=== PATIENT | female | born 1960 | race American Indian/Alaskan Native ===

== ENCOUNTER 2017-04-15 07:26 | Emergency (ER) | payer MEDICARE ==
[2017-04-15 07:34] VITALS: BP 106/56
[2017-04-15 08:15] LABS: Anion Gap 17 mmol/L; BUN/Creatinine Ratio 13.33; Blood Urea Nitrogen 8 mg/dL (7-17); Carbon Dioxide 23 mmol/L (22-30); Chloride 102.5 mmol/L (98-107); Glucose 122 mg/dL (65-100); Potassium 3.8 mmol/L (3.6-5.0); Sodium 139 mmol/L (137-145)
[2017-04-15 08:20] LABS: Mean Corpuscular HGB Conc 28 % (30-34); Platelet Count 682 K/mm3 (140-440); Red Blood Count 3.29 M/mm3 (3.65-5.03); White Blood Count 8.6 K/mm3 (4.5-11.0)
[2017-04-15 08:25] LABS: Hematocrit 22.2 % (30.3-42.9); Hemoglobin 6.1 gm/dl (10.1-14.3)
[2017-04-15 08:26] LABS: Mean Corpuscular Hemoglobin 19 pg (28-32); Mean Corpuscular Volume 67 fl (79-97); Red Cell Distribution Width 30.1 % (13.2-15.2)
[2017-04-15 08:51] LABS: Bacteria,Urine 1+ /HPF (Negative); Bilirubin,Urine NEG (Negative); Blood,Urine LG (Negative); Ketones,Urine NEG (Negative); Leukocyte Esterase,Urine TR (Negative); Mucus,Urine FEW /HPF; Nitrite,Urine NEG (Negative); RBC,Urine > 182.0 /HPF (0.0-6.0); Urobilinogen,Urine < 2.0 mg/dL (<2.0)
[2017-04-15 09:22] LABS: Anisocytosis 3+; Blastocytes % (Manual) 0 %; Hypochromasia 2+; Microcytosis 1+; Polychromasia Few
[2017-04-15 09:23] LABS: Diff Status Complete; Platelet Estimate Appears Increased
== END 2017-04-15 09:25 | disposition left against medical advice (07) ==
LOC: ED 07:26
DX: R11.0 Nausea (principal); R19.7 Diarrhea, unspecified; Z88.6 Allergy status to analgesic agent; Z88.5 Allergy status to narcotic agent; Z53.21 Procedure and treatment not carried out due to patient leaving prior to being seen by health care provider
CPT/HCPCS: 36415; 80048; 81001; 84703; 85007; 85025

== ENCOUNTER 2017-05-13 17:03 | Emergency (ER) | payer MEDICARE ==
[2017-05-13 17:28] VITALS: BP 106/84
--- NOTE | 2017-05-13 18:54 | Emergency Department Report ---
Chief Complaint: Fall Stated Complaint: BACK PAIN /FELL DOWN STAIRS Time Seen by Provider: 05/13/17 18:42 - HPI History of Present Illness: PT states she was walking down her stairs and she missed the last three steps. PT reports neck, back and R arm pain PT states she has a question about her Iron pills and pulls out a bottle of Colace. PT aware that Colace is not an Iron supplement but usually taken to offset the constipation side effect of Iron. - ROS Review of Systems: + neck pain + back pain + arm pain - loc + dizziness x 5 minutes after fall + vaginal bleed, pt reports heavy cycle - Exam Vital Signs: Vital Signs 05/13/17 17:23 Temperature 98 F Pulse Rate 80 Respiratory 18 Rate Blood Pressure 106/84 O2 Sat by Pulse 100 Oximetry Physical Exam: PT with post midline C-spine tenderness pt reports vertebral tenderness along her entire spine R lateral elbow ttp MSE screening note: Focused history and physical exam performed. Due to findings the following was ordered: cy, xr, labs ED Disposition for MSE Condition: Stable Referrals: PETERSON KONG MD [Primary Care Provider] - 3-5 Days
--- NOTE | 2017-05-13 19:49 | Cat Scan Report ---
FINAL REPORT EXAM: CT CERVICAL SPINE WO CON HISTORY: neck pain sp fall TECHNIQUE: Standard CT cervical spine obtained at 1.25 millimeter axial increments. Coronal and sagittal reconstruction was also performed. PRIORS: None. FINDINGS: The vertebral bodies are intact. There is no evidence for acute fracture. There is no evidence for paravertebral soft tissue swelling. Alignment is maintained. Incidental note is made of an 8 mm rounded hypodense focus in the left lobe of the thyroid which can be further evaluated with ultrasound. IMPRESSION: Negative CT of the cervical spine. Small rounded focus in the left thyroid lobe which should be further evaluated with ultrasound.
[2017-05-13 19:53] LABS: Anion Gap 17 mmol/L; BUN/Creatinine Ratio 17.14; Blood Urea Nitrogen 12 mg/dL (7-17); Calcium 9.4 mg/dL (8.4-10.2); Carbon Dioxide 24 mmol/L (22-30); Chloride 100.6 mmol/L (98-107); Glucose 95 mg/dL (65-100); Potassium 4.5 mmol/L (3.6-5.0); Sodium 137 mmol/L (137-145)
--- NOTE | 2017-05-13 20:01 | Cat Scan Report ---
FINAL REPORT EXAM: CT HEAD/BRAIN WO CON HISTORY: dizziness sp fall TECHNIQUE: Standard unenhanced CT of the head at 5.0 millimeter axial increments. PRIORS: None. FINDINGS: The ventricular system is normal in size and configuration. There is no evidence for parenchymal volume loss. There is no evidence for mass lesion, mass effect, midline shift, acute intracranial hemorrhage, or acute ischemia/ infarction. No evidence for acute skull fracture is seen. No abnormality in the overlying scalp soft tissues is seen. Visualized paranasal sinuses are clear. IMPRESSION: Negative CT of the head. No acute intracranial process noted.
[2017-05-13 20:02] LABS: Hematocrit 31.7 % (30.3-42.9); Hemoglobin 9.7 gm/dl (10.1-14.3); Mean Corpuscular HGB Conc 31 % (30-34); Mean Corpuscular Volume 75 fl (79-97); Platelet Count 253 K/mm3 (140-440); Red Blood Count 4.25 M/mm3 (3.65-5.03); White Blood Count 9.7 K/mm3 (4.5-11.0)
[2017-05-13 20:07] LABS: Mean Corpuscular Hemoglobin 23 pg (28-32); Red Cell Distribution Width 29.1 % (13.2-15.2)
--- NOTE | 2017-05-13 20:07 | Emergency Department Report ---
ED Fall HPI - General Chief Complaint: Fall Stated Complaint: BACK PAIN /FELL DOWN STAIRS Time Seen by Provider: 05/13/17 18:42 Source: patient, family Mode of arrival: Ambulatory - History of Present Illness Initial Comments: PT states she was walking down her stairs and she missed the last three steps. PT reports neck, back and R arm pain . She is hurting in the lower back with tingling to her legs. She said she had headache but she took Tylenol and it went away. She denies the seizure had lost consciousness. Reports that she is having pain in the back of her neck comes and goes. It overlies into the right upper extremity back and neck 9 and 10 and aching. She reports swelling to her right arm and elbow. MD Complaint: fall Onset/Timin -: days(s) Fall From: standing, down stairs (#) (3 steps) When Fall Occurred: # days PASSENGER SCREENER (1) Fall Witnessed: yes, by family Place Fall Occurred: home Loss of Consciousness: none Prolonged Down Time?: no Symptoms Prior to Fall: none Location: neck, back Location - Extremities: Right: Arm (pain and swelling), Elbow (Pain and swelling ) Severity: severe Severity scale (0 -10): 9 Quality: aching Context: tripped/slipped Associated Symptoms: neck pain, other (tingling to her legs). denies: headache , numbness, weakness, chest paint, shortness of breath, abdominal pain, hematuria, unable to walk, lightheaded, vertigo, confusion - Related Data Previous Rx's Medication Instructions Recorded Last Taken Type Docusate Sodium [Colace CAP] 100 mg PO BID #60 capsule 05/13/17 Unknown Rx Ferrous Sulfate [Feosol 325 MG tab] 325 mg PO BID #60 tablet 05/13/17 Unknown Rx Ibuprofen [Motrin] 600 mg PO Q8H PRN #15 tablet 05/13/17 Unknown Rx traMADol [Ultram 50 MG tab] 50 mg PO Q6HR PRN #20 tablet 05/13/17 Unknown Rx Allergies Allergy/AdvReac Type Severity Reaction Status Date / Time aspirin Allergy Vomiting Verified 05/13/17 17:22 codeine Allergy Vomiting Verified 05/13/17 17:22 ED Review of Systems ROS: Stated complaint: BACK PAIN /FELL DOWN STAIRS Other details as noted in HPI Comment: All other systems reviewed and negative Constitutional: denies: chills, fever Eyes: denies: vision change ENT: denies: epistaxis Respiratory: no symptoms reported Cardiovascular: denies: chest pain, palpitations, edema, syncope Gastrointestinal: denies: abdominal pain, nausea, vomiting Musculoskeletal: back pain, joint swelling, arthralgia, myalgia Skin: denies: rash Neurological: paresthesias. denies: headache, weakness, numbness, confusion, abnormal gait, vertigo ED Past Medical Hx - Past Medical History Previous Medical History?: Yes Hx Psychiatric Treatment: No Additional medical history: G6PD deficiency, chronic anemia secondary to fibroids, BLOOD TRANSFUSION JUNE 2015 - Surgical History Past Surgical History?: Yes Additional Surgical History: tubal ligation - Family History Family history: hypertension - Social History Smoking Status: Never Smoker Substance Use Type: None - Medications Home Medications: Home Medications Medication Instructions Recorded Confirmed Last Taken Type Docusate Sodium [Colace CAP] 100 mg PO BID #60 capsule 05/13/17 Unknown Rx Ferrous Sulfate [Feosol 325 MG tab] 325 mg PO BID #60 tablet 05/13/17 Unknown Rx Ibuprofen [Motrin] 600 mg PO Q8H PRN #15 tablet 05/13/17 Unknown Rx traMADol [Ultram 50 MG tab] 50 mg PO Q6HR PRN #20 tablet 05/13/17 Unknown Rx ED Physical Exam - General Limitations: No Limitations General appearance: alert, in no apparent distress - Head Head exam: Present: atraumatic, normocephalic, normal inspection - Expanded Head Exam Expanded Head exam: Absent: laceration, abrasion, contusion, hematoma, racoon eyes, estrella's sign, general tenderness, tenderness of temporal artery, CSF rhinorrhea , CSF otorrhea - Eye Eye exam: Present: normal appearance, PERRL, EOMI. Absent: scleral icterus, conjunctival injection, nystagmus, periorbital swelling, periorbital tenderness Pupils: Present: normal accommodation - ENT ENT exam: Present: normal exam, normal orophraynx, mucous membranes moist, TM's normal bilaterally, normal external ear exam - Neck Neck exam: Present: normal inspection. Absent: tenderness, meningismus, full ROM, lymphadenopathy - Expanded Neck Exam Expanded Neck exam: Absent: tenderness, midline deformity, anterior neck swelling, thyroid mass, tracheal deviation - Respiratory Respiratory exam: Present: normal lung sounds bilaterally. Absent: respiratory distress, wheezes, rales, rhonchi, stridor, chest wall tenderness, accessory muscle use, decreased breath sounds, prolonged expiratory - Cardiovascular Cardiovascular Exam: Present: regular rate, normal rhythm, normal heart sounds - GI/Abdominal GI/Abdominal exam: Present: soft, normal bowel sounds. Absent: distended, tenderness, guarding, rebound, rigid - Extremities Exam Extremities exam: Present: normal inspection - Expanded Upper Extremity Exam Right General: Absent: laceration, abrasion Shoulder Exam: Present: normal inspection, full ROM. Absent: tenderness, swelling, abrasion, laceration, ecchymosis, deformity, crepidus, dislocation, erythema, tenderness over AC joint Upper Arm exam: Present: full ROM, tenderness (tenderness to palpate distal arm) , swelling (mild swelling to the forearm). Absent: abrasion, laceration, ecchymosis, deformity, crepidus, dislocation, erythema Elbow exam: Present: normal inspection, full ROM, tenderness. Absent: swelling , abrasion, laceration, ecchymosis, deformity, crepidus, dislocation, erythema, effusion, pain w/ pronation/supination, tenderness over radial head Forearm Wrist exam: Present: normal inspection, full ROM. Absent: tenderness, swelling, abrasion, laceration, ecchymosis, deformity, crepidus, dislocation, erythema, tenderness over anatomical snuff box, pain with axial thumb loading Hand Wrist exam: Present: normal inspection, full ROM. Absent: tenderness, swelling, abrasion, laceration, ecchymosis, deformity, crepidus, dislocation, erythema, amputation, nail avulsion, subungual hematoma Neuro motor exam: Present: wrist extension intact, thumb opposition intact, thumb IP flexion intact, thumb adduction intact, fingers 2-5 abduction intact Neurosensory exam: Present: 2-point discrimination, radial nerve intact, ulnar nerve intact, median nerve intact Vascular: Present: vascular compromise, radial pulse, brachial pulse, ulnar pulse. Absent: Pallo, normal capillary refill, pulse deficit radial art, pulse deficit ulnar art, pulse deficit brachial art - Back Exam Back exam: Present: normal inspection, full ROM. Absent: tenderness, CVA tenderness (R), CVA tenderness (L), muscle spasm, paraspinal tenderness, vertebral tenderness, rash noted - Expanded Back Exam Expanded Back exam: Absent: saddle anesthesia Back exam: Negative Straight Leg Raising: Left, Right - Neurological Exam Neurological exam: Present: alert, oriented X3, normal gait, reflexes normal. Absent: motor sensory deficit - Expanded Neurological Exam Expanded Neurological exam: Absent: innattentive, memory loss-remote event, memory loss- recent event, ataxia, receptive aphasia, expressive aphasia, total aphasia, tremor, protecting the airway Patient oriented to: Present: person, place, time Speech: Present: fluid speech Cranial nerves: Gag Reflex: Normal, Tongue Deviation: Normal, Nystagmus: Normal , Facial Sensation: Normal Cerebellar function: Romberg: Normal Upper motor neuron: Pronator Drift: Normal, Sensory Extinction: Normal Sensory exam: Upper Extremity Light Touch: Normal, Upper Extremity Pin Prick: Normal, Upper Extremity Temperature: Normal, UE 2 Point Discrimination: Normal, Lower Extremity Light Touch: Normal, Lower Extremity Pin Prick: Normal, Lower Extremity Temperature: Normal, LE 2 Point Discrimination: Normal Motor strength exam: RUE: 5, LUE: 5, RLE: 5, LLE: 5 DTR: bicep (R): 2+, bicep (L): 2+, tricep (R): 2+, tricep (L): 2+, knee (R): 2+ , knee (L): 2+, ankle (R): 2+, ankle (L): 2+ Best Eye Response ([place]): (4) open spontaneously Best Motor Response ([place]): (6) obeys commands Best Verbal Response (Mary): (5) oriented [place] Total: 15 - Psychiatric Psychiatric exam: Present: normal affect, normal mood - Skin Skin exam: Present: warm, dry, intact, normal color. Absent: rash ED Course Vital Signs 05/13/17 17:23 Temperature 98 F Pulse Rate 80 Respiratory 18 Rate Blood Pressure 106/84 O2 Sat by Pulse 100 Oximetry - Reevaluation(s) Reevaluation #1: 05/13/17 21:29 Patient stabe through course. She wanted medication to go home and not to take at Hospital ED Medical Decision Making - Lab Data Result diagrams: 05/13/17 19:23 05/13/17 19:23 Lab Results 05/13/17 05/13/17 Range/Units 19:23 19:23 WBC 9.7 (4.5-11.0) K/mm3 RBC 4.25 (3.65-5.03) M/mm3 Hgb 9.7 L (10.1-14.3) gm/dl Hct 31.7 (30.3-42.9) % MCV 75 L (79-97) fl MCH 23 L (28-32) pg MCHC 31 (30-34) % RDW 29.1 H (13.2-15.2) % Plt Count 253 (140-440) K/mm3 Add Manual Diff Complete Total Counted 100 Seg Neuts % (Manual) 79.0 H (40.0-70.0) % Band Neutrophils % 1.0 % Lymphocytes % (Manual) 12.0 L (13.4-35.0) % Reactive Lymphs % (Man) 0 % Monocytes % (Manual) 5.0 (0.0-7.3) % Eosinophils % (Manual) 3.0 (0.0-4.3) % Basophils % (Manual) 0 (0.0-1.8) % Metamyelocytes % 0 % Myelocytes % 0 % Promyelocytes % 0 % Blast Cells % 0 % Nucleated RBC % Not Reportable Seg Neutrophils # Man 7.7 (1.8-7.7) K/mm3 Band Neutrophils # 0.1 K/mm3 Lymphocytes # (Manual) 1.2 (1.2-5.4) K/mm3 Abs React Lymphs (Man) 0.0 K/mm3 Monocytes # (Manual) 0.5 (0.0-0.8) K/mm3 Eosinophils # (Manual) 0.3 (0.0-0.4) K/mm3 Basophils # (Manual) 0.0 (0.0-0.1) K/mm3 Metamyelocytes # 0.0 K/mm3 Myelocytes # 0.0 K/mm3 Promyelocytes # 0.0 K/mm3 Blast Cells # 0.0 K/mm3 WBC Morphology Not Reportable Hypersegmented Neuts Not Reportable Hyposegmented Neuts Not Reportable Hypogranular Neuts Not Reportable Smudge Cells Not Reportable Toxic Granulation Not Reportable Toxic Vacuolation Not Reportable Dohle Bodies Not Reportable Pelger-Huet Anomaly Not Reportable [place] Rods Not Reportable Platelet Estimate Consistent w auto Clumped Platelets Not Reportable Plt Clumps, EDTA Not Reportable Large Platelets Not Reportable Giant Platelets Not Reportable Platelet Satelliting Not Reportable Plt Morphology Comment Not Reportable RBC Morphology Not Reportable Dimorphic RBCs Not Reportable Polychromasia Not Reportable Hypochromasia Not Reportable Poikilocytosis Not Reportable Anisocytosis 2+ Microcytosis Not Reportable Macrocytosis Not Reportable Spherocytes Not Reportable Pappenheimer Bodies Not Reportable Sickle Cells Not Reportable Target Cells Not Reportable Tear Drop Cells Few Ovalocytes Not Reportable Helmet Cells Not Reportable [place] Bodies Not Reportable [place] Rings Not Reportable Samantha Cells Not Reportable Bite Cells Not Reportable Crenated Cell Not Reportable Elliptocytes 1+ Acanthocytes (Spur) Not Reportable Rouleaux Not Reportable Hemoglobin C Crystals Not Reportable Schistocytes Not Reportable Malaria parasites Not Reportable Levi Bodies Not Reportable Hem Pathologist Commnt No Sodium 137 (137-145) mmol/L Potassium 4.5 (3.6-5.0) mmol/L Chloride 100.6 (98-107) mmol/L Carbon Dioxide 24 (22-30) mmol/L Anion Gap 17 mmol/L BUN 12 (7-17) mg/dL Creatinine 0.7 (0.7-1.2) mg/dL Estimated GFR > 60 ml/min BUN/Creatinine Ratio 17.14 % Glucose 95 (65-100) mg/dL Calcium 9.4 (8.4-10.2) mg/dL - Radiology Data Radiology results: report reviewed CT scan of the C-spine reveal negative CT scan of the cervical spine. Small rounded focus in the left thyroid lobe. Be further evaluated with ultrasound. CT scan brain revealed no acute findings. xray of lumbar spine reveal normal examination. X-ray of thoracic spine reveal no acute bony abnormality. 8 cm density in the posterior lung is noted this may represent an area of consolidation versus mass lesion. XR of the right forearm revealed normal exam. XR of rt elbow reveal normal exam - Medical Decision Making ED course: Intravenous pain medication in emergency room I gave her all the results for x-ray or CT scan and a CT scan of the cervical spine shows that she has some thyroid abnormality on CT scan to have to have outpatient follow-up. I also told her that CT scan of her thoracic spine revealed that she has 6 cm density in the posterior lungs which may represent an area of consolidation versus mass lesion. Patient does not have any shortness of breath or respiratory difficulty and on physical findings I did not found any thyroid mass." Radiology recommendation of follow-up radiograph to include x-rays of the chest and ultrasound for her neck and she said this to get that done at her primary care physician's office. He did not want to stay she wants to go home. She discharged home with prescription for Ultram and to follow up with orthopedic and primary care physician in 2 days. Critical care attestation.: If time is entered above; I have spent that time in minutes in the direct care of this critically ill patient, excluding procedure time. ED Disposition Clinical Impression: Arthralgia of multiple sites, Musculoskeletal pain, Lumbar radiculopathy, acute Contusion of right arm Qualifiers: Encounter type: initial encounter Qualified Code(s): S40.021A - Contusion of right upper arm, initial encounter Accidental fall on or from stairs or steps Qualifiers: Encounter type: initial encounter Qualified Code(s): W10.8XXA - Fall (on) (from ) other stairs and steps, initial encounter Anemia Qualifiers: Anemia type: unspecified type Qualified Code(s): D64.9 - Anemia, unspecified Disposition: DC-01 TO HOME OR SELFCARE Is pt being admited?: No Does the pt Need Aspirin: No Condition: Stable Instructions: Musculoskeletal Pain (ED), Contusion in Adults (ED), Fall Prevention (ED), Lumbar Radiculopathy (ED), Anemia (ED) Additional Instructions: Follow-up with orthopedic and primary care physician in 2 days regarding abnormal findings for thyroid lobe and tests. Need outpatient ultrasound and chest x-ray. 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
--- NOTE | 2017-05-13 20:23 | XRay Report ---
FINAL REPORT PROCEDURE: XR SPINE LUMBOSACRAL 2-3V TECHNIQUE: Lumbar spine radiographs, frontal and lateral views. CPT 36486 HISTORY: low back pain sp fall COMPARISON: No prior studies are available for comparison. FINDINGS: Alignment: Normal . Vertebral body heights/Disk spaces: Normal . Fracture(s): None . Facets: Normal . Bone mineralization: Normal . IMPRESSION: Normal Examination
--- NOTE | 2017-05-13 20:29 | XRay Report ---
FINAL REPORT PROCEDURE: XR SPINE THORACIC 2V TECHNIQUE: Thoracic spine radiographs, including AP and lateral projections. CPT 19274 HISTORY: mid back pain sp fall COMPARISON: No prior studies are available for comparison. FINDINGS: Alignment: Normal . Vertebral body height: Normal . Disk spaces: Normal . Fracture(s): None . Bone mineralization: Normal . An irregularly round density with ill-defined margins is identified in the posterior lung as visualized on lateral views only IMPRESSION: No acute bony abnormality. 6 centimeter density in the posterior lung is noted which may represent an area of consolidation versus mass lesion.. Radiographs of the chest are recommended for further evaluation.
--- NOTE | 2017-05-13 20:30 | XRay Report ---
FINAL REPORT PROCEDURE: XR ELBOW 2V RT TECHNIQUE: RIGHT elbow radiographs, including AP and lateral views. HISTORY: elbow pain sp fall COMPARISON: No prior studies are available for comparison. FINDINGS: Fracture (s) and/or Dislocation(s): None . Alignment: Normal . Joint space(s): Normal . Soft tissues: Normal . Bone mineralization: Normal . Foreign bodies: None . IMPRESSION: Normal Examination
--- NOTE | 2017-05-13 20:31 | XRay Report ---
FINAL REPORT PROCEDURE: XR FOREARM RT TECHNIQUE: RIGHT forearm radiographs, AP and lateral views. CPT 28618 HISTORY: arm pain sp fall COMPARISON: No prior studies are available for comparison. FINDINGS: Fracture (s) and/or Dislocation(s): None . Joint space(s): Normal . Soft tissues: Normal . Bone mineralization: Normal . Foreign bodies: None . IMPRESSION: Normal Examination
[2017-05-13 20:57] LABS: Blastocytes % (Manual) 0 %
[2017-05-13 20:58] LABS: Basophils % (Manual) 0 % (0.0-1.8)
[2017-05-13 20:59] LABS: Anisocytosis 2+; Elliptocytes 1+
[2017-05-13 21:00] LABS: Diff Status Complete; Platelet Estimate Consistent w Auto; Tear Drop Cells Few
== END 2017-05-13 21:52 | disposition home or self-care (01) ==
LOC: ED 17:03
DX: S40.021A Contusion of right upper arm, initial encounter (principal); D64.9 Anemia, unspecified; M79.1 Myalgia; M54.16 Radiculopathy, lumbar region; W10.8XXA Fall (on) (from) other stairs and steps, initial encounter; Y93.9 Activity, unspecified; Y92.9 Unspecified place or not applicable; Y99.9 Unspecified external cause status
CPT/HCPCS: 36415; 70450; 72070; 72100; 72125; 80048; 85007; 85025; 99284

== ENCOUNTER 2017-05-29 16:47 | Emergency (ER) | payer MEDICARE | END 2017-05-29 17:30 | disposition left against medical advice (07) | LOC: ED 16:47 | DX: M25.571 Pain in right ankle and joints of right foot (principal); Z53.21 Procedure and treatment not carried out due to patient leaving prior to being seen by health care provider ==

== ENCOUNTER 2017-06-24 20:13 | Emergency (ER) | payer MEDICARE ==
--- NOTE | 2017-06-24 22:35 | XRay Report ---
FINAL REPORT PROCEDURE: XR SHOULDER 2+V RT TECHNIQUE: Right shoulder radiographs including AP views in internal and external rotation and abduction. CPT 27221 HISTORY: Rt shoulder pain COMPARISON: No prior studies are available for comparison. FINDINGS: Fracture (s) and/or Dislocation(s): None . Joint space(s): Normal . Soft tissues: Normal . Bone mineralization: Normal . Foreign bodies: None . IMPRESSION: Normal Examination
--- NOTE | 2017-06-25 02:18 | Emergency Department Report ---
HPI - General Chief Complaint: Extremity Injury, Upper Time Seen by Provider: 06/25/17 00:34 - HPI HPI: She is a 56-year-old female presents to ED complaining of right-sided shoulder pain that study yesterday. Patient states she had been lifting some heavy boxes yesterday and today she started experiencing some shoulder pain. She describes it as throbbing, nonradiating, localized to the shoulder region. She denies any injury, fever, chills, nausea, vomiting, abdominal pain, chest pain ED Past Medical Hx - Past Medical History Previous Medical History?: Yes Hx Psychiatric Treatment: No Additional medical history: G6PD deficiency, chronic anemia secondary to fibroids, BLOOD TRANSFUSION JUNE 2015 - Surgical History Past Surgical History?: Yes Additional Surgical History: tubal ligation - Social History Smoking Status: Never Smoker Substance Use Type: None - Medications Home Medications: Home Medications Medication Instructions Recorded Confirmed Last Taken Type Docusate Sodium [Colace CAP] 100 mg PO BID #60 capsule 05/13/17 Unknown Rx Ferrous Sulfate [Feosol 325 MG tab] 325 mg PO BID #60 tablet 05/13/17 Unknown Rx Ibuprofen [Motrin] 600 mg PO Q8H PRN #15 tablet 05/13/17 Unknown Rx traMADol [Ultram 50 MG tab] 50 mg PO Q6HR PRN #20 tablet 05/13/17 Unknown Rx Cyclobenzaprine [Flexeril] 10 mg PO QHS PRN #20 tablet 06/25/17 Unknown Rx Ibuprofen [Motrin] 800 mg PO Q8HR PRN #30 tablet 06/25/17 Unknown Rx ED Review of Systems ROS: Stated complaint: SHOULDER PAIN Other details as noted in HPI Constitutional: denies: chills, fever Eyes: denies: eye pain, eye discharge, vision change ENT: denies: ear pain, throat pain Respiratory: denies: cough, shortness of breath, wheezing Cardiovascular: denies: chest pain, palpitations Endocrine: no symptoms reported Gastrointestinal: denies: abdominal pain, nausea, diarrhea Genitourinary: denies: urgency, dysuria, discharge Musculoskeletal: denies: back pain, joint swelling, arthralgia Skin: denies: rash, lesions Neurological: denies: headache, weakness, numbness, paresthesias, confusion Psychiatric: denies: anxiety, depression Hematological/Lymphatic: denies: easy bleeding, easy bruising Physical Exam - Physical Exam Vital Signs: Vital Signs 06/24/17 06/24/17 21:02 21:48 Temperature 98.3 F 98.3 F Pulse Rate 81 81 Respiratory 20 20 Rate Blood Pressure 107/65 Blood Pressure 107/65 [Right] O2 Sat by Pulse 100 100 Oximetry Physical Exam: GENERAL: Alert and oriented x3, no apparent distress, Normal Gait, atraumatic. HEAD: Head is normocephalic and a-traumatic. EYES: Extra ocular muscles are intact. Pupils are equal, round, and reactive to light and accommodation. NECK: Supple. Non edematous, No lymphadenopathy or thyromegaly. No C-spine tenderness LUNGS: Symetrical with respiration, No wheezing, no rales or crackles, CTAB. HEART: S1, S2 present, regular rate and rhythm without murmur, no rubs, no gallops. Non tender to palpation EXTREMITIES/MUSCULOSKELETAL: No cyanosis, clubbing, rash, lesions or edema. Full ROM bilaterally. UE/LE Pulses 2+ bilaterally. UE 5+ strength bilaterally , tenderness to palpation of the anterior shoulder region in the scapular region , no ecchymosis, no swelling. NEUROLOGIC: The patient is cooperative with no focal neurologic deficits. Cranial nerves II through XII are grossly intact. Normal speech. PSYCHIATRIC: Mood is congruent with affect, denies suicidal or homicidal ideations. SKIN: Warm and dry, No lesions, No ulceration or induration present. ED Course Vital Signs 06/24/17 06/24/17 21:02 21:48 Temperature 98.3 F 98.3 F Pulse Rate 81 81 Respiratory 20 20 Rate Blood Pressure 107/65 Blood Pressure 107/65 [Right] O2 Sat by Pulse 100 100 Oximetry ED Medical Decision Making - Medical Decision Making 56-year-old female presents with shoulder muscle strain ED course: Discussed with patient to rest arm for the next couple of days. Discussed to take Motrin as needed for pain Discussed drugs effects of Flexeril and not to take and drive, X-ray of the shoulder shows no fracture no dislocation or any other acute findings Vital signs in normal position and is in no acute distress. She she is alert and oriented 3 shortness of instructions given discussed the patient will follow up with primary care physician. Critical care attestation.: If time is entered above; I have spent that time in minutes in the direct care of this critically ill patient, excluding procedure time. ED Disposition Clinical Impression: Muscle strain of right shoulder Qualifiers: Encounter type: initial encounter Qualified Code(s): S46.911A - Strain of unspecified muscle, fascia and tendon at shoulder and upper arm level, right arm , initial encounter Disposition: TO HOME OR SELFCARE Is pt being admited?: No Does the pt Need Aspirin: No Condition: Stable Instructions: Muscle Strain (ED), Heat Pack Application (ED) Prescriptions: Cyclobenzaprine [Flexeril] 10 mg PO QHS PRN #20 tablet PRN Reason: Muscle Spasm Ibuprofen [Motrin] 800 mg PO Q8HR PRN #30 tablet PRN Reason: Pain Referrals: PETERSON KONG MD [Primary Care Provider] - 3-5 Days Forms: Work/School Release Form(ED) Time of Disposition: 02:18
[2017-06-25 03:27] VITALS: BP 110/53
== END 2017-06-25 03:29 | disposition home or self-care (01) ==
LOC: ED 20:13
DX: S46.911A Strain of unspecified muscle, fascia and tendon at shoulder and upper arm level, right arm, initial encounter (principal); Z98.51 Tubal ligation status; X50.0XXA Overexertion from strenuous movement or load, initial encounter; Y93.89 Activity, other specified; Y92.89 Other specified places as the place of occurrence of the external cause; Y99.8 Other external cause status

== ENCOUNTER 2017-07-05 08:29 | Emergency (ER) | payer MEDICARE ==
[2017-07-05 08:45] VITALS: BP 96/58
[2017-07-05] MEDS ORDERED: MOTRIN PO ONE (09:35)
--- NOTE | 2017-07-05 10:54 | XRay Report ---
Right ankle 3 views: History: Fall. Findings: No articular abnormality. No fracture or dislocation. Small spur posterior superior calcaneal Impression: No evidence of acute fracture.
--- NOTE | 2017-07-05 10:54 | XRay Report ---
Left elbow 3 views: History: Fall. Findings: No fracture dislocation or joint effusion. No soft tissue calcification. Impression: No evidence of acute fracture.
--- NOTE | 2017-07-05 10:55 | XRay Report ---
Left humerus 2 views: History: Fall. Findings: No fracture, periosteal reaction or lytic lesion. Impression: No evidence of acute fracture.
--- NOTE | 2017-07-05 10:56 | XRay Report ---
Lumbar spine 3 views: History: Fall. Findings: Mild scoliosis of lumbar spine with convexity to left. No fracture or dislocation. Normal height of vertebral bodies and intervertebral disc. Impression: No evidence of acute fracture. Incidentally noted marked narrowing of T11-T12 interspace.
--- NOTE | 2017-07-05 18:37 | Emergency Department Report ---
Entered by SATNAM RAMOS, acting as scribe for CHUN WARE NP. ED Back Pain/Injury HPI - General Chief Complaint: Back Pain/Injury Stated Complaint: FELL/BACK/RIGHT ANKLE PAIN Time Seen by Provider: 07/05/17 09:25 Source: patient Limitations: No Limitations - History of Present Illness Initial Comments: This is a 56-year-old female nontoxic, well nourished in appearance, no acute signs of distress presents with back pain/injury from 2 days ago. Patient reports she went roller skating with her friends, and fell on her left side causing left arm pain and right ankle pain. Patient stated she twisted her ankle while roller skating but denies any trauma of direct blow. Patient states she used Ibuprofen OTC with minimal relief. Patient denies trauma, ecchymosis, numbness, fever, chills, head trauma, headache, shortness of breathe , stiff neck, LOC, blurry vision, and chest pain. No PMHx. MD Complaint: back pain, fall -: days(s) (2) Similar Symptoms Previously: No Place: other (skating rink) Radiation: none Severity scale (0 -10): 4 Quality: aching Consistency: constant Improves With: none Worsens With: movement Context: fall Associated Symptoms: denies other symptoms. denies: confusion, weakness, chest pain, numbness, difficulty walking, cough, incontinence, fever/chills, constipation, headaches, abdominal pain, malaise, nausea/vomiting, rash, seizure , shortness of breath, syncope - Related Data Previous Rx's Medication Instructions Recorded Last Taken Type Docusate Sodium [Colace CAP] 100 mg PO BID #60 capsule 05/13/17 Unknown Rx Ferrous Sulfate [Feosol 325 MG tab] 325 mg PO BID #60 tablet 05/13/17 Unknown Rx Ibuprofen [Motrin] 600 mg PO Q8H PRN #15 tablet 05/13/17 Unknown Rx traMADol [Ultram 50 MG tab] 50 mg PO Q6HR PRN #20 tablet 05/13/17 Unknown Rx Cyclobenzaprine [Flexeril] 10 mg PO QHS PRN #20 tablet 06/25/17 Unknown Rx Ibuprofen [Motrin] 800 mg PO Q8HR PRN #30 tablet 06/25/17 Unknown Rx Ibuprofen [Motrin 600 MG tab] 600 mg PO Q8H PRN #20 tablet 07/05/17 Unknown Rx Allergies Allergy/AdvReac Type Severity Reaction Status Date / Time aspirin Allergy Vomiting Verified 05/13/17 17:22 codeine Allergy Vomiting Verified 05/13/17 17:22 ED Review of Systems Comment: All other systems reviewed and negative Constitutional: denies: chills, fever Eyes: denies: eye pain, eye discharge, vision change ENT: denies: ear pain, throat pain Respiratory: denies: cough, shortness of breath, wheezing Cardiovascular: denies: chest pain, palpitations Endocrine: no symptoms reported Gastrointestinal: denies: abdominal pain, nausea, vomiting, diarrhea Genitourinary: denies: urgency, dysuria, discharge Musculoskeletal: back pain. denies: joint swelling, arthralgia Skin: denies: rash, lesions Neurological: denies: headache, weakness, paresthesias Psychiatric: denies: anxiety, depression Hematological/Lymphatic: denies: easy bleeding, easy bruising ED Past Medical Hx - Past Medical History Hx Psychiatric Treatment: No Additional medical history: G6PD deficiency, chronic anemia secondary to fibroids, BLOOD TRANSFUSION JUNE 2015 - Surgical History Additional Surgical History: tubal ligation - Social History Smoking Status: Never Smoker Substance Use Type: None - Medications Home Medications: Home Medications Medication Instructions Recorded Confirmed Last Taken Type Docusate Sodium [Colace CAP] 100 mg PO BID #60 capsule 05/13/17 Unknown Rx Ferrous Sulfate [Feosol 325 MG tab] 325 mg PO BID #60 tablet 05/13/17 Unknown Rx Ibuprofen [Motrin] 600 mg PO Q8H PRN #15 tablet 05/13/17 Unknown Rx traMADol [Ultram 50 MG tab] 50 mg PO Q6HR PRN #20 tablet 05/13/17 Unknown Rx Cyclobenzaprine [Flexeril] 10 mg PO QHS PRN #20 tablet 06/25/17 Unknown Rx Ibuprofen [Motrin] 800 mg PO Q8HR PRN #30 tablet 06/25/17 Unknown Rx Ibuprofen [Motrin 600 MG tab] 600 mg PO Q8H PRN #20 tablet 07/05/17 Unknown Rx ED Physical Exam - General Limitations: No Limitations General appearance: alert, in no apparent distress - Head Head exam: Present: atraumatic, normocephalic, normal inspection - Eye Eye exam: Present: normal appearance, PERRL, EOMI. Absent: scleral icterus, conjunctival injection, nystagmus, periorbital swelling, periorbital tenderness - ENT ENT exam: Present: normal exam, normal orophraynx, mucous membranes moist, TM's normal bilaterally, normal external ear exam - Neck Neck exam: Present: normal inspection, full ROM. Absent: tenderness, meningismus, lymphadenopathy - Respiratory Respiratory exam: Present: normal lung sounds bilaterally. Absent: respiratory distress, wheezes, rales, rhonchi, stridor - Cardiovascular Cardiovascular Exam: Present: regular rate, normal rhythm, normal heart sounds. Absent: bradycardia, tachycardia, irregular rhythm, systolic murmur, diastolic murmur, rubs, gallop - GI/Abdominal GI/Abdominal exam: Present: soft, normal bowel sounds. Absent: distended, tenderness, guarding, rebound, rigid, diminished bowel sounds - Extremities Exam Extremities exam: Present: normal inspection, full ROM, normal capillary refill. Absent: tenderness, pedal edema, joint swelling - Expanded Upper Extremity Exam Left General: Present: normal inspection. Absent: laceration Shoulder Exam: Present: normal inspection, full ROM. Absent: tenderness, swelling, abrasion, laceration, ecchymosis, deformity, crepidus, erythema, tenderness over AC joint Upper Arm exam: Present: normal inspection, full ROM. Absent: tenderness, swelling, abrasion, laceration, ecchymosis, deformity, crepidus, dislocation, erythema Elbow exam: Present: normal inspection, full ROM. Absent: tenderness, swelling , abrasion, laceration, ecchymosis, deformity, crepidus, dislocation, erythema, effusion, pain w/ pronation/supination, tenderness over radial head Forearm Wrist exam: Present: normal inspection, full ROM. Absent: tenderness, swelling, abrasion, laceration, ecchymosis, deformity, crepidus, dislocation, erythema, tenderness over anatomical snuff box, pain with axial thumb loading Hand Wrist exam: Present: normal inspection, full ROM. Absent: tenderness, swelling, abrasion, laceration, ecchymosis, deformity, crepidus, dislocation, erythema, amputation, nail avulsion, subungual hematoma Neuro motor exam: Present: wrist extension intact, thumb opposition intact, thumb IP flexion intact, thumb adduction intact, fingers 2-5 abduction intact Neurosensory exam: Present: 2-point discrimination, radial nerve intact, ulnar nerve intact, median nerve intact Vascular: Present: vascular compromise, normal capillary refill, radial pulse, brachial pulse, ulnar pulse - Expanded Lower Extremity Exam Left Hip exam: Present: normal inspection (right side exam), full ROM, external rotation, internal rotation, pelvic stability. Absent: tenderness, swelling, abrasion, laceration, ecchymosis, deformity, crepidus, dislocation, erythema, shortening Upper Leg exam: Present: normal inspection (right side exam), full ROM. Absent : tenderness, swelling, abrasion, laceration, ecchymosis, deformity, crepidus, dislocation, erythema Knee exam: Present: normal inspection (right side exam), full ROM, full knee extension. Absent: tenderness, swelling, abrasion, laceration, ecchymosis, deformity, crepidus, dislocation, erythema, effusion, pain w/ pronation/ supination, posterior draw sign, pain/laxity with valgus, pain/laxity with varus Lower Leg exam: Present: normal inspection (right side exam), full ROM. Absent : tenderness, swelling, abrasion, laceration, ecchymosis, deformity, crepidus, dislocation, erythema, palpable cord, Harish's sign Ankle exam: Present: normal inspection (right side exam), full ROM. Absent: tenderness, swelling, abrasion, laceration, ecchymosis, deformity, crepidus, dislocation, erythema, anterior draw sign Foot/Toe exam: Present: normal inspection (right side exam), full ROM. Absent: tenderness, swelling, abrasion, laceration, ecchymosis, deformity, crepidus, dislocation, erythema, amputation, puncture wound, foreign body, calcaneal tenderness, tenderness at base of 5th metatarsal, nail avulsion, subungual hematoma Neuro vascular tendon exam: Present: no vascular compromise (right side exam). Absent: pulse deficit, abnormal cap refill, motor deficit, sensory deficit, tendon deficit, extremity cold to touch, pallor, abnormal 2-point discrimination , decreased fine/light touch, foot drop, peroneal nerve deficit, significant pain with passive ROM of distal joint Gait: Positive: observed and normal - Back Exam Back exam: Present: normal inspection, full ROM, paraspinal tenderness (lumbar spinal region), vertebral tenderness (lumbar spinal tendnerss), other (No ecchymosis, swelling, laceration, abrasion, or deformity noted.). Absent: tenderness, CVA tenderness (R), CVA tenderness (L), muscle spasm, rash noted - Neurological Exam Neurological exam: Present: alert, oriented X3, CN II-XII intact, normal gait, reflexes normal - Expanded Neurological Exam Expanded Patient oriented to: Present: person, place, time Speech: Present: fluid speech Cranial nerves: EOM's Intact: Normal, Gag Reflex: Normal, Tongue Deviation: Normal, Nystagmus: Normal, Facial Sensation: Normal, Facial Palsy with Forehead Movement: Normal, Facial Palsy without Forehead Movement: Normal Cerebellar function: Finger to Nose: Normal, Heel to [place]: Normal, Romberg: Normal Upper motor neuron: Damon Neglect: Normal, Pronator Drift: Normal, Babinski Sign : Normal, Sensory Extinction: Normal Sensory exam: Upper Extremity Light Touch: Normal, Upper Extremity Pin Prick: Normal, Upper Extremity Temperature: Normal, UE 2 Point Discrimination: Normal, Lower Extremity Light Touch: Normal, Lower Extremity Pin Prick: Normal, Lower Extremity Temperature: Normal, LE 2 Point Discrimination: Normal Motor strength exam: RUE: 5, LUE: 5, RLE: 5, LLE: 5 DTR: bicep (R): 2+, bicep (L): 2+, tricep (R): 2+, tricep (L): 2+, knee (R): 2+ , knee (L): 2+, ankle (R): 2+, ankle (L): 2+ Best Eye Response ([place]): (4) open spontaneously Best Motor Response ([place]): (6) obeys commands Best Verbal Response ([place]): (5) oriented Mary Total: 15 - Psychiatric Psychiatric exam: Present: normal affect, normal mood - Skin Skin exam: Present: warm, dry, intact, normal color. Absent: rash ED Course Vital Signs 07/05/17 08:41 Temperature 98.6 F Pulse Rate 74 Respiratory 20 Rate Blood Pressure 96/58 O2 Sat by Pulse 100 Oximetry - Reevaluation(s) Reevaluation #1: 07/05/17 09:50 Patient is speaking in full sentences with no signs of distress noted. ED Medical Decision Making - Medical Decision Making Ed course: This is a 56-year-old female that presents with contusion of left upper extermity, low back strain, and ankle sprain 1- patient was examined by myself. Patient received an x-ray to the left elbow , left humerus, lumbar spine, and right ankle with negative findings of any abnormalities or fractures. Dictated by radiologist. Patient notified of x- ray findings with no further questions noted by the patient. 2- patient was instructed to follow-up with a primary care doctor/orthopedic doctor in 3-5 days or if symptoms such as numbness, tingling, fever, chills, headache, chest pain or shortness of breath or symptoms or worsening return to emergency room as soon as possible 3- patient received ibuprofen in the ED as well as this chart. Patient stated she takes ibuprofen at home with no allergic reactions. 4- At time time of discharge, the patient does not seem toxic or ill in appearance. No acute signs of distress noted. Patient agrees to discharge treatment plan of care. No further questions noted by the patient. 5- patient was also instructed to rest, elevate, and ice extremity. ED Disposition Clinical Impression: Contusion Qualifiers: Encounter type: initial encounter Contusion area: lower leg Laterality: left Qualified Code(s): S80.12XA - Contusion of left lower leg, initial encounter Ankle sprain Qualifiers: Encounter type: initial encounter Involved ligament of ankle: unspecified ligament Laterality: right Qualified Code(s): S93.401A - Sprain of unspecified ligament of right ankle, initial encounter Low back strain Qualifiers: Encounter type: initial encounter Qualified Code(s): S39.012A - Strain of muscle, fascia and tendon of lower back, initial encounter Disposition: DC-01 TO HOME OR SELFCARE Is pt being admited?: No Does the pt Need Aspirin: No Condition: Stable Instructions: Ibuprofen (By mouth), Ankle Sprain (ED), Low Back Strain (ED), Contusion in Adults (ED), RICE Therapy (ED), Fall Prevention (ED) Additional Instructions: follow-up with a primary care doctor/orthopedic doctor in 3-5 days or if symptoms such as numbness, tingling, fever, chills, headache, chest pain or shortness of breath or symptoms or worsening return to emergency room as soon as possible Take ibuprofen as prescribed as needed for pain. Rest, elevate, ice extremities Prescriptions: Ibuprofen [Motrin 600 MG tab] 600 mg PO Q8H PRN #20 tablet PRN Reason: Pain Referrals: HARLEY MORTON MD [Staff Physician] - 3-5 Days PRIMARY CARE, [Primary Care Provider] - 3-5 Days DIOR ROSENBERG MD [Staff Physician] - 3-5 Days [facility] [Outside] - 3-5 Days [facility] [Outside] - 3-5 Days This documentation as recorded by the RICHARD heaton PEARL,accurately reflects the service I personally performed and the decisions made by ,CHUN WARE, TRAIN CALLER.
== END 2017-07-05 11:10 | disposition home or self-care (01) ==
LOC: ED 08:29
DX: S39.012A Strain of muscle, fascia and tendon of lower back, initial encounter (principal); S93.401A Sprain of unspecified ligament of right ankle, initial encounter; S80.12XA Contusion of left lower leg, initial encounter; D64.9 Anemia, unspecified; Z88.6 Allergy status to analgesic agent; Z88.5 Allergy status to narcotic agent; W19.XXXA Unspecified fall, initial encounter; Y93.89 Activity, other specified; Y99.8 Other external cause status; Y92.331 Roller skating rink as the place of occurrence of the external cause
CPT/HCPCS: 72100

== ENCOUNTER 2017-07-16 09:28 | Emergency (ER) | payer OTHER, MEDICARE ==
[2017-07-16 09:42] VITALS: BP 100/46
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
== END 2017-07-16 11:57 | disposition home or self-care (01) ==
LOC: ED 09:28
DX: S39.012A Strain of muscle, fascia and tendon of lower back, initial encounter (principal); Z88.6 Allergy status to analgesic agent; V89.2XXA Person injured in unspecified motor-vehicle accident, traffic, initial encounter; Y93.89 Activity, other specified; Y92.89 Other specified places as the place of occurrence of the external cause; Y99.8 Other external cause status
CPT/HCPCS: 99282

== ENCOUNTER 2017-11-03 03:02 | Emergency (ER) | payer MEDICARE ==
[2017-11-03 03:15] VITALS: BP 107/38
== END 2017-11-03 05:00 | disposition left against medical advice (07) ==
LOC: ED 03:02
DX: M79.605 Pain in left leg (principal); Z53.21 Procedure and treatment not carried out due to patient leaving prior to being seen by health care provider

== ENCOUNTER 2017-11-03 15:08 | Emergency (ER) | payer MEDICARE ==
--- NOTE | 2017-11-03 16:41 | Emergency Department Report ---
ED General Adult HPI - General Chief complaint: Extremity Problem,Nontraumatic Stated complaint: LEFT LEG PAIN Time Seen by Provider: 11/03/17 16:06 Source: patient Mode of arrival: Ambulatory Limitations: No Limitations - History of Present Illness Initial comments: 56-year-old female presents to the ED complaining about left-sided groin pain and low back pain. 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 States that it is also painful to walk on. He said it is an aching to the left inner thigh without radiation. Denies taking medication for pain. -: Gradual, days(s) (2) - Related Data Previous Rx's Medication Instructions Recorded Last Taken Type Docusate Sodium [Colace CAP] 100 mg PO BID #60 capsule 05/13/17 Unknown Rx Cyclobenzaprine [Flexeril] 10 mg PO QHS PRN #24 tablet 07/16/17 Unknown Rx Ibuprofen [Motrin 800 MG tab] 800 mg PO Q8HR PRN #30 tablet 07/16/17 Unknown Rx methOCARBAMOL [Robaxin TAB] 500 mg PO Q6H PRN #14 tablet 11/03/17 Unknown Rx traMADol [Ultram 50 MG tab] 50 mg PO Q6HR PRN #14 tablet 11/03/17 Unknown Rx Allergies Allergy/AdvReac Type Severity Reaction Status Date / Time aspirin Allergy Vomiting Verified 11/03/17 15:25 codeine Allergy Vomiting Verified 11/03/17 15:25 ED Review of Systems ROS: Stated complaint: LEFT LEG PAIN Other details as noted in HPI Constitutional: denies: chills, fever Eyes: denies: eye pain, eye discharge, vision change ENT: denies: ear pain, throat pain Respiratory: denies: cough, shortness of breath, wheezing Cardiovascular: denies: chest pain, palpitations Endocrine: no symptoms reported Gastrointestinal: denies: abdominal pain, nausea, diarrhea Genitourinary: denies: urgency, dysuria, discharge Musculoskeletal: myalgia. denies: back pain, joint swelling, arthralgia Skin: denies: rash, lesions Neurological: denies: headache, weakness, paresthesias Psychiatric: denies: anxiety, depression Hematological/Lymphatic: denies: easy bleeding, easy bruising ED Past Medical Hx - Past Medical History Previous Medical History?: Yes Hx Psychiatric Treatment: No Additional medical history: G6PD deficiency, chronic anemia secondary to fibroids, BLOOD TRANSFUSION JUNE 2015 - Surgical History Past Surgical History?: Yes Additional Surgical History: tubal ligation - Social History Smoking Status: Never Smoker Substance Use Type: None - Medications Home Medications: Home Medications Medication Instructions Recorded Confirmed Last Taken Type Docusate Sodium [Colace CAP] 100 mg PO BID #60 capsule 05/13/17 07/16/17 Unknown Rx Cyclobenzaprine [Flexeril] 10 mg PO QHS PRN #24 tablet 07/16/17 Unknown Rx Ibuprofen [Motrin 800 MG tab] 800 mg PO Q8HR PRN #30 tablet 07/16/17 Unknown Rx methOCARBAMOL [Robaxin TAB] 500 mg PO Q6H PRN #14 tablet 11/03/17 Unknown Rx traMADol [Ultram 50 MG tab] 50 mg PO Q6HR PRN #14 tablet 11/03/17 Unknown Rx ED Physical Exam - General Limitations: No Limitations General appearance: alert, in no apparent distress - Head Head exam: Present: atraumatic, normocephalic - Eye Eye exam: Present: normal appearance - ENT ENT exam: Present: mucous membranes moist - Neck Neck exam: Present: normal inspection - Respiratory Respiratory exam: Present: normal lung sounds bilaterally. Absent: respiratory distress - Cardiovascular Cardiovascular Exam: Present: regular rate, normal rhythm. Absent: systolic murmur, diastolic murmur, rubs, gallop - GI/Abdominal GI/Abdominal exam: Present: soft, normal bowel sounds - Extremities Exam Extremities exam: Present: normal inspection, other (tenderness to palpation of the left medial thigh. Full range of motion of the left hip. No sign of swelling. ) - Back Exam Back exam: Present: normal inspection - Neurological Exam Neurological exam: Present: alert, oriented X3 - Psychiatric Psychiatric exam: Present: normal affect, normal mood - Skin Skin exam: Present: warm, dry, intact, normal color. Absent: rash ED Course Vital Signs 11/03/17 15:25 Temperature 98.7 F Pulse Rate 77 Respiratory 18 Rate Blood Pressure 110/56 O2 Sat by Pulse 100 Oximetry ED Medical Decision Making - Medical Decision Making patient is resting comfortably at this time. her VSS and NAD at this time. Stable for DC. Critical care attestation.: If time is entered above; I have spent that time in minutes in the direct care of this critically ill patient, excluding procedure time. ED Disposition Clinical Impression: Strain of left inguinal muscle Disposition: DC-01 TO HOME OR SELFCARE Is pt being admited?: No Does the pt Need Aspirin: No Condition: Good Instructions: Muscle Strain (ED) Prescriptions: methOCARBAMOL [Robaxin TAB] 500 mg PO Q6H PRN #14 tablet PRN Reason: Pain traMADol [Ultram 50 MG tab] 50 mg PO Q6HR PRN #14 tablet PRN Reason: Pain Referrals: PRASANTH COSTA MD [Primary Care Provider] - 3-5 Days Forms: Work/School Release Form(ED) Time of Disposition: 16:42
[2017-11-03] MEDS ORDERED: MOTRIN PO ONE (16:45)
[2017-11-03 16:56] VITALS: BP 109/52
== END 2017-11-03 16:54 | disposition home or self-care (01) ==
LOC: ED 15:08
DX: S39.011A Strain of muscle, fascia and tendon of abdomen, initial encounter (principal); Z98.51 Tubal ligation status; Z88.5 Allergy status to narcotic agent; X58.XXXA Exposure to other specified factors, initial encounter; Y93.89 Activity, other specified; Y92.89 Other specified places as the place of occurrence of the external cause; Y99.8 Other external cause status
CPT/HCPCS: 99282

== ENCOUNTER 2018-01-17 20:57 | Emergency (ER) | payer MEDICARE ==
[2018-01-17 22:02] VITALS: BP 102/52
== END 2018-01-17 22:55 | disposition left against medical advice (07) ==
LOC: ED 20:57
DX: R42 Dizziness and giddiness (principal); Z53.21 Procedure and treatment not carried out due to patient leaving prior to being seen by health care provider

== ENCOUNTER 2018-02-19 23:30 | Emergency (ER) | payer MEDICAID ==
[2018-02-20 00:46] VITALS: BP 107/52
== END 2018-02-20 00:55 | disposition left against medical advice (07) ==
LOC: ED 23:30
DX: R10.9 Unspecified abdominal pain (principal); Z53.21 Procedure and treatment not carried out due to patient leaving prior to being seen by health care provider

== ENCOUNTER 2018-05-24 18:15 | Emergency (ER) | payer MEDICARE ==
[2018-05-24 18:42] VITALS: BP 103/68
--- NOTE | 2018-05-24 20:55 | Emergency Department Report ---
- General Chief complaint: Skin/Abscess/Foreign Body Stated complaint: BIG BUMP ON LEFT SIDE OF MY BACK Time Seen by Provider: 05/24/18 20:10 Source: patient Mode of arrival: Ambulatory Limitations: No Limitations - History of Present Illness Initial comments: 57-year-old -[place] female comes in for large abscess in the left upper back. Patient denies any fever chills and nausea no vomiting. She does suffer from this for about 5 days. She reports that the pain is a 10 out of 10 and is constant. She reports that is sharp and burning at times. She reports that it feels like the fluid inside. Patient reports no past medical history currently takes no medications on a daily basis and has no known drug allergies. MD complaint: abscess/boil -: days(s) (5) Tetanus Up to Date: no Severity scale (0 -10): 10 Quality: constant Improves with: none Worsens with: palpation Associated symptoms: denies other symptoms Treatments Prior to Arrival: none - Related Data Previous Rx's Medication Instructions Recorded Last Taken Type Docusate Sodium [Colace CAP] 100 mg PO BID #60 capsule 05/13/17 Unknown Rx Cyclobenzaprine [Flexeril] 10 mg PO QHS PRN #24 tablet 07/16/17 Unknown Rx Ibuprofen [Motrin 800 MG tab] 800 mg PO Q8HR PRN #30 tablet 07/16/17 Unknown Rx methOCARBAMOL [Robaxin TAB] 500 mg PO Q6H PRN #14 tablet 11/03/17 Unknown Rx traMADol [Ultram 50 MG tab] 50 mg PO Q6HR PRN #14 tablet 11/03/17 Unknown Rx Sulfamethoxazole/Trimethoprim 1 each PO BID #20 tablet 05/24/18 Unknown Rx [Bactrim Ds Tablet] Allergies Allergy/AdvReac Type Severity Reaction Status Date / Time aspirin Allergy Vomiting Verified 11/03/17 15:25 codeine Allergy Vomiting Verified 11/03/17 15:25 Abscess Boil HPI - HPI Chief Complaint: Skin/Abscess/Foreign Body Stated Complaint: BIG BUMP ON LEFT SIDE OF MY BACK Time Seen by Provider: 05/24/18 20:10 Home Medications: Previous Rx's Medication Instructions Recorded Last Taken Type Docusate Sodium [Colace CAP] 100 mg PO BID #60 capsule 05/13/17 Unknown Rx Cyclobenzaprine [Flexeril] 10 mg PO QHS PRN #24 tablet 07/16/17 Unknown Rx Ibuprofen [Motrin 800 MG tab] 800 mg PO Q8HR PRN #30 tablet 07/16/17 Unknown Rx methOCARBAMOL [Robaxin TAB] 500 mg PO Q6H PRN #14 tablet 11/03/17 Unknown Rx traMADol [Ultram 50 MG tab] 50 mg PO Q6HR PRN #14 tablet 11/03/17 Unknown Rx Sulfamethoxazole/Trimethoprim 1 each PO BID #20 tablet 05/24/18 Unknown Rx [Bactrim Ds Tablet] Allergies/Adverse Reactions: Allergies Allergy/AdvReac Type Severity Reaction Status Date / Time aspirin Allergy Vomiting Verified 11/03/17 15:25 codeine Allergy Vomiting Verified 11/03/17 15:25 ED Review of Systems ROS: Stated complaint: BIG BUMP ON LEFT SIDE OF MY BACK Other details as noted in HPI Constitutional: denies: chills, fever Endocrine: denies: excessive sweating Gastrointestinal: denies: abdominal pain, nausea, diarrhea Skin: lesions (large lesion on left back) ED Past Medical Hx - Past Medical History Hx Sickle Cell Disease: No Hx Psychiatric Treatment: No Additional medical history: G6PD deficiency, chronic anemia secondary to fibroids, BLOOD TRANSFUSION JUNE 2015 - Surgical History Additional Surgical History: tubal ligation - Social History Smoking Status: Current Every Day Smoker Substance Use Type: None - Medications Home Medications: Home Medications Medication Instructions Recorded Confirmed Last Taken Type Docusate Sodium [Colace CAP] 100 mg PO BID #60 capsule 05/13/17 01/31/18 Unknown Rx Cyclobenzaprine [Flexeril] 10 mg PO QHS PRN #24 tablet 07/16/17 01/31/18 Unknown Rx Ibuprofen [Motrin 800 MG tab] 800 mg PO Q8HR PRN #30 tablet 07/16/17 01/31/18 Unknown Rx methOCARBAMOL [Robaxin TAB] 500 mg PO Q6H PRN #14 tablet 11/03/17 01/31/18 Unknown Rx traMADol [Ultram 50 MG tab] 50 mg PO Q6HR PRN #14 tablet 11/03/17 01/31/18 Unknown Rx Sulfamethoxazole/Trimethoprim 1 each PO BID #20 tablet 05/24/18 Unknown Rx [Bactrim Ds Tablet] ED Physical Exam - General Limitations: No Limitations General appearance: alert, in no apparent distress - Head Head exam: Present: atraumatic, normocephalic - Eye Eye exam: Present: normal appearance ED Course Vital Signs 05/24/18 18:40 Temperature 98.3 F Pulse Rate 85 Respiratory 18 Rate Blood Pressure 103/68 O2 Sat by Pulse 100 Oximetry Critical care attestation.: If time is entered above; I have spent that time in minutes in the direct care of this critically ill patient, excluding procedure time. ED Disposition Clinical Impression: Abscess of skin and subcutaneous tissue Qualifiers: Site of cutaneous abscess: trunk Site of cutaneous abscess of trunk: back Qualified Code(s): L02.212 - Cutaneous abscess of back [any part, except buttock ] Disposition: TO HOME OR SELFCARE Is pt being admited?: No Does the pt Need Aspirin: No Condition: Stable Instructions: Abscess (ED) Additional Instructions: Complete antibiotics as prescribed. You can take Tylenol for pain management. You can return to the emergency room in 3 days to be reevaluated for your abscess for possible drainage. Continue with warm compresses to the abscess area. Prescriptions: Sulfamethoxazole/Trimethoprim [Bactrim Ds Tablet] 1 each PO BID #20 tablet Referrals: PRIMARY CARE [Primary Care Provider] - 3-5 Days Forms: Work/School Release Form(ED)
[2018-05-24] MEDS ORDERED: TYLENOL PO ONE (21:19)
== END 2018-05-24 21:35 | disposition home or self-care (01) ==
LOC: ED 18:15
DX: L02.212 Cutaneous abscess of back [any part, except buttock and flank] (principal); F17.200 Nicotine dependence, unspecified, uncomplicated; Z88.6 Allergy status to analgesic agent
CPT/HCPCS: 99282

== ENCOUNTER 2018-07-23 22:27 | Emergency (ER) | payer MEDICARE ==
[2018-07-23 23:38] VITALS: BP 106/62
[2018-07-24 00:20] LABS: Basophils # (Auto) 0.1 K/mm3 (0.0-0.1); Basophils % (Auto) 1.5 % (0.0-1.8); Eosinophils # (Auto) 0.2 K/mm3 (0.0-0.4); Eosinophils % (Auto) 2.6 % (0.0-4.3); Lymphocytes # (Auto) 2.5 K/mm3 (1.2-5.4); Lymphocytes % (Auto) 28.3 % (13.4-35.0); Mean Corpuscular HGB Conc 29 % (30-34); Monocytes # (Auto) 0.8 K/mm3 (0.0-0.8); Platelet Count 217 K/mm3 (140-440); Red Blood Count 4.02 M/mm3 (3.65-5.03)
[2018-07-24 00:21] LABS: Hematocrit 26.8 % (30.3-42.9); Hemoglobin 7.6 gm/dl (10.1-14.3); Mean Corpuscular Hemoglobin 19 pg (28-32); Mean Corpuscular Volume 67 fl (79-97); Red Cell Distribution Width 21.9 % (13.2-15.2)
[2018-07-24 00:23] LABS: INR 1.01 (0.87-1.13)
[2018-07-24 00:24] LABS: Partial Thromboplastin Time 29.2 Sec. (24.2-36.6)
[2018-07-24 00:30] LABS: Alanine Aminotransferase 8 units/L (7-56); Albumin 4.2 g/dL (3.9-5); BUN/Creatinine Ratio 13; Blood Urea Nitrogen 9 mg/dL (7-17); Calcium 9.6 mg/dL (8.4-10.2); Hemolysis Index 0; Lipase 26 units/L (13-60)
[2018-07-24 02:34] LABS: HCG Qualitative,Urine Negative (Negative)
[2018-07-24 02:38] LABS: Bilirubin,Urine NEG (Negative); Blood,Urine NEG (Negative); Color,Urine Yellow (Yellow); Mucus,Urine 3+ /HPF; Protein,Urine <15 mg/dL mg/dL (Negative)
== END 2018-07-24 06:00 | disposition left against medical advice (07) ==
LOC: ED 22:27
DX: R03.1 Nonspecific low blood-pressure reading (principal); Z53.21 Procedure and treatment not carried out due to patient leaving prior to being seen by health care provider
CPT/HCPCS: 36415; 80053; 81001; 81025; 83690; 85025; 85610; 85730; 86850; 86900; 86901

== ENCOUNTER 2018-08-16 01:40 | Emergency (ER) | payer MEDICARE ==
[2018-08-16 03:38] LABS: Basophils # (Auto) 0.1 K/mm3 (0.0-0.1); Basophils % (Auto) 1.1 % (0.0-1.8); Eosinophils # (Auto) 0.2 K/mm3 (0.0-0.4); Eosinophils % (Auto) 3.2 % (0.0-4.3); Lymphocytes # (Auto) 1.8 K/mm3 (1.2-5.4); Lymphocytes % (Auto) 23.9 % (13.4-35.0); Mean Corpuscular HGB Conc 28 % (30-34); Mean Corpuscular Volume 70 fl (79-97); Monocytes # (Auto) 0.7 K/mm3 (0.0-0.8); Monocytes % (Auto) 9.1 % (0.0-7.3); Platelet Count 279 K/mm3 (140-440); Red Blood Count 4.66 M/mm3 (3.65-5.03)
[2018-08-16 03:44] LABS: Hematocrit 32.8 % (30.3-42.9); Hemoglobin 9.3 gm/dl (10.1-14.3); Mean Corpuscular Hemoglobin 20 pg (28-32)
[2018-08-16 03:57] LABS: Alanine Aminotransferase 9 units/L (7-56); Albumin 3.9 g/dL (3.9-5); BUN/Creatinine Ratio 7; Blood Urea Nitrogen 5 mg/dL (7-17); Calcium 9.5 mg/dL (8.4-10.2); Hemolysis Index 35
[2018-08-16] MEDS ORDERED: ZOFRAN IV ONE (09:42)
[2018-08-16] MEDS ORDERED: NACL 0.9% 1000 ML 1,000 ML IV ONE (09:42)
[2018-08-16] MEDS ORDERED: REGLAN IV ONE (09:43)
--- NOTE | 2018-08-16 09:45 | Emergency Department Report ---
ED General Adult HPI - General Chief complaint: Dizziness Stated complaint: NAUSEOUS, DIZZY, WEAK Time Seen by Provider: 08/16/18 09:19 Source: patient Mode of arrival: Ambulatory Limitations: No Limitations - History of Present Illness Initial comments: Patient presents to the emergency department with a chief complaint of nausea that started yesterday. Patient denies any sick contacts or anything making her better or worse. Patient states her nausea is causing her to be dizzy. Patient denies chest pain, shortness breath, abdominal pain. -: Sudden Radiation: non-radiation Severity scale (0 -10): 0 Consistency: constant Improves with: none Worsens with: none Associated Symptoms: denies other symptoms Treatments Prior to Arrival: none - Related Data Previous Rx's Medication Instructions Recorded Last Taken Type Docusate Sodium [Colace CAP] 100 mg PO BID #60 capsule 05/13/17 Unknown Rx Cyclobenzaprine [Flexeril 10 MG 10 mg PO QHS PRN #24 tablet 07/16/17 Unknown Rx TAB] methOCARBAMOL [Robaxin TAB] 500 mg PO Q6H PRN #14 tablet 11/03/17 Unknown Rx traMADol [Ultram 50 MG tab] 50 mg PO Q6HR PRN #14 tablet 11/03/17 Unknown Rx Sulfamethoxazole/Trimethoprim 1 each PO BID #20 tablet 05/24/18 Unknown Rx [Bactrim Ds Tablet] Ondansetron [Zofran Odt] 4 mg PO Q6HR PRN #12 tab.rapdis 08/16/18 Unknown Rx Promethazine [Phenergan TAB] 25 mg PO Q8HR PRN #20 tab 08/16/18 Unknown Rx Allergies Allergy/AdvReac Type Severity Reaction Status Date / Time aspirin Allergy Vomiting Verified 11/03/17 15:25 codeine Allergy Vomiting Verified 11/03/17 15:25 ED Review of Systems ROS: Stated complaint: NAUSEOUS, DIZZY, WEAK Other details as noted in HPI Comment: All other systems reviewed and negative Constitutional: denies: chills, fever Eyes: denies: eye pain, eye discharge, vision change ENT: denies: ear pain, throat pain Respiratory: denies: cough, shortness of breath, wheezing Cardiovascular: denies: chest pain, palpitations Endocrine: no symptoms reported Gastrointestinal: nausea, vomiting. denies: abdominal pain, diarrhea Genitourinary: denies: urgency, dysuria, discharge Musculoskeletal: denies: back pain, joint swelling, arthralgia Skin: denies: rash, lesions Neurological: denies: headache, weakness, paresthesias Psychiatric: denies: anxiety, depression Hematological/Lymphatic: denies: easy bleeding, easy bruising ED Past Medical Hx - Past Medical History Hx Hypertension: No Hx Heart Attack/AMI: No Hx Congestive Heart Failure: No Hx Diabetes: No Hx Deep Vein Thrombosis: No Hx Sickle Cell Disease: No Hx Psychiatric Treatment: No Hx Asthma: No Hx COPD: No Additional medical history: G6PD deficiency, chronic anemia secondary to fibroids, BLOOD TRANSFUSION JUNE 2015 - Surgical History Hx Coronary Stent: No Hx Pacemaker: No Hx Internal Defibrillator: No Additional Surgical History: tubal ligation - Social History Smoking Status: Never Smoker Substance Use Type: None - Medications Home Medications: Home Medications Medication Instructions Recorded Confirmed Last Taken Type Docusate Sodium [Colace CAP] 100 mg PO BID #60 capsule 05/13/17 01/31/18 Unknown Rx Cyclobenzaprine [Flexeril 10 MG 10 mg PO QHS PRN #24 tablet 07/16/17 01/31/18 Unknown Rx TAB] methOCARBAMOL [Robaxin TAB] 500 mg PO Q6H PRN #14 tablet 11/03/17 01/31/18 Unknown Rx traMADol [Ultram 50 MG tab] 50 mg PO Q6HR PRN #14 tablet 11/03/17 01/31/18 Unknown Rx Sulfamethoxazole/Trimethoprim 1 each PO BID #20 tablet 05/24/18 Unknown Rx [Bactrim Ds Tablet] Ondansetron [Zofran Odt] 4 mg PO Q6HR PRN #12 tab.rapdis 08/16/18 Unknown Rx Promethazine [Phenergan TAB] 25 mg PO Q8HR PRN #20 tab 08/16/18 Unknown Rx ED Physical Exam - General Limitations: No Limitations General appearance: alert, in no apparent distress - Head Head exam: Present: atraumatic, normocephalic - Eye Eye exam: Present: normal appearance - ENT ENT exam: Present: mucous membranes moist - Neck Neck exam: Present: normal inspection - Respiratory Respiratory exam: Present: normal lung sounds bilaterally. Absent: respiratory distress, wheezes, rales, rhonchi - Cardiovascular Cardiovascular Exam: Present: regular rate, normal rhythm. Absent: systolic murmur, diastolic murmur, rubs, gallop - GI/Abdominal GI/Abdominal exam: Present: soft, normal bowel sounds. Absent: distended, tenderness - Extremities Exam Extremities exam: Present: normal inspection - Back Exam Back exam: Present: normal inspection - Neurological Exam Neurological exam: Present: alert, oriented X3, CN II-XII intact, normal gait, reflexes normal, other (finger-nose, [id number], rapid hand movement all intact). Absent: motor sensory deficit - Psychiatric Psychiatric exam: Present: normal affect, normal mood - Skin Skin exam: Present: warm, dry, intact, normal color. Absent: rash ED Course Vital Signs 08/16/18 08/16/18 08/16/18 02:31 03:01 09:28 Temperature 98.2 F 98.2 F Pulse Rate 64 68 Respiratory 18 18 16 Rate Blood Pressure 122/39 124/58 Blood Pressure [Left] O2 Sat by Pulse 100 100 Oximetry 08/16/18 09:36 Temperature 98.0 F Pulse Rate 49 L Respiratory 20 Rate Blood Pressure Blood Pressure 110/35 [Left] O2 Sat by Pulse 99 Oximetry ED Medical Decision Making - Lab Data Result diagrams: 08/16/18 03:18 08/16/18 03:18 - Medical Decision Making Patient states her symptoms have completely resolved with medications Critical care attestation.: If time is entered above; I have spent that time in minutes in the direct care of this critically ill patient, excluding procedure time. ED Disposition Clinical Impression: Nausea Disposition: DC-01 TO HOME OR SELFCARE Is pt being admited?: No Does the pt Need Aspirin: No Condition: Stable Instructions: Acute Nausea and Vomiting (ED) Additional Instructions: return if worse Prescriptions: Ondansetron [Zofran Odt] 4 mg PO Q6HR PRN #12 tab.rapdis PRN Reason: Nausea Promethazine [Phenergan TAB] 25 mg PO Q8HR PRN #20 tab PRN Reason: Nausea Referrals: [facility] [Provider Group] - 3-5 Days [facility] [Outside] - 3-5 Days CARLITO GRIFFITH MD [Staff Physician] - 3-5 Days Time of Disposition: 11:55
[2018-08-16 12:15] VITALS: BP 98/51
== END 2018-08-16 12:16 | disposition home or self-care (01) ==
LOC: ED 01:40
DX: R11.2 Nausea with vomiting, unspecified (principal); Z88.5 Allergy status to narcotic agent; Z88.6 Allergy status to analgesic agent; Z98.51 Tubal ligation status
CPT/HCPCS: 36415; 80053; 83690; 84703; 85025; 93005; 93010; 96361; 96374; 96375; 99283; J2405; J2765; J7030

== ENCOUNTER 2018-12-14 13:17 | Emergency (ER) | payer MEDICARE ==
[2018-12-14 13:27] VITALS: BP 107/38
--- NOTE | 2018-12-14 14:02 | Emergency Department Report ---
ED Female HPI - General Chief complaint: Vaginal Bleeding Stated complaint: HEAVY BLEEDING/WEAKNESS/LOW BLOOD Time Seen by Provider: 12/14/18 13:32 Source: patient Mode of arrival: Ambulatory Limitations: No Limitations - History of Present Illness Initial comments: Patient is a 58-year-old female who presents to ED complaining of vaginal bleeding for the past 8 days. Patient states her last menstrual period was last month and was normal. Patient states that her cycles are usually 8 days long. Patient states that she feels she is losing blood as she has been feeling fatigued and slightly dizzy. 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 She denies any injuries trauma. Patient states she has been on the Mirena IUD for the past several months which has not helped with her menstrual cycle. Complaint: vaginal bleeding -: days(s) (8) Severity: moderate Are you Now?: No Associated Symptoms: denies: vaginal discharge, abdominal pain, nausea/vomiting, headaches, loss of appetite - Related Data Previous Rx's Medication Instructions Recorded Last Taken Type Docusate Sodium [Colace CAP] 100 mg PO BID #60 capsule 05/13/17 Unknown Rx Cyclobenzaprine [Flexeril 10 MG 10 mg PO QHS PRN #24 tablet 07/16/17 Unknown Rx TAB] methOCARBAMOL [Robaxin TAB] 500 mg PO Q6H PRN #14 tablet 11/03/17 Unknown Rx Sulfamethoxazole/Trimethoprim 1 each PO BID #20 tablet 05/24/18 Unknown Rx [Bactrim Ds Tablet] Ondansetron [Zofran Odt] 4 mg PO Q6HR PRN #12 tab.rapdis 08/16/18 Unknown Rx Promethazine [Phenergan TAB] 25 mg PO Q8HR PRN #20 tab 08/16/18 Unknown Rx Ferrous Sulfate [Feosol 325 MG tab] 325 mg PO BID #40 tablet 12/14/18 Unknown Rx traMADol [Ultram 50 MG tab] 50 mg PO Q6HR PRN #14 tablet 12/14/18 Unknown Rx Allergies Allergy/AdvReac Type Severity Reaction Status Date / Time aspirin Allergy Vomiting Verified 12/14/18 13:24 codeine Allergy Vomiting Verified 12/14/18 13:24 ED Review of Systems ROS: Stated complaint: HEAVY BLEEDING/WEAKNESS/LOW BLOOD Other details as noted in HPI Comment: All other systems reviewed and negative ED Past Medical Hx - Past Medical History Hx Hypertension: No Hx Heart Attack/AMI: No Hx Congestive Heart Failure: No Hx Diabetes: No Hx Deep Vein Thrombosis: No Hx Sickle Cell Disease: No Hx Psychiatric Treatment: No Hx Asthma: No Hx COPD: No Additional medical history: G6PD deficiency, chronic anemia secondary to fibroids, BLOOD TRANSFUSION JUNE 2015 - Surgical History Hx Coronary Stent: No Hx Pacemaker: No Hx Internal Defibrillator: No Additional Surgical History: tubal ligation - Social History Smoking Status: Never Smoker Substance Use Type: None - Medications Home Medications: Home Medications Medication Instructions Recorded Confirmed Last Taken Type Docusate Sodium [Colace CAP] 100 mg PO BID #60 capsule 05/13/17 01/31/18 Unknown Rx Cyclobenzaprine [Flexeril 10 MG 10 mg PO QHS PRN #24 tablet 07/16/17 01/31/18 Unknown Rx TAB] methOCARBAMOL [Robaxin TAB] 500 mg PO Q6H PRN #14 tablet 11/03/17 01/31/18 Unknown Rx Sulfamethoxazole/Trimethoprim 1 each PO BID #20 tablet 05/24/18 Unknown Rx [Bactrim Ds Tablet] Ondansetron [Zofran Odt] 4 mg PO Q6HR PRN #12 tab.rapdis 08/16/18 Unknown Rx Promethazine [Phenergan TAB] 25 mg PO Q8HR PRN #20 tab 08/16/18 Unknown Rx Ferrous Sulfate [Feosol 325 MG tab] 325 mg PO BID #40 tablet 12/14/18 Unknown Rx traMADol [Ultram 50 MG tab] 50 mg PO Q6HR PRN #14 tablet 12/14/18 Unknown Rx ED Physical Exam - General Limitations: No Limitations General appearance: alert, in no apparent distress - Head Head exam: Present: atraumatic, normocephalic - Eye Eye exam: Present: normal appearance - ENT ENT exam: Present: mucous membranes moist - Neck Neck exam: Present: normal inspection - Respiratory Respiratory exam: Present: normal lung sounds bilaterally. Absent: respiratory distress - Cardiovascular Cardiovascular Exam: Present: regular rate, normal rhythm. Absent: systolic murmur, diastolic murmur, rubs, gallop - GI/Abdominal GI/Abdominal exam: Present: soft, normal bowel sounds - Extremities Exam Extremities exam: Present: normal inspection - Back Exam Back exam: Present: normal inspection - Neurological Exam Neurological exam: Present: alert, oriented X3 - Psychiatric Psychiatric exam: Present: normal affect, normal mood - Skin Skin exam: Present: warm, dry, intact, normal color. Absent: rash ED Course Vital Signs 12/14/18 13:24 Temperature 97.8 F Pulse Rate 68 Respiratory 18 Rate Blood Pressure 107/38 O2 Sat by Pulse 100 Oximetry ED Medical Decision Making - Lab Data Result diagrams: 12/14/18 13:56 12/14/18 13:56 - Medical Decision Making This is a 58-year-old female who presents with menorrhagia CBC, BMP, urinalysis, test obtained. CBC within normal limits, H&H is within normal limits Discussed lab findings with the patient. Discussed the patient iron supplements 2 times a day discussed follow-up with DX BOARD OPERATOR. 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 Vital signs are normal patient is in acute distress. She has no neuro deficits, she is able to speak in clear sentences Critical care attestation.: If time is entered above; I have spent that time in minutes in the direct care of this critically ill patient, excluding procedure time. ED Disposition Clinical Impression: Menorrhagia Disposition: DC-01 TO HOME OR SELFCARE Is pt being admited?: No Does the pt Need Aspirin: No Condition: Stable Instructions: Menorrhagia (ED) Additional Instructions: Make sure to follow up with the LICENSED SALES PRODUCER as discussed. Take all your medications as you've been prescribed. If you have any worsening symptoms or develop new symptoms please return to ED immediately. Prescriptions: Ferrous Sulfate [Feosol 325 MG tab] 325 mg PO BID #40 tablet traMADol [Ultram 50 MG tab] 50 mg PO Q6HR PRN #14 tablet PRN Reason: Pain Referrals: [facility] [Provider Group] - 3-5 Days [facility] [Provider Group] - 3-5 Days [facility]MD [Primary Care Provider] - 3-5 Days Forms: Accompanied Note, Work/School Release Form(ED)
[2018-12-14 14:16] LABS: Bilirubin,Urine NEG (Negative); Blood,Urine LG (Negative); Color,Urine Yellow (Yellow); Mucus,Urine 1+ /HPF; Protein,Urine <15 mg/dL mg/dL (Negative); Urobilinogen,Urine < 2.0 mg/dL (<2.0); WBC,Urine < 1.0 /HPF (0.0-6.0)
[2018-12-14 14:24] LABS: Mean Corpuscular HGB Conc 30 % (30-34); Mean Corpuscular Volume 74 fl (79-97); Platelet Count 211 K/mm3 (140-440); Red Blood Count 4.37 M/mm3 (3.65-5.03); Red Cell Distribution Width 19.3 % (13.2-15.2)
[2018-12-14 14:26] LABS: Hematocrit 32.1 % (30.3-42.9); Hemoglobin 9.5 gm/dl (10.1-14.3)
[2018-12-14 14:41] LABS: BUN/Creatinine Ratio 12; Blood Urea Nitrogen 7 mg/dL (7-17); Calcium 9.2 mg/dL (8.4-10.2); Hemolysis Index 22
== END 2018-12-14 15:25 | disposition home or self-care (01) ==
LOC: ED 13:17
DX: N92.0 Excessive and frequent menstruation with regular cycle (principal); Z88.6 Allergy status to analgesic agent; Z88.8 Allergy status to other drugs, medicaments and biological substances
CPT/HCPCS: 36415; 80048; 81001; 84703; 85027

== ENCOUNTER 2018-12-23 23:58 | Emergency (ER) | payer MEDICARE ==
[2018-12-24 00:19] VITALS: BP 99/52
[2018-12-24] MEDS ORDERED: ULTRAM PO ONE (01:26)
--- NOTE | 2018-12-24 01:34 | Emergency Department Report ---
ED General Adult HPI - General Chief complaint: Headache Stated complaint: BACK PAIN Time Seen by Provider: 12/24/18 01:24 Source: patient Mode of arrival: Ambulatory Limitations: No Limitations - History of Present Illness Initial comments: 58-year-old -Domin[place] female presents to the emergency room for headache is located in the frontal between the eyes. And lower back pain for the past 3 days. Patient denies any recent trauma but does state she had a fall 3 weeks ago while lifting a table. Patient states Tylenol is not helping. She denies any nausea no vomiting. Patient reports she last took Tylenol about 7 PM on which is 500 mg at that time. Patient reports she had a tubal ligation. She not any nasal congestion or runny nose admit to blurred vision. Patient was just seen here on 12/14/2018 and was given tramadol 14 pills. Patient reports she does not have a primary care provider. -: days(s) (3) Location: head, back Quality: aching Consistency: constant Improves with: none Worsens with: none Associated Symptoms: headaches Treatments Prior to Arrival: other (Tylenol) - Related Data Previous Rx's Medication Instructions Recorded Last Taken Type Docusate Sodium [Colace CAP] 100 mg PO BID #60 capsule 05/13/17 Unknown Rx Cyclobenzaprine [Flexeril 10 MG 10 mg PO QHS PRN #24 tablet 07/16/17 Unknown Rx TAB] methOCARBAMOL [Robaxin TAB] 500 mg PO Q6H PRN #14 tablet 11/03/17 Unknown Rx Sulfamethoxazole/Trimethoprim 1 each PO BID #20 tablet 05/24/18 Unknown Rx [Bactrim Ds Tablet] Ondansetron [Zofran Odt] 4 mg PO Q6HR PRN #12 tab.rapdis 08/16/18 Unknown Rx Promethazine [Phenergan TAB] 25 mg PO Q8HR PRN #20 tab 08/16/18 Unknown Rx Ferrous Sulfate [Feosol 325 MG tab] 325 mg PO BID #40 tablet 12/14/18 Unknown Rx traMADol [Ultram 50 MG tab] 50 mg PO Q6HR PRN #12 tablet 12/24/18 Unknown Rx Allergies Allergy/AdvReac Type Severity Reaction Status Date / Time aspirin Allergy Vomiting Verified 12/25/18 17:50 codeine Allergy Vomiting Verified 12/25/18 17:50 ED Review of Systems ROS: Stated complaint: BACK PAIN Other details as noted in HPI ED Past Medical Hx - Past Medical History Previous Medical History?: Yes Hx Hypertension: No Hx Heart Attack/AMI: No Hx Congestive Heart Failure: No Hx Diabetes: No Hx Deep Vein Thrombosis: No Hx Sickle Cell Disease: No Hx Psychiatric Treatment: No Hx Asthma: No Hx COPD: No Additional medical history: G6PD deficiency, chronic anemia secondary to fibroids, BLOOD TRANSFUSION JUNE 2015 - Surgical History Past Surgical History?: Yes Hx Coronary Stent: No Hx Pacemaker: No Hx Internal Defibrillator: No Additional Surgical History: tubal ligation - Social History Smoking Status: Never Smoker Substance Use Type: None - Medications Home Medications: Home Medications Medication Instructions Recorded Confirmed Last Taken Type Docusate Sodium [Colace CAP] 100 mg PO BID #60 capsule 05/13/17 01/31/18 Unknown Rx Cyclobenzaprine [Flexeril 10 MG 10 mg PO QHS PRN #24 tablet 07/16/17 01/31/18 Unknown Rx TAB] methOCARBAMOL [Robaxin TAB] 500 mg PO Q6H PRN #14 tablet 11/03/17 01/31/18 Unknown Rx Sulfamethoxazole/Trimethoprim 1 each PO BID #20 tablet 05/24/18 Unknown Rx [Bactrim Ds Tablet] Ondansetron [Zofran Odt] 4 mg PO Q6HR PRN #12 tab.rapdis 08/16/18 Unknown Rx Promethazine [Phenergan TAB] 25 mg PO Q8HR PRN #20 tab 08/16/18 Unknown Rx Ferrous Sulfate [Feosol 325 MG tab] 325 mg PO BID #40 tablet 12/14/18 Unknown Rx traMADol [Ultram 50 MG tab] 50 mg PO Q6HR PRN #12 tablet 12/24/18 Unknown Rx ED Physical Exam - General Limitations: No Limitations General appearance: alert, in no apparent distress - Head Head exam: Present: atraumatic, normocephalic - Eye Eye exam: Present: normal appearance - ENT ENT exam: Present: mucous membranes moist - Neck Neck exam: Present: normal inspection - Respiratory Respiratory exam: Present: normal lung sounds bilaterally. Absent: respiratory distress - Cardiovascular Cardiovascular Exam: Present: regular rate, normal rhythm. Absent: systolic murmur, diastolic murmur, rubs, gallop - GI/Abdominal GI/Abdominal exam: Present: soft, normal bowel sounds - Extremities Exam Extremities exam: Present: normal inspection - Back Exam Back exam: Present: normal inspection - Neurological Exam Neurological exam: Present: alert, oriented X3 - Expanded Neurological Exam Expanded Patient oriented to: Present: person, place, time Cranial nerves: EOM's Intact: Normal, Gag Reflex: Normal, Tongue Deviation: Normal, Nystagmus: Normal, Facial Sensation: Normal, Facial Palsy with Forehead Movement: Normal, Facial Palsy without Forehead Movement: Normal Cerebellar function: Finger to Nose: Normal, Heel to [place]: Normal, Romberg: Normal Upper motor neuron: Damon Neglect: Normal, Pronator Drift: Normal, Sensory Extinction: Normal Sensory exam: Upper Extremity Light Touch: Normal, Upper Extremity Pin Prick: Normal, Upper Extremity Temperature: Normal, UE 2 Point Discrimination: Normal, Lower Extremity Light Touch: Normal, Lower Extremity Pin Prick: Normal, Lower Extremity Temperature: Normal, LE 2 Point Discrimination: Normal Motor strength exam: RUE: 4, LUE: 4, RLE: 4, LLE: 4 Best Eye Response (Mary): (4) open spontaneously Best Motor Response (Mary): (6) obeys commands Best Verbal Response (Mary): (5) oriented [place] Total: 15 - Psychiatric Psychiatric exam: Present: normal affect, normal mood - Skin Skin exam: Present: warm, dry, intact, normal color. Absent: rash ED Course Vital Signs 12/24/18 12/24/18 00:14 04:20 Temperature 98.3 F Pulse Rate 68 80 Respiratory 16 15 Rate Blood Pressure 99/52 O2 Sat by Pulse 100 99 Oximetry ED Medical Decision Making - Radiology Data Radiology results: report reviewed FINAL REPORT PROCEDURE: XR SPINE LUMBOSACRAL 2-3V TECHNIQUE: Lumbar spine radiographs, including AP, lateral, and lumbosacral spot views. CPT 06808 HISTORY: back pain COMPARISON: No prior studies are available for comparison. FINDINGS: Alignment: Normal. Vertebral body heights/Disk spaces: Normal. Fracture(s): None. Facets: Normal. Bone mineralization: Normal. IMPRESSION: Normal Examination. Transcribed By: [facility] Dictated By: JEM HOLBROOK MD Electronically Authenticated By: JEM HOLBROOK MD Signed Date/Time: 12/24/18157 DD/ 6 TD/TT: 12/24/18156 - Medical Decision Making Patient has been evaluated but this provider in fast track. Patient is given tramadol 50 mg for pain management. X-ray of the lumbar sacral shows normal examination. Patient be discharged home on tramadol and a referral to follow up with a primary care provider. Critical care attestation.: If time is entered above; I have spent that time in minutes in the direct care of this critically ill patient, excluding procedure time. ED Disposition Clinical Impression: Back pain Disposition: DC- TO HOME OR SELFCARE Is pt being admited?: No Does the pt Need Aspirin: No Condition: Stable Instructions: Low Back Strain (ED) Additional Instructions: Please take pain medication as needed. Follow-up with the primary care provider I have listed one below for your convenience. Prescriptions: traMADol [Ultram 50 MG tab] 50 mg PO Q6HR PRN #12 tablet PRN Reason: Pain Referrals: ARABELLA NYE DO [Primary Care Provider] - 3-5 Days Forms: Work/School Release Form(ED)
--- NOTE | 2018-12-24 01:58 | XRay Report ---
FINAL REPORT PROCEDURE: XR SPINE LUMBOSACRAL 2-3V TECHNIQUE: Lumbar spine radiographs, including AP, lateral, and lumbosacral spot views. CPT 50938 HISTORY: back pain COMPARISON: No prior studies are available for comparison. FINDINGS: Alignment: Normal. Vertebral body heights/Disk spaces: Normal. Fracture(s): None. Facets: Normal. Bone mineralization: Normal. IMPRESSION: Normal Examination.
[2018-12-24 03:06] LABS: Bilirubin,Urine NEG (Negative); Blood,Urine NEG (Negative); Color,Urine Yellow (Yellow); Mucus,Urine 2+ /HPF; Protein,Urine <15 mg/dL mg/dL (Negative)
== END 2018-12-24 04:20 | disposition home or self-care (01) ==
LOC: ED 23:58
DX: R51 Headache (principal); M54.5 Low back pain; Z98.51 Tubal ligation status
CPT/HCPCS: 72100; 81001

== ENCOUNTER 2018-12-25 17:44 | Emergency (ER) | payer MEDICARE ==
--- NOTE | 2018-12-25 18:25 | Emergency Department Report ---
ED Psych HPI - General Chief Complaint: Psych Stated Complaint: DEPRESS,BODY ACHE/SLEEPLESS Time Seen by Provider: 12/25/18 18:21 Source: patient Mode of arrival: Ambulatory Limitations: No Limitations - History of Present Illness Initial Comments: Patient is a 58-year-old female that presents emergency room the present emergency room with complaints of depression 4 months. Patient states she's been depressed for 4 months since her sisters . Patient states that the depression has been worsening with the cold weather. Patient's states that she has not seen anybody for this. Patient states she has not seen her primary care as well. Patient denies suicidal homicidal ideation. Patient denies audiovisual hallucinations. Patient denies anxiety. Patient states she's just been down and would like to talk to somebody about it. Patient states she came in because she just felt lonely MD Complaint: feels depressed -: Gradual Associated Psychiatric Symptoms: depression History of same: Yes Quality: constant Improves With: none Worsens With: none Context: not taking psychiatric Associated Symptoms: denies: confusion, headache, shortness of breath, nausea, vomiting, syncope, insomnia Treatments Prior to Arrival: none - Related Data Previous Rx's Medication Instructions Recorded Last Taken Type Docusate Sodium [Colace CAP] 100 mg PO BID #60 capsule 05/13/17 Unknown Rx Cyclobenzaprine [Flexeril 10 MG 10 mg PO QHS PRN #24 tablet 07/16/17 Unknown Rx TAB] methOCARBAMOL [Robaxin TAB] 500 mg PO Q6H PRN #14 tablet 11/03/17 Unknown Rx Sulfamethoxazole/Trimethoprim 1 each PO BID #20 tablet 05/24/18 Unknown Rx [Bactrim Ds Tablet] Ondansetron [Zofran Odt] 4 mg PO Q6HR PRN #12 tab.rapdis 08/16/18 Unknown Rx Promethazine [Phenergan TAB] 25 mg PO Q8HR PRN #20 tab 08/16/18 Unknown Rx Ferrous Sulfate [Feosol 325 MG tab] 325 mg PO BID #40 tablet 12/14/18 Unknown Rx traMADol [Ultram 50 MG tab] 50 mg PO Q6HR PRN #12 tablet 12/24/18 Unknown Rx Allergies Allergy/AdvReac Type Severity Reaction Status Date / Time aspirin Allergy Vomiting Verified 12/25/18 17:50 codeine Allergy Vomiting Verified 12/25/18 17:50 ED Review of Systems ROS: Stated complaint: DEPRESS,BODY ACHE/SLEEPLESS Other details as noted in HPI Constitutional: denies: chills, fever Eyes: denies: eye pain, eye discharge, vision change ENT: denies: ear pain, throat pain Respiratory: denies: cough, shortness of breath, wheezing Cardiovascular: denies: chest pain, palpitations Endocrine: no symptoms reported Gastrointestinal: denies: abdominal pain, nausea, diarrhea Genitourinary: denies: urgency, dysuria, discharge Musculoskeletal: denies: back pain, joint swelling, arthralgia Skin: denies: rash, lesions Neurological: denies: headache, weakness, paresthesias Psychiatric: depression. denies: anxiety, auditory hallucinations, visual hallucinations, homicidal thoughts, suicidal thoughts Hematological/Lymphatic: denies: easy bleeding, easy bruising ED Past Medical Hx - Past Medical History Previous Medical History?: Yes Hx Hypertension: No Hx Heart Attack/AMI: No Hx Congestive Heart Failure: No Hx Diabetes: No Hx Deep Vein Thrombosis: No Hx Sickle Cell Disease: No Hx Psychiatric Treatment: No Hx Asthma: No Hx COPD: No Additional medical history: G6PD deficiency, chronic anemia secondary to fibroids, BLOOD TRANSFUSION JUNE 2015 - Surgical History Past Surgical History?: Yes Hx Coronary Stent: No Hx Pacemaker: No Hx Internal Defibrillator: No Additional Surgical History: tubal ligation - Family History Family history: no significant - Social History Smoking Status: Never Smoker Substance Use Type: None - Medications Home Medications: Home Medications Medication Instructions Recorded Confirmed Last Taken Type Docusate Sodium [Colace CAP] 100 mg PO BID #60 capsule 05/13/17 01/31/18 Unknown Rx Cyclobenzaprine [Flexeril 10 MG 10 mg PO QHS PRN #24 tablet 07/16/17 01/31/18 Unknown Rx TAB] methOCARBAMOL [Robaxin TAB] 500 mg PO Q6H PRN #14 tablet 11/03/17 01/31/18 Unknown Rx Sulfamethoxazole/Trimethoprim 1 each PO BID #20 tablet 05/24/18 Unknown Rx [Bactrim Ds Tablet] Ondansetron [Zofran Odt] 4 mg PO Q6HR PRN #12 tab.rapdis 08/16/18 Unknown Rx Promethazine [Phenergan TAB] 25 mg PO Q8HR PRN #20 tab 08/16/18 Unknown Rx Ferrous Sulfate [Feosol 325 MG tab] 325 mg PO BID #40 tablet 12/14/18 Unknown Rx traMADol [Ultram 50 MG tab] 50 mg PO Q6HR PRN #12 tablet 12/24/18 Unknown Rx ED Physical Exam - General Limitations: No Limitations General appearance: alert, in no apparent distress - Head Head exam: Present: atraumatic, normocephalic - Eye Eye exam: Present: normal appearance, PERRL. Absent: scleral icterus, conjunctival injection, nystagmus, periorbital swelling, periorbital tenderness Pupils: Present: normal accommodation - ENT ENT exam: Present: mucous membranes moist - Neck Neck exam: Present: normal inspection - Respiratory Respiratory exam: Present: normal lung sounds bilaterally. Absent: respiratory distress - Cardiovascular Cardiovascular Exam: Present: regular rate, normal rhythm. Absent: systolic murmur, diastolic murmur, rubs, gallop - GI/Abdominal GI/Abdominal exam: Present: soft, normal bowel sounds. Absent: distended, tenderness, guarding, rebound - Extremities Exam Extremities exam: Present: normal inspection, full ROM - Back Exam Back exam: Present: normal inspection, full ROM - Neurological Exam Neurological exam: Present: alert, oriented X3 - Psychiatric Psychiatric exam: Present: depressed, flat affect. Absent: agitated, anxious, manic, homicidal ideation, suicidal ideation - Skin Skin exam: Present: warm, dry, intact, normal color. Absent: rash ED Course Vital Signs 12/25/18 17:50 Temperature 98.2 F Pulse Rate 69 Respiratory 18 Rate Blood Pressure 109/35 O2 Sat by Pulse 100 Oximetry - Reevaluation(s) Reevaluation #1: Initial Evaluation done. Patient does not meet emergency medical criteria. Patient has had a long history of depression and will be discharged home. We'll consult mental health to give patient resources. Patient's blood has been canceled due to not medically necessary. 12/25/18 18:39 Discussed discharged the patient. Patient is stable for discharge. Discussed urine results. Patient denies urinary symptoms. So patient has a asymptomatic pyuria. Patient given discharge instructions. Patient given discharge instructions. Patient voiced understanding of discharge instructions. 12/25/18 19:07 ED Medical Decision Making - Medical Decision Making Patient is a 58-year-old emergency room with complaints of depression 4 months. Patient given discharge instructions and follow-up instructions with [facility] and primary care. Patient is stable at this time. Patient depression does not warrant an emergency medical workup. Patient does not have suicidal homicidal ideations. Patient does not meet inpatient psychiatric criteria. Patient does not warrant a 1013. Patient is discharged home. Critical care attestation.: If time is entered above; I have spent that time in minutes in the direct care of this critically ill patient, excluding procedure time. ED Disposition Clinical Impression: Depression Qualifiers: Depression Type: unspecified Qualified Code(s): F32.9 - Major depressive disorder, single episode, unspecified Disposition: DC- TO HOME OR SELFCARE Is pt being admited?: No Does the pt Need Aspirin: No Condition: Stable Instructions: Depression (ED) Additional Instructions: Patient to follow-up with primary care in 2-3 days. Patient to follow up with psychiatrist in 2-3 days. Patient given outpatient resources. Patient to return to ER if condition worsens. Referrals: SHARON STANFORD MD [Staff Physician] - 2-3 Days [facility] [Outside] - 2-3 Days Time of Disposition: 18:48
[2018-12-25 18:43] LABS: Bilirubin,Urine NEG (Negative); Blood,Urine NEG (Negative); Color,Urine Yellow (Yellow); Mucus,Urine FEW /HPF; Protein,Urine <15 mg/dL mg/dL (Negative)
[2018-12-25 18:49] LABS: Amphetamine Screen,Urine PRESUMPTIVE NEGATIVE; Benzodiazepines Screen,Urine PRESUMPTIVE NEGATIVE; Cannabinoid Screen,Urine PRESUMPTIVE NEGATIVE; Cocaine Screen,Urine PRESUMPTIVE NEGATIVE; Methadone Screen,Urine PRESUMPTIVE NEGATIVE; Opiate Screen,Urine PRESUMPTIVE NEGATIVE
[2018-12-26 14:29] VITALS: BP 146/76
== END 2018-12-25 19:14 | disposition home or self-care (01) ==
LOC: ED 17:44
DX: F32.9 Major depressive disorder, single episode, unspecified (principal); D64.9 Anemia, unspecified; Z98.51 Tubal ligation status; Z88.6 Allergy status to analgesic agent; Z88.5 Allergy status to narcotic agent; Z79.899 Other long term (current) drug therapy
CPT/HCPCS: 80307; 81001

== ENCOUNTER 2018-12-28 18:36 | Emergency (ER) | payer MEDICARE ==
--- NOTE | 2018-12-28 19:53 | Emergency Department Report ---
Blank Doc - Documentation Documentation: 58 y.o. female presents to ED with depression and SI. CC of headache Hx depression and anemia Positive SI/HI. Plan to take pills to end life. PlaN: Labs Main side for eval
[2018-12-28 20:27] LABS: Basophils # (Auto) 0.2 K/mm3 (0.0-0.1); Basophils % (Auto) 1.5 % (0.0-1.8); Eosinophils # (Auto) 0.2 K/mm3 (0.0-0.4); Lymphocytes # (Auto) 2.3 K/mm3 (1.2-5.4); Lymphocytes % (Auto) 22.1 % (13.4-35.0); Mean Corpuscular HGB Conc 30 % (30-34); Mean Corpuscular Volume 72 fl (79-97); Monocytes # (Auto) 1.2 K/mm3 (0.0-0.8); Monocytes % (Auto) 11.2 % (0.0-7.3); Red Blood Count 4.14 M/mm3 (3.65-5.03); Red Cell Distribution Width 19.3 % (13.2-15.2)
[2018-12-28 20:32] LABS: Hematocrit 29.9 % (30.3-42.9); Hemoglobin 8.9 gm/dl (10.1-14.3); Platelet Count 234 K/mm3 (140-440)
[2018-12-28 20:45] LABS: Alanine Aminotransferase 7 units/L (7-56); Albumin 3.9 g/dL (3.9-5); BUN/Creatinine Ratio 15; Blood Urea Nitrogen 9 mg/dL (7-17); Calcium 9.1 mg/dL (8.4-10.2); Hemolysis Index 35
--- NOTE | 2018-12-28 23:06 | Emergency Department Report ---
ED Psych HPI - General Chief Complaint: Psych Stated Complaint: DEPRESSION Time Seen by Provider: 12/28/18 19:47 Source: patient Mode of arrival: Ambulatory - History of Present Illness Initial Comments: Patient is 58-year-old female with history of depression. Patient presented to the ER stating that she is been very depressed for the last month since the of her brother 1 month ago. Patient stated that she is homeless. She stated that she lost her apartment because she lost her job too. Patient stated that she had thoughts of hurting herself by overdosing on medication. Patient denied any homicidal ideation. She also denied any auditory or visual hallucination. MD Complaint: suicidal ideation, feels depressed - Related Data Previous Rx's Medication Instructions Recorded Last Taken Type Docusate Sodium [Colace CAP] 100 mg PO BID #60 capsule 05/13/17 Unknown Rx Cyclobenzaprine [Flexeril 10 MG 10 mg PO QHS PRN #24 tablet 07/16/17 Unknown Rx TAB] methOCARBAMOL [Robaxin TAB] 500 mg PO Q6H PRN #14 tablet 11/03/17 Unknown Rx Sulfamethoxazole/Trimethoprim 1 each PO BID #20 tablet 05/24/18 Unknown Rx [Bactrim Ds Tablet] Ondansetron [Zofran Odt] 4 mg PO Q6HR PRN #12 tab.rapdis 08/16/18 Unknown Rx Promethazine [Phenergan TAB] 25 mg PO Q8HR PRN #20 tab 08/16/18 Unknown Rx Ferrous Sulfate [Feosol 325 MG tab] 325 mg PO BID #40 tablet 12/14/18 Unknown Rx traMADol [Ultram 50 MG tab] 50 mg PO Q6HR PRN #12 tablet 12/24/18 Unknown Rx Allergies Allergy/AdvReac Type Severity Reaction Status Date / Time aspirin Allergy Vomiting Verified 12/25/18 17:50 codeine Allergy Vomiting Verified 12/25/18 17:50 ED Review of Systems ROS: Stated complaint: DEPRESSION Other details as noted in HPI Comment: All other systems reviewed and negative Constitutional: denies: chills, fever Respiratory: denies: cough, orthopnea, shortness of breath, SOB with exertion, SOB at rest, wheezing Cardiovascular: denies: chest pain, palpitations Gastrointestinal: denies: abdominal pain, nausea, vomiting, diarrhea, constipation, hematemesis, melena, hematochezia Musculoskeletal: denies: back pain Psychiatric: depression, suicidal thoughts. denies: auditory hallucinations, visual hallucinations, homicidal thoughts ED Past Medical Hx - Past Medical History Previous Medical History?: Yes Hx Hypertension: No Hx Heart Attack/AMI: No Hx Congestive Heart Failure: No Hx Diabetes: No Hx Deep Vein Thrombosis: No Hx Sickle Cell Disease: No Hx Psychiatric Treatment: Yes (depression) Hx Asthma: No Hx COPD: No Additional medical history: G6PD deficiency, chronic anemia secondary to fibroids - Surgical History Past Surgical History?: Yes Hx Coronary Stent: No Hx Pacemaker: No Hx Internal Defibrillator: No Additional Surgical History: tubal ligation - Social History Smoking Status: Never Smoker Substance Use Type: None - Medications Home Medications: Home Medications Medication Instructions Recorded Confirmed Last Taken Type Docusate Sodium [Colace CAP] 100 mg PO BID #60 capsule 05/13/17 01/31/18 Unknown Rx Cyclobenzaprine [Flexeril 10 MG 10 mg PO QHS PRN #24 tablet 07/16/17 01/31/18 Unknown Rx TAB] methOCARBAMOL [Robaxin TAB] 500 mg PO Q6H PRN #14 tablet 11/03/17 01/31/18 Unknown Rx Sulfamethoxazole/Trimethoprim 1 each PO BID #20 tablet 05/24/18 Unknown Rx [Bactrim Ds Tablet] Ondansetron [Zofran Odt] 4 mg PO Q6HR PRN #12 tab.rapdis 08/16/18 Unknown Rx Promethazine [Phenergan TAB] 25 mg PO Q8HR PRN #20 tab 08/16/18 Unknown Rx Ferrous Sulfate [Feosol 325 MG tab] 325 mg PO BID #40 tablet 12/14/18 Unknown Rx traMADol [Ultram 50 MG tab] 50 mg PO Q6HR PRN #12 tablet 12/24/18 Unknown Rx ED Physical Exam - General Limitations: No Limitations General appearance: alert, in no apparent distress - Head Head exam: Present: atraumatic, normocephalic, normal inspection - Eye Eye exam: Present: normal appearance - ENT ENT exam: Present: normal exam, normal orophraynx, mucous membranes moist - Neck Neck exam: Present: normal inspection, full ROM. Absent: tenderness, men ingismus, lymphadenopathy, thyromegaly - Respiratory Respiratory exam: Present: normal lung sounds bilaterally. Absent: respiratory distress, wheezes, rales, rhonchi, stridor, chest wall tenderness, accessory muscle use, decreased breath sounds, prolonged expiratory - Cardiovascular Cardiovascular Exam: Present: regular rate, normal rhythm, normal heart sounds - GI/Abdominal GI/Abdominal exam: Present: soft, normal bowel sounds. Absent: distended, tenderness, guarding, rebound, rigid, organomegaly, mass, bruit, pulsatile mass, hernia - Extremities Exam Extremities exam: Present: normal inspection, full ROM, normal capillary refill. Absent: tenderness, pedal edema, calf tenderness - Back Exam Back exam: Present: normal inspection, full ROM. Absent: tenderness, CVA tenderness (R), CVA tenderness (L), muscle spasm, paraspinal tenderness, vertebral tenderness, rash noted - Neurological Exam Neurological exam: Present: alert, oriented X3, CN II-XII intact, normal gait, reflexes normal - Psychiatric Psychiatric exam: Present: depressed, suicidal ideation. Absent: agitated, anxious, flat affect, manic, homicidal ideation - Skin Skin exam: Present: warm, intact, normal color ED Course Vital Signs 12/28/18 19:33 Temperature 98.2 F Pulse Rate 70 Respiratory 16 Rate Blood Pressure 114/53 O2 Sat by Pulse 100 Oximetry ED Medical Decision Making - Lab Data Result diagrams: 12/28/18 19:58 12/28/18 19:58 Critical care attestation.: If time is entered above; I have spent that time in minutes in the direct care of this critically ill patient, excluding procedure time. ED Disposition Clinical Impression: Depression, Suicidal ideation Disposition: DC/TX-65 PSY HOSP/PSY UNIT Is pt being admited?: No Condition: Stable Referrals: TORI MAXWELL MD [Primary Care Provider] - 3-5 Days
[2018-12-28 23:34] LABS: Amphetamine Screen,Urine PRESUMPTIVE NEGATIVE; Benzodiazepines Screen,Urine PRESUMPTIVE NEGATIVE; Cannabinoid Screen,Urine PRESUMPTIVE NEGATIVE; Cocaine Screen,Urine PRESUMPTIVE NEGATIVE; Methadone Screen,Urine PRESUMPTIVE NEGATIVE; Opiate Screen,Urine PRESUMPTIVE NEGATIVE
[2018-12-29 05:35] LABS: Bilirubin,Urine Negative (Negative); Blood,Urine Negative (Negative); Color,Urine Yellow (Yellow); Protein,Urine <15 mg/dL mg/dL (Negative); Urobilinogen,Urine < 2.0 mg/dL (<2.0)
[2018-12-29 05:36] LABS: Calcium Oxalate Crystals,Urine 3+
[2018-12-29 10:42] VITALS: BP 106/32
== END 2018-12-29 12:30 ==
LOC: ED 18:36
DX: F32.9 Major depressive disorder, single episode, unspecified (principal); R45.851 Suicidal ideations; Z98.51 Tubal ligation status; Z88.5 Allergy status to narcotic agent; Z88.8 Allergy status to other drugs, medicaments and biological substances
CPT/HCPCS: 36415; 80053; 80307; 81001; 85025; 99285; G0480; 80320

== ENCOUNTER 2019-01-06 19:12 | Emergency (ER) | payer MEDICARE ==
--- NOTE | 2019-01-06 21:22 | Emergency Department Report ---
Blank Doc - Documentation Documentation: 58 y o female presents to ED cc of headache 7/10 intensity pt states she was d/c from this hospital 3 day sago for loc and has no relief since d/c states dizziness, n/v labs reevaluate
[2019-01-06] MEDS ORDERED: TYLENOL ONE (21:27)
[2019-01-06] MEDS ORDERED: TYLENOL PO ONE (21:27)
[2019-01-06 21:57] LABS: Basophils # (Auto) 0.1 K/mm3 (0.0-0.1); Basophils % (Auto) 1.1 % (0.0-1.8); Eosinophils # (Auto) 0.4 K/mm3 (0.0-0.4); Eosinophils % (Auto) 3.3 % (0.0-4.3); Hematocrit 33.1 % (30.3-42.9); Hemoglobin 10.2 gm/dl (10.1-14.3); Lymphocytes # (Auto) 2.2 K/mm3 (1.2-5.4); Mean Corpuscular HGB Conc 31 % (30-34); Mean Corpuscular Volume 73 fl (79-97); Platelet Count 268 K/mm3 (140-440); Red Blood Count 4.56 M/mm3 (3.65-5.03); Red Cell Distribution Width 19.9 % (13.2-15.2)
[2019-01-06 22:04] LABS: BUN/Creatinine Ratio 20; Blood Urea Nitrogen 10 mg/dL (7-17); Calcium 9.6 mg/dL (8.4-10.2); Hemolysis Index 24
[2019-01-07] MEDS ORDERED: NACL 0.9% 1000 ML 1,000 ML IV ONE (00:51)
[2019-01-07] MEDS ORDERED: REGLAN IV ONE (00:52)
--- NOTE | 2019-01-07 00:53 | Emergency Department Report ---
ED General Adult HPI - General Chief complaint: Dizziness Stated complaint: DIZZINESS Time Seen by Provider: 01/06/19 21:18 Source: patient, RN notes reviewed, old records reviewed Mode of arrival: Ambulatory Limitations: No Limitations - History of Present Illness Initial comments: This is a 58-year-old female. The patient is not known to this provider previously. Patient has a history of presumed orthostasis, iron deficiency anemia. Also has a history of G6PD, chronic hypotension, and heavy menstruation. Patient recently admitted to this hospital for dizziness, lightheadedness and near syncope. Had unremarkable carotid duplex, normal echocardiogram, with ejection fraction of 50-55%. While in the hospital, had no episodes of syncope, and no episodes of arrhythmias. Seen in conjunction with cardiology, who felt that patient's most likely diagnosis was orthostasis. The patient was started on midodrine. The patient reports not taking me to try and as of yet. She presents to the emergency room today with a complaint of lightheadedness. This is accompanied by a very mild headache. The headache is not sudden or thunderclap in nature and not the most intense headache of her life. The headache did not reach maximal intensity within an hour. She's been having intermittent lightheadedness. She reports that as of yet, she is not increased her salt intake, and she is not increase her water intake. She denies other complaints. The lightheadedness is painless, does not radiate anywhere, worsens when sitting up, and decreases with rest. No fevers, chills, no cough, no urinary symptoms, no hematemesis, no bright red blood per rectum, no leg pain, no leg swelling. -: Gradual, days(s) Severity scale (0 -10): 7 Consistency: intermittent Improves with: other Worsens with: other Associated Symptoms: headaches, loss of appetite, malaise, weakness. denies: confusion, chest pain, cough, diaphoresis, fever/chills, nausea/vomiting, rash, seizure, shortness of breath - Related Data Home Medications Medication Instructions Recorded Confirmed Last Taken Docusate Sodium [Colace CAP] 100 mg PO DAILY 01/03/19 01/03/19 Unknown Ferrous Sulfate [Feosol 325 MG tab] 325 mg PO QDAY 01/03/19 01/03/19 Unknown Previous Rx's Medication Instructions Recorded Last Taken Type Meclizine [Antivert] 25 mg PO TID PRN #30 tablet 01/05/19 Unknown Rx Midodrine [Proamatine] 2.5 mg PO TID@0800,1200,1600 #14 01/05/19 Unknown Rx tablet Allergies Allergy/AdvReac Type Severity Reaction Status Date / Time aspirin Allergy Vomiting Verified 12/25/18 17:50 codeine Allergy Vomiting Verified 12/25/18 17:50 ED Review of Systems ROS: Stated complaint: DIZZINESS Other details as noted in HPI Constitutional: fever Eyes: denies: eye discharge, vision change ENT: denies: epistaxis Respiratory: denies: cough Cardiovascular: other (lightheadedness, near syncope). denies: chest pain, palpitations, dyspnea on exertion, orthopnea Gastrointestinal: denies: abdominal pain, vomiting Genitourinary: denies: dysuria Musculoskeletal: denies: back pain, arthralgia Skin: denies: lesions Neurological: headache, weakness. denies: numbness, paresthesias, confusion Psychiatric: anxiety ED Past Medical Hx - Past Medical History Previous Medical History?: Yes Hx Hypertension: No Hx CVA: No Hx Heart Attack/AMI: No Hx Congestive Heart Failure: No Hx Diabetes: No Hx Deep Vein Thrombosis: No Hx Pulmonary Embolism: No Hx GERD: No Hx Liver Disease: No Hx Renal Disease: No Hx of Cancer: No Hx Sickle Cell Disease: No Hx Arthritis: No Hx Headaches / Migraines: No Hx Seizures: No Hx Kidney Stones: No Hx Psychiatric Treatment: Yes (depression) Hx Asthma: No Hx COPD: No Hx Tuberculosis: No Hx Dementia: No Additional medical history: G6PD deficiency, chronic anemia secondary to fibroids - Surgical History Past Surgical History?: No Hx Coronary Stent: No Hx Open Heart Surgery: No Hx Pacemaker: No Hx Internal Defibrillator: No Hx Cholecystectomy: No Hx Appendectomy: No Hx Breast Surgery: No Additional Surgical History: tubal ligation - Social History Smoking Status: Never Smoker Substance Use Type: None - Medications Home Medications: Home Medications Medication Instructions Recorded Confirmed Last Taken Type Docusate Sodium [Colace CAP] 100 mg PO DAILY 01/03/19 01/03/19 Unknown History Ferrous Sulfate [Feosol 325 MG tab] 325 mg PO QDAY 01/03/19 01/03/19 Unknown History Meclizine [Antivert] 25 mg PO TID PRN #30 tablet 01/05/19 Unknown Rx Midodrine [Proamatine] 2.5 mg PO TID@0800,1200,1600 #14 01/05/19 Unknown Rx tablet ED Physical Exam - General Limitations: No Limitations General appearance: alert, in no apparent distress - Head Head exam: Present: atraumatic, normocephalic - Eye Eye exam: Present: normal appearance, PERRL, EOMI, other (visual acuity intact to finger counting, color perception, reading at a close distance). Absent: nystagmus - ENT ENT exam: Present: normal exam, normal orophraynx, mucous membranes moist, TM's normal bilaterally, normal external ear exam, other (there is no mastoid tenderness. No vesicles noted.) - Neck Neck exam: Present: normal inspection, full ROM. Absent: tenderness, meningis mus - Respiratory Respiratory exam: Present: normal lung sounds bilaterally. Absent: respiratory distress, wheezes, rales, rhonchi, stridor, chest wall tenderness - Cardiovascular Cardiovascular Exam: Present: regular rate, normal rhythm, normal heart sounds. Absent: bradycardia, tachycardia, irregular rhythm, systolic murmur, diastolic murmur, rubs, gallop - GI/Abdominal GI/Abdominal exam: Present: soft. Absent: distended, tenderness, guarding, rebound, rigid, pulsatile mass - Extremities Exam Extremities exam: Present: normal inspection, full ROM, other (2+ pulses noted in the bilateral upper, lower extremities. Compartments soft. No long bony tenderness. The pelvis is stable.). Absent: tenderness, pedal edema, joint swelling, calf tenderness - Back Exam Back exam: Present: normal inspection, full ROM. Absent: tenderness, CVA tenderness (R), paraspinal tenderness, vertebral tenderness - Neurological Exam Neurological exam: Present: alert, oriented X3, CN II-XII intact, normal gait (there is no pass pointing. There is normal [id number]. There is normal gait. There is negative pronator drift.), other (Extraocular movements intact. Tongue midline. No facial droop. Facial sensation intact to light touch in the V1, V2, V3 distribution bilaterally. 5 and 5 strength in 4 extremities.. Sensation is intact to light touch in 4 extremities.). Absent: motor sensory deficit - Psychiatric Psychiatric exam: Present: anxious - Skin Skin exam: Present: warm, dry, intact, normal color. Absent: rash ED Course Vital Signs 01/06/19 01/06/19 01/06/19 21:18 21:27 22:49 Temperature 98.4 F Pulse Rate 65 Respiratory 14 18 Rate Blood Pressure 117/42 116/46 Blood Pressure [Left] O2 Sat by Pulse 98 Oximetry 01/06/19 01/06/19 01/06/19 23:00 23:18 23:30 Temperature Pulse Rate Respiratory Rate Blood Pressure 118/70 124/63 Blood Pressure [Left] O2 Sat by Pulse 100 99 Oximetry 01/06/19 01/07/19 01/07/19 23:45 00:00 00:47 Temperature 97.7 F Pulse Rate 61 Respiratory 15 Rate Blood Pressure 124/75 129/53 Blood Pressure 103/31 [Left] O2 Sat by Pulse 100 99 98 Oximetry 01/07/19 01:00 Temperature Pulse Rate Respiratory Rate Blood Pressure 97/51 Blood Pressure [Left] O2 Sat by Pulse Oximetry ED Medical Decision Making - Lab Data Result diagrams: 01/06/19 21:40 01/06/19 21:40 Vital Signs 01/06/19 01/06/19 01/06/19 21:18 21:27 22:49 Temperature 98.4 F Pulse Rate 65 Respiratory 14 18 Rate Blood Pressure 117/42 116/46 Blood Pressure [Left] O2 Sat by Pulse 98 Oximetry 01/06/19 01/06/19 01/06/19 23:00 23:18 23:30 Temperature Pulse Rate Respiratory Rate Blood Pressure 118/70 124/63 Blood Pressure [Left] O2 Sat by Pulse 100 99 Oximetry 01/06/19 01/07/19 01/07/19 23:45 00:00 00:47 Temperature 97.7 F Pulse Rate 61 Respiratory 15 Rate Blood Pressure 124/75 129/53 Blood Pressure 103/31 [Left] O2 Sat by Pulse 100 99 98 Oximetry 01/07/19 01:00 Temperature Pulse Rate Respiratory Rate Blood Pressure 97/51 Blood Pressure [Left] O2 Sat by Pulse Oximetry Lab Results 01/06/19 01/06/19 01/06/19 Range/Units 21:40 21:40 21:40 WBC 12.2 H (4.5-11.0) K/mm3 RBC 4.56 (3.65-5.03) M/mm3 Hgb 10.2 (10.1-14.3) gm/dl Hct 33.1 (30.3-42.9) % MCV 73 L (79-97) fl MCH 22 L (28-32) pg MCHC 31 (30-34) % RDW 19.9 H (13.2-15.2) % Plt Count 268 (140-440) K/mm3 Lymph % (Auto) 18.0 (13.4-35.0) % [place] % (Auto) 8.0 H (0.0-7.3) % Eos % (Auto) 3.3 (0.0-4.3) % Baso % (Auto) 1.1 (0.0-1.8) % Lymph # 2.2 (1.2-5.4) K/mm3 [place] # 1.0 H (0.0-0.8) K/mm3 Eos # 0.4 (0.0-0.4) K/mm3 Baso # 0.1 (0.0-0.1) K/mm3 Seg Neutrophils % 69.6 (40.0-70.0) % Seg Neutrophils # 8.5 H (1.8-7.7) K/mm3 Sodium 137 (137-145) mmol/L Potassium 4.2 (3.6-5.0) mmol/L Chloride 102.2 (98-107) mmol/L Carbon Dioxide 23 (22-30) mmol/L Anion Gap 16 mmol/L BUN 10 (7-17) mg/dL Creatinine 0.5 L (0.7-1.2) mg/dL Estimated GFR > 60 ml/min BUN/Creatinine Ratio 20 % Glucose 101 H (65-100) mg/dL Lactic Acid 0.80 (0.7-2.0) mmol/L Calcium 9.6 (8.4-10.2) mg/dL - EKG Data -: EKG Interpreted by Nm EKG shows normal: sinus rhythm Rate: normal - EKG Data 01/07/19 03:03 Sinus, bradycardia, 56 bpm, low voltage, normal axis, QTC within normal limits, atrial premature complex, appears grossly unchanged when compared to prior EKG. Not consistent with ST elevation myocardial infarction. - Radiology Data Radiology results: report reviewed, image reviewed Noncontrast CT scan of the brain is negative for acute disease - Medical Decision Making Differential diagnosis, including but not limited to: Orthostasis, vagal event, dehydration, migraine headache, tension headache, cluster headache Assessment and plan: 58-year-old female with persistent orthostasis. The patient is afebrile, with reassuring vital signs, walks with a steady gait, with a [place] Coma Scale of 15. The patient has an NIH score of 0. She is not tachycardic or hypoxic, there is no lower extremity swelling or asymmetry. Doubt DVT or thromboembolic disease. Objective laboratory studies, EKG unchanged and unremarkable, noncontrast CT scan of the brain is negative for acute disease. Patient is counseled to continue the medicines that were recently prescribed for her, she is encouraged to increase water intake and salt intake, and she is encouraged to follow-up with her outpatient primary care doctor or wood getter. The patient does not appear to have an objective emergent medical condition at this point in time, and she is medically suitable to follow-up with her outpatient primary care doctor or wood getter. Critical care attestation.: If time is entered above; I have spent that time in minutes in the direct care of this critically ill patient, excluding procedure time. ED Disposition Clinical Impression: Orthostasis Disposition: DC-01 TO HOME OR SELFCARE Is pt being admited?: No Does the pt Need Aspirin: No Condition: Good Instructions: Syncope (ED) Additional Instructions: As we discussed, laboratory studies were unremarkable, EKG was unchanged from prior, and physical exam was unremarkable. Symptoms likely coming from orthostasis, which is typically low blood pressure, and or dehydration. Please make certain to take the medications that were recently prescribed to by her wood getter, make certain to drink 4-6 cups of water per day, and make certain to increase her salt intake as recommended. Symptoms may take a few weeks to a few months to resolve. Continue your current outpatient medications otherwise, and follow-up with her outpatient primary care doctor or wood getter within the next 10-14 days. Return to the emergency room right away with new, worsening or different symptoms. Referrals: TIA GOMEZ MD [Staff Physician] - 7-10 days [facility] [Provider Group] - 7-10 days
--- NOTE | 2019-01-07 02:43 | Cat Scan Report ---
FINAL REPORT PROCEDURE: CT HEAD/BRAIN WO CON TECHNIQUE: Computerized tomography of the head was performed without contrast material. HISTORY: headache dizzy COMPARISON: 01/02/2019 FINDINGS: Skull and scalp: Normal. Paranasal sinuses: Normal. Ventricles and subarachnoid spaces: Normal. Cerebrum: No evidence of hemorrhage, acute infarction or mass . Cerebellum and brainstem: No evidence of hemorrhage, acute infarction or mass. Vasculature: Normal. Comments: None. IMPRESSION: There is no evidence of an acute intracranial process
[2019-01-07 03:14] VITALS: BP 103/47
== END 2019-01-07 03:35 | disposition home or self-care (01) ==
LOC: ED 19:12
DX: I95.1 Orthostatic hypotension (principal); F32.9 Major depressive disorder, single episode, unspecified; Z98.51 Tubal ligation status; Z86.2 Personal history of diseases of the blood and blood-forming organs and certain disorders involving the immune mechanism; Z88.6 Allergy status to analgesic agent; Z88.5 Allergy status to narcotic agent
CPT/HCPCS: 36415; 70450; 80048; 82140; 85025; 93005; 93010; 96360; 99284; J2765; J7030

== ENCOUNTER 2019-01-15 03:06 | Emergency (ER) | payer MEDICARE ==
[2019-01-15 03:53] LABS: Basophils # (Auto) 0.1 K/mm3 (0.0-0.1); Basophils % (Auto) 1.1 % (0.0-1.8); Eosinophils # (Auto) 0.2 K/mm3 (0.0-0.4); Eosinophils % (Auto) 2.7 % (0.0-4.3); Lymphocytes # (Auto) 1.8 K/mm3 (1.2-5.4); Lymphocytes % (Auto) 26.4 % (13.4-35.0); Mean Corpuscular HGB Conc 30 % (30-34); Mean Corpuscular Volume 74 fl (79-97); Monocytes # (Auto) 0.6 K/mm3 (0.0-0.8); Monocytes % (Auto) 8.6 % (0.0-7.3); Platelet Count 208 K/mm3 (140-440); Red Blood Count 4.45 M/mm3 (3.65-5.03)
--- NOTE | 2019-01-15 03:54 | Emergency Department Report ---
HPI - General Chief Complaint: Vaginal Bleeding Time Seen by Provider: 01/15/19 03:43 - HPI HPI: Room 9 The patient is a 58-year-old female presented with a chief complaint of vaginal bleeding. Patient has a history of fibroids and states her last menstrual period occurred in October 2018. The patient states she began having vaginal bleeding 5 days ago and has been going through approximately has per day. Patient complains of lower abdominal cramping and feeling as though she is going to pass out. The patient says her cycles have become irregular since the fall. 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 yet Location: Genitourinary system Duration: 5 Days Quality: Cramping Severity: Moderate Modifying factors: [see above] Context: [see above] Mode of transportation: [not driving] ED Past Medical Hx - Past Medical History Previous Medical History?: Yes Hx Psychiatric Treatment: Yes (depression) Additional medical history: G6PD deficiency, chronic anemia secondary to fibro ids - Surgical History Additional Surgical History: tubal ligation - Family History Family history: no significant - Social History Smoking Status: Never Smoker Substance Use Type: None - Medications Home Medications: Home Medications Medication Instructions Recorded Confirmed Last Taken Type Docusate Sodium [Colace CAP] 100 mg PO DAILY 01/03/19 01/03/19 Unknown History Ferrous Sulfate [Feosol 325 MG tab] 325 mg PO QDAY 01/03/19 01/03/19 Unknown History Meclizine [Antivert] 25 mg PO TID PRN #30 tablet 01/05/19 Unknown Rx Midodrine [Proamatine] 2.5 mg PO TID@0800,1200,1600 #14 01/05/19 Unknown Rx tablet Cyclobenzaprine [Flexeril] 10 mg PO TID PRN #10 tablet 01/15/19 Unknown Rx HYDROcodone/APAP 5-325 [[place] 1 - 2 each PO Q6HR PRN #10 tablet 01/15/19 Unknown Rx 5/325] medroxyPROGESTERone ACETATE 10 mg PO QDAY #10 tablet 01/15/19 Unknown Rx [Provera] ED Review of Systems ROS: Stated complaint: VAGINAL BLEEDING Other details as noted in HPI Constitutional: no symptoms reported Eyes: denies: eye pain ENT: denies: throat pain Respiratory: no symptoms reported Cardiovascular: denies: chest pain Endocrine: no symptoms reported Gastrointestinal: abdominal pain Genitourinary: abnormal menses Musculoskeletal: denies: back pain Neurological: denies: headache Physical Exam - Physical Exam Vital Signs: Vital Signs 01/15/19 03:17 Temperature 98.2 F Pulse Rate 67 Respiratory 20 Rate Blood Pressure 111/58 O2 Sat by Pulse 100 Oximetry Vital Signs 01/15/19 03:17 Temperature 98.2 F Pulse Rate 67 Respiratory 20 Rate Blood Pressure 111/58 O2 Sat by Pulse 100 Oximetry Physical Exam: GENERAL: The patient is well-developed well-nourished female lying on stretcher not appearing to be in acute distress. [] HEENT: Normocephalic. Atraumatic. Extraocular motions are intact. Patient has moist mucous membranes. NECK: Supple. Trachea midline CHEST/LUNGS: Clear to auscultation. There is no respiratory distress noted. HEART/CARDIOVASCULAR: Regular. There is no tachycardia. There is no gallop rub or murmur. ABDOMEN: Abdomen is soft, with lower abdominal discomfort to palpation. No rebound or guarding. Patient has normal bowel sounds. There is no abdominal distention. SKIN: There is no rash. There is no edema. There is no diaphoresis. NEURO: The patient is awake, alert, and oriented. The patient is cooperative. The patient has normal speech MUSCULOSKELETAL: There is no evidence of acute injury. PELVIC: Moderate amount of dark red blood in the vaginal vault. ED Course Vital Signs 01/15/19 03:17 Temperature 98.2 F Pulse Rate 67 Respiratory 20 Rate Blood Pressure 111/58 O2 Sat by Pulse 100 Oximetry ED Medical Decision Making - Lab Data Result diagrams: 01/15/19 03:37 01/15/19 03:37 - Radiology Data Radiology results: report reviewed (pelvic ultrasound), image reviewed (pelvic ultrasound) [facility] [address] [place] [address] Ultrasound Report Signed Patient: JULIANE JAVED MR#: [id number] : 1960 Acct:[id number] Age/Sex: 58 / F ADM Date: 01/15/19 Loc: ED Attending Dr: Ordering Physician: DENNIS ACOSTA MD Date of Service: 01/15/19 Procedure(s): US transvaginal Accession Number(s): [id number] cc: DENNIS ACOSTA MD FINAL REPORT PROCEDURE: US TRANSVAGINAL TECHNIQUE: Real-time transvaginal sonography in multiple planes of the pelvis was performed with image documentation. This examination was performed without Doppler. Vascular abnormalities, including ovarian torsion, will not be detectable without Doppler evaluation. CPT 50160 HISTORY: menorrhagia COMPARISON: No prior studies are available for comparison. FINDINGS: UTERUS Size: 9.8 x 5.5 x 7.4 cm. Endometrial thickness: 11.3 mm. There is an IUD in the lower uterine segment. Orientation: anteverted. Cervix: Normal. Fibroids/masses: None. RIGHT Ovary: 2 x 1.2 x 1.3 cm. Appearance: Normal. LEFT Ovary: Not identified. Pelvic fluid: None. Other: None. IMPRESSION: There is an IUD in the lower uterine segment. The right ovary is unremarkable. The left ovary is not seen. There is no free fluid.. Transcribed By: CO Dictated By: JOSE WU MD Electronically Authenticated By: JOSE WU MD Signed Date/Time: 01/15/19525 DD/ 4 TD/TT: 01/15/19524 - Differential Diagnosis menorrhagia, uterine fibroids, metromenorrhagia Critical care attestation.: If time is entered above; I have spent that time in minutes in the direct care of this critically ill patient, excluding procedure time. ED Disposition Clinical Impression: Menorrhagia Disposition: - TO HOME OR SELFCARE Is pt being admited?: No Does the pt Need Aspirin: No Condition: Stable Instructions: Menorrhagia (ED) Additional Instructions: Return to the emergency department immediately should you develop worsening symptoms, fever, inability to tolerate food or liquid or any other concerns. Prescriptions: Cyclobenzaprine [Flexeril] 10 mg PO TID PRN #10 tablet PRN Reason: Muscle Spasm HYDROcodone/APAP 5-325 [[place] 5/325] 1 - 2 each PO Q6HR PRN #10 tablet PRN Reason: Pain medroxyPROGESTERone ACETATE [Provera] 10 mg PO QDAY #10 tablet Referrals: AYANA GRIMM MD [Primary Care Provider] - 3-5 Days [facility] [Provider Group] - [facility] Time of Disposition: 05:43
[2019-01-15 04:10] LABS: BUN/Creatinine Ratio 14; Blood Urea Nitrogen 7 mg/dL (7-17); Calcium 9.2 mg/dL (8.4-10.2); Hemolysis Index 8
[2019-01-15 04:22] LABS: Hematocrit 32.8 % (30.3-42.9); Hemoglobin 9.8 gm/dl (10.1-14.3); Red Cell Distribution Width 20.9 % (13.2-15.2)
--- NOTE | 2019-01-15 05:26 | Ultrasound Report ---
FINAL REPORT PROCEDURE: US TRANSVAGINAL TECHNIQUE: Real-time transvaginal sonography in multiple planes of the pelvis was performed with conrad ge documentation. This examination was performed without Doppler. Vascular abnormalities, including o varian torsion, will not be detectable without Doppler evaluation. CPT 48536 HISTORY: menorrhagia COMPARISON: No prior studies are available for comparison. FINDINGS: UTERUS Size: 9.8 x 5.5 x 7.4 cm. Endometrial thickness: 11.3 mm. There is an IUD in the lower uterine segment. Orientation: anteverted. Cervix: Normal. Fibroids/masses: None. RIGHT Ovary: 2 x 1.2 x 1.3 cm. Appearance: Normal. LEFT Ovary: Not identified. Pelvic fluid: None. Other: None. IMPRESSION: There is an IUD in the lower uterine segment. The right ovary is unremarkable. The left ovary is not seen. There is no free fluid..
--- NOTE | 2019-01-15 05:27 | Ultrasound Report ---
FINAL REPORT PROCEDURE: US transabdominal TECHNIQUE: Real-time transabdominal sonography in multiple planes of the pelvis was performed with i mage documentation. This examination was performed without Doppler. Vascular abnormalities, including ovarian torsion, will not be detectable without Doppler evaluation. CPT 79117 HISTORY: menorrhagia COMPARISON: No prior studies are available for comparison. FINDINGS: UTERUS Size: 9.8 x 5.5 x 7.4 cm. Endometrial thickness: 11.3 mm. There is an IUD in the lower uterine segment. Orientation: anteverted. Cervix: Normal. Fibroids/masses: None. RIGHT Ovary: 2 x 1.2 x 1.3 cm. Appearance: Normal. LEFT Ovary: Not identified. Pelvic fluid: None. Other: None. IMPRESSION: There is an IUD in the lower uterine segment. The right ovary is unremarkable. The left ovary is not seen. There is no free fluid..
[2019-01-15 05:50] LABS: Bacteria,Urine 4+ /HPF (Negative); Bilirubin,Urine NEG (Negative); Blood,Urine LG (Negative); Color,Urine Yellow (Yellow); Mucus,Urine FEW /HPF; Protein,Urine <15 mg/dL mg/dL (Negative)
[2019-01-15 05:53] VITALS: BP 109/50
[2019-01-15 06:00] LABS: RBC,Urine > 182.0 /HPF (0.0-6.0)
== END 2019-01-15 05:51 | disposition home or self-care (01) ==
LOC: ED 03:06
DX: N94.6 Dysmenorrhea, unspecified (principal); Z98.51 Tubal ligation status; Z88.6 Allergy status to analgesic agent; Z88.4 Allergy status to anesthetic agent
CPT/HCPCS: 36415; 76830; 76856; 80048; 81001; 84703; 85025; 86850; 86900; 86901

== ENCOUNTER 2019-02-08 13:36 | Emergency (ER) | payer MEDICARE ==
--- NOTE | 2019-02-08 14:02 | Emergency Department Report ---
Chief Complaint: Abdominal Pain Stated Complaint: LOWER BACK PAIN/PELVIC PAIN Time Seen by Provider: 02/08/19 14:00 - HPI History of Present Illness: This is a 58 y.o. female that presents with pelvic and low back pain x 4 days. - ROS Review of Systems: pelvic and low back pain - Exam Vital Signs: Vital Signs 02/08/19 14:00 Temperature 97.5 F L Pulse Rate 70 Respiratory 18 Rate Blood Pressure 112/56 O2 Sat by Pulse 100 Oximetry MSE screening note: Focused history and physical exam performed. Due to findings the following was ordered: labs Fast track for further evaluation. ED Disposition for MSE Condition: Stable Instructions: Abdominal Pain (ED)
[2019-02-08 14:39] LABS: Bacteria,Urine 3+ /HPF (Negative); Bilirubin,Urine NEG (Negative); Blood,Urine NEG (Negative); Color,Urine Yellow (Yellow); Mucus,Urine 1+ /HPF; Protein,Urine <15 mg/dL mg/dL (Negative)
[2019-02-08 14:55] LABS: Basophils # (Auto) 0.1 K/mm3 (0.0-0.1); Basophils % (Auto) 1.2 % (0.0-1.8); Eosinophils # (Auto) 0.3 K/mm3 (0.0-0.4); Eosinophils % (Auto) 3.6 % (0.0-4.3); Hematocrit 30.5 % (30.3-42.9); Hemoglobin 9.4 gm/dl (10.1-14.3); Lymphocytes # (Auto) 1.5 K/mm3 (1.2-5.4); Lymphocytes % (Auto) 21.1 % (13.4-35.0); Mean Corpuscular HGB Conc 31 % (30-34); Mean Corpuscular Volume 73 fl (79-97); Monocytes # (Auto) 0.6 K/mm3 (0.0-0.8); Monocytes % (Auto) 8.3 % (0.0-7.3); Platelet Count 259 K/mm3 (140-440); Red Blood Count 4.19 M/mm3 (3.65-5.03)
[2019-02-08 15:10] LABS: Alanine Aminotransferase 8 units/L (7-56); BUN/Creatinine Ratio 11; Blood Urea Nitrogen 8 mg/dL (7-17); Calcium 9.6 mg/dL (8.4-10.2); Hemolysis Index 3
[2019-02-08] MEDS ORDERED: BACTRIM DS PO ONE (15:21)
--- NOTE | 2019-02-08 15:25 | Emergency Department Report ---
ED Dysuria HPI - HPI Chief Complaint: Abdominal Pain Stated Complaint: LOWER BACK PAIN/PELVIC PAIN Time Seen by Provider: 02/08/19 14:00 Duration: 2 Days Location of Discomfort: Suprapubic Severity: Mild Symptoms: Dysuria: Yes, Frequency: No, Suprapubic Pain: No, Flank Pain: No, Fever: No, Hematuria: No, Abdominal Pain: No, Previous UTI's: No Other History: 58 yo with dysuria. no concern for sti. post menopausal. afebrile. ambulatory in nad. ED Review of Systems ROS: Stated complaint: LOWER BACK PAIN/PELVIC PAIN Other details as noted in HPI Comment: All other systems reviewed and negative Constitutional: denies: chills Eyes: denies: eye pain ENT: denies: ear pain Cardiovascular: denies: palpitations Endocrine: denies: flushing Gastrointestinal: denies: nausea Genitourinary: as per HPI, urgency, dysuria, frequency. denies: hematuria, discharge, abnormal menses, dyspareunia Musculoskeletal: denies: back pain Skin: denies: rash Neurological: denies: headache Psychiatric: denies: anxiety Hematological/Lymphatic: denies: easy bleeding ED Past Medical Hx - Past Medical History Previous Medical History?: Yes Hx Psychiatric Treatment: Yes (depression) Additional medical history: G6PD deficiency, chronic anemia secondary to fibroids - Surgical History Past Surgical History?: Yes Additional Surgical History: tubal ligation - Family History Family history: no significant - Social History Smoking Status: Never Smoker Substance Use Type: None - Medications Home Medications: Home Medications Medication Instructions Recorded Confirmed Last Taken Type Sulfamethoxazole/Trimethoprim 1 each PO BID 6 Days tablet 02/08/19 Unknown Rx [Bactrim DS TAB] Dysuria Exam - Exam General: Vital signs noted. No distress. Alert and acting appropriately. Exam: Yes Moist Mucous Membranes, No CVA Tenderness, No Abdominal Tenderness, No Rigidity or Guarding Labs: Lab Results 02/08/19 02/08/19 02/08/19 Range/Units 14:08 14:29 14:29 WBC 7.2 (4.5-11.0) K/mm3 RBC 4.19 (3.65-5.03) M/mm3 Hgb 9.4 L (10.1-14.3) gm/dl Hct 30.5 (30.3-42.9) % MCV 73 L (79-97) fl MCH 23 L (28-32) pg MCHC 31 (30-34) % RDW 21.0 H (13.2-15.2) % Plt Count 259 (140-440) K/mm3 Lymph % (Auto) 21.1 (13.4-35.0) % [place] % (Auto) 8.3 H (0.0-7.3) % Eos % (Auto) 3.6 (0.0-4.3) % Baso % (Auto) 1.2 (0.0-1.8) % Lymph # 1.5 (1.2-5.4) K/mm3 [place] # 0.6 (0.0-0.8) K/mm3 Eos # 0.3 (0.0-0.4) K/mm3 Baso # 0.1 (0.0-0.1) K/mm3 Seg Neutrophils % 65.8 (40.0-70.0) % Seg Neutrophils # 4.8 (1.8-7.7) K/mm3 Sodium 140 (137-145) mmol/L Potassium 4.1 (3.6-5.0) mmol/L Chloride 108.1 H (98-107) mmol/L Carbon Dioxide 23 (22-30) mmol/L Anion Gap 13 mmol/L BUN 8 (7-17) mg/dL Creatinine 0.7 (0.7-1.2) mg/dL Estimated GFR > 60 ml/min BUN/Creatinine Ratio 11 % Glucose 100 (65-100) mg/dL Calcium 9.6 (8.4-10.2) mg/dL Total Bilirubin 0.30 (0.1-1.2) mg/dL AST 14 (5-40) units/L ALT 8 (7-56) units/L Alkaline Phosphatase 81 (35-129) units/L Total Protein 7.5 (6.3-8.2) g/dL Albumin 4.0 (3.9-5) g/dL Albumin/Globulin Ratio 1.1 % Urine Color Yellow (Yellow) Urine Turbidity Clear (Clear) Urine pH 6.0 (5.0-7.0) Ur Specific [place] 1.027 (1.003-1.030) Urine Protein <15 mg/dl (Negative) mg/dL Urine Glucose (UA) Neg (Negative) mg/dL Urine Ketones Neg (Negative) mg/dL Urine Blood Neg (Negative) Urine Nitrite Pos (Negative) Urine Bilirubin Neg (Negative) Urine Urobilinogen 2.0 (<2.0) mg/dL Ur Leukocyte Esterase Tr (Negative) Urine WBC (Auto) 8.0 H (0.0-6.0) /HPF Urine RBC (Auto) 2.0 (0.0-6.0) /HPF U Epithel Cells (Auto) 4.0 (0-13.0) /HPF Urine Bacteria (Auto) 3+ (Negative) /HPF Urine Mucus 1+ /HPF ED Course Vital Signs 02/08/19 14:00 Temperature 97.5 F L Pulse Rate 70 Respiratory 18 Rate Blood Pressure 112/56 O2 Sat by Pulse 100 Oximetry ED Medical Decision Making - Lab Data Result diagrams: 02/08/19 14:29 02/08/19 14:29 - Medical Decision Making Lab Results 02/08/19 02/08/19 02/08/19 Range/Units 14:08 14:29 14:29 WBC 7.2 (4.5-11.0) K/mm3 RBC 4.19 (3.65-5.03) M/mm3 Hgb 9.4 L (10.1-14.3) gm/dl Hct 30.5 (30.3-42.9) % MCV 73 L (79-97) fl MCH 23 L (28-32) pg MCHC 31 (30-34) % RDW 21.0 H (13.2-15.2) % Plt Count 259 (140-440) K/mm3 Lymph % (Auto) 21.1 (13.4-35.0) % [place] % (Auto) 8.3 H (0.0-7.3) % Eos % (Auto) 3.6 (0.0-4.3) % Baso % (Auto) 1.2 (0.0-1.8) % Lymph # 1.5 (1.2-5.4) K/mm3 [place] # 0.6 (0.0-0.8) K/mm3 Eos # 0.3 (0.0-0.4) K/mm3 Baso # 0.1 (0.0-0.1) K/mm3 Seg Neutrophils % 65.8 (40.0-70.0) % Seg Neutrophils # 4.8 (1.8-7.7) K/mm3 Sodium 140 (137-145) mmol/L Potassium 4.1 (3.6-5.0) mmol/L Chloride 108.1 H (98-107) mmol/L Carbon Dioxide 23 (22-30) mmol/L Anion Gap 13 mmol/L BUN 8 (7-17) mg/dL Creatinine 0.7 (0.7-1.2) mg/dL Estimated GFR > 60 ml/min BUN/Creatinine Ratio 11 % Glucose 100 (65-100) mg/dL Calcium 9.6 (8.4-10.2) mg/dL Total Bilirubin 0.30 (0.1-1.2) mg/dL AST 14 (5-40) units/L ALT 8 (7-56) units/L Alkaline Phosphatase 81 (35-129) units/L Total Protein 7.5 (6.3-8.2) g/dL Albumin 4.0 (3.9-5) g/dL Albumin/Globulin Ratio 1.1 % Urine Color Yellow (Yellow) Urine Turbidity Clear (Clear) Urine pH 6.0 (5.0-7.0) Ur Specific [place] 1.027 (1.003-1.030) Urine Protein <15 mg/dl (Negative) mg/dL Urine Glucose (UA) Neg (Negative) mg/dL Urine Ketones Neg (Negative) mg/dL Urine Blood Neg (Negative) Urine Nitrite Pos (Negative) Urine Bilirubin Neg (Negative) Urine Urobilinogen 2.0 (<2.0) mg/dL Ur Leukocyte Esterase Tr (Negative) Urine WBC (Auto) 8.0 H (0.0-6.0) /HPF Urine RBC (Auto) 2.0 (0.0-6.0) /HPF U Epithel Cells (Auto) 4.0 (0-13.0) /HPF Urine Bacteria (Auto) 3+ (Negative) /HPF Urine Mucus 1+ /HPF Vital Signs 02/08/19 14:00 Temperature 97.5 F L Pulse Rate 70 Respiratory 18 Rate Blood Pressure 112/56 O2 Sat by Pulse 100 Oximetry dc home with dc poc no fever no cva tenderness Critical care attestation.: If time is entered above; I have spent that time in minutes in the direct care of this critically ill patient, excluding procedure time. ED Disposition Clinical Impression: UTI (urinary tract infection) Disposition: DC-01 TO HOME OR SELFCARE Is pt being admited?: No Does the pt Need Aspirin: No Condition: Stable Instructions: Urinary Tract Infection in Women (ED) Additional Instructions: MED ORDERED UNTIL GONE HYDRATE WELL WITH WATER MOTRIN OR TYLENOL FOR PAIN OR FEVER DIET TOLERATED ACTIVITY TOLERATED FOLLOW UP PCP THIS WEEK TO BE SURE IMPROVING referral below Referrals: [facility] [Outside] - 3-5 Days Time of Disposition: 15:23
[2019-02-08 15:56] VITALS: BP 115/78
== END 2019-02-08 15:54 | disposition home or self-care (01) ==
LOC: ED 13:36
DX: N39.0 Urinary tract infection, site not specified (principal); F32.9 Major depressive disorder, single episode, unspecified; Z98.51 Tubal ligation status
CPT/HCPCS: 36415; 80053; 81001; 85025

== ENCOUNTER 2019-02-21 18:21 | Emergency (ER) | payer MEDICARE ==
--- NOTE | 2019-02-21 18:53 | Emergency Department Report ---
Blank Doc - Documentation Documentation: This is a 58-year-old female that presents with syncopal episode today. Has d izziness and weakness now. Deneis any other complaints or symptoms. This initial assessment/diagnostic orders/clinical plan/treatment(s) is/are subject to change based on patient's health status, clinical progression and re- assessment by fellow clinical providers in the ED. Further treatment and workup at subsequent clinical providers discretion. Patient/guardians urged not to elope from the ED as their condition may be serious if not clinically assessed and managed. Initial orders include: 1- Patient sent to [facility] for further evaluation and treatment 2- EKG 3- Labs 4- UA
[2019-02-21 18:55] VITALS: BP 117/70
[2019-02-21 21:01] LABS: Basophils # (Auto) 0.1 K/mm3 (0.0-0.1); Basophils % (Auto) 0.9 % (0.0-1.8); Eosinophils # (Auto) 0.2 K/mm3 (0.0-0.4); Eosinophils % (Auto) 2.6 % (0.0-4.3); Hematocrit 32.7 % (30.3-42.9); Hemoglobin 9.9 gm/dl (10.1-14.3); Lymphocytes % (Auto) 21.8 % (13.4-35.0); Mean Corpuscular HGB Conc 30 % (30-34); Mean Corpuscular Volume 73 fl (79-97); Monocytes # (Auto) 0.8 K/mm3 (0.0-0.8); Monocytes % (Auto) 8.4 % (0.0-7.3); Platelet Count 289 K/mm3 (140-440); Red Blood Count 4.49 M/mm3 (3.65-5.03)
[2019-02-21 21:17] LABS: Red Cell Distribution Width 20.8 % (13.2-15.2)
[2019-02-21 21:22] LABS: INR 1.03 (0.87-1.13); Partial Thromboplastin Time 25.7 Sec. (24.2-36.6)
--- NOTE | 2019-02-21 21:22 | Cat Scan Report ---
PROCEDURE: CT head without contrast. TECHNIQUE: Computerized tomography of the head was performed without contrast material. CT DOSE LENGTH PRODUCT: 920.5 mGycm HISTORY: Syncope. COMPARISONS: None. FINDINGS: The ventricles are normal in size. The herr matter and white matter appear normal. There are no mass lesions. There is no intracranial hemorrhage. The calvarium appears intact. The mastoid air cells and paranasal sinuses are clear as far as visualized. IMPRESSION: Normal study. This document is electronically signed by Haresh Suarez MD., February 21 2019 09:20:24 PM ET
[2019-02-21 21:44] LABS: Alanine Aminotransferase 10 units/L (7-56); BUN/Creatinine Ratio 14; Blood Urea Nitrogen 10 mg/dL (7-17); Calcium 9.8 mg/dL (8.4-10.2); Hemolysis Index 12
[2019-02-21] MEDS ORDERED: NACL 0.9% 1000 ML 1,000 ML IV ONE (22:37)
--- NOTE | 2019-02-21 23:43 | Emergency Department Report ---
ED Dizziness HPI - General Chief Complaint: Syncope Stated Complaint: BLOOD LOW/PASSED [id number] AGO Time Seen by Provider: 02/21/19 18:52 Source: patient Mode of arrival: Ambulatory Limitations: No Limitations - History of Present Illness Initial Comments: This is a 58-year-old female that presents with syncopal episode today. Has dizziness and weakness now. Deneis any other complaints or symptoms. MD Complaint: dizziness, near syncope Onset/Timin -: days(s) Timing: gradual onset Description: sense of movement, near-syncope History of Same: Yes History of Trauma: No Severity: moderate Improves With: rest Worsens With: movement, exertion Associated Symptoms: other (dizziness hx of anemia chronic disease ) - Related Data Previous Rx's Medication Instructions Recorded Last Taken Type Sulfamethoxazole/Trimethoprim 1 each PO BID 6 Days tablet 02/08/19 Unknown Rx [Bactrim DS TAB] Nitrofurantoin Monohyd/M-Cryst 100 mg PO BID 7 Days #14 capsule 02/22/19 Unknown Rx [Macrobid 100 mg Capsule] Allergies Allergy/AdvReac Type Severity Reaction Status Date / Time aspirin Allergy Vomiting Verified 12/25/18 17:50 codeine Allergy Vomiting Verified 12/25/18 17:50 ED Review of Systems ROS: Stated complaint: BLOOD LOW/PASSED [id number] AGO Other details as noted in HPI Constitutional: denies: chills, fever Eyes: as per HPI ENT: denies: ear pain, throat pain Respiratory: denies: cough, shortness of breath, wheezing Cardiovascular: syncope. denies: chest pain, palpitations Endocrine: no symptoms reported Gastrointestinal: denies: abdominal pain, nausea, diarrhea Genitourinary: denies: urgency, dysuria, discharge Musculoskeletal: denies: back pain, joint swelling, arthralgia Skin: denies: rash, lesions Neurological: denies: headache, weakness, paresthesias Psychiatric: denies: anxiety, depression Hematological/Lymphatic: denies: easy bleeding, easy bruising ED Past Medical Hx - Past Medical History Hx Psychiatric Treatment: Yes (depression) Additional medical history: G6PD deficiency, chronic anemia secondary to fibroids - Surgical History Additional Surgical History: tubal ligation - Social History Smoking Status: Never Smoker Substance Use Type: None - Medications Home Medications: Home Medications Medication Instructions Recorded Confirmed Last Taken Type Sulfamethoxazole/Trimethoprim 1 each PO BID 6 Days tablet 02/08/19 Unknown Rx [Bactrim DS TAB] Nitrofurantoin Monohyd/M-Cryst 100 mg PO BID 7 Days #14 capsule 02/22/19 Unkn own Rx [Macrobid 100 mg Capsule] ED Physical Exam - General Limitations: No Limitations General appearance: alert, in no apparent distress - Head Head exam: Present: atraumatic, normocephalic, normal inspection - Eye Eye exam: Present: normal appearance, PERRL, EOMI Pupils: Present: normal accommodation - ENT ENT exam: Present: normal orophraynx, mucous membranes moist, TM's normal bilaterally, normal external ear exam - Neck Neck exam: Present: normal inspection, full ROM. Absent: tenderness, meningismus, lymphadenopathy, thyromegaly - Expanded Neck Exam Expanded Neck exam: Absent: tenderness, midline deformity, anterior neck swelling, thyroid mass, carotid bruit, tracheal deviation - Respiratory Respiratory exam: Present: normal lung sounds bilaterally. Absent: respiratory distress, wheezes, stridor, chest wall tenderness - Cardiovascular Cardiovascular Exam: Present: regular rate, normal rhythm, normal heart sounds. Absent: systolic murmur, diastolic murmur, rubs, gallop - GI/Abdominal GI/Abdominal exam: Present: soft, normal bowel sounds. Absent: distended, tenderness, rebound, bruit, hernia - Rectal Rectal exam: Present: deferred - Extremities Exam Extremities exam: Present: normal inspection, full ROM, normal capillary refill. Absent: tenderness, pedal edema, joint swelling, calf tenderness - Back Exam Back exam: Present: normal inspection, full ROM. Absent: tenderness, CVA tenderness (R), CVA tenderness (L), muscle spasm, paraspinal tenderness, vertebral tenderness, rash noted - Neurological Exam Neurological exam: Present: alert, oriented X3, CN II-XII intact, normal gait, reflexes normal. Absent: motor sensory deficit - Expanded Neurological Exam Expanded Patient oriented to: Present: person, place, time Speech: Present: fluid speech Cranial nerves: EOM's Intact: Normal, Gag Reflex: Normal, Tongue Deviation: Normal, Nystagmus: Normal, Facial Sensation: Normal, Facial Palsy with Forehead Movement: Normal, Facial Palsy without Forehead Movement: Normal Cerebellar function: Finger to Nose: Normal, Heel to [place]: Normal, Romberg: Normal Upper motor neuron: Damon Neglect: Normal, Pronator Drift: Normal, Babinski Sign: Normal, Sensory Extinction: Normal Sensory exam: Upper Extremity Light Touch: Normal, Upper Extremity Pin Prick: Normal, Upper Extremity Temperature: Normal, UE 2 Point Discrimination: Normal, Lower Extremity Light Touch: Normal, Lower Extremity Pin Prick: Normal, Lower Extremity Temperature: Normal, LE 2 Point Discrimination: Normal Motor strength exam: RUE: 5, LUE: 5, RLE: 5, LLE: 5 DTR: bicep (R): 2+, bicep (L): 2+, ankle (R): 2+, ankle (L): 2+ Best Eye Response (Pierce): (4) open spontaneously Best Motor Response (Pierce): (6) obeys commands Best Verbal Response (Pierce): (5) oriented Mary Total: 15 - Psychiatric Psychiatric exam: Present: normal affect, normal mood - Skin Skin exam: Present: warm, dry, intact, normal color. Absent: rash ED Course Vital Signs 02/21/19 18:52 Temperature 98 F Pulse Rate 100 H Respiratory 18 Rate Blood Pressure 117/70 O2 Sat by Pulse 100 Oximetry ED Medical Decision Making - Lab Data Result diagrams: 02/21/19 20:26 02/21/19 20:26 Labs 02/21/19 02/21/19 02/21/19 20:26 20:26 20:26 WBC 9.1 RBC 4.49 Hgb 9.9 L Hct 32.7 MCV 73 L MCH 22 L MCHC 30 RDW 20.8 H Plt Count 289 Lymph % (Auto) 21.8 Greene % (Auto) 8.4 H Eos % (Auto) 2.6 Baso % (Auto) 0.9 Lymph # 2.0 Greene # 0.8 Eos # 0.2 Baso # 0.1 Seg Neutrophils % 66.3 Seg Neutrophils # 6.0 PT 14.1 INR 1.03 APTT 25.7 Sodium 141 Potassium 4.4 Chloride 107.7 H Carbon Dioxide 22 Anion Gap 16 BUN 10 Creatinine 0.7 Estimated GFR > 60 BUN/Creatinine Ratio 14 Glucose 119 H Calcium 9.8 Total Bilirubin 0.20 AST 17 ALT 10 Alkaline Phosphatase 91 Troponin T < 0.010 Total Protein 7.1 Albumin 4.0 Albumin/Globulin Ratio 1.3 Urine Color Urine Turbidity Urine pH Ur Specific [place] Urine Protein Urine Glucose (UA) Urine Ketones Urine Blood Urine Nitrite Urine Bilirubin Urine Urobilinogen Ur Leukocyte Esterase Urine WBC (Auto) Urine RBC (Auto) U Epithel Cells (Auto) Urine Bacteria (Auto) Calcium Oxalate Crystal Urine Mucus 02/21/19 02/22/19 23:47 00:25 WBC RBC Hgb Hct MCV MCH MCHC RDW Plt Count Lymph % (Auto) Greene % (Auto) Eos % (Auto) Baso % (Auto) Lymph # Greene # Eos # Baso # Seg Neutrophils % Seg Neutrophils # PT INR APTT Sodium Potassium Chloride Carbon Dioxide Anion Gap BUN Creatinine Estimated GFR BUN/Creatinine Ratio Glucose Calcium Total Bilirubin AST ALT Alkaline Phosphatase Troponin T < 0.010 Total Protein Albumin Albumin/Globulin Ratio Urine Color Yellow Urine Turbidity Clear Urine pH 5.0 Ur Specific [place] 1.031 H Urine Protein <15 mg/dl Urine Glucose (UA) Neg Urine Ketones Neg Urine Blood Neg Urine Nitrite Neg Urine Bilirubin Neg Urine Urobilinogen 4.0 Ur Leukocyte Esterase Tr Urine WBC (Auto) 8.0 H Urine RBC (Auto) 4.0 U Epithel Cells (Auto) 1.0 Urine Bacteria (Auto) 4+ Calcium Oxalate Crystal 3+ Urine Mucus 1+ - EKG Data EKG shows normal: sinus rhythm, axis, intervals, QRS complexes, ST-T waves Rate: normal - EKG Data When compared to previous EKG there are: no significant change Interpretation: no acute changes, unchanged when compared t (01/03/2019), other (ekg interp by ed attending NSR, PAC, no st elevation ) - Radiology Data Radiology results: report reviewed, image reviewed Ordering Physician: RACHELLE CABRAL NP Date of Service: 02/21/19 Procedure(s): XR chest routine 2V Accession Number(s): [id number] cc: RACHELLE CABRAL NP Fluoro Time In Minutes: PROCEDURE: XR CHEST ROUTINE 2V TECHNIQUE: PA and lateral chest radiographs were obtained. HISTORY: syncope COMPARISONS: None. FINDINGS: Heart: Normal. Mediastinum/Vessels: Normal. Lungs/Pleural space: Normal. Bony thorax: No acute osseous abnormality. IMPRESSION: Normal examination. This document is electronically signed by Roger Wu MD., February 22 2019 12:55:37 AM ET Transcribed By: CO Dictated By: ROGER WU MD Electronically Authenticated By: ROGER WU MD Signed Date/Time: 02/22/19 0057 DD/ 21 TD/TT: 02/22/192121 PROCEDURE: CT head without contrast. TECHNIQUE: Computerized tomography of the head was performed without contrast material. CT DOSE LENGTH PRODUCT: 920.5 mGycm HISTORY: Syncope. COMPARISONS: None. FINDINGS: The ventricles are normal in size. The herr matter and white matter appear normal. There are no mass lesions. There is no intracranial hemorrhage. The calvarium appears intact. The mastoid air cells and paranasal sinuses are clear as far as visualized. IMPRESSION: Normal study. This document is electronically signed by Haresh Her MD., February 21 2019 09:20:24 PM ET Transcribed By: MRM Dictated By: HARESH HER MD Electronically Authenticated By: HARESH HER MD Signed Date/Time: 02/21/192121 DD/ 07 TD/TT: 02/21/192007 - Medical Decision Making CT scan head no bleed no masses a normal CT scan cxr normal no infiltrate or opacities . Sinus rhythm no change from previous EKG shows a result perforation is positive for leukocytes and white blood cells and bacteria is currently alert and oriented 3 and was without symptoms of dizziness for UTI patient will have her continue to hydrate H&H is 9.7 and 32.3 patient will follow her PCP in 2-3 days return immediately should symptoms worsen otherwise tpt for dc to home in stable condtion at this time. Critical care attestation.: If time is entered above; I have spent that time in minutes in the direct care of this critically ill patient, excluding procedure time. ED Disposition Clinical Impression: Near syncope UTI (urinary tract infection) Qualifiers: Urinary tract infection type: acute cystitis Hematuria presence: without maryana turia Qualified Code(s): N30.00 - Acute cystitis without hematuria Disposition: DC-01 TO HOME OR SELFCARE Is pt being admited?: No Does the pt Need Aspirin: No Condition: Stable Instructions: Near Syncope (ED), Urinary Tract Infection in Men (ED), Urinary Tract Infection in Women (ED) Prescriptions: Nitrofurantoin Monohyd/M-Cryst [Macrobid 100 mg Capsule] 100 mg PO BID 7 Days #14 capsule Referrals: SHARON STANFORD MD [Staff Physician] - 3-5 Days Forms: Work/School Release Form(ED)
--- NOTE | 2019-02-22 00:57 | XRay Report ---
PROCEDURE: XR CHEST ROUTINE 2V TECHNIQUE: PA and lateral chest radiographs were obtained. HISTORY: syncope COMPARISONS: None. FINDINGS: Heart: Normal. Mediastinum/Vessels: Normal. Lungs/Pleural space: Normal. Bony thorax: No acute osseous abnormality. IMPRESSION: Normal examination. This document is electronically signed by Roger Nye MD., February 22 2019 12:55:37 AM ET
[2019-02-22 01:54] LABS: Bacteria,Urine 4+ /HPF (Negative); Bilirubin,Urine NEG (Negative); Blood,Urine NEG (Negative); Calcium Oxalate Crystals,Urine 3+; Color,Urine Yellow (Yellow); Mucus,Urine 1+ /HPF; Protein,Urine <15 mg/dL mg/dL (Negative)
== END 2019-02-22 02:25 | disposition home or self-care (01) ==
LOC: ED 18:21
DX: R55 Syncope and collapse (principal); N39.0 Urinary tract infection, site not specified; Z88.5 Allergy status to narcotic agent; Z88.6 Allergy status to analgesic agent; Z98.51 Tubal ligation status; Z86.2 Personal history of diseases of the blood and blood-forming organs and certain disorders involving the immune mechanism
CPT/HCPCS: 36415; 70450; 71046; 80053; 81001; 84484; 85025; 85610; 85730; 93005; 93010; 96360; 96361; 99285; J7030

== ENCOUNTER 2019-02-23 20:51 | Emergency (ER) | payer MEDICARE ==
--- NOTE | 2019-02-23 21:20 | Emergency Department Report ---
Chief Complaint: Abdominal Pain Stated Complaint: ABD PAIN LOWER BACK PAIN Time Seen by Provider: 02/23/19 21:17 - HPI History of Present Illness: pt presents with suprapubic abd pain and lower back pain she was diagnosed with a UTI two days ago, and started on macrobid states she has been taking the abx has not seen her PCP has not taken any tylenol/ibuprofen MSE screening note: Focused history and physical exam performed. ED Disposition for MSE Condition: Stable Instructions: Abdominal Pain (ED)
[2019-02-24] MEDS ORDERED: TORADOL IM ONE (00:19)
[2019-02-24] MEDS ORDERED: ZOFRAN ODT PO ONE (00:20)
--- NOTE | 2019-02-24 01:44 | Cat Scan Report ---
PROCEDURE: CT ABDOMEN PELVIS WO CON TECHNIQUE: Computerized axial tomography of the abdomen and pelvis was performed without intravenous contrast. This study is performed without intravascular contrast material and its sensitivity for ab dominal and pelvic pathology, including neoplasms, inflammation, abscess, free fluid, thrombosis, art erial dissection and infarction, is reduced compared with a contrast enhanced study. CT DOSE LENGTH PRODUCT: mGycm HISTORY: abd pain COMPARISONS: None . FINDINGS: Visualized lower thorax: No significant abnormality. Liver: Normal size and attenuation. Spleen: Normal size and attenuation. Gallbladder and biliary system: Normal. Pancreas: Normal. Adrenals: Normal. Kidneys: There are is no rotation of the right kidney. There is a 1 mm stone in the upper pole the ri ght kidney. There are tiny stones in the left kidney. There are no ureteral stones bilaterally. There is no hydronephrosis bilaterally.. GI tract: There is no bowel obstruction, colitis or enteritis. The appendix is normal. . Lymph nodes and mesentery: Normal. Vasculature: Normal.. Bladder: Normal. Reproductive organs: Uterus and ovaries are unremarkable.. Peritoneum: There is no ascites or free air, abscess or adenopathy.. Musculoskeletal structures: No significant abnormality. IMPRESSION: There are is no rotation of the right kidney. There is a 1 mm stone in the upper pole the right kidne y. There are tiny stones in the left kidney. There are no ureteral stones bilaterally. There is no hy dronephrosis bilaterally.. There is no bowel obstruction, colitis or enteritis. The appendix is normal. . Uterus and ovaries are unremarkable.. There is no ascites or free air, abscess or adenopathy.. . This document is electronically signed by Roger Nye MD., February 24 2019 01:42:30 AM ET
--- NOTE | 2019-02-24 02:16 | Emergency Department Report ---
ED Abdominal Pain HPI - General Chief Complaint: Abdominal Pain Stated Complaint: ABD PAIN LOWER BACK PAIN Time Seen by Provider: 02/23/19 21:17 Source: patient Mode of arrival: Ambulatory Limitations: No Limitations - History of Present Illness Initial Comments: Patient's anesthesia U female presents with abdominal pain right lower quadrant with some right flank was seen 3 days ago diagnosed with UTI patient did not start medications as prescribed presents tonight from 04/01 abdominal pain does endorse urinary frequency there is no hematuria no fever no nausea vomiting does have hx of renal stones previously given referral to urology MD Complaint: abdominal pain, flank pain Onset/Timin -: week(s) Location: RLQ Radiation: none Migration to: suprapubic Severity: moderate Severity scale (0 -10): 9 Quality: aching Consistency: intermittent Improves With: nothing Worsens With: nothing Associated Symptoms: dysuria - Related Data Previous Rx's Medication Instructions Recorded Last Taken Type Sulfamethoxazole/Trimethoprim 1 each PO BID 6 Days tablet 02/08/19 Unknown Rx [Bactrim DS TAB] Nitrofurantoin Monohyd/M-Cryst 100 mg PO BID 7 Days #14 capsule 02/22/19 Unknown Rx [Macrobid 100 mg Capsule] Ciprofloxacin HCl [Cipro] 500 mg PO BID 10 Days #20 tablet 02/24/19 Unknown Rx Tamsulosin HCl [Flomax] 0.4 mg PO QHS #30 capsule 02/24/19 Unknown Rx traMADol [Ultram] 50 mg PO Q6HR PRN #12 tablet 02/24/19 Unknown Rx Allergies Allergy/AdvReac Type Severity Reaction Status Date / Time aspirin Allergy Vomiting Verified 12/25/18 17:50 codeine Allergy Vomiting Verified 12/25/18 17:50 ED Review of Systems ROS: Stated complaint: ABD PAIN LOWER BACK PAIN Other details as noted in HPI Constitutional: denies: chills, fever Eyes: denies: eye pain, eye discharge, vision change ENT: denies: ear pain, throat pain Respiratory: denies: cough, shortness of breath, wheezing Cardiovascular: denies: chest pain, palpitations Endocrine: no symptoms reported Gastrointestinal: abdominal pain. denies: nausea, vomiting, diarrhea, constipation Genitourinary: urgency, dysuria, frequency. denies: hematuria, discharge, dyspareunia Musculoskeletal: denies: back pain, joint swelling, arthralgia Skin: denies: rash, lesions Neurological: denies: headache, weakness, paresthesias Psychiatric: denies: anxiety, depression Hematological/Lymphatic: denies: easy bleeding, easy bruising ED Past Medical Hx - Past Medical History Previous Medical History?: Yes Hx Psychiatric Treatment: Yes (depression) Additional medical history: GPD deficiency, chronic anemia secondary to fibroids - Surgical History Past Surgical History?: Yes Additional Surgical History: tubal ligation - Social History Smoking Status: Never Smoker Substance Use Type: None - Medications Home Medications: Home Medications Medication Instructions Recorded Confirmed Last Taken Type Sulfamethoxazole/Trimethoprim 1 each PO BID 6 Days tablet 02/08/19 Unknown Rx [Bactrim DS TAB] Nitrofurantoin Monohyd/M-Cryst 100 mg PO BID 7 Days #14 capsule 02/22/19 Unknown Rx [Macrobid 100 mg Capsule] Ciprofloxacin HCl [Cipro] 500 mg PO BID 10 Days #20 tablet 02/24/19 Unknown Rx Tamsulosin HCl [Flomax] 0.4 mg PO QHS #30 capsule 02/24/19 Unknown Rx traMADol [Ultram] 50 mg PO Q6HR PRN #12 tablet 02/24/19 Unknown Rx ED Physical Exam - General Limitations: No Limitations General appearance: alert, in no apparent distress - Head Head exam: Present: atraumatic, normocephalic - Eye Eye exam: Present: normal appearance - ENT ENT exam: Present: mucous membranes moist - Neck Neck exam: Present: normal inspection - Respiratory Respiratory exam: Present: normal lung sounds bilaterally. Absent: respiratory distress, wheezes, stridor, chest wall tenderness - Cardiovascular Cardiovascular Exam: Present: regular rate, normal rhythm. Absent: systolic murmur, diastolic murmur, rubs, gallop - GI/Abdominal GI/Abdominal exam: Present: soft, normal bowel sounds. Absent: distended, tenderness, guarding, rebound, rigid, bruit, hernia - Rectal Rectal exam: Present: deferred - Extremities Exam Extremities exam: Present: normal inspection, full ROM, normal capillary refill. Absent: tenderness - Back Exam Back exam: Present: full ROM. Absent: tenderness, CVA tenderness (R), CVA tenderness (L), muscle spasm, paraspinal tenderness, rash noted - Neurological Exam Neurological exam: Present: alert, oriented X3, CN II-XII intact, normal gait, reflexes normal. Absent: motor sensory deficit - Psychiatric Psychiatric exam: Present: normal affect, normal mood - Skin Skin exam: Present: warm, dry, intact, normal color. Absent: rash ED Course Vital Signs 02/23/19 21:19 Temperature 98.9 F Pulse Rate 76 Respiratory 18 Rate Blood Pressure 102/63 O2 Sat by Pulse 100 Oximetry ED Medical Decision Making - Radiology Data Radiology results: report reviewed, image reviewed cc: RACHELLE CABRAL NP PROCEDURE: CT ABDOMEN PELVIS WO CON TECHNIQUE: Computerized axial tomography of the abdomen and pelvis was performed without intravenous contrast. This study is performed without intravascular contrast material and its sensitivity for abdominal and pelvic pathology, including neoplasms, inflammation, abscess, free fluid, thrombosis, arterial dissection and infarction, is reduced compared with a contrast enhanced study. CT DOSE LENGTH PRODUCT: mGycm HISTORY: abd pain COMPARISONS: None . FINDINGS: Visualized lower thorax: No significant abnormality. Liver: Normal size and attenuation. Spleen: Normal size and attenuation. Gallbladder and biliary system: Normal. Pancreas: Normal. Adrenals: Normal. Kidneys: There are is no rotation of the right kidney. There is a 1 mm stone in the upper pole the right kidney. There are tiny stones in the left kidney. There are no ureteral stones bilaterally. There is no hydronephrosis bilaterally.. GI tract: There is no bowel obstruction, colitis or enteritis. The appendix is normal. . Lymph nodes and mesentery: Normal. Vasculature: Normal.. Bladder: Normal. Reproductive organs: Uterus and ovaries are unremarkable.. Peritoneum: There is no ascites or free air, abscess or adenopathy.. Musculoskeletal structures: No significant abnormality. IMPRESSION: There are is no rotation of the right kidney. There is a 1 mm stone in the upper pole the right kidney. There are tiny stones in the left kidney. There are no ureteral stones bilaterally. There is no hydronephrosis bilaterally.. There is no bowel obstruction, colitis or enteritis. The appendix is normal. . Uterus and ovaries are unremarkable.. There is no ascites or free air, abscess or adenopathy.. . This document is electronically signed by Roger Wu MD., February 24 2019 01:42:30 AM ET Transcribed By: CO Dictated By: ROGER WU MD Electronically Authenticated By: ROGER WU MD Signed Date/Time: 02/24/19 0144 DD/ 0019 TD/TT: 02/24/19 0107 - Medical Decision Making ct abd and pelvis small 1mm renal stone right smaller stones left kidney no hydronephrosis, plan flomax, ultram,cipro, follow up with urology in 2-3 days return to ed if symptoms worsen pt verbalized agreement and understanding with discharge plan. Critical care attestation.: If time is entered above; I have spent that time in minutes in the direct care of this critically ill patient, excluding procedure time. ED Disposition Clinical Impression: Kidney stones Disposition: - TO HOME OR SELFCARE Is pt being admited?: No Does the pt Need Aspirin: No Condition: Stable Instructions: Kidney Stones (ED) Prescriptions: Tamsulosin HCl [Flomax] 0.4 mg PO QHS #30 capsule Ciprofloxacin HCl [Cipro] 500 mg PO BID 10 Days #20 tablet traMADol [Ultram] 50 mg PO Q6HR PRN #12 tablet PRN Reason: Pain Referrals: AYANA GRIMM MD [Primary Care Provider] - 3-5 Days WILBER PEREZ MD [Staff Physician] - 3-5 Days Forms: Work/School Release Form(ED)
[2019-02-24 02:44] VITALS: BP 104/49
== END 2019-02-24 02:44 | disposition home or self-care (01) ==
LOC: ED 20:51
DX: N20.0 Calculus of kidney (principal); F32.9 Major depressive disorder, single episode, unspecified; Z98.51 Tubal ligation status; Z88.8 Allergy status to other drugs, medicaments and biological substances; Z88.5 Allergy status to narcotic agent
CPT/HCPCS: 74176; 96372; 99283; J1885; Q0162

== ENCOUNTER 2019-03-01 22:29 | Emergency (ER) | payer MEDICARE ==
--- NOTE | 2019-03-02 05:48 | Emergency Department Report ---
ED Abdominal Pain HPI - General Chief Complaint: Abdominal Pain Stated Complaint: LOWER ABD PAIN LOWER BACK PAIN Time Seen by Provider: 03/02/19 05:30 Source: patient Mode of arrival: Ambulatory Limitations: No Limitations - History of Present Illness Initial Comments: Patient 58-year-old -[place] female who hx of renal stones and fibroids, presents Right flank pain dx with renal stones on , on ultram flomax, cripro, given referral to urology same, but has not seen urologist to this point , pt presents for right flank pain , states out of pain medication, pt advised that she must see urology as directed, pt had CT abd pelvis, ua; last done on 2018. pt denies n/v no fever or chills, tolerating po intake without symptoms MD Complaint: abdominal pain Onset/Timin -: days(s) Location: suprapubic, R flank Severity: moderate Severity scale (0 -10): 4 Quality: other (itcing ) Consistency: intermittent Improves With: nothing Worsens With: nothing Associated Symptoms: hematemesis - Related Data Previous Rx's Medication Instructions Recorded Last Taken Type Sulfamethoxazole/Trimethoprim 1 each PO BID 6 Days tablet 02/08/19 Unknown Rx [Bactrim DS TAB] Nitrofurantoin Monohyd/M-Cryst 100 mg PO BID 7 Days #14 capsule 02/22/19 Unknown Rx [Macrobid 100 mg Capsule] Ciprofloxacin HCl [Cipro] 500 mg PO BID 10 Days #20 tablet 02/24/19 Unknown Rx Tamsulosin HCl [Flomax] 0.4 mg PO QHS #30 capsule 02/24/19 Unknown Rx traMADol [Ultram] 50 mg PO Q6HR PRN #12 tablet 02/24/19 Unknown Rx Tramadol HCl [Ultram] 50 mg PO Q6H PRN #12 tablet 03/02/19 Unknown Rx Allergies Allergy/AdvReac Type Severity Reaction Status Date / Time aspirin Allergy Vomiting Verified 12/25/18 17:50 codeine Allergy Vomiting Verified 12/25/18 17:50 ED Review of Systems ROS: Stated complaint: LOWER ABD PAIN LOWER BACK PAIN Other details as noted in HPI Constitutional: denies: chills, fever Eyes: denies: eye pain, eye discharge, vision change ENT: denies: ear pain, throat pain Respiratory: denies: cough, shortness of breath, wheezing Cardiovascular: denies: chest pain, palpitations Endocrine: no symptoms reported Gastrointestinal: as per HPI Genitourinary: frequency. denies: urgency, dysuria, hematuria, discharge Musculoskeletal: denies: back pain, joint swelling, arthralgia Skin: denies: rash Neurological: denies: headache, weakness, paresthesias Psychiatric: denies: anxiety, depression Hematological/Lymphatic: denies: easy bleeding, easy bruising ED Past Medical Hx - Past Medical History Hx Psychiatric Treatment: Yes (depression) Additional medical history: GPD deficiency, chronic anemia secondary to fibroids - Surgical History Additional Surgical History: tubal ligation - Social History Smoking Status: Never Smoker Substance Use Type: None - Medications Home Medications: Home Medications Medication Instructions Recorded Confirmed Last Taken Type Sulfamethoxazole/Trimethoprim 1 each PO BID 6 Days tablet 02/08/19 Unknown Rx [Bactrim DS TAB] Nitrofurantoin Monohyd/M-Cryst 100 mg PO BID 7 Days #14 capsule 02/22/19 Unknown Rx [Macrobid 100 mg Capsule] Ciprofloxacin HCl [Cipro] 500 mg PO BID 10 Days #20 tablet 02/24/19 Unknown Rx Tamsulosin HCl [Flomax] 0.4 mg PO QHS #30 capsule 02/24/19 Unknown Rx traMADol [Ultram] 50 mg PO Q6HR PRN #12 tablet 02/24/19 Unknown Rx Tramadol HCl [Ultram] 50 mg PO Q6H PRN #12 tablet 03/02/19 Unknown Rx ED Physical Exam - General Limitations: No Limitations General appearance: alert, in no apparent distress - Head Head exam: Present: atraumatic, normocephalic - Eye Eye exam: Present: normal appearance, PERRL, EOMI - ENT ENT exam: Present: mucous membranes moist - Neck Neck exam: Present: normal inspection, full ROM. Absent: tenderness, lymphadenopathy, thyromegaly - Respiratory Respiratory exam: Present: normal lung sounds bilaterally. Absent: respiratory distress, wheezes, stridor, chest wall tenderness - Cardiovascular Cardiovascular Exam: Present: regular rate, normal rhythm. Absent: systolic murmur, diastolic murmur, rubs, gallop - GI/Abdominal GI/Abdominal exam: Present: soft, normal bowel sounds - Rectal Rectal exam: Present: deferred - Extremities Exam Extremities exam: Present: normal inspection, full ROM, normal capillary refill - Back Exam Back exam: Present: normal inspection, full ROM. Absent: tenderness, CVA tenderness (R), CVA tenderness (L), rash noted - Neurological Exam Neurological exam: Present: alert, oriented X3, CN II-XII intact, normal gait, motor sensory deficit, reflexes normal - Psychiatric Psychiatric exam: Present: normal affect, normal mood - Skin Skin exam: Present: warm, dry, intact, normal color, rash, urticaria ED Medical Decision Making - Medical Decision Making pt has hx of renal stones denies hematuria or flow problem, rx, cipro and flomax no states out of ultram, pending follow up appointment with Dr Lanza URology. plan, ultram for 3 days , follow up urology tomorrow as directed, will continue cipro and flomax as direct , there is no cva tenderness no abd pain no n/v on exam. Fibroid complaint pt has seen [employer] advised she needed to have fibroids removed no on depo for symptoms management, Critical care attestation.: If time is entered above; I have spent that time in minutes in the direct care of this critically ill patient, excluding procedure time. ED Disposition Clinical Impression: Fibroid, History of renal calculi Abdominal pain Qualifiers: Abdominal location: unspecified location Qualified Code(s): R10.9 - Unspecified abdominal pain Disposition: TO HOME OR SELFCARE Is pt being admited?: No Does the pt Need Aspirin: No Condition: Stable Instructions: Abdominal Pain (ED) Prescriptions: Tramadol HCl [Ultram] 50 mg PO Q6H PRN #12 tablet PRN Reason: Pain , Severe (7-10) Referrals: AYANA GRIMM MD [Primary Care Provider] - 3-5 Days Forms: Work/School Release Form(ED) Time of Disposition: 07:32
[2019-03-02] MEDS ORDERED: ZOFRAN ODT PO ONE (07:20)
[2019-03-02] MEDS ORDERED: ULTRAM PO ONE (07:27)
[2019-03-02 07:51] VITALS: BP 137/86
== END 2019-03-02 07:42 | disposition home or self-care (01) ==
LOC: ED 22:29
DX: D25.9 Leiomyoma of uterus, unspecified (principal); F32.9 Major depressive disorder, single episode, unspecified; Z88.6 Allergy status to analgesic agent
CPT/HCPCS: 99282

== ENCOUNTER 2019-03-04 23:01 | Emergency (ER) | payer MEDICARE ==
[2019-03-05] MEDS ORDERED: NACL 0.9% 1000 ML 1,000 ML IV ONE (00:14)
--- NOTE | 2019-03-05 00:26 | Emergency Department Report ---
ED ENT HPI - General Chief complaint: Sore Throat Stated complaint: FEEL BAD ALL OVER/LOWER BACK PAIN/LEG PAIN Time Seen by Provider: 03/05/19 00:14 Source: patient Mode of arrival: Ambulatory Limitations: No Limitations - History of Present Illness Initial comments: Pt is a 58 yo female who presents to the ED with c/o sore throat that began a few hours ago. She has associated rhinorrhea, congestion, generalized body aches, and dry cough. The patient denies any fever or emesis. Pt has seasonal allergies and has not been taking anything. - Related Data Previous Rx's Medication Instructions Recorded Last Taken Type Cetirizine HCl [ZyrTEC] 10 mg PO DAILY #30 tab.rapdis 03/05/19 Unknown Rx Fluticasone [Flonase] 1 spray NS QDAY #1 bottle 03/05/19 Unknown Rx guaiFENesin/DEXTROMETHORPHAN 10 ml PO Q6HR #1 bottle 03/05/19 Unknown Rx [Robitussin Cough-Chest Dm Liq] Allergies Allergy/AdvReac Type Severity Reaction Status Date / Time aspirin Allergy Vomiting Verified 12/25/18 17:50 codeine Allergy Vomiting Verified 12/25/18 17:50 ED Dental HPI - General Chief complaint: Sore Throat Stated complaint: FEEL BAD ALL OVER/LOWER BACK PAIN/LEG PAIN Time Seen by Provider: 03/05/19 00:14 Source: patient Mode of arrival: Ambulatory Limitations: No Limitations - Related Data Previous Rx's Medication Instructions Recorded Last Taken Type Cetirizine HCl [ZyrTEC] 10 mg PO DAILY #30 tab.rapdis 03/05/19 Unknown Rx Fluticasone [Flonase] 1 spray NS QDAY #1 bottle 03/05/19 Unknown Rx guaiFENesin/DEXTROMETHORPHAN 10 ml PO Q6HR #1 bottle 03/05/19 Unknown Rx [Robitussin Cough-Chest Dm Liq] Allergies Allergy/AdvReac Type Severity Reaction Status Date / Time aspirin Allergy Vomiting Verified 12/25/18 17:50 codeine Allergy Vomiting Verified 12/25/18 17:50 ED Review of Systems ROS: Stated complaint: FEEL BAD ALL OVER/LOWER BACK PAIN/LEG PAIN Other details as noted in HPI Comment: All other systems reviewed and negative ED Past Medical Hx - Past Medical History Previous Medical History?: Yes Hx Psychiatric Treatment: Yes (depression) Additional medical history: GPD deficiency, chronic anemia secondary to fibroids - Surgical History Past Surgical History?: Yes Additional Surgical History: tubal ligation - Social History Smoking Status: Never Smoker Substance Use Type: None - Medications Home Medications: Home Medications Medication Instructions Recorded Confirmed Last Taken Type Cetirizine HCl [ZyrTEC] 10 mg PO DAILY #30 tab.rapdis 03/05/19 Unknown Rx Fluticasone [Flonase] 1 spray NS QDAY #1 bottle 03/05/19 Unknown Rx guaiFENesin/DEXTROMETHORPHAN 10 ml PO Q6HR #1 bottle 03/05/19 Unknown Rx [Robitussin Cough-Chest Dm Liq] ED Physical Exam - General Limitations: No Limitations General appearance: alert, in no apparent distress - Head Head exam: Present: atraumatic, normocephalic - Eye Eye exam: Present: normal appearance, PERRL, EOMI - ENT ENT exam: Present: normal orophraynx, mucous membranes moist, other (pale boggy turbinates bilaterally ) - Respiratory Respiratory exam: Present: normal lung sounds bilaterally. Absent: respiratory distress, wheezes, rales, rhonchi, stridor, chest wall tenderness, accessory muscle use, decreased breath sounds, prolonged expiratory - Cardiovascular Cardiovascular Exam: Present: regular rate, normal rhythm, normal heart sounds. Absent: systolic murmur, diastolic murmur, rubs, gallop - GI/Abdominal GI/Abdominal exam: Present: soft, normal bowel sounds. Absent: distended, tenderness, guarding, rebound, rigid - Neurological Exam Neurological exam: Present: alert, oriented X3 - Psychiatric Psychiatric exam: Present: normal affect, normal mood - Skin Skin exam: Present: warm, dry, intact ED Course Vital Signs 03/04/19 03/05/19 23:11 02:43 Temperature 99.3 F Pulse Rate 74 70 Respiratory 14 16 Rate Blood Pressure 115/63 Blood Pressure 122/62 [Left] O2 Sat by Pulse 99 Oximetry ED Medical Decision Making - Lab Data Result diagrams: 03/05/19 00:28 03/05/19 00:28 Lab Results 03/05/19 03/05/19 03/05/19 Range/Units 00:17 00:22 00:28 WBC 9.0 (4.5-11.0) K/mm3 RBC 4.12 (3.65-5.03) M/mm3 Hgb 9.4 L (10.1-14.3) gm/dl Hct 30.8 (30.3-42.9) % MCV 75 L (79-97) fl MCH 23 L (28-32) pg MCHC 31 (30-34) % RDW 20.6 H (13.2-15.2) % Plt Count 235 (140-440) K/mm3 Lymph % (Auto) 22.4 (13.4-35.0) % [place] % (Auto) 8.5 H (0.0-7.3) % Eos % (Auto) 3.5 (0.0-4.3) % Baso % (Auto) 1.0 (0.0-1.8) % Lymph # 2.0 (1.2-5.4) K/mm3 [place] # 0.8 (0.0-0.8) K/mm3 Eos # 0.3 (0.0-0.4) K/mm3 Baso # 0.1 (0.0-0.1) K/mm3 Seg Neutrophils % 64.6 (40.0-70.0) % Seg Neutrophils # 5.8 (1.8-7.7) K/mm3 Sodium (137-145) mmol/L Potassium (3.6-5.0) mmol/L Chloride (98-107) mmol/L Carbon Dioxide (22-30) mmol/L Anion Gap mmol/L BUN (7-17) mg/dL Creatinine (0.7-1.2) mg/dL Estimated GFR ml/min BUN/Creatinine Ratio % Glucose (65-100) mg/dL Calcium (8.4-10.2) mg/dL Urine Color Yellow (Yellow) Urine Turbidity Clear (Clear) Urine pH 6.0 (5.0-7.0) Ur Specific Lavinia 1.015 (1.003-1.030) Urine Protein <15 mg/dl (Negative) mg/dL Urine Glucose (UA) Neg (Negative) mg/dL Urine Ketones Neg (Negative) mg/dL Urine Blood Neg (Negative) Urine Nitrite Neg (Negative) Urine Bilirubin Neg (Negative) Urine Urobilinogen < 2.0 (<2.0) mg/dL Ur Leukocyte Esterase Tr (Negative) Urine WBC (Auto) 3.0 (0.0-6.0) /HPF Urine RBC (Auto) 1.0 (0.0-6.0) /HPF U Epithel Cells (Auto) 4.0 (0-13.0) /HPF Urine Mucus Few /HPF Influenza A (Rapid) Negative (Negative) Influenza B (Rapid) Negative (Negative) Group A Strep Rapid Negative (Negative) 03/05/19 Range/Units 00:28 WBC (4.5-11.0) K/mm3 RBC (3.65-5.03) M/mm3 Hgb (10.1-14.3) gm/dl Hct (30.3-42.9) % MCV (79-97) fl MCH (28-32) pg MCHC (30-34) % RDW (13.2-15.2) % Plt Count (140-440) K/mm3 Lymph % (Auto) (13.4-35.0) % [place] % (Auto) (0.0-7.3) % Eos % (Auto) (0.0-4.3) % Baso % (Auto) (0.0-1.8) % Lymph # (1.2-5.4) K/mm3 [place] # (0.0-0.8) K/mm3 Eos # (0.0-0.4) K/mm3 Baso # (0.0-0.1) K/mm3 Seg Neutrophils % (40.0-70.0) % Seg Neutrophils # (1.8-7.7) K/mm3 Sodium 138 (137-145) mmol/L Potassium 3.8 (3.6-5.0) mmol/L Chloride 105.1 (98-107) mmol/L Carbon Dioxide 21 L (22-30) mmol/L Anion Gap 16 mmol/L BUN 9 (7-17) mg/dL Creatinine 0.7 (0.7-1.2) mg/dL Estimated GFR > 60 ml/min BUN/Creatinine Ratio 13 % Glucose 106 H (65-100) mg/dL Calcium 9.4 (8.4-10.2) mg/dL Urine Color (Yellow) Urine Turbidity (Clear) Urine pH (5.0-7.0) Ur Specific Lavinia (1.003-1.030) Urine Protein (Negative) mg/dL Urine Glucose (UA) (Negative) mg/dL Urine Ketones (Negative) mg/dL Urine Blood (Negative) Urine Nitrite (Negative) Urine Bilirubin (Negative) Urine Urobilinogen (<2.0) mg/dL Ur Leukocyte Esterase (Negative) Urine WBC (Auto) (0.0-6.0) /HPF Urine RBC (Auto) (0.0-6.0) /HPF U Epithel Cells (Auto) (0-13.0) /HPF Urine Mucus /HPF Influenza A (Rapid) (Negative) Influenza B (Rapid) (Negative) Group A Strep Rapid (Negative) Vital Signs 03/04/19 03/05/19 23:11 02:43 Temperature 99.3 F Pulse Rate 74 70 Respiratory 14 16 Rate Blood Pressure 115/63 Blood Pressure 122/62 [Left] O2 Sat by Pulse 99 Oximetry - Medical Decision Making Pt is a 58 yo female who presents to the ED with c/o sore throat that began a few hours ago. She has associated rhinorrhea, congestion, generalized body aches, and dry cough. The patient denies any fever or emesis. Pt has seasonal allergies and has not been taking anything. Rapid strep and flu are negative. UA is normal. Labs WNL. Will give pt treatment for seasonal allergies and URI. Advised pt to take medication as prescribed. Discussed to follow up with PCP in the next 2-3 days. Return to the emergency room for any new or worsening symptoms. - Differential Diagnosis seasonal allergies, flu, strep, viral syndrome, URI Critical care attestation.: If time is entered above; I have spent that time in minutes in the direct care of this critically ill patient, excluding procedure time. ED Disposition Clinical Impression: Viral syndrome, Seasonal allergies Disposition: DC-01 TO HOME OR SELFCARE Is pt being admited?: No Does the pt Need Aspirin: No Condition: Stable Instructions: Allergies (ED), Viral Syndrome (ED) Additional Instructions: please follow up with a primary care doctor in the next 2-3 days. Take all medication as prescribed. Drink plenty of water. Return to the emergency room for any new or worsening symptoms. Prescriptions: Fluticasone [Flonase] 1 spray NS QDAY #1 bottle guaiFENesin/DEXTROMETHORPHAN [Robitussin Cough-Chest Dm Liq] 10 ml PO Q6HR #1 bottle Cetirizine HCl [ZyrTEC] 10 mg PO DAILY #30 tab.rapdis Referrals: AYANA GRIMM MD [Primary Care Provider] - 2-3 Days Time of Disposition: 01:39 Print Language: CZECH
[2019-03-05 00:41] LABS: Bilirubin,Urine NEG (Negative); Blood,Urine NEG (Negative); Color,Urine Yellow (Yellow); Mucus,Urine FEW /HPF; Protein,Urine <15 mg/dL mg/dL (Negative); Urobilinogen,Urine < 2.0 mg/dL (<2.0)
[2019-03-05 01:06] LABS: Basophils # (Auto) 0.1 K/mm3 (0.0-0.1); Eosinophils # (Auto) 0.3 K/mm3 (0.0-0.4); Eosinophils % (Auto) 3.5 % (0.0-4.3); Hematocrit 30.8 % (30.3-42.9); Hemoglobin 9.4 gm/dl (10.1-14.3); Lymphocytes % (Auto) 22.4 % (13.4-35.0); Mean Corpuscular HGB Conc 31 % (30-34); Mean Corpuscular Volume 75 fl (79-97); Monocytes # (Auto) 0.8 K/mm3 (0.0-0.8); Monocytes % (Auto) 8.5 % (0.0-7.3); Platelet Count 235 K/mm3 (140-440); Red Blood Count 4.12 M/mm3 (3.65-5.03)
[2019-03-05 01:17] LABS: BUN/Creatinine Ratio 13; Blood Urea Nitrogen 9 mg/dL (7-17); Calcium 9.4 mg/dL (8.4-10.2); Hemolysis Index 3
[2019-03-05 01:18] LABS: Red Cell Distribution Width 20.6 % (13.2-15.2)
[2019-03-05 02:43] VITALS: BP 122/62
== END 2019-03-05 02:44 | disposition home or self-care (01) ==
LOC: ED 23:01
DX: B34.9 Viral infection, unspecified (principal); J30.2 Other seasonal allergic rhinitis; F32.9 Major depressive disorder, single episode, unspecified; D64.9 Anemia, unspecified; Z98.51 Tubal ligation status; Z88.6 Allergy status to analgesic agent; Z88.5 Allergy status to narcotic agent
CPT/HCPCS: 36415; 80048; 81001; 85025; 87400; 87430; 96360; 96361; 99283; J7030

== ENCOUNTER 2019-04-02 23:03 | Emergency (ER) | payer MEDICARE ==
[2019-04-02 23:14] VITALS: BP 112/61
--- NOTE | 2019-04-02 23:50 | XRay Report ---
PROCEDURE: XR HIP 1V LT TECHNIQUE: Left hip radiograph, one view. HISTORY: Left hip pain fall trauma COMPARISONS: None . FINDINGS: Fracture (s) and/or Dislocation(s): None . Joint space(s): Normal . Soft tissues: Normal . Bone mineralization: Normal . Foreign bodies: None . IMPRESSION: Normal Examination . This document is electronically signed by Treva Rosa DO., Apr 02 2019 11:48:50 PM ET
[2019-04-03] MEDS ORDERED: NORCO 5/325 PO ONE (05:13)
[2019-04-03] MEDS ORDERED: ZOFRAN ODT PO ONE (05:14)
--- NOTE | 2019-04-03 05:26 | Emergency Department Report ---
ED Fall HPI - General Chief Complaint: Extremity Injury, Lower Stated Complaint: FALL/LEFT SIDE BODY PAIN Time Seen by Provider: 04/03/19 05:00 Source: patient Mode of arrival: Ambulatory Limitations: No Limitations - History of Present Illness Initial Comments: Patient is a 58-year-old -[place] male female with no past medical history presents to the ED with complaint of acute onset persistent severe left hip pain after she slipped and fell down in the mind over 12 hours ago. Patient states that she landed on her left side. Patient states that the pain is worse with any active range of motion or ambulation. Patient denies dizziness, syncope, seizure, numbness and tingling of the left leg, nausea, vomiting, back pain, chest pain, shortness of breath or neck pain as well as head injury. MD Complaint: fall, other (left hip pain) -: Sudden, hour(s) (13) Fall From: standing, other (slipped and fell down in the mad and landed on left hip) When Fall Occurred: other (> 12 hours ago) [address] Fall Occurred: home Loss of Consciousness: none Prolonged Down Time?: no Symptoms Prior to Fall: none Location: other (left hip) Location - Extremities: Left: Thigh (left hip and thigh) Severity: severe Severity scale (0 -10): 7 Quality: sharp, aching Context: tripped/slipped Associated Symptoms: denies: headache, neck pain, numbness, chest paint, shortness of breath, abdominal pain, lightheaded, vertigo, confusion - Related Data Previous Rx's Medication Instructions Recorded Last Taken Type Cetirizine HCl [ZyrTEC] 10 mg PO DAILY #30 tab.rapdis 03/05/19 Unknown Rx Fluticasone [Flonase] 1 spray NS QDAY #1 bottle 03/05/19 Unknown Rx guaiFENesin/DEXTROMETHORPHAN 10 ml PO Q6HR #1 bottle 03/05/19 Unknown Rx [Robitussin Cough-Chest Dm Liq] Meclizine [Antivert] 25 mg PO TID PRN #20 tablet 03/31/19 Unknown Rx Ondansetron [Zofran Odt] 4 mg PO Q8HR PRN #14 tab.rapdis 03/31/19 Unknown Rx tiZANidine [Zanaflex] 4 mg PO Q8H PRN #15 tablet 04/03/19 Unknown Rx traMADol [Ultram] 50 mg PO Q6HR PRN #15 tablet 04/03/19 Unknown Rx Allergies Allergy/AdvReac Type Severity Reaction Status Date / Time aspirin Allergy Vomiting Verified 03/30/19 16:06 codeine Allergy Vomiting Verified 03/30/19 16:06 ED Review of Systems ROS: Stated complaint: FALL/LEFT SIDE BODY PAIN Other details as noted in HPI Comment: All other systems reviewed and negative Constitutional: no symptoms reported, see HPI Eyes: as per HPI, eye discharge ENT: as per HPI. denies: ear pain, throat pain, dental pain, hearing loss Respiratory: no symptoms reported, see HPI. denies: cough, shortness of breath, SOB with exertion, SOB at rest Cardiovascular: as per HPI, edema. denies: chest pain, palpitations, dyspnea on exertion, syncope Endocrine: no symptoms reported, see HPI. denies: flushing, intolerance to cold, increased hunger, unexplained weight gain, unexplained weight loss Gastrointestinal: as per HPI. denies: abdominal pain, nausea, vomiting, diarrhea, constipation, hematemesis Genitourinary: as per HPI. denies: urgency, dysuria, hematuria, discharge Musculoskeletal: as per HPI, arthralgia (left hip), other (left hip ). denies: back pain Skin: as per HPI. denies: lesions, change in color, change in hair/nails, pruritus Neurological: as per HPI. denies: numbness Psychiatric: as per HPI. denies: anxiety, auditory hallucinations, visual hallucinations Hematological/Lymphatic: as per HPI. denies: easy bruising ED Past Medical Hx - Past Medical History Previous Medical History?: Yes Hx Psychiatric Treatment: Yes (depression) Additional medical history: GPD deficiency, chronic anemia secondary to fibroids - Surgical History Past Surgical History?: Yes Additional Surgical History: tubal ligation - Social History Smoking Status: Never Smoker Substance Use Type: None - Medications Home Medications: Home Medications Medication Instructions Recorded Confirmed Last Taken Type Cetirizine HCl [ZyrTEC] 10 mg PO DAILY #30 tab.rapdis 03/05/19 Unknown Rx Fluticasone [Flonase] 1 spray NS QDAY #1 bottle 03/05/19 Unknown Rx guaiFENesin/DEXTROMETHORPHAN 10 ml PO Q6HR #1 bottle 03/05/19 Unknown Rx [Robitussin Cough-Chest Dm Liq] Meclizine [Antivert] 25 mg PO TID PRN #20 tablet 03/31/19 Unknown Rx Ondansetron [Zofran Odt] 4 mg PO Q8HR PRN #14 tab.rapdis 03/31/19 Unknown Rx tiZANidine [Zanaflex] 4 mg PO Q8H PRN #15 tablet 04/03/19 Unknown Rx traMADol [Ultram] 50 mg PO Q6HR PRN #15 tablet 04/03/19 Unknown Rx ED Physical Exam - General Limitations: No Limitations General appearance: in no apparent distress - Head Head exam: Present: atraumatic, normocephalic, normal inspection - Eye Eye exam: Present: normal appearance, PERRL, EOMI - ENT ENT exam: Present: normal exam, normal orophraynx, mucous membranes moist, TM's normal bilaterally, normal external ear exam - Neck Neck exam: Present: normal inspection, full ROM. Absent: tenderness, meningismus, lymphadenopathy, thyromegaly - Respiratory Respiratory exam: Present: normal lung sounds bilaterally. Absent: respiratory distress, wheezes, chest wall tenderness, accessory muscle use, decreased breath sounds, prolonged expiratory - Cardiovascular Cardiovascular Exam: Present: regular rate, normal rhythm, normal heart sounds - GI/Abdominal GI/Abdominal exam: Present: soft, normal bowel sounds. Absent: tenderness, guarding, hyperactive bowel sounds, hypoactive bowel sounds - Rectal Rectal exam: Present: deferred - Extremities Exam Extremities exam: Present: normal inspection, tenderness (left hip tenderness with limited ROM due to pain), normal capillary refill. Absent: full ROM (due to pain), pedal edema, joint swelling, calf tenderness - Back Exam Back exam: Present: normal inspection, full ROM. Absent: tenderness, CVA tenderness (R), CVA tenderness (L), muscle spasm, paraspinal tenderness, vertebral tenderness - Neurological Exam Neurological exam: Present: alert, oriented X3, CN II-XII intact, normal gait, reflexes normal - Psychiatric Psychiatric exam: Present: normal affect - Skin Skin exam: Present: warm, dry, intact, normal color ED Course Vital Signs 04/02/19 04/02/19 23:10 23:14 Temperature 98.3 F 98.3 F Pulse Rate 66 66 Respiratory 18 18 Rate Blood Pressure 112/61 112/61 O2 Sat by Pulse 100 100 Oximetry - Reevaluation(s) Reevaluation #1: 04/03/19 05:27 Patient is alert and oriented x 3, and is in no acute distress with normal vital signs. Patient was treated for pain in the ED and left hip x-ray shows no acute fractures. On reevaluation, the patient's pain is well controlled and patient will be sent home on pain medications and muscle relaxants, and patient advised to follow-up with her primary care physician in 5-7 days for reevaluation. Patient is advised to return to the ED immediately if symptoms get worse. 04/03/19 05:29 ED Medical Decision Making - Radiology Data Radiology results: report reviewed, image reviewed Left hip x-ray shows no acute fractures or subluxations. - Medical Decision Making Patient is alert and oriented x 3, and is in no acute distress with normal vital signs. Patient was treated for pain in the ED and left hip x-ray shows no acute fractures. Patient's symptoms are likely from soft tissue injury to the patient's family ambulatory in the ED with no difficulty. The vital signs are stable. On reevaluation, the patient's pain is well controlled and patient will be sent home on pain medications and muscle relaxants, and patient advised to follow-up with her primary care physician in 5-7 days for reevaluation. Patient is advised to return to the ED immediately if symptoms get worse. - Differential Diagnosis left hip fracture, left hip contusion, muscle strain of left hip Critical care attestation.: If time is entered above; I have spent that time in minutes in the direct care of this critically ill patient, excluding procedure time. ED Disposition Clinical Impression: Contusion of left hip and thigh Qualifiers: Encounter type: initial encounter Qualified Code(s): S70.02XA - Contusion of left hip, initial encounter; S70.12XA - Contusion of left thigh, initial encounter Muscle strain of left lower extremity Qualifiers: Encounter type: initial encounter Qualified Code(s): S86.912A - Strain of unspecified muscle(s) and tendon(s) at lower leg level, left leg, initial encounter Disposition: TO HOME OR SELFCARE Is pt being admited?: No Does the pt Need Aspirin: No Condition: Stable Instructions: Muscle Strain (ED), Contusion in Adults (ED), Hip Sprain (ED) Additional Instructions: Take medications metformin, drink plenty of fluids and follow up with primary care physician in 2-3 days for reevaluation. Return to the ED immediately if symptoms get worse. Prescriptions: traMADol [Ultram] 50 mg PO Q6HR PRN #15 tablet PRN Reason: Pain tiZANidine [Zanaflex] 4 mg PO Q8H PRN #15 tablet PRN Reason: Spasms Referrals: AYANA GRIMM MD [Primary Care Provider] - 3-5 Days Time of Disposition: 05:35 Print Language: MALAWIAN
== END 2019-04-03 05:42 | disposition home or self-care (01) ==
LOC: ED 23:03
DX: S86.912A Strain of unspecified muscle(s) and tendon(s) at lower leg level, left leg, initial encounter (principal); S70.02XA Contusion of left hip, initial encounter; W01.0XXA Fall on same level from slipping, tripping and stumbling without subsequent striking against object, initial encounter; Y93.89 Activity, other specified; Y92.89 Other specified places as the place of occurrence of the external cause; Y99.8 Other external cause status
CPT/HCPCS: Q0162

== ENCOUNTER 2019-04-05 22:32 | Emergency (ER) | payer MEDICARE ==
--- NOTE | 2019-04-06 02:28 | XRay Report ---
PROCEDURE: XR CHEST ROUTINE 2V TECHNIQUE: PA and lateral chest radiographs were obtained. HISTORY: Shortness of breath. COMPARISONS: Several priors, most recent chest radiographs March 2019. FINDINGS: Heart: Normal. Mediastinum/Vessels: Normal. Lungs/Pleural space: Normal. Bony thorax: No acute osseous abnormality. IMPRESSION: No acute cardiopulmonary disease or significant interval change from the March 30, 2019 radi ographs. This document is electronically signed by Jose Valdes DO., Apr 06 2019 02:26:13 AM ET
[2019-04-06] MEDS ORDERED: NORCO 5/325 PO ONE (02:38)
[2019-04-06 02:49] LABS: Basophils # (Auto) 0.1 K/mm3 (0.0-0.1); Basophils % (Auto) 0.8 % (0.0-1.8); Eosinophils # (Auto) 0.3 K/mm3 (0.0-0.4); Eosinophils % (Auto) 3.2 % (0.0-4.3); Hematocrit 30.2 % (30.3-42.9); Hemoglobin 9.3 gm/dl (10.1-14.3); Lymphocytes % (Auto) 21.6 % (13.4-35.0); Mean Corpuscular HGB Conc 31 % (30-34); Mean Corpuscular Volume 72 fl (79-97); Monocytes # (Auto) 0.7 K/mm3 (0.0-0.8); Monocytes % (Auto) 7.6 % (0.0-7.3); Platelet Count 218 K/mm3 (140-440); Red Blood Count 4.17 M/mm3 (3.65-5.03)
[2019-04-06 03:27] LABS: Alanine Aminotransferase 10 units/L (7-56); Albumin 3.6 g/dL (3.9-5); BUN/Creatinine Ratio 10; Blood Urea Nitrogen 7 mg/dL (7-17); Calcium 9.7 mg/dL (8.4-10.2); Hemolysis Index 5
--- NOTE | 2019-04-06 05:23 | Cat Scan Report ---
PROCEDURE: CT ANGIO CHEST TECHNIQUE: Computerized tomographic angiography of the chest was performed after the IV injection of iodinated nonionic contrast including image processing. The image data was postprocessed using 2-di mensional multiplanar reformatted (MPR) and 3-dimensional (MIP and/or volume rendered) techniques. Au tomated exposure control, adjustment of mA and/or kV according to patient size, or iterative reconstr uction dose optimization techniques were utilized. CT DOSE LENGTH PRODUCT: mGycm HISTORY: cp, sob COMPARISONS: Chest x-ray 04/06/2019 . FINDINGS: Heart and pericardium: Normal. Thoracic aorta: Normal. Pulmonary vasculature: No evidence of congestion or PE.. Lymph nodes: No enlarged thoracic lymph nodes. Lungs: There are no infiltrates or nodules. There is minimal dependent atelectasis in the lung bases .. Pleural space: No effusion, thickening, or pneumothorax. Musculoskeletal structures: There is multilevel disc degeneration in the thoracic spine.. Upper abdominal structures: There is a small hiatal hernia.. IMPRESSION: No evidence of pulmonary embolus, aortic dissection, or vascular congestion. No acute process in the chest. Small hiatal hernia.. This document is electronically signed by Nils Garcia MD., Apr 06 2019 05:21:45 AM ET
--- NOTE | 2019-04-06 05:40 | Emergency Department Report ---
ED Extremity Problem HPI - General Chief complaint: Extremity Problem,Nontraumatic Stated complaint: BOTH LEGS SWOLLEN/LOWER BACK PAIN/KIDNEY PAIN Time Seen by Provider: 04/06/19 02:27 Source: patient, family Mode of arrival: Ambulatory Limitations: No Limitations - History of Present Illness Initial comments: 58-year-old female with a past medical history depression, G6PD deficiency, and chronic anemia presents to the hospital with complaints of bilateral leg swelling and pain for 3 days. Patient denies pain as a pins and needle sensation radiating upward. Denies a previous history of neuropathy, DVT, or leg edema pain Patient also complains of anterior intermittent mid chest pain that started prior to arrival. Positive dyspnea and exertion reported. Patient states she is using more pillows to sleep comfortably. No complaints of cough or fever. Patient has recent frequent ER visits to the hospital for a variety of complaints. She does have a primary care doctor Severity scale (0 -10): 4 - Related Data Previous Rx's Medication Instructions Recorded Last Taken Type Cetirizine HCl [ZyrTEC] 10 mg PO DAILY #30 tab.rapdis 03/05/19 Unknown Rx Fluticasone [Flonase] 1 spray NS QDAY #1 bottle 03/05/19 Unknown Rx guaiFENesin/DEXTROMETHORPHAN 10 ml PO Q6HR #1 bottle 03/05/19 Unknown Rx [Robitussin Cough-Chest Dm Liq] Meclizine [Antivert] 25 mg PO TID PRN #20 tablet 03/31/19 Unknown Rx Ondansetron [Zofran Odt] 4 mg PO Q8HR PRN #14 tab.rapdis 03/31/19 Unknown Rx tiZANidine [Zanaflex] 4 mg PO Q8H PRN #15 tablet 04/03/19 Unknown Rx Gabapentin [Neurontin] 300 mg PO Q8HR #90 capsule 04/06/19 Unknown Rx traMADol [Ultram 50 MG tab] 50 mg PO Q6HR PRN #10 tablet 04/06/19 Unknown Rx Allergies Allergy/AdvReac Type Severity Reaction Status Date / Time aspirin Allergy Vomiting Verified 03/30/19 16:06 codeine Allergy Vomiting Verified 03/30/19 16:06 ED Review of Systems ROS: Stated complaint: BOTH LEGS SWOLLEN/LOWER BACK PAIN/KIDNEY PAIN Other details as noted in HPI Comment: All other systems reviewed and negative ED Past Medical Hx - Past Medical History Hx Psychiatric Treatment: Yes (depression) Additional medical history: GPD deficiency, chronic anemia secondary to fibroids - Surgical History Additional Surgical History: tubal ligation - Social History Smoking Status: Unknown if ever smoked Substance Use Type: None - Medications Home Medications: Home Medications Medication Instructions Recorded Confirmed Last Taken Type Cetirizine HCl [ZyrTEC] 10 mg PO DAILY #30 tab.rapdis 03/05/19 Unknown Rx Fluticasone [Flonase] 1 spray NS QDAY #1 bottle 03/05/19 Unknown Rx guaiFENesin/DEXTROMETHORPHAN 10 ml PO Q6HR #1 bottle 03/05/19 Unknown Rx [Robitussin Cough-Chest Dm Liq] Meclizine [Antivert] 25 mg PO TID PRN #20 tablet 03/31/19 Unknown Rx Ondansetron [Zofran Odt] 4 mg PO Q8HR PRN #14 tab.rapdis 03/31/19 Unknown Rx tiZANidine [Zanaflex] 4 mg PO Q8H PRN #15 tablet 04/03/19 Unknown Rx Gabapentin [Neurontin] 300 mg PO Q8HR #90 capsule 04/06/19 Unknown Rx traMADol [Ultram 50 MG tab] 50 mg PO Q6HR PRN #10 tablet 04/06/19 Unknown Rx ED Physical Exam - General Limitations: No Limitations - Other Other exam information: General: No limitations, patient is alert in no acute distress Head exam: Atraumatic, normocephalic Eyes exam: Normal appearance, pupils equal reactive to light, extraocular movements intact ENT: Moist mucous membrane, normal oropharynx Neck exam: Normal inspection, full range of motion, no meningismus nontender Respiratory exam: Clear to auscultation bilateral, no wheezes, rales, crackles Cardiovascular: Normal rate and rhythm, normal heart sounds. External chest wall tenderness to palpation. Abdomen: Soft, nondistended, and nontender, with normal bowel sounds, no rebound, or guarding Extremity: Full range of motion, other ankle and foot edema. 2+ deep pupils equal bilaterally. Tenderness to palpation of bilateral legs anteriorly and posteriorly. No leg asymmetry, once, or erythema. Back: Normal Inspection, full range of motion, no tenderness Neurologic: Alert, oriented x3, cranial nerves intact, no motor or sensory deficit Psychiatric: normal affect, normal mood Skin: Warm, dry, intact ED Course Vital Signs 04/06/19 04/06/19 04/06/19 00:31 00:42 01:45 Temperature 98.2 F Pulse Rate 89 98 H 106 H Respiratory 16 18 20 Rate Blood Pressure 121/60 121/60 Blood Pressure 133/75 [Left] O2 Sat by Pulse 99 99 98 Oximetry 04/06/19 04/06/19 04/06/19 02:00 02:17 02:31 Temperature Pulse Rate 59 L 65 Respiratory 13 15 Rate Blood Pressure 107/56 107/56 107/56 Blood Pressure [Left] O2 Sat by Pulse 99 100 99 Oximetry 04/06/19 04/06/19 04/06/19 02:45 03:01 04:00 Temperature Pulse Rate 70 62 59 L Respiratory 19 14 12 Rate Blood Pressure 107/56 107/56 109/54 Blood Pressure [Left] O2 Sat by Pulse 100 99 98 Oximetry 04/06/19 04:31 Temperature Pulse Rate 66 Respiratory 14 Rate Blood Pressure 109/54 Blood Pressure [Left] O2 Sat by Pulse 98 Oximetry ED Medical Decision Making - Lab Data Result diagrams: 04/06/19 02:19 04/06/19 02:19 Lab Results 04/06/19 04/06/19 04/06/19 Range/Units 02:19 02:19 02:19 WBC 9.1 (4.5-11.0) K/mm3 RBC 4.17 (3.65-5.03) M/mm3 Hgb 9.3 L (10.1-14.3) gm/dl Hct 30.2 L (30.3-42.9) % MCV 72 L (79-97) fl MCH 22 L (28-32) pg MCHC 31 (30-34) % RDW 20.0 H (13.2-15.2) % Plt Count 218 (140-440) K/mm3 Lymph % (Auto) 21.6 (13.4-35.0) % [place] % (Auto) 7.6 H (0.0-7.3) % Eos % (Auto) 3.2 (0.0-4.3) % Baso % (Auto) 0.8 (0.0-1.8) % Lymph # 2.0 (1.2-5.4) K/mm3 [place] # 0.7 (0.0-0.8) K/mm3 Eos # 0.3 (0.0-0.4) K/mm3 Baso # 0.1 (0.0-0.1) K/mm3 Seg Neutrophils % 66.8 (40.0-70.0) % Seg Neutrophils # 6.1 (1.8-7.7) K/mm3 PT 13.8 (12.2-14.9) Sec. INR 1.00 (0.87-1.13) D-Dimer 274.07 H (0-234) ng/mlDDU Heparin Anti-Xa Level 0.10 L (0.3-0.7) U.I./ml Sodium 140 (137-145) mmol/L Potassium 3.7 (3.6-5.0) mmol/L Chloride 106.5 (98-107) mmol/L Carbon Dioxide 22 (22-30) mmol/L Anion Gap 15 mmol/L BUN 7 (7-17) mg/dL Creatinine 0.7 (0.7-1.2) mg/dL Estimated GFR > 60 ml/min BUN/Creatinine Ratio 10 % Glucose 114 H (65-100) mg/dL Calcium 9.7 (8.4-10.2) mg/dL Magnesium 2.00 (1.7-2.3) mg/dL Total Bilirubin 0.20 (0.1-1.2) mg/dL AST 13 (5-40) units/L ALT 10 (7-56) units/L Alkaline Phosphatase 78 (35-129) units/L Troponin T < 0.010 (0.00-0.029) ng/mL NT-Pro-B Natriuret Pep 185.6 (0-900) pg/mL Total Protein 6.9 (6.3-8.2) g/dL Albumin 3.6 L (3.9-5) g/dL Albumin/Globulin Ratio 1.1 % - EKG Data -: EKG Interpreted by Me EKG shows normal: sinus rhythm, axis (qrs 63), QRS complexes (qrsd 63), ST-T waves (no stemi/t inv) Rate: normal (70) - EKG Data When compared to previous EKG there are: no significant change - Radiology Data Radiology results: report reviewed PROCEDURE: XR CHEST ROUTINE 2V TECHNIQUE: PA and lateral chest radiographs were obtained. HISTORY: Shortness of breath. COMPARISONS: Several priors, most recent chest radiographs March 2019. FINDINGS: Heart: Normal. Mediastinum/Vessels: Normal. Lungs/Pleural space: Normal. Bony thorax: No acute osseous abnormality. IMPRESSION: No acute cardiopulmonary disease or significant interval change PROCEDURE: CT ANGIO CHEST TECHNIQUE: Computerized tomographic angiography of the chest was performed after the IV injection of iodinated nonionic contrast including image processing. The image data was postprocessed using 2-dimensional multiplanar reformatted (MPR) and 3-dimensional (MIP and/or volume rendered) techniques. Automated exposure control, adjustment of mA and/or kV according to patient size, or iterative reconstruction dose optimization techniques were utilized. CT DOSE LENGTH PRODUCT: mGycm HISTORY: cp, sob COMPARISONS: Chest x- ray 04/06/2019 . FINDINGS: Heart and pericardium: Normal. Thoracic aorta: Normal. Pulmonary vasculature: No evidence of congestion or PE.. Lymph nodes: No enlarged thoracic lymph nodes. Lungs: There are no infiltrates or nodules. There is minimal dependent atelectasis in the lung bases.. Pleural space: No effusion, thickening, or pneumothorax. Musculoskeletal structures: There is multilevel disc degeneration in the thoracic spine.. Upper abdominal structures: There is a small hiatal hernia.. IMPRESSION: No evidence of pulmonary embolus, aortic dissection, or vascular congestion. No acute process in the chest. Small hiatal hernia.. - Medical Decision Making Patient complains of a burning pain to lay suggestive of neuropathy. No weakness or urinary incontinence. Chest pain is reproducible on palpation was unremarkable EKG and CT angiogram chest. Treated with medications in the ED. She will be discharged on Neurotin and Tramadol - Differential Diagnosis neuropathy, PE, electrolyte abnormality, asthma, costochondriti Critical Care Time: No Critical care attestation.: If time is entered above; I have spent that time in minutes in the direct care of this critically ill patient, excluding procedure time. ED Disposition Clinical Impression: Costochondritis, acute, Neuropathic pain of both legs Disposition: - TO HOME OR SELFCARE Is pt being admited?: No Does the pt Need Aspirin: No Condition: Stable Instructions: Costochondritis (ED), Paresthesia (ED) Additional Instructions: Take the medication as prescribed. Follow up with your doctor or the clinic/doctor provided. Return if symptoms worsen as indicated by your discharge instructions Prescriptions: Gabapentin [Neurontin] 300 mg PO Q8HR #90 capsule traMADol [Ultram 50 MG tab] 50 mg PO Q6HR PRN #10 tablet PRN Reason: Pain Referrals: NANCI BELL MD [Primary Care Provider] - 3-5 Days Time of Disposition: 06:02
[2019-04-06 06:17] VITALS: BP 112/71
== END 2019-04-06 06:25 | disposition home or self-care (01) ==
LOC: ED 22:32
DX: M94.0 Chondrocostal junction syndrome [Tietze] (principal); G62.9 Polyneuropathy, unspecified; Z98.51 Tubal ligation status; Z88.6 Allergy status to analgesic agent
CPT/HCPCS: 36415; 71046; 71275; 80053; 83735; 83880; 84484; 85025; 85379; 85520; 85610; 93005; 93010; 99284; Q9967

== ENCOUNTER 2019-04-06 08:09 | Outpatient (CLI) | payer MEDICARE ==
[2019-04-06 09:17] LABS: Hematocrit 33.1 % (30.3-42.9); Hemoglobin 10.3 gm/dl (10.1-14.3); Mean Corpuscular HGB Conc 31 % (30-34); Mean Corpuscular Volume 73 fl (79-97); Platelet Count 233 K/mm3 (140-440); Red Blood Count 4.56 M/mm3 (3.65-5.03)
[2019-04-06 09:20] LABS: Red Cell Distribution Width 20.2 % (13.2-15.2)
[2019-04-06 09:42] LABS: C-Reactive Protein 0.2 mg/dL (0.00-1.30); Chol/HDL Ratio 3.65 %
[2019-04-06 09:45] LABS: Erythrocyte Sedimentation Rate 41 mm/Hr (0-20)
[2019-04-09 19:38] LABS: Vitamin D, 25-OH, D2 <4 ng/mL
== END 2019-04-06 08:10 | disposition home or self-care (01) ==
LOC: LAB 08:09
PROVIDERS: ATTEND Internal Medicine
DX: Z13.220 Encounter for screening for lipoid disorders (principal); Z13.1 Encounter for screening for diabetes mellitus; D55.0 Anemia due to glucose-6-phosphate dehydrogenase [G6PD] deficiency; R79.89 Other specified abnormal findings of blood chemistry; Z79.899 Other long term (current) drug therapy
CPT/HCPCS: 36415; 80061; 82306; 82607; 83036; 84443; 85027; 85652; 86140

== ENCOUNTER 2019-06-14 08:27 | Emergency (ER) | payer MEDICARE ==
[2019-06-14 08:32] VITALS: BP 110/54
--- NOTE | 2019-06-14 09:37 | Emergency Department Report ---
ED Back Pain/Injury HPI - General Chief Complaint: Back Pain/Injury Stated Complaint: BI LEG PAIN/BACK PAIN Time Seen by Provider: 06/14/19 09:07 Source: patient Limitations: No Limitations - History of Present Illness Initial Comments: This is a 58-year-old female who presents to the ED complaining of lower back pain that radiates to her bilateral thighs 2 weeks. Patient states the symptoms started 2 weeks ago. Patient describes pain as a constant, throbbing type pain that starts in the lower back and radiates to her inner thighs. She denies any injuries trauma or falls. Patient also denies fevers/chills with nausea or vomiting. MD Complaint: back pain - Related Data Previous Rx's Medication Instructions Recorded Last Taken Type Cetirizine HCl [ZyrTEC] 10 mg PO DAILY #30 tab.rapdis 03/05/19 Unknown Rx Fluticasone [Flonase] 1 spray NS QDAY #1 bottle 03/05/19 Unknown Rx guaiFENesin/DEXTROMETHORPHAN 10 ml PO Q6HR #1 bottle 03/05/19 Unknown Rx [Robitussin Cough-Chest Dm Liq] Meclizine [Antivert] 25 mg PO TID PRN #20 tablet 03/31/19 Unknown Rx Ondansetron [Zofran Odt] 4 mg PO Q8HR PRN #14 tab.rapdis 03/31/19 Unknown Rx tiZANidine [Zanaflex] 4 mg PO Q8H PRN #15 tablet 04/03/19 Unknown Rx traMADol [Ultram 50 MG tab] 50 mg PO Q6HR PRN #10 tablet 04/06/[address] [Voltaren Dr] 75 mg PO BID #20 tablet 06/14/19 Unknown Rx Gabapentin [Neurontin] 300 mg PO Q8HR #30 capsule 06/14/19 Unknown Rx Allergies Allergy/AdvReac Type Severity Reaction Status Date / Time aspirin Allergy Vomiting Verified 03/30/19 16:06 codeine Allergy Vomiting Verified 03/30/19 16:06 ED Review of Systems ROS: Stated complaint: BI LEG PAIN/BACK PAIN Other details as noted in HPI Comment: All other systems reviewed and negative ED Past Medical Hx - Past Medical History GPD deficiency, chronic anemia secondary to fibroids Family history: no significant family history ED Back Pain Physical Exam - Exam General: Vital signs noted. No distress. Alert and acting appropriately. Back/Abdomen: Yes Straight Leg Raise Pain (right, nontender calves bilaterally, Homans sign negative), No Abdominal Tenderness, No Perithoracic Tenderness, No Perilumbar Tenderness, No Sacroiliac Tenderness, No Flank Tenderness Neuro: Yes Normal DTR's, No Motor Weakness ED Course Vital Signs 06/14/19 08:29 Temperature 97.9 F Pulse Rate 72 Respiratory 18 Rate Blood Pressure 110/54 O2 Sat by Pulse 99 Oximetry Ed Back Pain Tests - Tests Tests: Abnormal UA (1+ bateria, trace Leuk) ED Medical Decision Making - Medical Decision Making 58-year-old female presents with lower back pain with sciatica to the right s marisela. Urinalysis obtained. Normal limits. Discussed findings with patient. Discussed the patient symptoms of sciatica. Discussed follow-up with primary care physician. Vital signs are normal patient is in no acute distress. Discussed the patient that if she was to start experiencing any worsening symptoms and return to the ED. Critical care attestation.: If time is entered above; I have spent that time in minutes in the direct care of this critically ill patient, excluding procedure time. ED Disposition Clinical Impression: Low back pain radiating down leg, Back pain with sciatica Disposition: ELOPED Is pt being admited?: No Does the pt Need Aspirin: No Condition: Stable Instructions: Sciatica (ED), Low Back Strain (ED), Lumbar Radiculopathy (ED) Additional Instructions: Make sure to follow up with the primary care physician as discussed. Take all your medications as you've been prescribed. If you have any worsening symptoms or develop new symptoms please return to ED immediately. Prescriptions: Gabapentin [Neurontin] 300 mg PO Q8HR #30 capsule Diclofenac [Voltaren ] 75 mg PO BID #20 tablet Referrals: NANCI BELL MD [Primary Care Provider] - 3-5 Days Forms: Work/School Release Form(ED) Time of Disposition: 10:46
[2019-06-14 10:17] LABS: Color,Urine Yellow (Yellow)
[2019-06-14 10:18] LABS: Bacteria,Urine 1+ /HPF (Negative); Bilirubin,Urine NEG (Negative); Blood,Urine NEG (Negative); Mucus,Urine FEW /HPF; Protein,Urine <15 mg/dL mg/dL (Negative); Urobilinogen,Urine < 2.0 mg/dL (<2.0)
== END 2019-06-14 11:42 | disposition left against medical advice (07) ==
LOC: ED 08:27
DX: M54.40 Lumbago with sciatica, unspecified side (principal); Z88.6 Allergy status to analgesic agent; Z88.5 Allergy status to narcotic agent; Z79.899 Other long term (current) drug therapy
CPT/HCPCS: 81001; 99282

== ENCOUNTER 2019-06-18 17:29 | Emergency (ER) | payer MEDICARE ==
[2019-06-18 17:48] VITALS: BP 107/50
[2019-06-18] MEDS ORDERED: DELTASONE PO ONE (17:53)
[2019-06-18] MEDS ORDERED: BENADRYL PO ONE ×2 (17:53→18:09)
--- NOTE | 2019-06-18 17:57 | Emergency Department Report ---
ED Rash HPI - HPI Chief Complaint: Skin Rash Stated Complaint: LFT/RT ARM BREAK OUT/PAIN ED Review of Systems ROS: Stated complaint: LFT/RT ARM BREAK OUT/PAIN Other details as noted in HPI ED Past Medical Hx - Past Medical History Hx Psychiatric Treatment: Yes (depression) Additional medical history: GPD deficiency, chronic anemia secondary to fibroids - Surgical History Additional Surgical History: tubal ligation - Social History Smoking Status: Never Smoker Substance Use Type: Alcohol - Medications Home Medications: Home Medications Medication Instructions Recorded Confirmed Last Taken Type Cetirizine HCl [ZyrTEC] 10 mg PO DAILY #30 tab.rapdis 03/05/19 Unknown Rx Fluticasone [Flonase] 1 spray NS QDAY #1 bottle 03/05/19 Unknown Rx guaiFENesin/DEXTROMETHORPHAN 10 ml PO Q6HR #1 bottle 03/05/19 Unknown Rx [Robitussin Cough-Chest Dm Liq] Meclizine [Antivert] 25 mg PO TID PRN #20 tablet 03/31/19 Unknown Rx Ondansetron [Zofran Odt] 4 mg PO Q8HR PRN #14 tab.rapdis 03/31/19 Unknown Rx tiZANidine [Zanaflex] 4 mg PO Q8H PRN #15 tablet 04/03/19 Unknown Rx traMADol [Ultram 50 MG tab] 50 mg PO Q6HR PRN #10 tablet 04/06/[address] [Voltaren Dr] 75 mg PO BID #20 tablet 06/14/19 Unknown Rx Gabapentin [Neurontin] 300 mg PO Q8HR #30 capsule 06/14/19 Unknown Rx Prednisone [predniSONE 5 mg (6-Day 5 mg PO .TAPER #1 tab.ds.pk 06/18/19 Unknown Rx Pack, 21 Tabs)] diphenhydrAMINE [Benadryl CAP] 25 mg PO Q8HR #30 capsule 06/18/19 Unknown Rx Rash Exam - Exam General: Vital signs noted. No distress. Alert and acting appropriately. ED Course Vital Signs 06/18/19 17:47 Temperature 98.9 F Pulse Rate 73 Respiratory 18 Rate Blood Pressure 107/50 O2 Sat by Pulse 98 Oximetry Critical care attestation.: If time is entered above; I have spent that time in minutes in the direct care of this critically ill patient, excluding procedure time. ED Disposition Clinical Impression: Allergic reaction Disposition: DC-01 TO HOME OR SELFCARE Is pt being admited?: No Does the pt Need Aspirin: No Condition: Stable Prescriptions: diphenhydrAMINE [Benadryl CAP] 25 mg PO Q8HR #30 capsule
== END 2019-06-18 18:02 | disposition home or self-care (01) ==
LOC: ED 17:29
DX: T78.40XA Allergy, unspecified, initial encounter (principal); F32.9 Major depressive disorder, single episode, unspecified; Z86.2 Personal history of diseases of the blood and blood-forming organs and certain disorders involving the immune mechanism; Z98.51 Tubal ligation status; Z79.899 Other long term (current) drug therapy; Z88.6 Allergy status to analgesic agent; Y92.89 Other specified places as the place of occurrence of the external cause
CPT/HCPCS: 99282

== ENCOUNTER 2019-07-12 02:28 | Emergency (ER) | payer MEDICARE ==
[2019-07-12 03:00] VITALS: BP 117/62
[2019-07-12] MEDS ORDERED: TORADOL IM ONE (06:50)
[2019-07-12 07:06] LABS: Bacteria,Urine 1+ /HPF (Negative); Bilirubin,Urine NEG (Negative); Blood,Urine NEG (Negative); Color,Urine Yellow (Yellow); Mucus,Urine 3+ /HPF; Protein,Urine <15 mg/dL mg/dL (Negative); Urobilinogen,Urine < 2.0 mg/dL (<2.0)
== END 2019-07-12 07:00 | disposition left against medical advice (07) ==
LOC: ED 02:28
DX: M54.5 Low back pain (principal); R51 Headache; Z53.21 Procedure and treatment not carried out due to patient leaving prior to being seen by health care provider
CPT/HCPCS: 81001

== ENCOUNTER 2019-08-25 08:21 | Outpatient (CLI) | payer MEDICARE ==
[2019-08-25 10:38] LABS: Basophils % (Auto) 0.7 % (0.0-1.8); Eosinophils # (Auto) 0.2 K/mm3 (0.0-0.4); Eosinophils % (Auto) 3.1 % (0.0-4.3); Hematocrit 36.4 % (30.3-42.9); Hemoglobin 11.6 gm/dl (10.1-14.3); Lymphocytes # (Auto) 1.7 K/mm3 (1.2-5.4); Mean Corpuscular HGB Conc 32 % (30-34); Mean Corpuscular Volume 76 fl (79-97); Monocytes # (Auto) 0.4 K/mm3 (0.0-0.8); Monocytes % (Auto) 6.7 % (0.0-7.3); Platelet Count 182 K/mm3 (140-440); Red Blood Count 4.78 M/mm3 (3.65-5.03); Red Cell Distribution Width 19.4 % (13.2-15.2)
[2019-08-25 11:19] LABS: Iron 37 ug/dL (37-170)
[2019-08-25 11:20] LABS: Total Iron Binding Capacity 368 mcg/dL (250-450)
[2019-08-29 13:55] LABS: Vitamin D, 25-OH, D2 <4 ng/mL
== END 2019-08-25 08:22 | disposition home or self-care (01) ==
LOC: LAB 08:21
PROVIDERS: ATTEND Internal Medicine
DX: D55.0 Anemia due to glucose-6-phosphate dehydrogenase [G6PD] deficiency (principal); R73.03 Prediabetes; E56.9 Vitamin deficiency, unspecified; I48.91 Unspecified atrial fibrillation
CPT/HCPCS: 36415; 82306; 82728; 83036; 83550; 84466; 85025

== ENCOUNTER 2019-09-06 20:29 | Emergency (ER) | payer MEDICARE ==
[2019-09-06 21:16] VITALS: BP 118/80
--- NOTE | 2019-09-06 21:23 | Emergency Department Report ---
Chief Complaint: Extremity Injury, Lower Stated Complaint: BILATERAL LEG PAIN - HPI History of Present Illness: 58yo BF states that she has back pain that radiates to her inner thighs o both sides. She states that she took Aleve pain medication with no relief. - Exam Vital Signs: Vital Signs 09/06/19 21:14 Temperature 98 F Pulse Rate 84 Respiratory 18 Rate Blood Pressure 118/80 O2 Sat by Pulse 97 Oximetry MSE screening note: Focused history and physical exam performed. Due to findings the following was ordered: ED Disposition for MSE Condition: Stable
[2019-09-07 00:32] LABS: Bacteria,Urine 2+ /HPF (Negative); Bilirubin,Urine NEG (Negative); Blood,Urine NEG (Negative); Color,Urine Yellow (Yellow); Mucus,Urine FEW /HPF; Protein,Urine <15 mg/dL mg/dL (Negative); Urobilinogen,Urine < 2.0 mg/dL (<2.0)
--- NOTE | 2019-09-07 00:50 | Emergency Department Report ---
ED Back Pain/Injury HPI - General Chief Complaint: Extremity Injury, Lower Stated Complaint: BILATERAL LEG PAIN Time Seen by Provider: 09/06/19 23:15 Source: patient Limitations: No Limitations - History of Present Illness Initial Comments: 58-year-old female presents to ED with lower back pain radiating into bilateral legs. Patient denies fever, nausea vomiting. Patient denies any leg weakness or numbness. She denies incontinence or urinary retention. Patient does report urinary frequency. Patient also reports history of low back pain in the past. States it feels similar to previous occurrence. MD Complaint: back pain -: days(s) (3) Similar Symptoms Previously: Yes Radiation: left leg, right leg Severity: moderate Quality: sharp, aching Consistency: intermittent Improves With: immobilization Worsens With: sitting upright, walking Context: unknown Associated Symptoms: denies: difficulty walking, difficulty urinating, incontinence, fever/chills, abdominal pain, nausea/vomiting - Related Data Previous Rx's Medication Instructions Recorded Last Taken Type Cetirizine HCl [ZyrTEC] 10 mg PO DAILY #30 tab.rapdis 03/05/19 Unknown Rx Fluticasone [Flonase] 1 spray NS QDAY #1 bottle 03/05/19 Unknown Rx guaiFENesin/DEXTROMETHORPHAN 10 ml PO Q6HR #1 bottle 03/05/19 Unknown Rx [Robitussin Cough-Chest Dm Liq] Meclizine [Antivert] 25 mg PO TID PRN #20 tablet 03/31/19 Unknown Rx Ondansetron [Zofran Odt] 4 mg PO Q8HR PRN #14 tab.rapdis 03/31/19 Unknown Rx tiZANidine [Zanaflex] 4 mg PO Q8H PRN #15 tablet 04/03/19 Unknown Rx traMADol [Ultram 50 MG tab] 50 mg PO Q6HR PRN #10 tablet 04/06/[address] [Voltaren Dr] 75 mg PO BID #20 tablet 06/14/19 Unknown Rx Gabapentin [Neurontin] 300 mg PO Q8HR #30 capsule 06/14/19 Unknown Rx Prednisone [predniSONE 5 mg (6-Day 5 mg PO .TAPER #1 tab.ds.pk 06/18/19 Unknown Rx Pack, 21 Tabs)] diphenhydrAMINE [Benadryl CAP] 25 mg PO Q8HR #30 capsule 06/18/19 Unknown Rx Ciprofloxacin HCl [Ciprofloxacin 500 mg PO Q12HR 3 Days #6 tab 09/07/19 Unknown Rx TAB] methOCARBAMOL [Robaxin TAB] 500 mg PO Q8HR PRN #20 tablet 09/07/19 Unknown Rx traMADol [Ultram] 50 mg PO Q6HR PRN #7 tablet 09/07/19 Unknown Rx Allergies Allergy/AdvReac Type Severity Reaction Status Date / Time aspirin Allergy Vomiting Verified 03/30/19 16:06 codeine Allergy Vomiting Verified 03/30/19 16:06 ED Review of Systems ROS: Stated complaint: BILATERAL LEG PAIN Other details as noted in HPI Comment: All other systems reviewed and negative Constitutional: denies: chills, fever Gastrointestinal: denies: abdominal pain, nausea, vomiting Genitourinary: frequency, other (denies incontinence) Musculoskeletal: back pain Neurological: denies: numbness, paresthesias ED Past Medical Hx - Past Medical History Previous Medical History?: Yes Hx Psychiatric Treatment: Yes (depression) Additional medical history: GPD deficiency, chronic anemia secondary to fibroids - Surgical History Past Surgical History?: Yes Additional Surgical History: tubal ligation - Social History Smoking Status: Never Smoker Substance Use Type: None - Medications Home Medications: Home Medications Medication Instructions Recorded Confirmed Last Taken Type Cetirizine HCl [ZyrTEC] 10 mg PO DAILY #30 tab.rapdis 03/05/19 Unknown Rx Fluticasone [Flonase] 1 spray NS QDAY #1 bottle 03/05/19 Unknown Rx guaiFENesin/DEXTROMETHORPHAN 10 ml PO Q6HR #1 bottle 03/05/19 Unknown Rx [Robitussin Cough-Chest Dm Liq] Meclizine [Antivert] 25 mg PO TID PRN #20 tablet 03/31/19 Unknown Rx Ondansetron [Zofran Odt] 4 mg PO Q8HR PRN #14 tab.rapdis 03/31/19 Unknown Rx tiZANidine [Zanaflex] 4 mg PO Q8H PRN #15 tablet 04/03/19 Unknown Rx traMADol [Ultram 50 MG tab] 50 mg PO Q6HR PRN #10 tablet 04/06/[address] [Voltaren Dr] 75 mg PO BID #20 tablet 06/14/19 Unknown Rx Gabapentin [Neurontin] 300 mg PO Q8HR #30 capsule 06/14/19 Unknown Rx Prednisone [predniSONE 5 mg (6-Day 5 mg PO .TAPER #1 tab.ds.pk 06/18/19 Unknown Rx Pack, 21 Tabs)] diphenhydrAMINE [Benadryl CAP] 25 mg PO Q8HR #30 capsule 06/18/19 Unknown Rx Ciprofloxacin HCl [Ciprofloxacin 500 mg PO Q12HR 3 Days #6 tab 09/07/19 Unknown Rx TAB] methOCARBAMOL [Robaxin TAB] 500 mg PO Q8HR PRN #20 tablet 09/07/19 Unknown Rx traMADol [Ultram] 50 mg PO Q6HR PRN #7 tablet 09/07/19 Unknown Rx ED Physical Exam - General Limitations: No Limitations General appearance: alert, in no apparent distress - Head Head exam: Present: atraumatic, normocephalic - Eye Eye exam: Present: normal appearance, EOMI - ENT ENT exam: Present: mucous membranes moist - Neck Neck exam: Present: normal inspection - Respiratory Respiratory exam: Present: normal lung sounds bilaterally. Absent: respiratory distress - Cardiovascular Cardiovascular Exam: Present: regular rate, normal rhythm - GI/Abdominal GI/Abdominal exam: Present: soft. Absent: distended, tenderness - Extremities Exam Extremities exam: Present: normal inspection - Back Exam Back exam: Present: paraspinal tenderness (lower lumbar). Absent: CVA tenderness (R), CVA tenderness (L) - Neurological Exam Neurological exam: Present: alert, oriented X3, CN II-XII intact, normal gait. Absent: motor sensory deficit - Psychiatric Psychiatric exam: Present: normal affect, normal mood - Skin Skin exam: Present: warm, dry, intact, normal color ED Course Vital Signs 09/06/19 09/07/19 21:14 01:10 Temperature 98 F Pulse Rate 84 78 Respiratory 18 16 Rate Blood Pressure 118/80 O2 Sat by Pulse 97 100 Oximetry ED Medical Decision Making - Medical Decision Making Patient was lower back pain radiating into bilateral legs. Vitals are normal. Patient afebrile. UA shows evidence of UTI, with positive nitrites and 2+ bacteria. This is possibly the etiology of her back pain. Prescription given for antibiotics and pain medication. Outpatient follow-up advised. Return precautions given. - Differential Diagnosis herniated disc, sciatica, UTI Critical care attestation.: If time is entered above; I have spent that time in minutes in the direct care of this critically ill patient, excluding procedure time. ED Disposition Clinical Impression: UTI (urinary tract infection), Acute low back pain Disposition: TO HOME OR SELFCARE Is pt being admited?: No Condition: Stable Instructions: Urinary Tract Infection in Women (ED), Acute Low Back Pain (ED) Prescriptions: Ciprofloxacin HCl [Ciprofloxacin TAB] 500 mg PO Q12HR 3 Days #6 tab methOCARBAMOL [Robaxin TAB] 500 mg PO Q8HR PRN #20 tablet PRN Reason: Muscle Spasm traMADol [Ultram] 50 mg PO Q6HR PRN #7 tablet PRN Reason: Pain Referrals: PRIMARY CARE, [Primary Care Provider] - 3-5 Days [facility] [Provider Group] - 3-5 Days Time of Disposition: 00:51
== END 2019-09-07 01:10 | disposition home or self-care (01) ==
LOC: ED 20:29
DX: N39.0 Urinary tract infection, site not specified (principal); M54.5 Low back pain; Z88.6 Allergy status to analgesic agent; Z88.5 Allergy status to narcotic agent; Z79.899 Other long term (current) drug therapy; Z98.51 Tubal ligation status
CPT/HCPCS: 81001; 99283

== ENCOUNTER 2019-09-07 03:15 | Emergency (ER) | payer MEDICARE ==
--- NOTE | 2019-09-07 03:48 | XRay Report ---
CHEST 1 VIEW INDICATION / CLINICAL INFORMATION: Chest Pain. COMPARISON: 04/09/2019 FINDINGS: SUPPORT DEVICES: None. HEART / MEDIASTINUM: No significant abnormality. LUNGS / PLEURA: No significant pulmonary or pleural abnormality. No pneumothorax. ADDITIONAL FINDINGS: No significant additional findings. IMPRESSION: 1. No acute findings. Signer Name: Frantz Landry MD Signed: 09/07/2019 3:44 AM Workstation Name: [id number]
[2019-09-07 04:40] LABS: Basophils # (Auto) 0.1 K/mm3 (0.0-0.1); Eosinophils # (Auto) 0.2 K/mm3 (0.0-0.4); Eosinophils % (Auto) 2.4 % (0.0-4.3); Hemoglobin 11.7 gm/dl (10.1-14.3); Monocytes # (Auto) 0.9 K/mm3 (0.0-0.8)
[2019-09-07 04:51] LABS: Basophils % (Auto) 0.6 % (0.0-1.8); Hematocrit 37.1 % (30.3-42.9); Lymphocytes # (Auto) 1.9 K/mm3 (1.2-5.4); Lymphocytes % (Auto) 20.8 % (13.4-35.0); Mean Corpuscular HGB Conc 32 % (30-34); Mean Corpuscular Volume 77 fl (79-97); Platelet Count 182 K/mm3 (140-440); Red Blood Count 4.82 M/mm3 (3.65-5.03)
[2019-09-07 05:00] LABS: BUN/Creatinine Ratio 20; Blood Urea Nitrogen 14 mg/dL (7-17)
[2019-09-07 05:01] LABS: Calcium 10.1 mg/dL (8.4-10.2); Hemolysis Index 23
[2019-09-07 07:27] VITALS: BP 119/69
--- NOTE | 2019-09-07 07:58 | Emergency Department Report ---
ED Chest Pain HPI - General Chief Complaint: Chest Pain Stated Complaint: CHEST PAIN Time Seen by Provider: 09/07/19 07:45 Source: patient Mode of arrival: Ambulatory Limitations: No Limitations - History of Present Illness Initial Comments: Patient is 58-year-old female with history of chronic back pain and sciatica. Patient presented to the ER complaining of sternal chest pain, sharp with no radiation. Upon my exam patient stated that her pain is completely resolved. Patient was seen here earlier for bilateral leg pain and back pain and diagnosed with UTI given a prescription for ciprofloxacin seen and Ultram but patient stayed in the [facility] area and then she decided to recheck in. Patient denied any weakness, numbness or tingling sensation. No bowel or bladder incontinence. Patient was sleeping and easily arousable and in no acute distress. MD Complaint: chest pain Onset: during rest Pain Location: substernal Severity scale (0 -10): 9 Quality: sharp Consistency: now resolved - Related Data Previous Rx's Medication Instructions Recorded Last Taken Type Cetirizine HCl [ZyrTEC] 10 mg PO DAILY #30 tab.rapdis 03/05/19 Unknown Rx Fluticasone [Flonase] 1 spray NS QDAY #1 bottle 03/05/19 Unknown Rx guaiFENesin/DEXTROMETHORPHAN 10 ml PO Q6HR #1 bottle 03/05/19 Unknown Rx [Robitussin Cough-Chest Dm Liq] Meclizine [Antivert] 25 mg PO TID PRN #20 tablet 03/31/19 Unknown Rx Ondansetron [Zofran Odt] 4 mg PO Q8HR PRN #14 tab.rapdis 03/31/19 Unknown Rx tiZANidine [Zanaflex] 4 mg PO Q8H PRN #15 tablet 04/03/19 Unknown Rx traMADol [Ultram 50 MG tab] 50 mg PO Q6HR PRN #10 tablet 04/06/[address] [Voltaren Dr] 75 mg PO BID #20 tablet 06/14/19 Unknown Rx Gabapentin [Neurontin] 300 mg PO Q8HR #30 capsule 06/14/19 Unknown Rx Prednisone [predniSONE 5 mg (6-Day 5 mg PO .TAPER #1 tab.ds.pk 06/18/19 Unknown Rx Pack, 21 Tabs)] diphenhydrAMINE [Benadryl CAP] 25 mg PO Q8HR #30 capsule 06/18/19 Unknown Rx Ciprofloxacin HCl [Ciprofloxacin 500 mg PO Q12HR 3 Days #6 tab 09/07/19 Unknown Rx TAB] methOCARBAMOL [Robaxin TAB] 500 mg PO Q8HR PRN #20 tablet 09/07/19 Unknown Rx traMADol [Ultram] 50 mg PO Q6HR PRN #7 tablet 09/07/19 Unknown Rx Allergies Allergy/AdvReac Type Severity Reaction Status Date / Time aspirin Allergy Vomiting Verified 03/30/19 16:06 codeine Allergy Vomiting Verified 03/30/19 16:06 Heart Score - HEART Score History: Slightly suspicious EKG: Normal Age: 45-65 Risk factors: 1-2 risk factors Troponin: < normal limit HEART Score: 2 ED Review of Systems ROS: Stated complaint: CHEST PAIN Other details as noted in HPI ED Past Medical Hx - Past Medical History Previous Medical History?: Yes Hx Psychiatric Treatment: Yes (depression) Additional medical history: GPD deficiency, chronic anemia secondary to fibroids - Surgical History Past Surgical History?: Yes Additional Surgical History: tubal ligation - Social History Smoking Status: Never Smoker - Medications Home Medications: Home Medications Medication Instructions Recorded Confirmed Last Taken Type Cetirizine HCl [ZyrTEC] 10 mg PO DAILY #30 tab.rapdis 03/05/19 Unknown Rx Fluticasone [Flonase] 1 spray NS QDAY #1 bottle 03/05/19 Unknown Rx guaiFENesin/DEXTROMETHORPHAN 10 ml PO Q6HR #1 bottle 03/05/19 Unknown Rx [Robitussin Cough-Chest Dm Liq] Meclizine [Antivert] 25 mg PO TID PRN #20 tablet 03/31/19 Unknown Rx Ondansetron [Zofran Odt] 4 mg PO Q8HR PRN #14 tab.rapdis 03/31/19 Unknown Rx tiZANidine [Zanaflex] 4 mg PO Q8H PRN #15 tablet 04/03/19 Unknown Rx traMADol [Ultram 50 MG tab] 50 mg PO Q6HR PRN #10 tablet 04/06/[address] [Voltaren Dr] 75 mg PO BID #20 tablet 06/14/19 Unknown Rx Gabapentin [Neurontin] 300 mg PO Q8HR #30 capsule 06/14/19 Unknown Rx Prednisone [predniSONE 5 mg (6-Day 5 mg PO .TAPER #1 tab.ds.pk 06/18/19 Unknown Rx Pack, 21 Tabs)] diphenhydrAMINE [Benadryl CAP] 25 mg PO Q8HR #30 capsule 06/18/19 Unknown Rx Ciprofloxacin HCl [Ciprofloxacin 500 mg PO Q12HR 3 Days #6 tab 09/07/19 Unknown Rx TAB] methOCARBAMOL [Robaxin TAB] 500 mg PO Q8HR PRN #20 tablet 09/07/19 Unknown Rx traMADol [Ultram] 50 mg PO Q6HR PRN #7 tablet 09/07/19 Unknown Rx ED Physical Exam - General Limitations: No Limitations ED Course Vital Signs 09/07/19 09/07/19 09/07/19 03:17 06:00 07:27 Temperature 97.9 F Pulse Rate 70 61 74 Respiratory 18 16 14 Rate Blood Pressure 120/52 Blood Pressure 107/59 119/69 [Left] O2 Sat by Pulse 99 100 100 Oximetry SHERIDAN score - Sheridan Score Age > 65: (0) No Aspirin use within the Past 7 Days: (0) No 3 or more CAD Risk Factors: (0) No 2 or more Angina events in past 24 hrs: (1) Yes Known CAD with more than 50% Stenosis: (0) No Elevated Cardiac Markers: (0) No ST Deviation Greater than 0.5mm: (0) No SHERIDAN Score: 1 ED Medical Decision Making - Lab Data Result diagrams: 09/07/19 04:15 09/07/19 04:15 - EKG Data -: EKG Interpreted by Ia EKG shows normal: sinus rhythm Rate: normal - EKG Data Interpretation: no acute changes - Radiology Data Radiology results: report reviewed - Medical Decision Making Patient is 58-year-old female with history of chronic back pain and sciatica. Patient presented to the ER complaining of sternal chest pain, sharp with no radiation. Upon my exam patient stated that her pain is completely resolved. Patient was seen here earlier for bilateral leg pain and back pain and diagnosed with UTI given a prescription for ciprofloxacin seen and Ultram but [facility] and then she decided to recheck in. Patient denied any weakness, numbness or tingling sensation. No bowel or bladder incontinence. Patient was sleeping and easily arousable and in no acute distress. Patient EKG is unremarkable. Chest x-ray is negative for acute finding. 2 sets of troponin is negative. Patient stated that her chest pain is completely resolved but complaining of lower back pain that radiated down to her legs which is consistent with her sciatica according to the patient reported also. Patient already given a prescription for Ultram and I will add prednisone to her prescription and I strongly advised her to follow-up with her primary care physician in the next 2-3 days and to return to the ER if symptoms are not improved. Critical care attestation.: If time is entered above; I have spent that time in minutes in the direct care of this critically ill patient, excluding procedure time. ED Disposition Clinical Impression: Chest pain, Back pain Disposition: - TO HOME OR SELFCARE Is pt being admited?: No Condition: Stable Instructions: Chest Pain (ED) Referrals: PRIMARY CARE, [Primary Care Provider] - 3-5 Days
== END 2019-09-07 08:16 | disposition home or self-care (01) ==
LOC: ED 03:15
DX: R07.2 Precordial pain (principal); M54.5 Low back pain; F32.9 Major depressive disorder, single episode, unspecified; Z98.51 Tubal ligation status; Z79.899 Other long term (current) drug therapy; Z88.6 Allergy status to analgesic agent; Z88.5 Allergy status to narcotic agent
CPT/HCPCS: 36415; 71045; 80048; 84484; 85025; 93005; 93010

== ENCOUNTER 2019-09-19 22:10 | Emergency (ER) | payer MEDICARE ==
[2019-09-19 23:18] VITALS: BP 115/70
[2019-09-20] MEDS ORDERED: diphenhydrAMINE 25 MG CAP PO ONE (00:06)
[2019-09-20] MEDS ORDERED: ACETAMINOPHEN 500 MG TAB PO ONE (00:06)
--- NOTE | 2019-09-20 00:23 | Emergency Department Report ---
ED General Adult HPI - General Chief complaint: Upper Respiratory Infection Stated complaint: BYRD/BODY ACHE Time Seen by Provider: 09/20/19 00:01 Source: patient Mode of arrival: Ambulatory Limitations: No Limitations - History of Present Illness Initial comments: Mr. Thayer is a 58-year-old [place] female well-known to me. Patient is seen in ED often for multiple different complaints including URI, bodyache, and headaches. Patient states URI symptoms to include head congestion sinus pressure cough 3/10 frontal headache intermittent for the past 3 days. Patient states his headache is identical to headaches for past when she gets colds or head coalds. Patient denies fevers or chills, no nausea vomiting, no dizziness ,no lightheadedness, no shortness of breath or wheezing. Patient has not attempted [id number] cold medications. Onset/Timin -: days(s) Location: head, upper extremity, lower extremity Radiation: non-radiation Severity scale (0 -10): 3 Quality: aching Consistency: constant Improves with: rest Worsens with: movement Associated Symptoms: headaches. denies: chest pain, diaphoresis, fever/chills, loss of appetite, malaise, nausea/vomiting, rash, shortness of breath, syncope, weakness Treatments Prior to Arrival: none - Related Data Previous Rx's Medication Instructions Recorded Last Taken Type Cetirizine HCl [ZyrTEC] 10 mg PO DAILY #30 tab.rapdis 03/05/19 Unknown Rx Fluticasone [Flonase] 1 spray NS QDAY #1 bottle 03/05/19 Unknown Rx guaiFENesin/DEXTROMETHORPHAN 10 ml PO Q6HR #1 bottle 03/05/19 Unknown Rx [Robitussin Cough-Chest Dm Liq] Meclizine [Antivert] 25 mg PO TID PRN #20 tablet 03/31/19 Unknown Rx Ondansetron [Zofran Odt] 4 mg PO Q8HR PRN #14 tab.rapdis 03/31/19 Unknown Rx tiZANidine [Zanaflex] 4 mg PO Q8H PRN #15 tablet 04/03/19 Unknown Rx traMADol [Ultram 50 MG tab] 50 mg PO Q6HR PRN #10 tablet 04/06/[address] [Voltaren Dr] 75 mg PO BID #20 tablet 06/14/19 Unknown Rx Gabapentin 300 mg PO Q8HR #30 capsule 06/14/19 Unknown Rx Prednisone [predniSONE 5 mg (6-Day 5 mg PO .TAPER #1 tab.ds.pk 06/18/19 Unknown Rx Pack, 21 Tabs)] diphenhydrAMINE [Benadryl CAP] 25 mg PO Q8HR #30 capsule 06/18/19 Unknown Rx Ciprofloxacin HCl [Ciprofloxacin 500 mg PO Q12HR 3 Days #6 tab 09/07/19 Unknown Rx TAB] Prednisone [predniSONE 10 mg 10 mg PO .TAPER #1 tab.ds.pk 09/07/19 Unknown Rx (6-Day Pack, 21 Tabs)] methOCARBAMOL [Robaxin TAB] 500 mg PO Q8HR PRN #20 tablet 09/07/19 Unknown Rx traMADol [Ultram] 50 mg PO Q6HR PRN #7 tablet 09/07/19 Unknown Rx Acetaminophen [Acetaminophen TAB] 1,000 mg PO Q6HR PRN #30 tablet 09/20/19 Unknown Rx diphenhydrAMINE [Benadryl CAP] 25 mg PO Q8HR PRN #30 capsule 09/20/19 Unknown Rx Allergies Allergy/AdvReac Type Severity Reaction Status Date / Time aspirin Allergy Vomiting Verified 03/30/19 16:06 codeine Allergy Vomiting Verified 03/30/19 16:06 ED Review of Systems ROS: Stated complaint: BYRD/BODY ACHE Other details as noted in HPI Constitutional: denies: chills, fever Eyes: denies: eye pain, eye discharge, vision change ENT: congestion. denies: ear pain, throat pain, dental pain, hearing loss Respiratory: cough. denies: shortness of breath, wheezing Cardiovascular: as per HPI. denies: chest pain, palpitations, dyspnea on exertion, paroxysmal nocturnal dyspnea Endocrine: no symptoms reported Gastrointestinal: denies: abdominal pain, nausea, vomiting, diarrhea Genitourinary: denies: urgency, dysuria, discharge Musculoskeletal: denies: back pain, joint swelling, arthralgia Skin: denies: rash, lesions Neurological: denies: headache, weakness, paresthesias Psychiatric: denies: anxiety, depression Hematological/Lymphatic: denies: easy bleeding, easy bruising ED Past Medical Hx - Past Medical History Hx Psychiatric Treatment: Yes (depression) Additional medical history: GPD deficiency, chronic anemia secondary to fibroids - Surgical History Additional Surgical History: tubal ligation - Social History Smoking Status: Never Smoker - Medications Home Medications: Home Medications Medication Instructions Recorded Confirmed Last Taken Type Cetirizine HCl [ZyrTEC] 10 mg PO DAILY #30 tab.rapdis 03/05/19 Unknown Rx Fluticasone [Flonase] 1 spray NS QDAY #1 bottle 03/05/19 Unknown Rx guaiFENesin/DEXTROMETHORPHAN 10 ml PO Q6HR #1 bottle 03/05/19 Unknown Rx [Robitussin Cough-Chest Dm Liq] Meclizine [Antivert] 25 mg PO TID PRN #20 tablet 03/31/19 Unknown Rx Ondansetron [Zofran Odt] 4 mg PO Q8HR PRN #14 tab.rapdis 03/31/19 Unknown Rx tiZANidine [Zanaflex] 4 mg PO Q8H PRN #15 tablet 04/03/19 Unknown Rx traMADol [Ultram 50 MG tab] 50 mg PO Q6HR PRN #10 tablet 04/06/[address] [Voltaren Dr] 75 mg PO BID #20 tablet 06/14/19 Unknown Rx Gabapentin 300 mg PO Q8HR #30 capsule 06/14/19 Unknown Rx Prednisone [predniSONE 5 mg (6-Day 5 mg PO .TAPER #1 tab.ds.pk 06/18/19 Unknown Rx Pack, 21 Tabs)] diphenhydrAMINE [Benadryl CAP] 25 mg PO Q8HR #30 capsule 06/18/19 Unknown Rx Ciprofloxacin HCl [Ciprofloxacin 500 mg PO Q12HR 3 Days #6 tab 09/07/19 Unknown Rx TAB] Prednisone [predniSONE 10 mg 10 mg PO .TAPER #1 tab.ds.pk 09/07/19 Unknown Rx (6-Day Pack, 21 Tabs)] methOCARBAMOL [Robaxin TAB] 500 mg PO Q8HR PRN #20 tablet 09/07/19 Unknown Rx traMADol [Ultram] 50 mg PO Q6HR PRN #7 tablet 09/07/19 Unknown Rx Acetaminophen [Acetaminophen TAB] 1,000 mg PO Q6HR PRN #30 tablet 09/20/19 Unknown Rx diphenhydrAMINE [Benadryl CAP] 25 mg PO Q8HR PRN #30 capsule 09/20/19 Unknown Rx ED Physical Exam - General Limitations: No Limitations General appearance: alert, in no apparent distress - Head Head exam: Present: atraumatic, normocephalic - Eye Eye exam: Present: normal appearance, PERRL, EOMI Pupils: Present: normal accommodation - ENT ENT exam: Present: mucous membranes moist, TM's normal bilaterally, normal external ear exam - Expanded ENT Exam Expanded Throat exam: Positive: other (uvula midline no exudate no lesions, no stridor no wheezing no swelling ). Negative: tonsillar erythema, tonsillomegaly, tonsillar exudate, R peritonsillar mass, L peritonsillar mass - Neck Neck exam: Present: normal inspection, full ROM. Absent: tenderness, lymphadenopathy - Respiratory Respiratory exam: Present: normal lung sounds bilaterally. Absent: respiratory distress, wheezes, stridor, chest wall tenderness - Cardiovascular Cardiovascular Exam: Present: regular rate, normal rhythm, normal heart sounds. Absent: systolic murmur, diastolic murmur, rubs, gallop - GI/Abdominal GI/Abdominal exam: Present: soft. Absent: distended, tenderness, bruit, hernia - Rectal Rectal exam: Present: deferred - Extremities Exam Extremities exam: Present: normal inspection, full ROM, normal capillary refill. Absent: tenderness, pedal edema, joint swelling, calf tenderness - Back Exam Back exam: Present: normal inspection, full ROM. Absent: tenderness, CVA tenderness (R), CVA tenderness (L), muscle spasm, vertebral tenderness - Neurological Exam Neurological exam: Present: alert, oriented X3, CN II-XII intact, normal gait, reflexes normal - Expanded Neurological Exam Expanded Patient oriented to: Present: person, place, time Speech: Present: fluid speech Cranial nerves: EOM's Intact: Normal, Gag Reflex: Normal, Tongue Deviation: No rmal, Nystagmus: Normal, Facial Sensation: Normal Upper motor neuron: Damon Neglect: Normal, Pronator Drift: Normal Motor strength exam: RUE: 5, LUE: 5, RLE: 5, LLE: 5 Best Eye Response ([place]): (4) open spontaneously Best Motor Response (Mary): (6) obeys commands Best Verbal Response ([place]): (5) oriented Mary Total: 15 - Psychiatric Psychiatric exam: Present: normal affect, normal mood - Skin Skin exam: Present: warm, dry, intact, normal color. Absent: rash ED Course Vital Signs 09/19/19 22:42 Temperature 98.3 F Pulse Rate 83 Respiratory 18 Rate Blood Pressure 115/70 O2 Sat by Pulse 100 Oximetry ED Medical Decision Making - Medical Decision Making Patient had recent head CT in December 2018 for complaint of headache, that was normal no mass no bleeding no abnormalities for complaint of headache. pt denies fall, injury, or trauma, there is no throat or ear pain. no fever or chills, plan, tx headache , pt will follow up with pcp 2-3 days, as vital signs are stable, no fever no sob, no wheezing , no cp , no /v, no other symptoms. plan follow up with pcp 2-3 days, take tylenol , bendaryl prn headache and head congesiton, return to ed if symptoms worsen. Critical care attestation.: If time is entered above; I have spent that time in minutes in the direct care of this critically ill patient, excluding procedure time. ED Disposition Clinical Impression: URI (upper respiratory infection) Qualifiers: URI type: unspecified viral URI Qualified Code(s): J06.9 - Acute upper respiratory infection, unspecified Disposition: DC-01 TO HOME OR SELFCARE Is pt being admited?: No Does the pt Need Aspirin: No Condition: Stable Instructions: Upper Respiratory Infection (ED) Prescriptions: Acetaminophen [Acetaminophen TAB] 1,000 mg PO Q6HR PRN #30 tablet PRN Reason: Headache diphenhydrAMINE [Benadryl CAP] 25 mg PO Q8HR PRN #30 capsule PRN Reason: headache congestion Referrals: [facility] [Outside] - 3-5 Days Forms: Work/School Release Form(ED) Time of Disposition: 00:29
== END 2019-09-20 00:35 | disposition home or self-care (01) ==
LOC: ED 22:10
DX: J06.9 Acute upper respiratory infection, unspecified (principal); F32.9 Major depressive disorder, single episode, unspecified; Z88.6 Allergy status to analgesic agent; Z88.5 Allergy status to narcotic agent; Z79.899 Other long term (current) drug therapy; Z98.51 Tubal ligation status
CPT/HCPCS: 99282

== ENCOUNTER 2019-09-24 21:22 | Emergency (ER) | payer MEDICARE ==
--- NOTE | 2019-09-24 21:58 | Event Note ---
ED Screening Note Date of service: 09/24/19 Time: 21:53 ED Screening Note: This is a 58 y.o. F. that presents to the ER with syncopal episodes x 2. Patient states she fell yesterday hitting her head. Reports symptoms started after. Not sure if she loss consciousness. Patient states her friend said he had a hard time waking her up after the fall yesterday. PMH anemia and syncope. This initial assessment/diagnostic orders/clinical plan/treatment(s) is/are subject to change based on patients health status, clinical progression and re- assessment by fellow clinical providers in the ED. Further treatment and workup at subsequent clinical providers discretion. Patient/guardian urged not to elope from the ED as their condition may be serious if not clinically assessed and managed. Initial orders include: CT of head, ekg, & cbc
--- NOTE | 2019-09-24 22:54 | Cat Scan Report ---
CT HEAD WITHOUT CONTRAST INDICATION / CLINICAL INFORMATION: syncope. Fall. Pain to top of hand. TECHNIQUE: All CT scans at this location are performed using CT dose reduction for ALARA by means of automated e xposure control. COMPARISON: None available. FINDINGS: HEMORRHAGE: None. EXTRA-AXIAL SPACES: Normal in size and morphology for the patient's age. VENTRICULAR SYSTEM: Normal in size and morphology for the patient's age. CEREBRAL PARENCHYMA: No significant abnormality. No acute territorial infarct. MIDLINE SHIFT OR HERNIATION: None. CEREBELLUM / BRAINSTEM: No significant abnormality. ORBITS: Normal as visualized. SOFT TISSUES of HEAD: No significant abnormality. CALVARIUM: No significant abnormality. PARANASAL SINUSES / MASTOID AIR CELLS: Normal as visualized. ADDITIONAL FINDINGS: None. IMPRESSION: 1. No acute intracranial abnormality. No significant change. Signer Name: Lenny Krishnamurthy MD Signed: 09/24/2019 10:49 PM Workstation Name: [id number]
[2019-09-24 23:09] LABS: Basophils # (Auto) 0.1 K/mm3 (0.0-0.1); Basophils % (Auto) 0.8 % (0.0-1.8); Eosinophils # (Auto) 0.2 K/mm3 (0.0-0.4); Eosinophils % (Auto) 2.4 % (0.0-4.3); Lymphocytes # (Auto) 2.2 K/mm3 (1.2-5.4); Lymphocytes % (Auto) 22.5 % (13.4-35.0); Mean Corpuscular HGB Conc 31 % (30-34); Mean Corpuscular Volume 78 fl (79-97); Monocytes # (Auto) 0.8 K/mm3 (0.0-0.8); Monocytes % (Auto) 7.8 % (0.0-7.3); Platelet Count 196 K/mm3 (140-440); Red Blood Count 4.47 M/mm3 (3.65-5.03); Red Cell Distribution Width 19.2 % (13.2-15.2)
--- NOTE | 2019-09-25 00:12 | Emergency Department Report ---
ED Syncope HPI - General Chief Complaint: Syncope Stated Complaint: SYNCOPE/FALL/BYRD/CP Time Seen by Provider: 09/24/19 21:53 Source: patient Exam Limitations: no limitations - History of Present Illness Initial Comments: This is a 58-year-old female presents emergency room reported that she has a history of passing out due to anemia and she has been followed by her primary care physician and an iron pill. She said she passed out and fell 2 days ago and hit her head and she is worried that her blood count is low. Patient denies any alcohol use. Denies any loss of consciousness. She is reporting headache to the right side of her head that feels sharp and 4 out of 10. She said it was worse when it first happened but is getting better. Denies any dizziness any vomiting. Denies any neck pain or stiffness. Denies any back injury. Denies any visual difficulties or abnormal gait. It stated on triage note on the patient's said that she was having chest pain today but she says she did not say that she said she was having a headache. She denies any fever or chills. Patient denies any having any heart problems she said when she started passing out she went to: [facility] and they gave her hold her mom monitor and told her that it was fine and everything was normal. Her primary care doctor is Dr. Bishop. She also says that she had a stress test and it was normal. She said this is done by a Tracie lasts year due to her passing out. She said her doctor told her that she has passed out because her blood level is low. Patient says she is concerned and wants to be checked. Denies taking any medication for headache. Denies any nasal bleeding. She said her friends were there when she fell and they did not play that she lost consciousness. She also reports that they told her that she has some abnormal heartbeats but it was nothing to worry about. Chart reviewed and patient with several visits to the emergency room in 2019 for similar issues. Her previous EKG remains without any changes. She has a echocardiogram which showed mild MR and mild valvular regurg and mild atrial dilatation. Her EF was 55% with no LV dysfunction. She had carotid Doppler done which shows right carotid with 50% stenosis. Patient was seen earlier this year and was referred to Dr. Hitchcock is a neurologist which she said she went but did not follow-up after that. Timing/Prior Episodes: recent history, remote history, other (patient says she has multiple history of passing out due to anemia) Precipitating Factors: Positive: lightheadedness Context: standing Loss of Consciousness: no loss of consciousness Current Symptoms: headache - Related Data Allergies/Adverse Reactions: Allergies aspirin Allergy (Verified 03/30/19 16:06) Vomiting codeine Allergy (Verified 03/30/19 16:06) Vomiting Home Medications: Ambulatory Orders Cetirizine HCl [ZyrTEC] 10 mg PO DAILY #30 tab.rapdis 03/05/19 Fluticasone [Flonase] 1 spray NS QDAY #1 bottle 03/05/19 guaiFENesin/DEXTROMETHORPHAN [Robitussin Cough-Chest Dm Liq] 10 ml PO Q6HR #1 bottle 03/05/19 Meclizine [Antivert] 25 mg PO TID PRN #20 tablet 03/31/19 Ondansetron [Zofran Odt] 4 mg PO Q8HR PRN #14 tab.rapdis 03/31/19 tiZANidine [Zanaflex] 4 mg PO Q8H PRN #15 tablet 04/03/19 traMADol [Ultram 50 MG tab] 50 mg PO Q6HR PRN #10 tablet 04/06/[address] [Voltaren Dr] 75 mg PO BID #20 tablet 06/14/19 Gabapentin 300 mg PO Q8HR #30 capsule 06/14/19 Prednisone [predniSONE 5 mg (6-Day Pack, 21 Tabs)] 5 mg PO .TAPER #1 tab.ds.pk 06/18/19 diphenhydrAMINE [Benadryl CAP] 25 mg PO Q8HR #30 capsule 06/18/19 Ciprofloxacin HCl [Ciprofloxacin TAB] 500 mg PO Q12HR 3 Days #6 tab 09/07/19 Prednisone [predniSONE 10 mg (6-Day Pack, 21 Tabs)] 10 mg PO .TAPER #1 tab.ds.pk 09/07/19 methOCARBAMOL [Robaxin TAB] 500 mg PO Q8HR PRN #20 tablet 09/07/19 traMADol [Ultram] 50 mg PO Q6HR PRN #7 tablet 09/07/19 Acetaminophen [Acetaminophen TAB] 1,000 mg PO Q6HR PRN #30 tablet 09/20/19 diphenhydrAMINE [Benadryl CAP] 25 mg PO Q8HR PRN #30 capsule 09/20/19 ED Review of Systems ROS: Stated complaint: SYNCOPE/FALL/BYRD/CP Other details as noted in HPI Constitutional: denies: chills, fever Eyes: denies: eye pain, eye discharge, vision change ENT: denies: throat pain, congestion Respiratory: denies: cough, shortness of breath, wheezing Cardiovascular: denies: chest pain, palpitations, dyspnea on exertion, edema, syncope Gastrointestinal: denies: abdominal pain, nausea, vomiting, hematemesis, hematochezia Genitourinary: denies: dysuria, hematuria Musculoskeletal: denies: back pain, joint swelling, arthralgia, myalgia Skin: denies: rash Neurological: headache. denies: weakness, numbness, paresthesias, abnormal gait, vertigo ED Past Medical Hx - Past Medical History Previous Medical History?: Yes Hx Psychiatric Treatment: Yes (depression) Additional medical history: GPD deficiency, chronic anemia secondary to fibroids - Surgical History Past Surgical History?: Yes Additional Surgical History: tubal ligation - Family History Family history: hypertension - Social History Smoking Status: Never Smoker Substance Use Type: None - Medications Home Medications: Home Medications Medication Instructions Recorded Confirmed Last Taken Type Cetirizine HCl [ZyrTEC] 10 mg PO DAILY #30 tab.rapdis 03/05/19 Unknown Rx Fluticasone [Flonase] 1 spray NS QDAY #1 bottle 03/05/19 Unknown Rx guaiFENesin/DEXTROMETHORPHAN 10 ml PO Q6HR #1 bottle 03/05/19 Unknown Rx [Robitussin Cough-Chest Dm Liq] Meclizine [Antivert] 25 mg PO TID PRN #20 tablet 03/31/19 Unknown Rx Ondansetron [Zofran Odt] 4 mg PO Q8HR PRN #14 tab.rapdis 03/31/19 Unknown Rx tiZANidine [Zanaflex] 4 mg PO Q8H PRN #15 tablet 04/03/19 Unknown Rx traMADol [Ultram 50 MG tab] 50 mg PO Q6HR PRN #10 tablet 04/06/[address] [Voltaren Dr] 75 mg PO BID #20 tablet 06/14/19 Unknown Rx Gabapentin 300 mg PO Q8HR #30 capsule 06/14/19 Unknown Rx Prednisone [predniSONE 5 mg (6-Day 5 mg PO .TAPER #1 tab.ds.pk 06/18/19 Unknown Rx Pack, 21 Tabs)] diphenhydrAMINE [Benadryl CAP] 25 mg PO Q8HR #30 capsule 06/18/19 Unknown Rx Ciprofloxacin HCl [Ciprofloxacin 500 mg PO Q12HR 3 Days #6 tab 09/07/19 Unknown Rx TAB] Prednisone [predniSONE 10 mg 10 mg PO .TAPER #1 tab.ds.pk 09/07/19 Unknown Rx (6-Day Pack, 21 Tabs)] methOCARBAMOL [Robaxin TAB] 500 mg PO Q8HR PRN #20 tablet 09/07/19 Unknown Rx traMADol [Ultram] 50 mg PO Q6HR PRN #7 tablet 09/07/19 Unknown Rx Acetaminophen [Acetaminophen TAB] 1,000 mg PO Q6HR PRN #30 tablet 09/20/19 Unknown Rx diphenhydrAMINE [Benadryl CAP] 25 mg PO Q8HR PRN #30 capsule 09/20/19 Unknown Rx ED Physical Exam - General Limitations: No Limitations General appearance: alert, in no apparent distress - Head Head exam: Present: atraumatic, normocephalic, normal inspection - Expanded Head Exam Expanded Head exam: Absent: laceration, abrasion, contusion, hematoma, racoon eyes, estrella's sign, general tenderness, tenderness of temporal artery, CSF rhinorrhea, CSF otorrhea - Eye Eye exam: Present: normal appearance, PERRL, EOMI. Absent: nystagmus, periorbital swelling, periorbital tenderness Pupils: Present: normal accommodation - ENT ENT exam: Present: normal exam, normal orophraynx, mucous membranes moist, TM's normal bilaterally, normal external ear exam - Neck Neck exam: Present: normal inspection, full ROM, other (no C-spine tenderness). Absent: tenderness, lymphadenopathy - Respiratory Respiratory exam: Present: normal lung sounds bilaterally. Absent: respiratory distress, chest wall tenderness - Cardiovascular Cardiovascular Exam: Present: regular rate, normal rhythm, normal heart sounds - GI/Abdominal GI/Abdominal exam: Present: soft, normal bowel sounds. Absent: distended, tenderness - Extremities Exam Extremities exam: Present: normal inspection, full ROM, normal capillary refill, other (No cce. + 2 pulses in all extremities, no neurovascular compromise). Absent: tenderness, pedal edema, joint swelling - Back Exam Back exam: Present: normal inspection, full ROM, other (ambulates without any difficulties). Absent: tenderness, CVA tenderness (R), CVA tenderness (L), muscle spasm, paraspinal tenderness, vertebral tenderness, rash noted - Neurological Exam Neurological exam: Present: alert, oriented X3, normal gait, reflexes normal. Absent: motor sensory deficit - Expanded Neurological Exam Expanded Neurological exam: Absent: innattentive, memory loss-remote event, memory loss- recent event, ataxia, receptive aphasia, expressive aphasia, total aphasia, tremor, protecting the airway Patient oriented to: Present: person, place, time Speech: Present: fluid speech Cranial nerves: EOM's Intact: Normal, Gag Reflex: Normal, Tongue Deviation: Normal, Nystagmus: Normal, Facial Sensation: Normal Cerebellar function: Finger to Nose: Normal, Romberg: Normal Upper motor neuron: Pronator Drift: Normal, Sensory Extinction: Normal Sensory exam: Upper Extremity Light Touch: Normal, Upper Extremity Temperature: Normal, Lower Extremity Light Touch: Normal, Lower Extremity Temperature: Normal Motor strength exam: RUE: 5, LUE: 5, RLE: 5, LLE: 5 DTR: bicep (R): 2+, bicep (L): 2+, knee (R): 2+, knee (L): 2+, ankle (R): 2+, ankle (L): 2+ Best Eye Response ([place]): (4) open spontaneously Best Motor Response (Mary): (6) obeys commands Best Verbal Response (Mary): (5) oriented Mary Total: 15 - Psychiatric Psychiatric exam: Present: normal affect, normal mood - Skin Skin exam: Present: warm, dry, intact, normal color. Absent: rash ED Course Vital Signs 09/24/19 09/25/19 21:34 00:28 Temperature 97.9 F 97.6 F Pulse Rate 76 88 Respiratory 18 18 Rate Blood Pressure 114/58 Blood Pressure 152/46 [Right] O2 Sat by Pulse 98 98 Oximetry - Reevaluation(s) Reevaluation #1: 09/25/19 01:16 Patient given normal saline 1 L and Zofran 8 mg IV because she said she had jero e nausea when she walked to the room. She now says she feels better. She has CT scan of her head which shows no acute processes. Troponin is stable and EKG shows sinus rhythm with some premature atrial complexes. Patient is not having any cardiac-related issues. CBC stable without any anemia, CMP stable. Urinalysis stable. Reevaluation #2: 09/25/19 02:58 Patient headache has resolved, she is neurologically intact and able to ambulate without any difficulties. She says she is feeling a lot better. Patient says she will call her primary care on Thursday to schedule an appointment for follow- up visit. She does have access and will need to see a neurologist regarding full chronic episodes of passing out and has been seen by cardiology and evaluated. ED Medical Decision Making - Lab Data Result diagrams: 09/24/19 22:56 09/25/19 00:19 Lab Results 09/24/19 09/25/19 09/25/19 Range/Units 22:56 00:17 00:19 WBC 9.9 (4.5-11.0) K/mm3 RBC 4.47 (3.65-5.03) M/mm3 Hgb 11.0 (10.1-14.3) gm/dl Hct 35.0 (30.3-42.9) % MCV 78 L (79-97) fl MCH 25 L (28-32) pg MCHC 31 (30-34) % RDW 19.2 H (13.2-15.2) % Plt Count 196 (140-440) K/mm3 Lymph % (Auto) 22.5 (13.4-35.0) % Emmet % (Auto) 7.8 H (0.0-7.3) % Eos % (Auto) 2.4 (0.0-4.3) % Baso % (Auto) 0.8 (0.0-1.8) % Lymph # 2.2 (1.2-5.4) K/mm3 Emmet # 0.8 (0.0-0.8) K/mm3 Eos # 0.2 (0.0-0.4) K/mm3 Baso # 0.1 (0.0-0.1) K/mm3 Seg Neutrophils % 66.5 (40.0-70.0) % Seg Neutrophils # 6.6 (1.8-7.7) K/mm3 Sodium 143 (137-145) mmol/L Potassium 4.5 (3.6-5.0) mmol/L Chloride 108.6 H (98-107) mmol/L Carbon Dioxide 22 (22-30) mmol/L Anion Gap 17 mmol/L BUN 14 (7-17) mg/dL Creatinine 0.8 (0.7-1.2) mg/dL Estimated GFR > 60 ml/min BUN/Creatinine Ratio 18 % Glucose 97 (65-100) mg/dL Calcium 9.7 (8.4-10.2) mg/dL Total Bilirubin 0.20 (0.1-1.2) mg/dL AST 14 (5-40) units/L ALT 14 (7-56) units/L Alkaline Phosphatase 99 (35-129) units/L Troponin T < 0.010 (0.00-0.029) ng/mL Total Protein 7.3 (6.3-8.2) g/dL Albumin 4.0 (3.9-5) g/dL Albumin/Globulin Ratio 1.2 % - EKG Data -: EKG Interpreted by Me (attending physician) EKG shows normal: sinus rhythm (sinus rhythm with premature atrial complexes) - EKG Data Interpretation: other (PACs) - Radiology Data Radiology results: report reviewed Patient had CT scan of the head and brain without contrast which was dictated by radiologist and report reviewed by myself. No acute findings. Findings [facility] [address] [place] [address] Cat Scan Report Signed Patient: JULIANE JAVED MR#: [id number] : 1960 Acct:[id number] Age/Sex: 58 / F ADM Date: 09/24/19 Loc: ED Attending Dr: Ordering Physician: TAMMY MABRY Date of Service: 09/24/19 Procedure(s): CT head/brain wo con Accession Number(s): [id number] cc: TAMMY MABRY CT HEAD WITHOUT CONTRAST INDICATION / CLINICAL INFORMATION: syncope. Fall. Pain to top of hand. TECHNIQUE: All CT scans at this location are performed using CT dose reduction for ALARA by means of automated exposure control. COMPARISON: None available. FINDINGS: HEMORRHAGE: None. EXTRA-AXIAL SPACES: Normal in size and morphology for the patient's age. VENTRICULAR SYSTEM: Normal in size and morphology for the patient's age. CEREBRAL PARENCHYMA: No significant abnormality. No acute territorial infarct. MIDLINE SHIFT OR HERNIATION: None. CEREBELLUM / BRAINSTEM: No significant abnormality. ORBITS: Normal as visualized. SOFT TISSUES of HEAD: No significant abnormality. CALVARIUM: No significant abnormality. PARANASAL SINUSES / MASTOID AIR CELLS: Normal as visualized. ADDITIONAL FINDINGS: None. IMPRESSION: 1. No acute intracranial abnormality. No significant change. Signer Name: Lenny Krishnamurthy MD Signed: 09/24/2019 10:49 PM Workstation Name: [id number] Transcribed By: DT Dictated By: Jose Krishnamurthy MD Electronically Authenticated By: Jose Krishnamurthy MD Signed Date/Time: 09/24/192248 DD/ 44 TD/TT: - Medical Decision Making This is a 58-year-old female here report that she passed out 2 days ago and hit her head and complaining of headache this out of her head CT scan shows no acute findings. Head exam is normal and patient is neurologically intact without any bruising to her skin. She had cardiac troponin which is stable and EKG which shows sinus rhythm with some premature atrial contraction which is not new for patient. I discussed lab results which are stable and she was not anemic and told her that she needs to continue with her first sulfate and also CT scan results and she voiced understanding. She received all saline IV fluids along with some Zofran emergency room. I discussed the patient that she will need to see a neurologist regarding chronic episode of passing out and will need to follow up with her primary care for evaluation after falling. Patient is stable and discharged home in stable condition. Vital signs stable and no pain at present. I discussed with her that she needs to follow up with Dr. Hitchcock as she was previously referred to him for multiple falls and fainting episode. - Differential Diagnosis intracranial versus extracranial abnormalities, anemia, dehydration Critical care attestation.: If time is entered above; I have spent that time in minutes in the direct care of this critically ill patient, excluding procedure time. ED Disposition Clinical Impression: Fall from standing Qualifiers: Encounter type: initial encounter Qualified Code(s): W19.XXXA - Unspecified fall, initial encounter Headache, post-traumatic Qualifiers: Headache chronicity pattern: acute headache Intractability: not intractable Qualified Code(s): G44.319 - Acute post-traumatic headache, not intractable Disposition: DC-01 TO HOME OR SELFCARE Is pt being admited?: No Does the pt Need Aspirin: No Condition: Stable Instructions: Acute Headache (ED), Fall Prevention (ED) Additional Instructions: Please return to the emergency room if his symptoms return or gets worse. Otherwise please follow-up with your primary care physician and also Dr. Hitchcock who is a neurologist that you are referred to in 2019. Ensure that he get any fluid to prevent dehydration. Referrals: AYANA GRIMM MD [Primary Care Provider] - 09/26/19 MÓNICA HITCHCOCK MD [Referring] - 09/27/19 Forms: Work/School Release Form(ED)
[2019-09-25] MEDS ORDERED: ONDANSETRON 4 MG/2 ML INJ IV ONE (00:19)
[2019-09-25] MEDS ORDERED: SODIUM CHLORIDE 0.9% 1000 ML 1,000 ML IV ONE (00:19)
[2019-09-25 01:08] LABS: Bilirubin,Urine NEG (Negative); Blood,Urine NEG (Negative); Color,Urine Yellow (Yellow); Mucus,Urine FEW /HPF; Protein,Urine <15 mg/dL mg/dL (Negative); RBC,Urine < 1.0 /HPF (0.0-6.0); Urobilinogen,Urine < 2.0 mg/dL (<2.0)
[2019-09-25 01:12] LABS: Alanine Aminotransferase 14 units/L (7-56); BUN/Creatinine Ratio 18; Blood Urea Nitrogen 14 mg/dL (7-17); Calcium 9.7 mg/dL (8.4-10.2); Hemolysis Index 3
[2019-09-25 03:34] VITALS: BP 146/75
== END 2019-09-25 03:34 | disposition home or self-care (01) ==
LOC: ED 21:22
DX: G44.319 Acute post-traumatic headache, not intractable (principal); F32.9 Major depressive disorder, single episode, unspecified; Z98.51 Tubal ligation status; W18.30XA Fall on same level, unspecified, initial encounter; Y93.89 Activity, other specified; Y92.89 Other specified places as the place of occurrence of the external cause; Y99.8 Other external cause status
CPT/HCPCS: 36415; 70450; 80053; 81001; 84484; 85025; 93005; 93010; 96374; 99284; J2405; J7030

== ENCOUNTER 2019-09-28 00:31 | Emergency (ER) | payer MEDICARE ==
[2019-09-28 01:18] LABS: Basophils # (Auto) 0.1 K/mm3 (0.0-0.1); Basophils % (Auto) 1.1 % (0.0-1.8); Eosinophils # (Auto) 0.3 K/mm3 (0.0-0.4); Eosinophils % (Auto) 2.8 % (0.0-4.3); Hematocrit 35.9 % (30.3-42.9); Hemoglobin 11.5 gm/dl (10.1-14.3); Lymphocytes # (Auto) 2.2 K/mm3 (1.2-5.4); Mean Corpuscular HGB Conc 32 % (30-34); Mean Corpuscular Volume 77 fl (79-97); Monocytes # (Auto) 0.8 K/mm3 (0.0-0.8); Monocytes % (Auto) 7.7 % (0.0-7.3); Red Blood Count 4.63 M/mm3 (3.65-5.03); Red Cell Distribution Width 19.6 % (13.2-15.2)
[2019-09-28 02:17] LABS: BUN/Creatinine Ratio 21; Blood Urea Nitrogen 15 mg/dL (7-17); Hemolysis Index 53
[2019-09-28 04:32] LABS: Platelet Count 177 K/mm3 (140-440)
--- NOTE | 2019-09-28 04:49 | Emergency Department Report ---
ED Psych HPI - General Chief Complaint: Psych Stated Complaint: DEPRESSION Time Seen by Provider: 09/28/19 03:52 Source: patient Mode of arrival: Ambulatory - History of Present Illness Initial Comments: Patient is a 58-year-old female who states that approximately one year ago her sister and her brother . The within the month of each other. Patient states that she's had some Rulon Kenji states that she was feeling quite depressed the last several days. Patient's hCG felt as though she just needed someone to talk to. Patient denies any homicidal suicidal at this time. Patient is not having any auditory or visual hallucinations. Patient st ates she was worried about being at home tonight by herself - Related Data Previous Rx's Medication Instructions Recorded Last Taken Type Cetirizine HCl [ZyrTEC] 10 mg PO DAILY #30 tab.rapdis 03/05/19 Unknown Rx Fluticasone [Flonase] 1 spray NS QDAY #1 bottle 03/05/19 Unknown Rx guaiFENesin/DEXTROMETHORPHAN 10 ml PO Q6HR #1 bottle 03/05/19 Unknown Rx [Robitussin Cough-Chest Dm Liq] Meclizine [Antivert] 25 mg PO TID PRN #20 tablet 03/31/19 Unknown Rx Ondansetron [Zofran Odt] 4 mg PO Q8HR PRN #14 tab.rapdis 03/31/19 Unknown Rx tiZANidine [Zanaflex] 4 mg PO Q8H PRN #15 tablet 04/03/19 Unknown Rx traMADol [Ultram 50 MG tab] 50 mg PO Q6HR PRN #10 tablet 04/06/[address] [Voltaren Dr] 75 mg PO BID #20 tablet 06/14/19 Unknown Rx Gabapentin 300 mg PO Q8HR #30 capsule 06/14/19 Unknown Rx Prednisone [predniSONE 5 mg (6-Day 5 mg PO .TAPER #1 tab.ds.pk 06/18/19 Unknown Rx Pack, 21 Tabs)] diphenhydrAMINE [Benadryl CAP] 25 mg PO Q8HR #30 capsule 06/18/19 Unknown Rx Ciprofloxacin HCl [Ciprofloxacin 500 mg PO Q12HR 3 Days #6 tab 09/07/19 Unknown Rx TAB] Prednisone [predniSONE 10 mg 10 mg PO .TAPER #1 tab.ds.pk 09/07/19 Unknown Rx (6-Day Pack, 21 Tabs)] methOCARBAMOL [Robaxin TAB] 500 mg PO Q8HR PRN #20 tablet 09/07/19 Unknown Rx traMADol [Ultram] 50 mg PO Q6HR PRN #7 tablet 09/07/19 Unknown Rx Acetaminophen [Acetaminophen TAB] 1,000 mg PO Q6HR PRN #30 tablet 09/20/19 Unknown Rx diphenhydrAMINE [Benadryl CAP] 25 mg PO Q8HR PRN #30 capsule 09/20/19 Unknown Rx Allergies Allergy/AdvReac Type Severity Reaction Status Date / Time aspirin Allergy Vomiting Verified 03/30/19 16:06 codeine Allergy Vomiting Verified 03/30/19 16:06 ED Review of Systems ROS: Stated complaint: DEPRESSION Other details as noted in HPI Comment: All other systems reviewed and negative ED Past Medical Hx - Past Medical History Previous Medical History?: Yes Hx Psychiatric Treatment: Yes (depression) Additional medical history: GPD deficiency, chronic anemia secondary to fibroids - Surgical History Past Surgical History?: Yes Additional Surgical History: tubal ligation - Social History Smoking Status: Never Smoker Substance Use Type: None - Medications Home Medications: Home Medications Medication Instructions Recorded Confirmed Last Taken Type Cetirizine HCl [ZyrTEC] 10 mg PO DAILY #30 tab.rapdis 03/05/19 Unknown Rx Fluticasone [Flonase] 1 spray NS QDAY #1 bottle 03/05/19 Unknown Rx guaiFENesin/DEXTROMETHORPHAN 10 ml PO Q6HR #1 bottle 03/05/19 Unknown Rx [Robitussin Cough-Chest Dm Liq] Meclizine [Antivert] 25 mg PO TID PRN #20 tablet 03/31/19 Unknown Rx Ondansetron [Zofran Odt] 4 mg PO Q8HR PRN #14 tab.rapdis 03/31/19 Unknown Rx tiZANidine [Zanaflex] 4 mg PO Q8H PRN #15 tablet 04/03/19 Unknown Rx traMADol [Ultram 50 MG tab] 50 mg PO Q6HR PRN #10 tablet 04/06/[address] [Voltaren Dr] 75 mg PO BID #20 tablet 06/14/19 Unknown Rx Gabapentin 300 mg PO Q8HR #30 capsule 06/14/19 Unknown Rx Prednisone [predniSONE 5 mg (6-Day 5 mg PO .TAPER #1 tab.ds.pk 06/18/19 Unknown Rx Pack, 21 Tabs)] diphenhydrAMINE [Benadryl CAP] 25 mg PO Q8HR #30 capsule 06/18/19 Unknown Rx Ciprofloxacin HCl [Ciprofloxacin 500 mg PO Q12HR 3 Days #6 tab 09/07/19 Unknown Rx TAB] Prednisone [predniSONE 10 mg 10 mg PO .TAPER #1 tab.ds.pk 09/07/19 Unknown Rx (6-Day Pack, 21 Tabs)] methOCARBAMOL [Robaxin TAB] 500 mg PO Q8HR PRN #20 tablet 09/07/19 Unknown Rx traMADol [Ultram] 50 mg PO Q6HR PRN #7 tablet 09/07/19 Unknown Rx Acetaminophen [Acetaminophen TAB] 1,000 mg PO Q6HR PRN #30 tablet 09/20/19 Unknown Rx diphenhydrAMINE [Benadryl CAP] 25 mg PO Q8HR PRN #30 capsule 09/20/19 Unknown Rx ED Physical Exam - General Limitations: No Limitations General appearance: alert, in no apparent distress - Head Head exam: Present: atraumatic, normocephalic - Eye Eye exam: Present: normal appearance - ENT ENT exam: Present: mucous membranes moist - Neck Neck exam: Present: normal inspection - Respiratory Respiratory exam: Present: normal lung sounds bilaterally. Absent: respiratory distress, wheezes, rales, rhonchi - Cardiovascular Cardiovascular Exam: Present: regular rate, normal rhythm. Absent: systolic murmur, diastolic murmur, rubs, gallop - GI/Abdominal GI/Abdominal exam: Present: soft, normal bowel sounds. Absent: distended, tenderness, guarding, rebound, rigid - Extremities Exam Extremities exam: Present: normal inspection - Back Exam Back exam: Present: normal inspection - Neurological Exam Neurological exam: Present: alert, oriented X3 - Psychiatric Psychiatric exam: Present: normal affect, depressed - Skin Skin exam: Present: warm, dry, intact, normal color. Absent: rash ED Course Vital Signs 09/28/19 00:41 Temperature 98.3 F Pulse Rate 77 Respiratory 18 Rate Blood Pressure 137/67 O2 Sat by Pulse 98 Oximetry ED Medical Decision Making - Lab Data Result diagrams: 09/28/19 00:48 09/28/19 00:48 - Medical Decision Making Patient was seen by our therapist and deemed to not be in need of acute crisis intervention however she was given several outpatient resources. Critical care attestation.: If time is entered above; I have spent that time in minutes in the direct care of this critically ill patient, excluding procedure time. ED Disposition Clinical Impression: Depressed, Grief reaction Disposition: DC-01 TO HOME OR SELFCARE Is pt being admited?: No Does the pt Need Aspirin: No Condition: Stable Instructions: Grief and Loss (ED), Depression (ED), Suicide Prevention for Adults (ED) Referrals: PRIMARY CARE, [Primary Care Provider] - 3-5 Days Time of Disposition: 04:49
[2019-09-28 05:15] VITALS: BP 115/72
== END 2019-09-28 05:14 | disposition home or self-care (01) ==
LOC: ED 00:31
DX: F43.21 Adjustment disorder with depressed mood (principal); Z88.5 Allergy status to narcotic agent; Z88.6 Allergy status to analgesic agent; Z79.1 Long term (current) use of non-steroidal anti-inflammatories (NSAID); Z79.899 Other long term (current) drug therapy; Z98.51 Tubal ligation status
CPT/HCPCS: 36415; 80048; 80320; 85025; 99284; G0480

== ENCOUNTER 2019-10-02 07:21 | Emergency (ER) | payer MEDICARE ==
[2019-10-02] MEDS ORDERED: ACETAMINOPHEN 500 MG TAB PO ONE (08:12)
[2019-10-02] MEDS ORDERED: LIDOCAINE VISCOUS 2% 15 ML ORAL LIQD MM ONE (08:12)
--- NOTE | 2019-10-02 08:27 | Emergency Department Report ---
ED ENT HPI - General Chief complaint: Sore Throat Stated complaint: FLU LIKE SYMPTOMS Time Seen by Provider: 10/02/19 07:58 Source: patient Mode of arrival: Ambulatory Limitations: No Limitations - History of Present Illness Initial comments: This is a 58-year-old female nontoxic, well nourished in appearance, no acute signs of distress presents to the ED with c/o of sore throat. Patient describes sore throat as swallowing razer blades. Patient denies any fever, chills, headache, stiff neck, nausea, vomiting, chest pain, shortness of breath, numbne ss or tingling. Patient denies any drooling or hoarseness. Patient stated allergies to codeine and aspirin. MD complaint: sore throat -: days(s) Location: throat Severity: mild Severity scale (0 -10): 8 Quality: aching Consistency: constant Improves with: none Worsens with: swallowing Associated Symptoms: pain with swallowing, sore throat. denies: fever, cough, gum swelling, toothache, tinnitus, hearing loss, discharge from ear, rhinorrhea - Related Data Previous Rx's Medication Instructions Recorded Last Taken Type Cetirizine HCl [ZyrTEC] 10 mg PO DAILY #30 tab.rapdis 03/05/19 Unknown Rx Fluticasone [Flonase] 1 spray NS QDAY #1 bottle 03/05/19 Unknown Rx guaiFENesin/DEXTROMETHORPHAN 10 ml PO Q6HR #1 bottle 03/05/19 Unknown Rx [Robitussin Cough-Chest Dm Liq] Meclizine [Antivert] 25 mg PO TID PRN #20 tablet 03/31/19 Unknown Rx Ondansetron [Zofran Odt] 4 mg PO Q8HR PRN #14 tab.rapdis 03/31/19 Unknown Rx tiZANidine [Zanaflex] 4 mg PO Q8H PRN #15 tablet 04/03/19 Unknown Rx traMADol [Ultram 50 MG tab] 50 mg PO Q6HR PRN #10 tablet 04/06/[address] [Voltaren Dr] 75 mg PO BID #20 tablet 06/14/19 Unknown Rx Gabapentin 300 mg PO Q8HR #30 capsule 06/14/19 Unknown Rx Prednisone [predniSONE 5 mg (6-Day 5 mg PO .TAPER #1 tab.ds.pk 06/18/19 Unknown Rx Pack, 21 Tabs)] diphenhydrAMINE [Benadryl CAP] 25 mg PO Q8HR #30 capsule 06/18/19 Unknown Rx Ciprofloxacin HCl [Ciprofloxacin 500 mg PO Q12HR 3 Days #6 tab 09/07/19 Unknown Rx TAB] Prednisone [predniSONE 10 mg 10 mg PO .TAPER #1 tab.ds.pk 09/07/19 Unknown Rx (6-Day Pack, 21 Tabs)] methOCARBAMOL [Robaxin TAB] 500 mg PO Q8HR PRN #20 tablet 09/07/19 Unknown Rx traMADol [Ultram] 50 mg PO Q6HR PRN #7 tablet 09/07/19 Unknown Rx Acetaminophen [Acetaminophen TAB] 1,000 mg PO Q6HR PRN #30 tablet 09/20/19 Unknown Rx diphenhydrAMINE [Benadryl CAP] 25 mg PO Q8HR PRN #30 capsule 09/20/19 Unknown Rx Acetaminophen [Acetaminophen 8 650 mg PO Q8H PRN #20 tablet.er 10/02/19 Unknown Rx Hour] Amoxicillin [Amoxicillin TAB] 875 mg PO BID #20 tablet 10/02/19 Unknown Rx Nystas/Diphen/Xyl Visc/Mylanta 15 ml MM Q6H PRN 5 Days ml 10/02/19 Unknown Rx [Magic Mouthwash] Allergies Allergy/AdvReac Type Severity Reaction Status Date / Time aspirin Allergy Vomiting Verified 03/30/19 16:06 codeine Allergy Vomiting Verified 03/30/19 16:06 ED Dental HPI - General Chief complaint: Sore Throat Stated complaint: FLU LIKE SYMPTOMS Time Seen by Provider: 10/02/19 07:58 Source: patient Mode of arrival: Ambulatory Limitations: No Limitations - Related Data Previous Rx's Medication Instructions Recorded Last Taken Type Cetirizine HCl [ZyrTEC] 10 mg PO DAILY #30 tab.rapdis 03/05/19 Unknown Rx Fluticasone [Flonase] 1 spray NS QDAY #1 bottle 03/05/19 Unknown Rx guaiFENesin/DEXTROMETHORPHAN 10 ml PO Q6HR #1 bottle 03/05/19 Unknown Rx [Robitussin Cough-Chest Dm Liq] Meclizine [Antivert] 25 mg PO TID PRN #20 tablet 03/31/19 Unknown Rx Ondansetron [Zofran Odt] 4 mg PO Q8HR PRN #14 tab.rapdis 03/31/19 Unknown Rx tiZANidine [Zanaflex] 4 mg PO Q8H PRN #15 tablet 04/03/19 Unknown Rx traMADol [Ultram 50 MG tab] 50 mg PO Q6HR PRN #10 tablet 04/06/[address] [Voltaren Dr] 75 mg PO BID #20 tablet 06/14/19 Unknown Rx Gabapentin 300 mg PO Q8HR #30 capsule 06/14/19 Unknown Rx Prednisone [predniSONE 5 mg (6-Day 5 mg PO .TAPER #1 tab.ds.pk 06/18/19 Unknown Rx Pack, 21 Tabs)] diphenhydrAMINE [Benadryl CAP] 25 mg PO Q8HR #30 capsule 06/18/19 Unknown Rx Ciprofloxacin HCl [Ciprofloxacin 500 mg PO Q12HR 3 Days #6 tab 09/07/19 Unknown Rx TAB] Prednisone [predniSONE 10 mg 10 mg PO .TAPER #1 tab.ds.pk 09/07/19 Unknown Rx (6-Day Pack, 21 Tabs)] methOCARBAMOL [Robaxin TAB] 500 mg PO Q8HR PRN #20 tablet 09/07/19 Unknown Rx traMADol [Ultram] 50 mg PO Q6HR PRN #7 tablet 09/07/19 Unknown Rx Acetaminophen [Acetaminophen TAB] 1,000 mg PO Q6HR PRN #30 tablet 09/20/19 Unknown Rx diphenhydrAMINE [Benadryl CAP] 25 mg PO Q8HR PRN #30 capsule 09/20/19 Unknown Rx Acetaminophen [Acetaminophen 8 650 mg PO Q8H PRN #20 tablet.er 10/02/19 Unknown Rx Hour] Amoxicillin [Amoxicillin TAB] 875 mg PO BID #20 tablet 10/02/19 Unknown Rx Nystas/Diphen/Xyl Visc/Mylanta 15 ml MM Q6H PRN 5 Days ml 10/02/19 Unknown Rx [Magic Mouthwash] Allergies Allergy/AdvReac Type Severity Reaction Status Date / Time aspirin Allergy Vomiting Verified 03/30/19 16:06 codeine Allergy Vomiting Verified 03/30/19 16:06 ED Review of Systems ROS: Stated complaint: FLU LIKE SYMPTOMS Other details as noted in HPI Constitutional: denies: chills, fever Eyes: denies: eye pain, eye discharge, vision change ENT: throat pain. denies: ear pain Respiratory: denies: cough, shortness of breath, wheezing Cardiovascular: denies: chest pain, palpitations Endocrine: no symptoms reported Gastrointestinal: denies: abdominal pain, nausea, diarrhea Genitourinary: denies: urgency, dysuria, discharge Musculoskeletal: denies: back pain, joint swelling, arthralgia Skin: denies: rash, lesions Neurological: denies: headache, weakness, paresthesias Psychiatric: denies: anxiety, depression Hematological/Lymphatic: denies: easy bleeding, easy bruising ED Past Medical Hx - Past Medical History Hx Psychiatric Treatment: Yes (depression) Additional medical history: GPD deficiency, chronic anemia secondary to fibroids - Surgical History Additional Surgical History: tubal ligation - Social History Smoking Status: Never Smoker Substance Use Type: None - Medications Home Medications: Home Medications Medication Instructions Recorded Confirmed Last Taken Type Cetirizine HCl [ZyrTEC] 10 mg PO DAILY #30 tab.rapdis 03/05/19 Unknown Rx Fluticasone [Flonase] 1 spray NS QDAY #1 bottle 03/05/19 Unknown Rx guaiFENesin/DEXTROMETHORPHAN 10 ml PO Q6HR #1 bottle 03/05/19 Unknown Rx [Robitussin Cough-Chest Dm Liq] Meclizine [Antivert] 25 mg PO TID PRN #20 tablet 03/31/19 Unknown Rx Ondansetron [Zofran Odt] 4 mg PO Q8HR PRN #14 tab.rapdis 03/31/19 Unknown Rx tiZANidine [Zanaflex] 4 mg PO Q8H PRN #15 tablet 04/03/19 Unknown Rx traMADol [Ultram 50 MG tab] 50 mg PO Q6HR PRN #10 tablet 04/06/[address] [Voltaren Dr] 75 mg PO BID #20 tablet 06/14/19 Unknown Rx Gabapentin 300 mg PO Q8HR #30 capsule 06/14/19 Unknown Rx Prednisone [predniSONE 5 mg (6-Day 5 mg PO .TAPER #1 tab.ds.pk 06/18/19 Unknown Rx Pack, 21 Tabs)] diphenhydrAMINE [Benadryl CAP] 25 mg PO Q8HR #30 capsule 06/18/19 Unknown Rx Ciprofloxacin HCl [Ciprofloxacin 500 mg PO Q12HR 3 Days #6 tab 09/07/19 Unknown Rx TAB] Prednisone [predniSONE 10 mg 10 mg PO .TAPER #1 tab.ds.pk 09/07/19 Unknown Rx (6-Day Pack, 21 Tabs)] methOCARBAMOL [Robaxin TAB] 500 mg PO Q8HR PRN #20 tablet 09/07/19 Unknown Rx traMADol [Ultram] 50 mg PO Q6HR PRN #7 tablet 09/07/19 Unknown Rx Acetaminophen [Acetaminophen TAB] 1,000 mg PO Q6HR PRN #30 tablet 09/20/19 Unknown Rx diphenhydrAMINE [Benadryl CAP] 25 mg PO Q8HR PRN #30 capsule 09/20/19 Unknown Rx Acetaminophen [Acetaminophen 8 650 mg PO Q8H PRN #20 tablet.er 10/02/19 Unknown Rx Hour] Amoxicillin [Amoxicillin TAB] 875 mg PO BID #20 tablet 10/02/19 Unknown Rx Nystas/Diphen/Xyl Visc/Mylanta 15 ml MM Q6H PRN 5 Days ml 10/02/19 Unknown Rx [Magic Mouthwash] ED Physical Exam - General Limitations: No Limitations General appearance: alert, in no apparent distress - Head Head exam: Present: atraumatic, normocephalic - Expanded ENT Exam Expanded Ear exam: Present: normal external inspection Mouth exam: Present: normal external inspection. Absent: drooling, trismus, muffled voice Throat exam: Positive: tonsillar erythema, other (uvula midline). Negative: tonsillomegaly, tonsillar exudate, R peritonsillar mass, L peritonsillar mass - Neck Neck exam: Present: normal inspection, full ROM. Absent: tenderness, meningismus, lymphadenopathy - Respiratory Respiratory exam: Present: normal lung sounds bilaterally. Absent: respiratory distress, wheezes, rales, rhonchi, stridor, chest wall tenderness, accessory muscle use, decreased breath sounds, prolonged expiratory - Extremities Exam Extremities exam: Present: normal inspection, full ROM - Back Exam Back exam: Present: normal inspection, full ROM. Absent: tenderness - Neurological Exam Neurological exam: Present: alert, oriented X3, normal gait - Psychiatric Psychiatric exam: Present: normal affect, normal mood - Skin Skin exam: Present: warm, dry, intact, normal color. Absent: rash ED Course - Reevaluation(s) Reevaluation #1: 10/02/19 08:24 Patient is speaking in full sentences with no signs of distress noted. ED Medical Decision Making - Medical Decision Making This is a 58-year-old female that presents with pharyngitis. Patient is stable was examined by me. There is no drooling. No tonsillar abscess noted. Uvula is midline. Vital signs are stable. Patient is not febrile and normal heart rate. Patient was instructed to Follow-up with a primary care doctor in 3-5 days or if symptoms worsen and continue return to emergency room as soon as possible. At time of discharge, the patient does not seem toxic or ill in appearance. No acute signs of distress noted. Patient agrees to discharge treatment plan of care. No further questions noted by the patient. Critical care attestation.: If time is entered above; I have spent that time in minutes in the direct care of this critically ill patient, excluding procedure time. ED Disposition Clinical Impression: Pharyngitis Qualifiers: Pharyngitis/tonsillitis etiology: unspecified etiology Qualified Code(s): J02.9 - Acute pharyngitis, unspecified Disposition: DC-01 TO HOME OR SELFCARE Is pt being admited?: No Does the pt Need Aspirin: No Condition: Stable Instructions: Pharyngitis (ED) Additional Instructions: Follow-up with a primary care doctor in 3-5 days or if symptoms worsen and continue return to emergency room as soon as possible. Prescriptions: Acetaminophen [Acetaminophen 8 Hour] 650 mg PO Q8H PRN #20 tablet.er PRN Reason: Pain, Moderate (4-6) Amoxicillin [Amoxicillin TAB] 875 mg PO BID #20 tablet Nystas/Diphen/Xyl Visc/Mylanta [Magic Mouthwash] 15 ml MM Q6H PRN 5 Days ml PRN Reason: Sore Throat Referrals: PRIMARY CARE, [Referring] - 3-5 Days CARLITO TORRES MD [Staff Physician] - 3-5 Days [facility] [Outside] - 3-5 Days [facility] [Outside] - 3-5 Days Forms: Work/School Release Form(ED) Time of Disposition: 08:27
[2019-10-02 08:53] VITALS: BP 120/64
== END 2019-10-02 08:36 | disposition home or self-care (01) ==
LOC: ED 07:21
DX: J02.9 Acute pharyngitis, unspecified (principal); F32.9 Major depressive disorder, single episode, unspecified; Z98.51 Tubal ligation status; Z79.899 Other long term (current) drug therapy; Z88.6 Allergy status to analgesic agent; Z88.5 Allergy status to narcotic agent

== ENCOUNTER 2019-10-30 19:27 | Emergency (ER) | payer MEDICARE ==
--- NOTE | 2019-10-30 20:03 | Emergency Department Report ---
Blank Doc - Documentation Documentation: 58-year-old female that presents with right flank pain. This initial assessment/diagnostic orders/clinical plan/treatment(s) is/are subject to change based on patient's health status, clinical progression and re- assessment by fellow clinical providers in the ED. Further treatment and workup at subsequent clinical providers discretion. Patient/guardians urged not to elope from the ED as their condition may be serious if not clinically assessed and managed. Initial orders include: 1- Patient sent to [facility] for further evaluation and treatment 2- UA
[2019-10-30] MEDS ORDERED: IBUPROFEN 800 MG TAB PO ONE (22:30)
[2019-10-30 22:39] VITALS: BP 109/50
--- NOTE | 2019-10-30 22:59 | XRay Report ---
CHEST 2 VIEWS INDICATION / CLINICAL INFORMATION: Right subscapular pain. Cough. Symptoms for 2 days. COMPARISON: One view of the chest from 09/07/2019. FINDINGS: SUPPORT DEVICES: None. HEART / MEDIASTINUM: No significant abnormality. LUNGS / PLEURA: No significant pulmonary or pleural abnormality. No pneumothorax. ADDITIONAL FINDINGS: No significant additional findings. IMPRESSION: 1. No acute abnormality of the chest. Signer Name: Laci Webster MD Signed: 10/30/2019 10:55 PM Workstation Name: [id number]
[2019-10-30 23:21] LABS: Bacteria,Urine 1+ /HPF (Negative); Bilirubin,Urine NEG (Negative); Blood,Urine NEG (Negative); Color,Urine Yellow (Yellow); Mucus,Urine FEW /HPF; Protein,Urine <15 mg/dL mg/dL (Negative); Urobilinogen,Urine < 2.0 mg/dL (<2.0)
--- NOTE | 2019-10-31 00:11 | Emergency Department Report ---
ED General Adult HPI - General Chief complaint: Abdominal Pain Stated complaint: RT SIDE FLANK PAIN Time Seen by Provider: 10/30/19 20:02 Source: patient Mode of arrival: Ambulatory Limitations: No Limitations - History of Present Illness Initial comments: Patient is a 58-year-old Romanian female with no significant past medical history who is complaining of 2 days of acute onset of right submental scapular pain. The pain does not radiate. She states is worse with deep breathing and movement. Patient does have a mild cough that is lingering from a cold she had 2-3 weeks ago. Patient cough is much worse at that time. Patient denies dysuria or hematuria. She denies being a smoker. She denies fevers chills nausea vomiting diarrhea at this time. Severity scale (0 -10): 6 - Related Data Previous Rx's Medication Instructions Recorded Last Taken Type Cetirizine HCl [ZyrTEC] 10 mg PO DAILY #30 tab.rapdis 03/05/19 Unknown Rx Fluticasone [Flonase] 1 spray NS QDAY #1 bottle 03/05/19 Unknown Rx guaiFENesin/DEXTROMETHORPHAN 10 ml PO Q6HR #1 bottle 03/05/19 Unknown Rx [Robitussin Cough-Chest Dm Liq] Meclizine [Antivert] 25 mg PO TID PRN #20 tablet 03/31/19 Unknown Rx Ondansetron [Zofran Odt] 4 mg PO Q8HR PRN #14 tab.rapdis 03/31/19 Unknown Rx tiZANidine [Zanaflex] 4 mg PO Q8H PRN #15 tablet 04/03/19 Unknown Rx traMADoL [Ultram 50 MG tab] 50 mg PO Q6HR PRN #10 tablet 04/06/[address] [Voltaren Dr] 75 mg PO BID #20 tablet 06/14/19 Unknown Rx Gabapentin 300 mg PO Q8HR #30 capsule 06/14/19 Unknown Rx Prednisone [predniSONE 5 mg (6-Day 5 mg PO .TAPER #1 tab.ds.pk 06/18/19 Unknown Rx Pack, 21 Tabs)] diphenhydrAMINE [Benadryl CAP] 25 mg PO Q8HR #30 capsule 06/18/19 Unknown Rx Ciprofloxacin HCl [Ciprofloxacin 500 mg PO Q12HR 3 Days #6 tab 09/07/19 Unknown Rx TAB] Prednisone [predniSONE 10 mg 10 mg PO .TAPER #1 tab.ds.pk 09/07/19 Unknown Rx (6-Day Pack, 21 Tabs)] methOCARBAMOL [Robaxin TAB] 500 mg PO Q8HR PRN #20 tablet 09/07/19 Unknown Rx traMADoL [Ultram] 50 mg PO Q6HR PRN #7 tablet 09/07/19 Unknown Rx Acetaminophen [Acetaminophen TAB] 1,000 mg PO Q6HR PRN #30 tablet 09/20/19 Unknown Rx diphenhydrAMINE [Benadryl CAP] 25 mg PO Q8HR PRN #30 capsule 09/20/19 Unknown Rx Acetaminophen [Acetaminophen 8 650 mg PO Q8H PRN #20 tablet.er 10/02/19 Unknown Rx Hour] Amoxicillin [Amoxicillin TAB] 875 mg PO BID #20 tablet 10/02/19 Unknown Rx Nystas/Diphen/Xyl Visc/Mylanta 15 ml MM Q6H PRN 5 Days ml 10/02/19 Unknown Rx [Magic Mouthwash] predniSONE [Deltasone] 20 mg PO QDAY #5 tab 10/31/19 Unknown Rx traMADoL [Ultram] 50 mg PO Q6HR PRN #12 tablet 10/31/19 Unknown Rx Allergies Allergy/AdvReac Type Severity Reaction Status Date / Time aspirin Allergy Vomiting Verified 03/30/19 16:06 codeine Allergy Vomiting Verified 03/30/19 16:06 ED Review of Systems ROS: Stated complaint: RT SIDE FLANK PAIN Other details as noted in HPI Comment: All other systems reviewed and negative ED Past Medical Hx - Past Medical History Previous Medical History?: Yes Hx Psychiatric Treatment: Yes (depression) Additional medical history: GPD deficiency, chronic anemia secondary to fibroids - Surgical History Past Surgical History?: Yes Additional Surgical History: tubal ligation - Social History Smoking Status: Never Smoker Substance Use Type: None - Medications Home Medications: Home Medications Medication Instructions Recorded Confirmed Last Taken Type Cetirizine HCl [ZyrTEC] 10 mg PO DAILY #30 tab.rapdis 03/05/19 Unknown Rx Fluticasone [Flonase] 1 spray NS QDAY #1 bottle 03/05/19 Unknown Rx guaiFENesin/DEXTROMETHORPHAN 10 ml PO Q6HR #1 bottle 03/05/19 Unknown Rx [Robitussin Cough-Chest Dm Liq] Meclizine [Antivert] 25 mg PO TID PRN #20 tablet 03/31/19 Unknown Rx Ondansetron [Zofran Odt] 4 mg PO Q8HR PRN #14 tab.rapdis 03/31/19 Unknown Rx tiZANidine [Zanaflex] 4 mg PO Q8H PRN #15 tablet 04/03/19 Unknown Rx traMADoL [Ultram 50 MG tab] 50 mg PO Q6HR PRN #10 tablet 04/06/[address] [Voltaren Dr] 75 mg PO BID #20 tablet 06/14/19 Unknown Rx Gabapentin 300 mg PO Q8HR #30 capsule 06/14/19 Unknown Rx Prednisone [predniSONE 5 mg (6-Day 5 mg PO .TAPER #1 tab.ds.pk 06/18/19 Unknown Rx Pack, 21 Tabs)] diphenhydrAMINE [Benadryl CAP] 25 mg PO Q8HR #30 capsule 06/18/19 Unknown Rx Ciprofloxacin HCl [Ciprofloxacin 500 mg PO Q12HR 3 Days #6 tab 09/07/19 Unknown Rx TAB] Prednisone [predniSONE 10 mg 10 mg PO .TAPER #1 tab.ds.pk 09/07/19 Unknown Rx (6-Day Pack, 21 Tabs)] methOCARBAMOL [Robaxin TAB] 500 mg PO Q8HR PRN #20 tablet 09/07/19 Unknown Rx traMADoL [Ultram] 50 mg PO Q6HR PRN #7 tablet 09/07/19 Unknown Rx Acetaminophen [Acetaminophen TAB] 1,000 mg PO Q6HR PRN #30 tablet 09/20/19 Unknown Rx diphenhydrAMINE [Benadryl CAP] 25 mg PO Q8HR PRN #30 capsule 09/20/19 Unknown Rx Acetaminophen [Acetaminophen 8 650 mg PO Q8H PRN #20 tablet.er 10/02/19 Unknown Rx Hour] Amoxicillin [Amoxicillin TAB] 875 mg PO BID #20 tablet 10/02/19 Unknown Rx Nystas/Diphen/Xyl Visc/Mylanta 15 ml MM Q6H PRN 5 Days ml 10/02/19 Unknown Rx [Magic Mouthwash] predniSONE [Deltasone] 20 mg PO QDAY #5 tab 10/31/19 Unknown Rx traMADoL [Ultram] 50 mg PO Q6HR PRN #12 tablet 10/31/19 Unknown Rx ED Physical Exam - General Limitations: No Limitations General appearance: alert, in no apparent distress - Head Head exam: Present: atraumatic, normocephalic - Eye Eye exam: Present: normal appearance, PERRL, EOMI - ENT ENT exam: Present: mucous membranes moist - Neck Neck exam: Present: normal inspection - Respiratory Respiratory exam: Present: normal lung sounds bilaterally. Absent: respiratory distress, wheezes, rales, rhonchi - Cardiovascular Cardiovascular Exam: Present: regular rate, normal rhythm, normal heart sounds. Absent: systolic murmur, diastolic murmur, rubs, gallop - GI/Abdominal GI/Abdominal exam: Present: soft, normal bowel sounds. Absent: distended, tenderness, guarding, rebound - Extremities Exam Extremities exam: Present: normal inspection - Back Exam Back exam: Present: normal inspection - Expanded Back Exam Expanded 1 - area of pain - Neurological Exam Neurological exam: Present: alert, oriented X3 - Psychiatric Psychiatric exam: Present: normal affect, normal mood - Skin Skin exam: Present: warm, dry, intact, normal color. Absent: rash ED Course Vital Signs 10/30/19 10/30/19 10/30/19 19:33 20:04 22:36 Temperature 98.4 F 98.4 F Pulse Rate 76 72 56 L Respiratory 18 18 16 Rate Blood Pressure 117/65 117/65 Blood Pressure 109/50 [Left] O2 Sat by Pulse 98 100 96 Oximetry ED Medical Decision Making - Lab Data Lab Results 10/30/19 Range/Units 22:33 Urine Color Yellow (Yellow) Urine Turbidity Clear (Clear) Urine pH 6.0 (5.0-7.0) Ur Specific [place] 1.028 (1.003-1.030) Urine Protein <15 mg/dl (Negative) mg/dL Urine Glucose (UA) Neg (Negative) mg/dL Urine Ketones Neg (Negative) mg/dL Urine Blood Neg (Negative) Urine Nitrite Neg (Negative) Urine Bilirubin Neg (Negative) Urine Urobilinogen < 2.0 (<2.0) mg/dL Ur Leukocyte Esterase Neg (Negative) Urine WBC (Auto) 1.0 (0.0-6.0) /HPF Urine RBC (Auto) 5.0 (0.0-6.0) /HPF U Epithel Cells (Auto) < 1.0 (0-13.0) /HPF Urine Bacteria (Auto) 1+ (Negative) /HPF Urine Mucus Few /HPF - Radiology Data Radiology results: report reviewed (CXR WNL) - Medical Decision Making Patient's differential diagnosis includes pulmonary embolus C obstructive uropathy UTI biliary colic. Patient's urinalysis is within normal limits. Chest x-ray shows no evidence of pleural effusion. The patient's symptoms and the fact that her vital signs are within normal limits patient likely has pleurisy secondary to her recent upper respiratory infection. Patient will be treated with conservative measures. Critical care attestation.: If time is entered above; I have spent that time in minutes in the direct care of this critically ill patient, excluding procedure time. ED Disposition Clinical Impression: Pleurisy Disposition: DC-01 TO HOME OR SELFCARE Is pt being admited?: No Does the pt Need Aspirin: No Condition: Stable Instructions: Abdominal Pain (ED) Referrals: PRIMARY CARE, [Primary Care Provider] - 3-5 Days Time of Disposition: 00:14
== END 2019-10-31 00:47 | disposition home or self-care (01) ==
LOC: ED 19:27
DX: R09.1 Pleurisy (principal); R05 Cough; M25.511 Pain in right shoulder; F32.9 Major depressive disorder, single episode, unspecified; Z98.51 Tubal ligation status; Z79.899 Other long term (current) drug therapy; Z88.6 Allergy status to analgesic agent; Z88.5 Allergy status to narcotic agent
CPT/HCPCS: 71046; 81001; 87086

== ENCOUNTER 2019-11-03 19:52 | Emergency (ER) | payer MEDICARE ==
[2019-11-03 20:09] VITALS: BP 127/63
--- NOTE | 2019-11-03 22:03 | Emergency Department Report ---
Chief Complaint: Extremity Problem,Nontraumatic Stated Complaint: RT HAND SWOLLEN Time Seen by Provider: 11/03/19 21:58 - HPI History of Present Illness: 58y/o female comes in for 3 day history of right hand pain and swelling. Patient denies any trauma. Has taken Tylenol. Her PCP is Dr. Ospina. - Exam Vital Signs: Vital Signs 11/03/19 20:07 Temperature 98.2 F Pulse Rate 70 Respiratory 18 Rate Blood Pressure 127/63 O2 Sat by Pulse 95 Oximetry Physical Exam: AxO NAD Right hand FRO, mild swelling. MSE screening note: Focused history and physical exam performed. Due to findings the following was ordered: 58y/o female comes in for 3 day history of right hand pain and swelling. Patient denies any trauma. Has taken Tylenol. Her PCP is Dr. Ospina. Recommend to f/u with her PCP tomorrow morning. ED Disposition for MSE Condition: Stable
== END 2019-11-03 22:30 | disposition home or self-care (01) ==
LOC: ED 19:52
DX: M79.641 Pain in right hand (principal); R22.31 Localized swelling, mass and lump, right upper limb; Z88.6 Allergy status to analgesic agent; Z88.5 Allergy status to narcotic agent
CPT/HCPCS: 99281

== ENCOUNTER 2019-12-08 16:14 | Emergency (ER) | payer MEDICARE ==
[2019-12-08 16:28] VITALS: BP 125/69
--- NOTE | 2019-12-08 16:29 | Emergency Department Report ---
Blank Doc - Documentation Documentation: 59-year-old female that presents with pelvic pain. This initial assessment/diagnostic orders/clinical plan/treatment(s) is/are subject to change based on patient's health status, clinical progression and re- assessment by fellow clinical providers in the ED. Further treatment and workup at subsequent clinical providers discretion. Patient/guardians urged not to elope from the ED as their condition may be serious if not clinically assessed and managed. Initial orders include: 1- Patient sent to [facility] for further evaluation and treatment 2- UA
[2019-12-08 18:12] LABS: Bilirubin,Urine NEG (Negative); Blood,Urine NEG (Negative); Color,Urine Yellow (Yellow); Protein,Urine <15 mg/dL mg/dL (Negative); Urobilinogen,Urine < 2.0 mg/dL (<2.0)
[2019-12-08 18:21] LABS: RBC,Urine < 1.0 /HPF (0.0-6.0); WBC,Urine < 1.0 /HPF (0.0-6.0)
[2019-12-08] MEDS ORDERED: CYCLOBENZAPRINE 10 MG TAB PO ONE (19:39)
[2019-12-08] MEDS ORDERED: IBUPROFEN 600 MG TAB PO ONE (19:39)
[2019-12-08 20:18] LABS: Basophils # (Auto) 0.1 K/mm3 (0.0-0.1); Basophils % (Auto) 0.7 % (0.0-1.8); Eosinophils # (Auto) 0.2 K/mm3 (0.0-0.4); Eosinophils % (Auto) 2.6 % (0.0-4.3); Hematocrit 35.9 % (30.3-42.9); Hemoglobin 11.3 gm/dl (10.1-14.3); Lymphocytes # (Auto) 2.1 K/mm3 (1.2-5.4); Lymphocytes % (Auto) 25.9 % (13.4-35.0); Mean Corpuscular HGB Conc 32 % (30-34); Mean Corpuscular Volume 79 fl (79-97); Monocytes # (Auto) 0.8 K/mm3 (0.0-0.8); Monocytes % (Auto) 9.5 % (0.0-7.3); Platelet Count 204 K/mm3 (140-440); Red Blood Count 4.53 M/mm3 (3.65-5.03)
[2019-12-08 20:32] LABS: Alanine Aminotransferase 13 units/L (7-56); Albumin 3.7 g/dL (3.9-5); BUN/Creatinine Ratio 17; Blood Urea Nitrogen 12 mg/dL (7-17); Calcium 9.5 mg/dL (8.4-10.2); Hemolysis Index 0
--- NOTE | 2019-12-08 21:39 | Emergency Department Report ---
ED General Adult HPI - General Chief complaint: Extremity Injury, Lower Stated complaint: LEG/PELVIC PAIN Time Seen by Provider: 12/08/19 16:27 Source: patient Mode of arrival: Ambulatory Limitations: No Limitations - History of Present Illness Initial comments: Patient is a 59-year-old female presents emergency room with complaints of bilateral leg aching that began a month ago. She describes the pain as spasming and cramping. She states that she saw her PCP for this complaint that everything was normal. She states that she is on her feet often. She denies any leg swelling, fall, injury, numbness, weakness, calf tenderness. She denies any pelvic pain just states that the pain in her legs goes all the way up to the tops of her thighs. She states she has a past medical history of anemia and is on iron. she does not have a true allergy to aspirin or codeine she does has an intolerance which causes vomiting. Severity scale (0 -10): 7 - Related Data Previous Rx's Medication Instructions Recorded Last Taken Type Cetirizine HCl [ZyrTEC] 10 mg PO DAILY #30 tab.rapdis 03/05/19 Unknown Rx Fluticasone [Flonase] 1 spray NS QDAY #1 bottle 03/05/19 Unknown Rx guaiFENesin/DEXTROMETHORPHAN 10 ml PO Q6HR #1 bottle 03/05/19 Unknown Rx [Robitussin Cough-Chest Dm Liq] Meclizine [Antivert] 25 mg PO TID PRN #20 tablet 03/31/19 Unknown Rx Ondansetron [Zofran Odt] 4 mg PO Q8HR PRN #14 tab.rapdis 03/31/19 Unknown Rx tiZANidine [Zanaflex] 4 mg PO Q8H PRN #15 tablet 04/03/19 Unknown Rx traMADoL [Ultram 50 MG tab] 50 mg PO Q6HR PRN #10 tablet 04/06/[address] [Li Dr] 75 mg PO BID #20 tablet 06/14/19 Unknown Rx Gabapentin 300 mg PO Q8HR #30 capsule 06/14/19 Unknown Rx Prednisone [predniSONE 5 mg (6-Day 5 mg PO .TAPER #1 tab.ds.pk 06/18/19 Unknown Rx Pack, 21 Tabs)] diphenhydrAMINE [Benadryl CAP] 25 mg PO Q8HR #30 capsule 06/18/19 Unknown Rx Ciprofloxacin HCl [Ciprofloxacin 500 mg PO Q12HR 3 Days #6 tab 09/07/19 Unknown Rx TAB] Prednisone [predniSONE 10 mg 10 mg PO .TAPER #1 tab.ds.pk 09/07/19 Unknown Rx (6-Day Pack, 21 Tabs)] methOCARBAMOL [Robaxin TAB] 500 mg PO Q8HR PRN #20 tablet 09/07/19 Unknown Rx traMADoL [Ultram] 50 mg PO Q6HR PRN #7 tablet 09/07/19 Unknown Rx Acetaminophen [Acetaminophen TAB] 1,000 mg PO Q6HR PRN #30 tablet 09/20/19 Unknown Rx diphenhydrAMINE [Benadryl CAP] 25 mg PO Q8HR PRN #30 capsule 09/20/19 Unknown Rx Acetaminophen [Acetaminophen 8 650 mg PO Q8H PRN #20 tablet.er 10/02/19 Unknown Rx Hour] Amoxicillin [Amoxicillin TAB] 875 mg PO BID #20 tablet 10/02/19 Unknown Rx Nystas/Diphen/Xyl Visc/Mylanta 15 ml MM Q6H PRN 5 Days ml 10/02/19 Unknown Rx [Magic Mouthwash] predniSONE [Deltasone] 20 mg PO QDAY #5 tab 10/31/19 Unknown Rx traMADoL [Ultram] 50 mg PO Q6HR PRN #12 tablet 10/31/19 Unknown Rx Cyclobenzaprine [Flexeril] 10 mg PO QHS PRN #10 tablet 12/08/19 Unknown Rx Naproxen [EC-Naprosyn] 375 mg PO BID PRN #14 tablet. 12/08/19 Unknown Rx Allergies Allergy/AdvReac Type Severity Reaction Status Date / Time aspirin Allergy Vomiting Verified 03/30/19 16:06 codeine Allergy Vomiting Verified 03/30/19 16:06 ED Review of Systems ROS: Stated complaint: LEG/PELVIC PAIN Other details as noted in HPI Comment: All other systems reviewed and negative ED Past Medical Hx - Past Medical History Previous Medical History?: No Hx Psychiatric Treatment: Yes (depression) Additional medical history: GPD deficiency, chronic anemia secondary to fibroids - Surgical History Additional Surgical History: tubal ligation - Social History Smoking Status: Never Smoker Substance Use Type: None - Medications Home Medications: Home Medications Medication Instructions Recorded Confirmed Last Taken Type Cetirizine HCl [ZyrTEC] 10 mg PO DAILY #30 tab.rapdis 03/05/19 Unknown Rx Fluticasone [Flonase] 1 spray NS QDAY #1 bottle 03/05/19 Unknown Rx guaiFENesin/DEXTROMETHORPHAN 10 ml PO Q6HR #1 bottle 03/05/19 Unknown Rx [Robitussin Cough-Chest Dm Liq] Meclizine [Antivert] 25 mg PO TID PRN #20 tablet 03/31/19 Unknown Rx Ondansetron [Zofran Odt] 4 mg PO Q8HR PRN #14 tab.rapdis 03/31/19 Unknown Rx tiZANidine [Zanaflex] 4 mg PO Q8H PRN #15 tablet 04/03/19 Unknown Rx traMADoL [Ultram 50 MG tab] 50 mg PO Q6HR PRN #10 tablet 04/06/[address] [Voltaren Dr] 75 mg PO BID #20 tablet 06/14/19 Unknown Rx Gabapentin 300 mg PO Q8HR #30 capsule 06/14/19 Unknown Rx Prednisone [predniSONE 5 mg (6-Day 5 mg PO .TAPER #1 tab.ds.pk 06/18/19 Unknown Rx Pack, 21 Tabs)] diphenhydrAMINE [Benadryl CAP] 25 mg PO Q8HR #30 capsule 06/18/19 Unknown Rx Ciprofloxacin HCl [Ciprofloxacin 500 mg PO Q12HR 3 Days #6 tab 09/07/19 Unknown Rx TAB] Prednisone [predniSONE 10 mg 10 mg PO .TAPER #1 tab.ds.pk 09/07/19 Unknown Rx (6-Day Pack, 21 Tabs)] methOCARBAMOL [Robaxin TAB] 500 mg PO Q8HR PRN #20 tablet 09/07/19 Unknown Rx traMADoL [Ultram] 50 mg PO Q6HR PRN #7 tablet 09/07/19 Unknown Rx Acetaminophen [Acetaminophen TAB] 1,000 mg PO Q6HR PRN #30 tablet 09/20/19 Unknown Rx diphenhydrAMINE [Benadryl CAP] 25 mg PO Q8HR PRN #30 capsule 09/20/19 Unknown Rx Acetaminophen [Acetaminophen 8 650 mg PO Q8H PRN #20 tablet.er 10/02/19 Unknown Rx Hour] Amoxicillin [Amoxicillin TAB] 875 mg PO BID #20 tablet 10/02/19 Unknown Rx Nystas/Diphen/Xyl Visc/Mylanta 15 ml MM Q6H PRN 5 Days ml 10/02/19 Unknown Rx [Magic Mouthwash] predniSONE [Deltasone] 20 mg PO QDAY #5 tab 10/31/19 Unknown Rx traMADoL [Ultram] 50 mg PO Q6HR PRN #12 tablet 10/31/19 Unknown Rx Cyclobenzaprine [Flexeril] 10 mg PO QHS PRN #10 tablet 12/08/19 Unknown Rx Naproxen [EC-Naprosyn] 375 mg PO BID PRN #14 tablet. 12/08/19 Unknown Rx ED Physical Exam - General Limitations: No Limitations General appearance: alert, in no apparent distress - Head Head exam: Present: atraumatic, normocephalic - Eye Eye exam: Present: normal appearance - ENT ENT exam: Present: mucous membranes moist - Respiratory Respiratory exam: Present: normal lung sounds bilaterally. Absent: respiratory distress, wheezes, rales, rhonchi, stridor, chest wall tenderness, accessory muscle use, decreased breath sounds, prolonged expiratory - Cardiovascular Cardiovascular Exam: Present: regular rate, normal rhythm, normal heart sounds. Absent: systolic murmur, diastolic murmur, rubs, gallop - Extremities Exam Extremities exam: Present: full ROM, other (FROM of the BLE, no edema of the bilateral LE, no skin changes, no erythema, no increased warmth, neurovasculary intact in the BLE). Absent: pedal edema - Neurological Exam Neurological exam: Present: alert, oriented X3 - Psychiatric Psychiatric exam: Present: normal affect, normal mood - Skin Skin exam: Present: warm, dry, intact ED Course Vital Signs 12/08/19 12/08/19 16:27 19:50 Temperature 98.1 F Pulse Rate 68 Respiratory 16 18 Rate Blood Pressure 125/69 O2 Sat by Pulse 100 Oximetry ED Medical Decision Making - Lab Data Result diagrams: 12/08/19 20:01 12/08/19 20:01 Lab Results 12/08/19 12/08/19 12/08/19 Range/Units 17:30 20:01 20:01 WBC 8.2 (4.5-11.0) K/mm3 RBC 4.53 (3.65-5.03) M/mm3 Hgb 11.3 (10.1-14.3) gm/dl Hct 35.9 (30.3-42.9) % MCV 79 (79-97) fl MCH 25 L (28-32) pg MCHC 32 (30-34) % RDW 17.0 H (13.2-15.2) % Plt Count 204 (140-440) K/mm3 Lymph % (Auto) 25.9 (13.4-35.0) % [place] % (Auto) 9.5 H (0.0-7.3) % Eos % (Auto) 2.6 (0.0-4.3) % Baso % (Auto) 0.7 (0.0-1.8) % Lymph # 2.1 (1.2-5.4) K/mm3 [place] # 0.8 (0.0-0.8) K/mm3 Eos # 0.2 (0.0-0.4) K/mm3 Baso # 0.1 (0.0-0.1) K/mm3 Seg Neutrophils % 61.3 (40.0-70.0) % Seg Neutrophils # 5.0 (1.8-7.7) K/mm3 Sodium 138 (137-145) mmol/L Potassium 3.9 (3.6-5.0) mmol/L Chloride 107.3 H (98-107) mmol/L Carbon Dioxide 19 L (22-30) mmol/L Anion Gap 16 mmol/L BUN 12 (7-17) mg/dL Creatinine 0.7 (0.7-1.2) mg/dL Estimated GFR > 60 ml/min BUN/Creatinine Ratio 17 % Glucose 119 H (65-100) mg/dL Calcium 9.5 (8.4-10.2) mg/dL Total Bilirubin < 0.20 (0.1-1.2) mg/dL AST 14 (5-40) units/L ALT 13 (7-56) units/L Alkaline Phosphatase 97 (35-129) units/L Total Creatine Kinase 106 (30-135) units/L Total Protein 7.4 (6.3-8.2) g/dL Albumin 3.7 L (3.9-5) g/dL Albumin/Globulin Ratio 1.0 % Urine Color Yellow (Yellow) Urine Turbidity Slightly-cloudy (Clear) Urine pH 6.0 (5.0-7.0) Ur Specific [place] 1.023 (1.003-1.030) Urine Protein <15 mg/dl (Negative) mg/dL Urine Glucose (UA) Neg (Negative) mg/dL Urine Ketones Neg (Negative) mg/dL Urine Blood Neg (Negative) Urine Nitrite Neg (Negative) Urine Bilirubin Neg (Negative) Urine Urobilinogen < 2.0 (<2.0) mg/dL Ur Leukocyte Esterase Neg (Negative) Urine WBC (Auto) < 1.0 (0.0-6.0) /HPF Urine RBC (Auto) < 1.0 (0.0-6.0) /HPF - Medical Decision Making Patient is a 59-year-old female presents emergency room with complaints of bilateral leg aching that began a month ago. She describes the pain as spasming and cramping. She states that she saw her PCP for this complaint that everything was normal. She states that she is on her feet often. She denies any leg swelling, fall, injury, numbness, weakness, calf tenderness. She denies any pelvic pain just states that the pain in her legs goes all the way up to the tops of her thighs. She states she has a past medical history of anemia and is on iron. she does not have a true allergy to aspirin or codeine she does has an intolerance which causes vomiting. vitals are normal. on exam: FROM of the BLE, no edema of the bilateral LE, no skin changes, no erythema, no increased warmth, neurovasculary intact in the BLE. Labs are stable. UA the normal limits. Patient given ibuprofen and Flexeril while in the emergency department as she did not drive. No signs of cellulitis, no signs of DVT, no electrolyte disturbance, no signs of rhabdomyolysis. Patient given prescription for naproxen and Flexeril. Advised patient please take medication as prescribed as needed. Do not drive or operate heavy machinery while taking muscle relaxer. May use ice pack, heating pad, rest, Epsom salt bath. Follow-up with a primary care doctor in the next 2-3 days for further evaluation. Return to the [facility] room for any new or worsening symptoms. - Differential Diagnosis electrolyte disturbance, rhabdo, cellulitis, arthritis, DVT, PVD Critical care attestation.: If time is entered above; I have spent that time in minutes in the direct care of this critically ill patient, excluding procedure time. ED Disposition Clinical Impression: Bilateral leg pain Disposition: TO HOME OR SELFCARE Is pt being admited?: No Does the pt Need Aspirin: No Condition: Stable Additional Instructions: please take medication as prescribed as needed. Do not drive or operate heavy machinery while taking muscle relaxer. May use ice pack, heating pad, rest, Epsom salt bath. Follow-up with a primary care doctor in the next 2-3 days for further evaluation. Return to the emergency room for any new or worsening symptoms. Prescriptions: Cyclobenzaprine [Flexeril] 10 mg PO QHS PRN #10 tablet PRN Reason: Muscle Spasm Naproxen [EC-Naprosyn] 375 mg PO BID PRN #14 tablet.dr DUBON Reason: pain Referrals: [facility] [Outside] - 2-3 Days [facility] [Outside] - 2-3 Days AYANA GRIMM MD [Primary Care Provider] - 2-3 Days Time of Disposition: 21:40 Print Language: ITALIAN
== END 2019-12-08 21:52 | disposition home or self-care (01) ==
LOC: ED 16:14
DX: M79.604 Pain in right leg (principal); M79.605 Pain in left leg; F32.9 Major depressive disorder, single episode, unspecified; Z98.51 Tubal ligation status; Z86.2 Personal history of diseases of the blood and blood-forming organs and certain disorders involving the immune mechanism; Z79.899 Other long term (current) drug therapy; Z88.6 Allergy status to analgesic agent
CPT/HCPCS: 36415; 80053; 81001; 82550; 85025; 87086

== ENCOUNTER 2020-01-07 21:06 | Emergency (ER) | payer MEDICARE ==
--- NOTE | 2020-01-07 21:32 | Event Note ---
ED Screening Note Date of service: 01/07/20 Time: 21:31 ED Screening Note: Pt complains of substernal chest pain and SOB x 3 hours denies hx of heart disease Pt is on Depo for heavy vaginal bleeding This initial assessment/diagnostic orders/clinical plan/treatment(s) is/are subject to change based on patients health status, clinical progression and re- assessment by fellow clinical providers in the ED. Further treatment and workup at subsequent clinical providers discretion. Patient/guardian urged not to elope from the ED as their condition may be serious if not clinically assessed and managed. Initial orders include: labs CXR
[2020-01-07 21:56] LABS: Basophils # (Auto) 0.1 K/mm3 (0.0-0.1); Basophils % (Auto) 0.7 % (0.0-1.8); Eosinophils # (Auto) 0.2 K/mm3 (0.0-0.4); Eosinophils % (Auto) 2.3 % (0.0-4.3); Hematocrit 37.2 % (30.3-42.9); Hemoglobin 11.7 gm/dl (10.1-14.3); Lymphocytes % (Auto) 20.1 % (13.4-35.0); Mean Corpuscular HGB Conc 31 % (30-34); Mean Corpuscular Volume 80 fl (79-97); Monocytes # (Auto) 0.9 K/mm3 (0.0-0.8); Monocytes % (Auto) 8.9 % (0.0-7.3); Platelet Count 190 K/mm3 (140-440); Red Blood Count 4.67 M/mm3 (3.65-5.03); Red Cell Distribution Width 17.3 % (13.2-15.2)
[2020-01-07 22:14] LABS: Alanine Aminotransferase 15 units/L (7-56); BUN/Creatinine Ratio 17; Blood Urea Nitrogen 12 mg/dL (7-17); Calcium 10.2 mg/dL (8.4-10.2); Hemolysis Index 13
--- NOTE | 2020-01-07 22:15 | XRay Report ---
CHEST 2 VIEWS INDICATION / CLINICAL INFORMATION: MAIN: Chest Pain started today. COMPARISON: 10/30/19 FINDINGS: SUPPORT DEVICES: None. HEART / MEDIASTINUM: No significant abnormality. LUNGS / PLEURA: No significant pulmonary or pleural abnormality. No pneumothorax. ADDITIONAL FINDINGS: No significant additional findings. IMPRESSION: 1. No acute findings. No change. Signer Name: Lenny Krishnamurthy MD Signed: 01/07/2020 10:11 PM Workstation Name: [id number]
--- NOTE | 2020-01-08 00:13 | Emergency Department Report ---
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 Patient reports she experiences symptoms while walking. She states chest pain was substernal, sharp in nature, and constant. Pain is nonradiating. Patient states pain is currently improved, and only feels like a dull pain in her chest. She reports dyspnea on exertion. She denies any lower leg pain or swelling. Patient reports cough, no fever. Denies any cardiac history. Patient reports only medication that she is currently on is Depo to control her dysfunctional uterine bleeding. Patient received a shot last month. Reports has received blood transfusions in the past. MD Complaint: chest pain -: hour(s) (3) Onset: during exertion Pain Location: substernal Pain Radiation: none Severity: moderate Quality: sharp Consistency: constant Improves With: rest Worsens With: exertion re: nausea, dyspnea. denies: vomting, diaphoresis Other Symptoms: cough. denies: fever, leg swelling - Related Data Previous Rx's Medication Instructions Recorded Last Taken Type Cetirizine HCl [ZyrTEC] 10 mg PO DAILY #30 tab.rapdis 03/05/19 Unknown Rx Fluticasone [Flonase] 1 spray NS QDAY #1 bottle 03/05/19 Unknown Rx guaiFENesin/DEXTROMETHORPHAN 10 ml PO Q6HR #1 bottle 03/05/19 Unknown Rx [Robitussin Cough-Chest Dm Liq] Meclizine [Antivert] 25 mg PO TID PRN #20 tablet 03/31/19 Unknown Rx Ondansetron [Zofran Odt] 4 mg PO Q8HR PRN #14 tab.rapdis 03/31/19 Unknown Rx tiZANidine [Zanaflex] 4 mg PO Q8H PRN #15 tablet 04/03/19 Unknown Rx traMADoL [Ultram 50 MG tab] 50 mg PO Q6HR PRN #10 tablet 04/06/[address] [Voltaren Dr] 75 mg PO BID #20 tablet 06/14/19 Unknown Rx Gabapentin 300 mg PO Q8HR #30 capsule 06/14/19 Unknown Rx Prednisone [predniSONE 5 mg (6-Day 5 mg PO .TAPER #1 tab.ds.pk 06/18/19 Unknown Rx Pack, 21 Tabs)] diphenhydrAMINE [Benadryl CAP] 25 mg PO Q8HR #30 capsule 06/18/19 Unknown Rx Ciprofloxacin HCl [Ciprofloxacin 500 mg PO Q12HR 3 Days #6 tab 09/07/19 Unknown Rx TAB] Prednisone [predniSONE 10 mg 10 mg PO .TAPER #1 tab.ds.pk 09/07/19 Unknown Rx (6-Day Pack, 21 Tabs)] methOCARBAMOL [Robaxin TAB] 500 mg PO Q8HR PRN #20 tablet 09/07/19 Unknown Rx traMADoL [Ultram] 50 mg PO Q6HR PRN #7 tablet 09/07/19 Unknown Rx Acetaminophen [Acetaminophen TAB] 1,000 mg PO Q6HR PRN #30 tablet 09/20/19 U nknown Rx diphenhydrAMINE [Benadryl CAP] 25 mg PO Q8HR PRN #30 capsule 09/20/19 Unknown Rx Acetaminophen [Acetaminophen 8 650 mg PO Q8H PRN #20 tablet.er 10/02/19 Unknown Rx Hour] Amoxicillin [Amoxicillin TAB] 875 mg PO BID #20 tablet 10/02/19 Unknown Rx Nystas/Diphen/Xyl Visc/Mylanta 15 ml MM Q6H PRN 5 Days ml 10/02/19 Unknown Rx [Magic Mouthwash] predniSONE [Deltasone] 20 mg PO QDAY #5 tab 10/31/19 Unknown Rx traMADoL [Ultram] 50 mg PO Q6HR PRN #12 tablet 10/31/19 Unknown Rx Cyclobenzaprine [Flexeril] 10 mg PO QHS PRN #10 tablet 12/08/19 Unknown Rx Naproxen [EC-Naprosyn] 375 mg PO BID PRN #14 tablet. 12/08/19 Unknown Rx Allergies Allergy/AdvReac Type Severity Reaction Status Date / Time aspirin Allergy Vomiting Verified 03/30/19 16:06 codeine Allergy Vomiting Verified 03/30/19 16:06 Heart Score - HEART Score History: Slightly suspicious EKG: Normal Age: 45-65 Risk factors: 1-2 risk factors Troponin: < normal limit HEART Score: 2 ED Review of Systems ROS: Stated complaint: SOB/CHEST PAIN Other details as noted in HPI Comment: All other systems reviewed and negative Constitutional: denies: chills, fever Respiratory: cough, SOB with exertion Cardiovascular: chest pain Gastrointestinal: nausea. 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 - Surgical History Past Surgical History?: Yes Additional Surgical History: tubal ligation - Social History Smoking Status: Never Smoker Substance Use Type: None - Medications Home Medications: Home Medications Medication Instructions Recorded Confirmed Last Taken Type Cetirizine HCl [ZyrTEC] 10 mg PO DAILY #30 tab.rapdis 03/05/19 Unknown Rx Fluticasone [Flonase] 1 spray NS QDAY #1 bottle 03/05/19 Unknown Rx guaiFENesin/DEXTROMETHORPHAN 10 ml PO Q6HR #1 bottle 03/05/19 Unknown Rx [Robitussin Cough-Chest Dm Liq] Meclizine [Antivert] 25 mg PO TID PRN #20 tablet 03/31/19 Unknown Rx Ondansetron [Zofran Odt] 4 mg PO Q8HR PRN #14 tab.rapdis 03/31/19 Unknown Rx tiZANidine [Zanaflex] 4 mg PO Q8H PRN #15 tablet 04/03/19 Unknown Rx traMADoL [Ultram 50 MG tab] 50 mg PO Q6HR PRN #10 tablet 04/06/[address] [Voltaren Dr] 75 mg PO BID #20 tablet 06/14/19 Unknown Rx Gabapentin 300 mg PO Q8HR #30 capsule 06/14/19 Unknown Rx Prednisone [predniSONE 5 mg (6-Day 5 mg PO .TAPER #1 tab.ds.pk 06/18/19 Unknown Rx Pack, 21 Tabs)] diphenhydrAMINE [Benadryl CAP] 25 mg PO Q8HR #30 capsule 06/18/19 Unknown Rx Ciprofloxacin HCl [Ciprofloxacin 500 mg PO Q12HR 3 Days #6 tab 09/07/19 Unknown Rx TAB] Prednisone [predniSONE 10 mg 10 mg PO .TAPER #1 tab.ds.pk 09/07/19 Unknown Rx (6-Day Pack, 21 Tabs)] methOCARBAMOL [Robaxin TAB] 500 mg PO Q8HR PRN #20 tablet 09/07/19 Unknown Rx traMADoL [Ultram] 50 mg PO Q6HR PRN #7 tablet 09/07/19 Unknown Rx Acetaminophen [Acetaminophen TAB] 1,000 mg PO Q6HR PRN #30 tablet 09/20/19 Unknown Rx diphenhydrAMINE [Benadryl CAP] 25 mg PO Q8HR PRN #30 capsule 09/20/19 Unknown Rx Acetaminophen [Acetaminophen 8 650 mg PO Q8H PRN #20 tablet.er 10/02/19 Unknown Rx Hour] Amoxicillin [Amoxicillin TAB] 875 mg PO BID #20 tablet 10/02/19 Unknown Rx Nystas/Diphen/Xyl Visc/Mylanta 15 ml MM Q6H PRN 5 Days ml 10/02/19 Unknown Rx [Magic Mouthwash] predniSONE [Deltasone] 20 mg PO QDAY #5 tab 10/31/19 Unknown Rx traMADoL [Ultram] 50 mg PO Q6HR PRN #12 tablet 10/31/19 Unknown Rx Cyclobenzaprine [Flexeril] 10 mg PO QHS PRN #10 tablet 12/08/19 Unknown Rx Naproxen [EC-Naprosyn] 375 mg PO BID PRN #14 tablet. 12/08/19 Unknown Rx ED Physical Exam - General Limitations: No Limitations General appearance: alert, in no apparent distress - Head Head exam: Present: atraumatic, normocephalic - Eye Eye exam: Present: normal appearance, EOMI - ENT ENT exam: Present: mucous membranes moist - Neck Neck exam: Present: normal inspection - Respiratory Respiratory exam: Present: normal lung sounds bilaterally. Absent: respiratory distress - Cardiovascular Cardiovascular Exam: Present: regular rate, normal rhythm - GI/Abdominal GI/Abdominal exam: Present: soft. Absent: distended, tenderness - Extremities Exam Extremities exam: Present: normal inspection. Absent: pedal edema, calf tenderness - Neurological Exam Neurological exam: Present: alert, oriented X3 - Psychiatric Psychiatric exam: Present: normal affect, normal mood - Skin Skin exam: Present: warm, dry, intact, normal color ED Course Vital Signs 01/07/20 01/08/20 01/08/20 21:14 00:35 00:45 Temperature 98.3 F 98.3 F Pulse Rate 79 75 74 Respiratory 18 19 15 Rate Blood Pressure 128/51 118/64 Blood Pressure 117/55 [Left] O2 Sat by Pulse 100 99 98 Oximetry 01/08/20 01/08/20 01/08/20 01:06 01:15 01:30 Temperature Pulse Rate 69 69 69 Respiratory 13 11 L 13 Rate Blood Pressure 118/64 126/64 127/61 Blood Pressure [Left] O2 Sat by Pulse 98 100 100 Oximetry 01/08/20 01/08/20 01:45 02:00 Temperature Pulse Rate 71 67 Respiratory 12 12 Rate Blood Pressure 113/59 118/70 Blood Pressure [Left] O2 Sat by Pulse 100 100 Oximetry SHERIDAN score - Sheridan Score Age > 65: (0) No Aspirin use within the Past 7 Days: (0) No 3 or more CAD Risk Factors: (0) No 2 or more Angina events in past 24 hrs: (1) Yes Known CAD with more than 50% Stenosis: (0) No Elevated Cardiac Markers: (0) No ST Deviation Greater than 0.5mm: (0) No SHERIDAN Score: 1 ED Medical Decision Making - Lab Data Result diagrams: 01/07/20 21:48 01/07/20 21:48 - EKG Data -: EKG Interpreted by Ri EKG shows normal: sinus rhythm, axis, intervals, QRS complexes, ST-T waves Rate: normal - EKG Data Interpretation: other (atrial premature complexes) - Radiology Data Radiology results: report reviewed, image reviewed - Medical Decision Making Work-up unremarkable. EKG is normal, troponin negative x2. Chest x-ray, CTA chest both normal. No evidence of PE. BNP is normal as well, no pulmonary edema on chest x-ray. Hemoglobin is normal, no need for blood transfusion at this time. Vitals are stable. Patient is currently asleep on [employer], [address] [employer] table. She reports resolution of her chest pain. Due to negative work-up and resolution of chest pain, will refer patient and fax information to [facility] for urgent cardiology follow-up. Patient is agreeable to this plan. Feels comfortable with discharge home. Return precautions given. - Differential Diagnosis ACS, PE, pulm edema Critical care attestation.: If time is entered above; I have spent that time in minutes in the direct care of this critically ill patient, excluding procedure time. ED Disposition Clinical Impression: Acute chest pain Disposition: - TO HOME OR SELFCARE Is pt being admited?: No Condition: Stable Instructions: Chest Pain (ED) Referrals: NANCI BELL MD [Primary Care Provider] - 3-5 Days PRIMARY CAREMD [Referring] - 3-5 Days Time of Disposition: 01:59
--- NOTE | 2020-01-08 01:51 | Cat Scan Report ---
CTA of the chest with 3D Reconstruction Indication: ,chest pain Technique: TECHNIQUE: Axial CT images were obtained through the chest after injection of 100 cc of Omnipaque 350 IV contrast. 3 plane MIP reconstructions were produced. All CT scans at this location are performed using CT dose reduction for ALARA by means of automated exposure control. COMPARISON: None Automatic exposure control was utilized in an attempt to reduce radiation dose. Findings: Pulmonary arteries: The main pulmonary artery and right and left pulmonary artery branches fill satis factorily with contrast. No pulmonary embolus is seen. Lungs: The lungs are clear. Mediastinum: Heart size is normal. No adenopathy is seen. Aorta: Normal in diameter. No dissection seen within limits of this exam. Impression: No pulmonary embolus is seen Signer Name: Jorge Luis Cowan MD Signed: 01/08/2020 1:47 AM Workstation Name: [id number]
[2020-01-08 02:13] VITALS: BP 118/70
== END 2020-01-08 02:20 | disposition home or self-care (01) ==
LOC: ED 21:06
DX: R07.89 Other chest pain (principal); F32.9 Major depressive disorder, single episode, unspecified; Z98.51 Tubal ligation status; Z79.1 Long term (current) use of non-steroidal anti-inflammatories (NSAID); Z79.899 Other long term (current) drug therapy; Z88.8 Allergy status to other drugs, medicaments and biological substances
CPT/HCPCS: 36415; 71046; 71275; 80053; 83880; 84484; 85025; 85379; 93005; 93010; 99285; Q9967

== ENCOUNTER 2020-01-10 22:00 | Emergency (ER) | payer MEDICARE ==
[2020-01-10 23:13] VITALS: BP 113/74
--- NOTE | 2020-01-10 23:58 | Emergency Department Report ---
Chief Complaint: Upper Respiratory Infection Stated Complaint: FLU LIKE SYMTPOMS Time Seen by Provider: 01/10/20 23:54 - HPI History of Present Illness: 59-year-old -[place] female presents to the emergency room for chills, muscle aches, productive cough, runny nose, headache. Patient is taken Tylenol only. Patient states is been going on since Thursday. Patient does have a primary care provider Dr. Ospina. - Exam Vital Signs: Vital Signs 01/10/20 23:11 Temperature 98.5 F Pulse Rate 71 Respiratory 18 Rate Blood Pressure 113/74 O2 Sat by Pulse 100 Oximetry Physical Exam: GENERAL APPEARANCE: Well developed, well nourished, in no acute distress. SKIN: Inspection of the skin reveals no rashes, ulcerations or petechiae. HEENT: The sclerae were anicteric and conjunctivae were pink and moist. Extraocular movements were intact and pupils were equal, round, and reactive to light External inspection of the ears and nose showed no scars, lesions, or masses. Lips, teeth, and gums showed normal mucosa. The oral mucosa, hard and soft palate, tongue and posterior pharynx were normal. NECK: Supple and symmetric. CHEST: Normal AP diameter LUNGS: Auscultation of the lungs revealed normal breath sounds without any other adventitious sounds or rubs. CARDIOVASCULAR: There was a regular rate and rhythm without any murmurs, gallops, rubs. The carotid pulses were normal and 2+ bilaterally without bruits. Peripheral pulses were 2+ and symmetric. MUSCULOSKELETAL: Gait was normal. There was no tenderness or effusions noted. Muscle strength and tone were normal. EXTREMITIES: No cyanosis, clubbing or edema. NEUROLOGIC: Alert and oriented x 3. Normal affect. Gait was normal. MSE screening note: Focused history and physical exam performed. Due to findings the following was ordered: 59-year-old -[place] female presents to the emergency room for chills, muscle aches, productive cough, runny nose, headache. Patient is taken Tylenol only. Patient states is been going on since Thursday. Patient does have a primary care provider Dr. Ospina. Discussed with patient she can take [id number] Claritin or Zyrtec Tylenol as needed [id number] Robitussin or Mucinex. Increase her fluid intake. Follow-up with her primary care provider. [place] [facility] [place]: Flu-like symptoms Disposition: MED SCREENING EXAM-LEFT Is pt being admited?: No Does the pt Need Aspirin: No Condition: Stable Instructions: Viral Syndrome (ED) Additional Instructions: You can take [id number] Claritin or Zyrtec Tylenol as needed [id number] Robitussin or Mucinex. Increase her fluid intake. Follow-up with her primary care provider. Referrals: CORNELIA LEYVA MD [Primary Care Provider] - 3-5 Days AYANA OSPINA MD [Staff Physician] - 3-5 Days Forms: Work/School Release Form(ED)
== END 2020-01-11 00:05 | disposition left against medical advice (07) ==
LOC: ED 22:00
DX: R05 Cough (principal); R51 Headache; R68.83 Chills (without fever); R09.89 Other specified symptoms and signs involving the circulatory and respiratory systems; M79.10 Myalgia, unspecified site; Z88.6 Allergy status to analgesic agent

== ENCOUNTER 2020-01-17 18:21 | Emergency (ER) | payer MEDICARE ==
[2020-01-17 21:45] VITALS: BP 107/62
--- NOTE | 2020-01-17 21:45 | Event Note ---
ED Screening Note Date of service: 01/17/20 Time: 21:44 ED Screening Note: 59 y o f presents with left sided pelvic pain x today denies dysuria, vag bleed, n, v, d This initial assessment/diagnostic orders/clinical plan/treatment(s) is/are subject to change based on patients health status, clinical progression and re- assessment by fellow clinical providers in the ED. Further treatment and workup at subsequent clinical providers discretion. Patient/guardian urged not to elope from the ED as their condition may be serious if not clinically assessed and managed. Initial orders include: ua
[2020-01-17 22:49] LABS: Bilirubin,Urine NEG (Negative); Blood,Urine NEG (Negative); Color,Urine Yellow (Yellow); Mucus,Urine FEW /HPF; Protein,Urine <15 mg/dL mg/dL (Negative)
--- NOTE | 2020-01-17 23:07 | Emergency Department Report ---
ED Female HPI - General Chief complaint: Abdominal Pain Stated complaint: PELVIC PAIN Time Seen by Provider: 01/17/20 22:47 Source: patient Mode of arrival: Ambulatory Limitations: No Limitations - History of Present Illness Initial comments: This is a 59-year-old -[place] female who presents to the emergency room with pelvic pain that started around 1500 today. Past medical history of depression, GPD deficiency, chronic anemia with fibroids. Patient states she does not believe is an STD because she has not been sexually active in 7 months. She also reports urinary frequency with associated symptoms. Denies dysuria, hematuria, nausea, vomiting, vaginal bleeding, or back pain. MD Complaint: pelvic pain -: This afternoon Time: 15:00 Location: suprapubic Radiation: non-radiating Severity: mild Severity scale (0 -10): 3 Quality: cramping Consistency: intermittent Improves with: none Worsens with: none Are you Now?: No Associated Symptoms: denies other symptoms - Related Data Sexually active: No Previous Rx's Medication Instructions Recorded Last Taken Type Cetirizine HCl [ZyrTEC] 10 mg PO DAILY #30 tab.rapdis 03/05/19 Unknown Rx Fluticasone [Flonase] 1 spray NS QDAY #1 bottle 03/05/19 Unknown Rx guaiFENesin/DEXTROMETHORPHAN 10 ml PO Q6HR #1 bottle 03/05/19 Unknown Rx [Robitussin Cough-Chest Dm Liq] Meclizine [Antivert] 25 mg PO TID PRN #20 tablet 03/31/19 Unknown Rx Ondansetron [Zofran Odt] 4 mg PO Q8HR PRN #14 tab.rapdis 03/31/19 Unknown Rx tiZANidine [Zanaflex] 4 mg PO Q8H PRN #15 tablet 04/03/19 Unknown Rx traMADoL [Ultram 50 MG tab] 50 mg PO Q6HR PRN #10 tablet 04/06/[address] [Voltaren Dr] 75 mg PO BID #20 tablet 06/14/19 Unknown Rx Gabapentin 300 mg PO Q8HR #30 capsule 06/14/19 Unknown Rx Prednisone [predniSONE 5 mg (6-Day 5 mg PO .TAPER #1 tab.ds.pk 06/18/19 Unknown Rx Pack, 21 Tabs)] diphenhydrAMINE [Benadryl CAP] 25 mg PO Q8HR #30 capsule 06/18/19 Unknown Rx Ciprofloxacin HCl [Ciprofloxacin 500 mg PO Q12HR 3 Days #6 tab 09/07/19 Unknown Rx TAB] Prednisone [predniSONE 10 mg 10 mg PO .TAPER #1 tab.ds.pk 09/07/19 Unknown Rx (6-Day Pack, 21 Tabs)] methOCARBAMOL [Robaxin TAB] 500 mg PO Q8HR PRN #20 tablet 09/07/19 Unknown Rx traMADoL [Ultram] 50 mg PO Q6HR PRN #7 tablet 09/07/19 Unknown Rx Acetaminophen [Acetaminophen TAB] 1,000 mg PO Q6HR PRN #30 tablet 09/20/19 Unknown Rx diphenhydrAMINE [Benadryl CAP] 25 mg PO Q8HR PRN #30 capsule 09/20/19 Unknown Rx Acetaminophen [Acetaminophen 8 650 mg PO Q8H PRN #20 tablet.er 10/02/19 Unknown Rx Hour] Amoxicillin [Amoxicillin TAB] 875 mg PO BID #20 tablet 10/02/19 Unknown Rx Nystas/Diphen/Xyl Visc/Mylanta 15 ml MM Q6H PRN 5 Days ml 10/02/19 Unknown Rx [Magic Mouthwash] predniSONE [Deltasone] 20 mg PO QDAY #5 tab 10/31/19 Unknown Rx traMADoL [Ultram] 50 mg PO Q6HR PRN #12 tablet 10/31/19 Unknown Rx Cyclobenzaprine [Flexeril] 10 mg PO QHS PRN #10 tablet 12/08/19 Unknown Rx Naproxen [EC-Naprosyn] 375 mg PO BID PRN #14 tablet.dr 12/08/19 Unknown Rx metroNIDAZOLE [Flagyl TAB] 500 mg PO Q12HR #14 tab 01/17/20 Unknown Rx Allergies Allergy/AdvReac Type Severity Reaction Status Date / Time aspirin Allergy Vomiting Verified 03/30/19 16:06 codeine Allergy Vomiting Verified 03/30/19 16:06 ED Review of Systems ROS: Stated complaint: PELVIC PAIN Other details as noted in HPI Constitutional: denies: chills, fever Respiratory: denies: cough, shortness of breath, wheezing Cardiovascular: denies: chest pain, palpitations Gastrointestinal: abdominal pain. denies: nausea, diarrhea Musculoskeletal: denies: back pain, joint swelling, arthralgia Skin: denies: rash, lesions Neurological: denies: headache, weakness, paresthesias Psychiatric: denies: anxiety, depression ED Past Medical Hx - Past Medical History Previous Medical History?: Yes Hx Psychiatric Treatment: Yes (depression) Additional medical history: GPD deficiency, chronic anemia secondary to fibroids - Surgical History Past Surgical History?: Yes Additional Surgical History: tubal ligation - Social History Smoking Status: Never Smoker Substance Use Type: None - Medications Home Medications: Home Medications Medication Instructions Recorded Confirmed Last Taken Type Cetirizine HCl [ZyrTEC] 10 mg PO DAILY #30 tab.rapdis 03/05/19 Unknown Rx Fluticasone [Flonase] 1 spray NS QDAY #1 bottle 03/05/19 Unknown Rx guaiFENesin/DEXTROMETHORPHAN 10 ml PO Q6HR #1 bottle 03/05/19 Unknown Rx [Robitussin Cough-Chest Dm Liq] Meclizine [Antivert] 25 mg PO TID PRN #20 tablet 03/31/19 Unknown Rx Ondansetron [Zofran Odt] 4 mg PO Q8HR PRN #14 tab.rapdis 03/31/19 Unknown Rx tiZANidine [Zanaflex] 4 mg PO Q8H PRN #15 tablet 04/03/19 Unknown Rx traMADoL [Ultram 50 MG tab] 50 mg PO Q6HR PRN #10 tablet 04/06/[address] [Voltaren Dr] 75 mg PO BID #20 tablet 06/14/19 Unknown Rx Gabapentin 300 mg PO Q8HR #30 capsule 06/14/19 Unknown Rx Prednisone [predniSONE 5 mg (6-Day 5 mg PO .TAPER #1 tab.ds.pk 06/18/19 Unknown Rx Pack, 21 Tabs)] diphenhydrAMINE [Benadryl CAP] 25 mg PO Q8HR #30 capsule 06/18/19 Unknown Rx Ciprofloxacin HCl [Ciprofloxacin 500 mg PO Q12HR 3 Days #6 tab 09/07/19 Unknown Rx TAB] Prednisone [predniSONE 10 mg 10 mg PO .TAPER #1 tab.ds.pk 09/07/19 Unknown Rx (6-Day Pack, 21 Tabs)] methOCARBAMOL [Robaxin TAB] 500 mg PO Q8HR PRN #20 tablet 09/07/19 Unknown Rx traMADoL [Ultram] 50 mg PO Q6HR PRN #7 tablet 09/07/19 Unknown Rx Acetaminophen [Acetaminophen TAB] 1,000 mg PO Q6HR PRN #30 tablet 09/20/19 Unknown Rx diphenhydrAMINE [Benadryl CAP] 25 mg PO Q8HR PRN #30 capsule 09/20/19 Unknown Rx Acetaminophen [Acetaminophen 8 650 mg PO Q8H PRN #20 tablet.er 10/02/19 Unknown Rx Hour] Amoxicillin [Amoxicillin TAB] 875 mg PO BID #20 tablet 10/02/19 Unknown Rx Nystas/Diphen/Xyl Visc/Mylanta 15 ml MM Q6H PRN 5 Days ml 10/02/19 Unknown Rx [Magic Mouthwash] predniSONE [Deltasone] 20 mg PO QDAY #5 tab 10/31/19 Unknown Rx traMADoL [Ultram] 50 mg PO Q6HR PRN #12 tablet 10/31/19 Unknown Rx Cyclobenzaprine [Flexeril] 10 mg PO QHS PRN #10 tablet 12/08/19 Unknown Rx Naproxen [EC-Naprosyn] 375 mg PO BID PRN #14 tablet. 12/08/19 Unknown Rx metroNIDAZOLE [Flagyl TAB] 500 mg PO Q12HR #14 tab 01/17/20 Unknown Rx ED Physical Exam - General Limitations: No Limitations General appearance: alert, in no apparent distress - Respiratory Respiratory exam: Present: normal lung sounds bilaterally. Absent: respiratory distress - Cardiovascular Cardiovascular Exam: Present: regular rate, normal rhythm. Absent: systolic murmur, diastolic murmur, rubs, gallop - GI/Abdominal GI/Abdominal exam: Present: soft, normal bowel sounds. Absent: distended, tenderness, guarding, rebound, rigid, organomegaly - External exam: Present: normal external exam Speculum exam: Present: vaginal discharge (Malodorous white). Absent: cervical discharge, vaginal bleeding, foreign body, tissue, laceration Bi-manual exam: Present: normal bi-manual exam. Absent: cervical motion tendernes, adnexal tenderness, adnexal mass, uterine enlargement, uterine tenderness - Extremities Exam Extremities exam: Present: normal inspection - Back Exam Back exam: Absent: CVA tenderness (R), CVA tenderness (L) - Neurological Exam Neurological exam: Present: alert, oriented X3, normal gait - Psychiatric Psychiatric exam: Present: normal affect, normal mood - Skin Skin exam: Present: warm, dry, intact, normal color. Absent: rash ED Course Vital Signs 01/17/20 21:43 Temperature 98.4 F Pulse Rate 70 Respiratory 18 Rate Blood Pressure 107/62 O2 Sat by Pulse 99 Oximetry ED Medical Decision Making - Lab Data Lab Results 01/17/20 Range/Units Unknown Urine Color Yellow (Yellow) Urine Turbidity Clear (Clear) Urine pH 5.0 (5.0-7.0) Ur Specific [place] 1.023 (1.003-1.030) Urine Protein <15 mg/dl (Negative) mg/dL Urine Glucose (UA) Neg (Negative) mg/dL Urine Ketones Neg (Negative) mg/dL Urine Blood Neg (Negative) Urine Nitrite Neg (Negative) Urine Bilirubin Neg (Negative) Urine Urobilinogen 2.0 (<2.0) mg/dL Ur Leukocyte Esterase Neg (Negative) Urine WBC (Auto) 1.0 (0.0-6.0) /HPF Urine RBC (Auto) 2.0 (0.0-6.0) /HPF U Epithel Cells (Auto) 2.0 (0-13.0) /HPF Urine Mucus Few /HPF - Medical Decision Making This is a 59-year-old female who presents to the emergency room with pelvic pain that started today. Vitals are stable and patient in no acute distress. Work- up: Pelvic exam, urinalysis, wet prep, gonorrhea and chlamydia. Wet prep positive for clue cells, negative yeast and trichomonas. Gonorrhea chlamydia pending. Urinalysis unremarkable. Abdomen nontender on exam. Patient will be treated for bacterial vaginitis. Gonorrhea chlamydia is pending. Patient denies being sexually active for risk of STD. Start metronidazole 500 mg p.o. twice daily x7 days. Follow-up with opal miner. Patient discharged home stable. Critical care attestation.: If time is entered above; I have spent that time in minutes in the direct care of this critically ill patient, excluding procedure time. ED Disposition Clinical Impression: Pelvic pain, Vaginal discharge, Bacterial vaginitis Disposition: TO HOME OR SELFCARE Is pt being admited?: No Condition: Stable Instructions: Abdominal Pain (ED), Bacterial Vaginosis (ED) Additional Instructions: Avoid drinking alcohol while taking antibiotics and for up to 24 hours after completion. Follow-up with a opal miner from the list provided below or follow-up with your own opal miner. Prescriptions: metroNIDAZOLE [Flagyl TAB] 500 mg PO Q12HR #14 tab Referrals: [facility] [Provider Group] - 3-5 Days [facility] [Provider Group] - 3-5 Days [facility] [Provider Group] - 3-5 Days Forms: STI Treatment and Prevention Time of Disposition: 23:50
== END 2020-01-17 23:55 | disposition home or self-care (01) ==
LOC: ED 18:21
DX: N76.0 Acute vaginitis (principal); B96.89 Other specified bacterial agents as the cause of diseases classified elsewhere; F32.9 Major depressive disorder, single episode, unspecified; Z98.51 Tubal ligation status; Z88.6 Allergy status to analgesic agent; Z88.5 Allergy status to narcotic agent; Z79.899 Other long term (current) drug therapy
CPT/HCPCS: 81001; 87210; 87591; 99284

== ENCOUNTER 2020-02-06 17:12 | Emergency (ER) | payer MEDICARE ==
--- NOTE | 2020-02-06 21:50 | Emergency Department Report ---
ED General Adult HPI - General Chief complaint: Upper Respiratory Infection Stated complaint: BODYACHES/COUGH/RUNNYNOSE Time Seen by Provider: 02/06/20 20:11 Source: patient Mode of arrival: Ambulatory Limitations: No Limitations - History of Present Illness Initial comments: 59-year-old -[place] female patient with history of anemia presents with complaints of sudden onset of body aches, cough, shortness of breath, nausea/vomiting, and abdominal pain x this morning. She denies any hemoptysis, fever, hematemesis/coffee-ground emesis, diarrhea/melena/hematochezia, or dysuria. Patient also denies any history of smoking or asthma. She denies any travel outside the [place]/contact with individuals who have traveled outside the [place]/contact with individuals with known or suspected Covid19 -: Sudden Severity scale (0 -10): 2 Quality: aching Treatments Prior to Arrival: none - Related Data Previous Rx's Medication Instructions Recorded Last Taken Type Cetirizine HCl [ZyrTEC] 10 mg PO DAILY #30 tab.rapdis 03/05/19 Unknown Rx Fluticasone [Flonase] 1 spray NS QDAY #1 bottle 03/05/19 Unknown Rx guaiFENesin/DEXTROMETHORPHAN 10 ml PO Q6HR #1 bottle 03/05/19 Unknown Rx [Robitussin Cough-Chest Dm Liq] Meclizine [Antivert] 25 mg PO TID PRN #20 tablet 03/31/19 Unknown Rx Ondansetron [Zofran Odt] 4 mg PO Q8HR PRN #14 tab.rapdis 03/31/19 Unknown Rx tiZANidine [Zanaflex] 4 mg PO Q8H PRN #15 tablet 04/03/19 Unknown Rx traMADoL [Ultram 50 MG tab] 50 mg PO Q6HR PRN #10 tablet 04/06/[address] [Voltareayan Dr] 75 mg PO BID #20 tablet 06/14/19 Unknown Rx Gabapentin 300 mg PO Q8HR #30 capsule 06/14/19 Unknown Rx Prednisone [predniSONE 5 mg (6-Day 5 mg PO .TAPER #1 tab.ds.pk 06/18/19 Unknown Rx Pack, 21 Tabs)] diphenhydrAMINE [Benadryl CAP] 25 mg PO Q8HR #30 capsule 06/18/19 Unknown Rx Ciprofloxacin HCl [Ciprofloxacin 500 mg PO Q12HR 3 Days #6 tab 09/07/19 Unknown Rx TAB] Prednisone [predniSONE 10 mg 10 mg PO .TAPER #1 tab.ds.pk 09/07/19 Unknown Rx (6-Day Pack, 21 Tabs)] methOCARBAMOL [Robaxin TAB] 500 mg PO Q8HR PRN #20 tablet 09/07/19 Unknown Rx traMADoL [Ultram] 50 mg PO Q6HR PRN #7 tablet 09/07/19 Unknown Rx Acetaminophen [Acetaminophen TAB] 1,000 mg PO Q6HR PRN #30 tablet 09/20/19 Unknown Rx diphenhydrAMINE [Benadryl CAP] 25 mg PO Q8HR PRN #30 capsule 09/20/19 Unknown Rx Acetaminophen [Acetaminophen 8 650 mg PO Q8H PRN #20 tablet.er 10/02/19 Unknown Rx Hour] Amoxicillin [Amoxicillin TAB] 875 mg PO BID #20 tablet 10/02/19 Unknown Rx Nystas/Diphen/Xyl Visc/Mylanta 15 ml MM Q6H PRN 5 Days ml 10/02/19 Unknown Rx [Magic Mouthwash] predniSONE [Deltasone] 20 mg PO QDAY #5 tab 10/31/19 Unknown Rx traMADoL [Ultram] 50 mg PO Q6HR PRN #12 tablet 10/31/19 Unknown Rx Cyclobenzaprine [Flexeril] 10 mg PO QHS PRN #10 tablet 12/08/19 Unknown Rx Naproxen [EC-Naprosyn] 375 mg PO BID PRN #14 tablet.dr 12/08/19 Unknown Rx metroNIDAZOLE [Flagyl TAB] 500 mg PO Q12HR #14 tab 01/17/20 Unknown Rx Benzonatate 200 mg PO TID PRN #21 capsule 02/07/20 Unknown Rx Famotidine [Pepcid] 20 mg PO BID PRN #14 tablet 02/07/20 Unknown Rx Ondansetron [Zofran Odt] 4 mg PO Q8HR PRN #15 tab.rapdis 02/07/20 Unknown Rx Allergies Allergy/AdvReac Type Severity Reaction Status Date / Time aspirin Allergy Vomiting Verified 03/30/19 16:06 codeine Allergy Vomiting Verified 03/30/19 16:06 ED Review of Systems ROS: Stated complaint: BODYACHES/COUGH/RUNNYNOSE Other details as noted in HPI Constitutional: chills, malaise, weakness. denies: diaphoresis, fever ENT: denies: throat pain Respiratory: cough, shortness of breath Cardiovascular: denies: chest pain Gastrointestinal: abdominal pain, nausea, vomiting. denies: diarrhea, constipation, hematemesis, melena, hematochezia Genitourinary: denies: urgency, dysuria, frequency, hematuria Musculoskeletal: denies: back pain Skin: denies: lesions Neurological: denies: headache ED Past Medical Hx - Past Medical History Previous Medical History?: Yes Hx Psychiatric Treatment: Yes (depression) Additional medical history: GPD deficiency, chronic anemia secondary to fibroids - Surgical History Past Surgical History?: Yes Additional Surgical History: tubal ligation - Social History Smoking Status: Never Smoker Substance Use Type: None - Medications Home Medications: Home Medications Medication Instructions Recorded Confirmed Last Taken Type Cetirizine HCl [ZyrTEC] 10 mg PO DAILY #30 tab.rapdis 03/05/19 Unknown Rx Fluticasone [Flonase] 1 spray NS QDAY #1 bottle 03/05/19 Unknown Rx guaiFENesin/DEXTROMETHORPHAN 10 ml PO Q6HR #1 bottle 03/05/19 Unknown Rx [Robitussin Cough-Chest Dm Liq] Meclizine [Antivert] 25 mg PO TID PRN #20 tablet 03/31/19 Unknown Rx Ondansetron [Zofran Odt] 4 mg PO Q8HR PRN #14 tab.rapdis 03/31/19 Unknown Rx tiZANidine [Zanaflex] 4 mg PO Q8H PRN #15 tablet 04/03/19 Unknown Rx traMADoL [Ultram 50 MG tab] 50 mg PO Q6HR PRN #10 tablet 04/06/[address] [Voltaren Dr] 75 mg PO BID #20 tablet 06/14/19 Unknown Rx Gabapentin 300 mg PO Q8HR #30 capsule 06/14/19 Unknown Rx Prednisone [predniSONE 5 mg (6-Day 5 mg PO .TAPER #1 tab.ds.pk 06/18/19 Unknown Rx Pack, 21 Tabs)] diphenhydrAMINE [Benadryl CAP] 25 mg PO Q8HR #30 capsule 06/18/19 Unknown Rx Ciprofloxacin HCl [Ciprofloxacin 500 mg PO Q12HR 3 Days #6 tab 09/07/19 Unknown Rx TAB] Prednisone [predniSONE 10 mg 10 mg PO .TAPER #1 tab.ds.pk 09/07/19 Unknown Rx (6-Day Pack, 21 Tabs)] methOCARBAMOL [Robaxin TAB] 500 mg PO Q8HR PRN #20 tablet 09/07/19 Unknown Rx traMADoL [Ultram] 50 mg PO Q6HR PRN #7 tablet 09/07/19 Unknown Rx Acetaminophen [Acetaminophen TAB] 1,000 mg PO Q6HR PRN #30 tablet 09/20/19 Unknown Rx diphenhydrAMINE [Benadryl CAP] 25 mg PO Q8HR PRN #30 capsule 09/20/19 Unknown Rx Acetaminophen [Acetaminophen 8 650 mg PO Q8H PRN #20 tablet.er 10/02/19 Unknown Rx Hour] Amoxicillin [Amoxicillin TAB] 875 mg PO BID #20 tablet 10/02/19 Unknown Rx Nystas/Diphen/Xyl Visc/Mylanta 15 ml MM Q6H PRN 5 Days ml 10/02/19 Unknown Rx [Magic Mouthwash] predniSONE [Deltasone] 20 mg PO QDAY #5 tab 10/31/19 Unknown Rx traMADoL [Ultram] 50 mg PO Q6HR PRN #12 tablet 10/31/19 Unknown Rx Cyclobenzaprine [Flexeril] 10 mg PO QHS PRN #10 tablet 12/08/19 Unknown Rx Naproxen [EC-Naprosyn] 375 mg PO BID PRN #14 tablet.dr 12/08/19 Unknown Rx metroNIDAZOLE [Flagyl TAB] 500 mg PO Q12HR #14 tab 01/17/20 Unknown Rx Benzonatate 200 mg PO TID PRN #21 capsule 02/07/20 Unknown Rx Famotidine [Pepcid] 20 mg PO BID PRN #14 tablet 02/07/20 Unknown Rx Ondansetron [Zofran Odt] 4 mg PO Q8HR PRN #15 tab.rapdis 02/07/20 Unknown Rx ED Physical Exam - General Limitations: No Limitations General appearance: alert, in no apparent distress - Head Head exam: Present: atraumatic, normocephalic - Eye Eye exam: Present: normal appearance - ENT ENT exam: Present: normal orophraynx, mucous membranes moist - Neck Neck exam: Present: normal inspection, full ROM. Absent: tenderness - Respiratory Respiratory exam: Present: normal lung sounds bilaterally. Absent: respiratory distress - Cardiovascular Cardiovascular Exam: Present: regular rate, normal rhythm. Absent: systolic murmur, diastolic murmur, rubs, gallop - GI/Abdominal GI/Abdominal exam: Present: soft, tenderness (Mild epigastric), normal bowel sounds. Absent: distended, guarding, rebound, rigid - Extremities Exam Extremities exam: Present: normal inspection - Back Exam Back exam: Present: normal inspection - Neurological Exam Neurological exam: Present: alert, oriented X3 - Psychiatric Psychiatric exam: Present: normal affect, normal mood - Skin Skin exam: Present: warm, dry, intact, normal color. Absent: rash, cyanosis, diaphoretic, petechiae, ecchymosis ED Course Vital Signs 02/06/20 02/06/20 17:23 20:37 Temperature 98.0 F 98.4 F Pulse Rate 75 69 Respiratory 20 17 Rate Blood Pressure 104/46 Blood Pressure 115/63 [Left] O2 Sat by Pulse 100 100 Oximetry ED Medical Decision Making - Lab Data Result diagrams: 02/06/20 21:54 02/06/20 21:54 Lab Results 02/06/20 02/06/20 02/06/20 Range/Units 21:54 21:54 23:56 WBC 9.5 (4.5-11.0) K/mm3 RBC 4.77 (3.65-5.03) M/mm3 Hgb 12.3 (10.1-14.3) gm/dl Hct 38.2 (30.3-42.9) % MCV 80 (79-97) fl MCH 26 L (28-32) pg MCHC 32 (30-34) % RDW 18.1 H (13.2-15.2) % Plt Count 179 (140-440) K/mm3 Lymph % (Auto) 26.6 (13.4-35.0) % Villalba % (Auto) 8.1 H (0.0-7.3) % Eos % (Auto) 1.9 (0.0-4.3) % Baso % (Auto) 0.8 (0.0-1.8) % Lymph # 2.5 (1.2-5.4) K/mm3 Villalba # 0.8 (0.0-0.8) K/mm3 Eos # 0.2 (0.0-0.4) K/mm3 Baso # 0.1 (0.0-0.1) K/mm3 Seg Neutrophils % 62.6 (40.0-70.0) % Seg Neutrophils # 5.9 (1.8-7.7) K/mm3 Sodium 139 (137-145) mmol/L Potassium 4.1 (3.6-5.0) mmol/L Chloride 103.8 (98-107) mmol/L Carbon Dioxide 22 (22-30) mmol/L Anion Gap 17 mmol/L BUN 8 (7-17) mg/dL Creatinine 0.7 (0.7-1.2) mg/dL Estimated GFR > 60 ml/min BUN/Creatinine Ratio 11 % Glucose 115 H (65-100) mg/dL Calcium 10.3 H (8.4-10.2) mg/dL Total Bilirubin 0.20 (0.1-1.2) mg/dL AST 16 (5-40) units/L ALT 13 (7-56) units/L Alkaline Phosphatase 111 (35-129) units/L Total Protein 7.5 (6.3-8.2) g/dL Albumin 4.0 (3.9-5) g/dL Albumin/Globulin Ratio 1.1 % Lipase 20 (13-60) units/L Urine Bilirubin Neg (Negative) Urine RBC (Auto) 5.0 (0.0-6.0) /HPF U Epithel Cells (Auto) 2.0 (0-13.0) /HPF - Radiology Data Radiology results: report reviewed CHEST 2 VIEWS INDICATION / CLINICAL INFORMATION: MAIN: cough;Pt. c/o body aches, cough, runny nose and sore throat.. COMPARISON: Chest radiograph 01/07/2020 FINDINGS: SUPPORT DEVICES: None. HEART / MEDIASTINUM: No significant abnormality. LUNGS / PLEURA: No significant pulmonary or pleural abnormality. No pneumothorax. ADDITIONAL FINDINGS: No significant additional findings. IMPRESSION: No acute finding. No significant change. - Medical Decision Making Patient here with complaints ofbody aches, cough, shortness of breath, nausea/vomiting, and abdominal pain x this morning. Vitals are normal. CBC, CMP, and lipase are normal. Chest x-ray and rapid flu are negative. Patient is nontoxic-appearing. She is stable for discharge home with treatment for viral syndrome. Recommend follow-up with primary care provider in 3 days. Discussed strict return precautions in great detail with patient who verbalizes understanding. Critical care attestation.: If time is entered above; I have spent that time in minutes in the direct care of this critically ill patient, excluding procedure time. ED Disposition Clinical Impression: Viral syndrome, Epigastric abdominal pain Disposition: - TO HOME OR SELFCARE Is pt being admited?: No Condition: Stable Instructions: Viral Syndrome (ED), Abdominal Pain (ED) Prescriptions: Benzonatate 200 mg PO TID PRN #21 capsule PRN Reason: Cough Famotidine [Pepcid] 20 mg PO BID PRN #14 tablet PRN Reason: heartburn Ondansetron [Zofran Odt] 4 mg PO Q8HR PRN #15 tab.rapdis PRN Reason: Nausea Referrals: AYANA GRIMM MD [Primary Care Provider] - 3-5 Days ED Shortness of Breath MDM - MDM DVT Risk Factors: denies: Cast, Recent Orthopedic Procedure, Cancer, Recent Surgery-Other, Bedridden, Paralysis, Prior DVT/PE, Leg Swelling - Wells Criteria Clinical Symptoms of DVT: (0) No No Alternative Diagnosis: (0) No Immobilization of Surgery in Previous 4 Weeks: (0) No Previous DVT/PE: (0) No Hemoptysis: (0) No Malignancy: (0) No
--- NOTE | 2020-02-06 21:54 | XRay Report ---
CHEST 2 VIEWS INDICATION / CLINICAL INFORMATION: MAIN: cough;Pt. c/o body aches, cough, runny nose and sore throat.. COMPARISON: Chest radiograph 01/07/2020 FINDINGS: SUPPORT DEVICES: None. HEART / MEDIASTINUM: No significant abnormality. LUNGS / PLEURA: No significant pulmonary or pleural abnormality. No pneumothorax. ADDITIONAL FINDINGS: No significant additional findings. IMPRESSION: No acute finding. No significant change. Signer Name: Jose Batista MD Signed: 02/06/2020 9:50 PM Workstation Name: [id number]
[2020-02-06 22:22] LABS: Basophils # (Auto) 0.1 K/mm3 (0.0-0.1); Basophils % (Auto) 0.8 % (0.0-1.8); Eosinophils # (Auto) 0.2 K/mm3 (0.0-0.4); Eosinophils % (Auto) 1.9 % (0.0-4.3); Hematocrit 38.2 % (30.3-42.9); Hemoglobin 12.3 gm/dl (10.1-14.3); Lymphocytes # (Auto) 2.5 K/mm3 (1.2-5.4); Lymphocytes % (Auto) 26.6 % (13.4-35.0); Mean Corpuscular HGB Conc 32 % (30-34); Mean Corpuscular Volume 80 fl (79-97); Monocytes # (Auto) 0.8 K/mm3 (0.0-0.8); Monocytes % (Auto) 8.1 % (0.0-7.3); Platelet Count 179 K/mm3 (140-440); Red Blood Count 4.77 M/mm3 (3.65-5.03); Red Cell Distribution Width 18.1 % (13.2-15.2)
[2020-02-06 22:27] LABS: Alanine Aminotransferase 13 units/L (7-56); BUN/Creatinine Ratio 11; Blood Urea Nitrogen 8 mg/dL (7-17); Calcium 10.3 mg/dL (8.4-10.2); Hemolysis Index 11
[2020-02-07 00:12] LABS: Bacteria,Urine 1+ /HPF (Negative); Bilirubin,Urine NEG (Negative); Blood,Urine NEG (Negative); Color,Urine Yellow (Yellow); Mucus,Urine 2+ /HPF; Protein,Urine <15 mg/dL mg/dL (Negative); Urobilinogen,Urine < 2.0 mg/dL (<2.0)
[2020-02-07 01:00] VITALS: BP 108/47
[2020-02-07] MEDS ORDERED: ONDANSETRON 4 MG ODT TAB PO ONE (01:49)
[2020-02-07] MEDS ORDERED: ONDANSETRON 4 MG ODT TAB ONE (01:51)
== END 2020-02-07 01:16 | disposition home or self-care (01) ==
LOC: ED 17:12
DX: R10.13 Epigastric pain (principal); B34.9 Viral infection, unspecified; F32.9 Major depressive disorder, single episode, unspecified; D55.0 Anemia due to glucose-6-phosphate dehydrogenase [G6PD] deficiency; Z98.51 Tubal ligation status; Z79.2 Long term (current) use of antibiotics; Z79.899 Other long term (current) drug therapy; Z88.6 Allergy status to analgesic agent; Z88.8 Allergy status to other drugs, medicaments and biological substances
CPT/HCPCS: 36415; 71046; 80053; 81001; 83690; 85025; 87400; Q0162

== ENCOUNTER 2020-02-07 02:06 | Emergency (ER) | payer MEDICARE ==
--- NOTE | 2020-02-07 02:43 | Emergency Department Report ---
ED Psych HPI - General Chief Complaint: Psych Stated Complaint: DEPRESSION Time Seen by Provider: 02/07/20 02:40 Source: patient Mode of arrival: Ambulatory - History of Present Illness Initial Comments: Patient is 59 years old female with no significant past medical history except for chronic anemia and depression. Patient presented to the ER complaining of depression for the last 8 weeks. Patient stated [place] Patient denied any suicidal ideation or suicidal attempt. Patient also denied any visual or auditory hallucination. MD Complaint: feels depressed -: week(s) Associated Psychiatric Symptoms: depression History of same: Yes Quality: constant Improves With: none Associated Symptoms: denies other symptoms Treatments Prior to Arrival: none - Related Data Previous Rx's Medication Instructions Recorded Last Taken Type Benzonatate 200 mg PO TID PRN #21 capsule 02/07/20 Unknown Rx Famotidine [Pepcid] 20 mg PO BID PRN #14 tablet 02/07/20 Unknown Rx Ondansetron [Zofran Odt] 4 mg PO Q8HR PRN #15 tab.rapdis 02/07/20 Unknown Rx Acetaminophen [Tylenol] 650 mg PO QHS PRN #30 capsule 02/09/20 Unknown Rx Nitrofurantoin Sherman/M-Cryst 100 mg PO BID 7 Days #14 capsule 02/09/20 Unknown Rx [Macrobid CAP] Allergies Allergy/AdvReac Type Severity Reaction Status Date / Time aspirin Allergy Vomiting Verified 03/30/19 16:06 codeine Allergy Vomiting Verified 03/30/19 16:06 ED Review of Systems ROS: Stated complaint: DEPRESSION Other details as noted in HPI Comment: All other systems reviewed and negative Constitutional: denies: chills, fever Respiratory: denies: cough, shortness of breath Cardiovascular: denies: chest pain, palpitations Gastrointestinal: denies: abdominal pain, nausea, vomiting, diarrhea, constipation, hematemesis, melena, hematochezia Musculoskeletal: denies: back pain Neurological: denies: headache, weakness, numbness, paresthesias, confusion, abnormal gait ED Past Medical Hx - Past Medical History Previous Medical History?: Yes Hx Psychiatric Treatment: Yes (depression) Additional medical history: GPD deficiency, chronic anemia secondary to fibroids - Surgical History Past Surgical History?: Yes Additional Surgical History: tubal ligation - Social History Smoking Status: Never Smoker Substance Use Type: None - Medications Home Medications: Home Medications Medication Instructions Recorded Confirmed Last Taken Type Benzonatate 200 mg PO TID PRN #21 capsule 02/07/20 02/07/20 Unknown Rx Famotidine [Pepcid] 20 mg PO BID PRN #14 tablet 02/07/20 02/07/20 Unknown Rx Ondansetron [Zofran Odt] 4 mg PO Q8HR PRN #15 tab.rapdis 02/07/20 02/07/20 Unknown Rx Acetaminophen [Tylenol] 650 mg PO QHS PRN #30 capsule 02/09/20 Unknown Rx Nitrofurantoin Sherman/M-Cryst 100 mg PO BID 7 Days #14 capsule 02/09/20 Unknown Rx [Macrobid CAP] ED Physical Exam - General Limitations: No Limitations General appearance: alert, in no apparent distress - Head Head exam: Present: atraumatic, normocephalic, normal inspection - Eye Eye exam: Present: normal appearance - ENT ENT exam: Present: normal exam, normal orophraynx, mucous membranes moist - Neck Neck exam: Present: normal inspection, full ROM. Absent: tenderness, meningismus - Respiratory Respiratory exam: Present: normal lung sounds bilaterally - Cardiovascular Cardiovascular Exam: Present: regular rate, normal rhythm, normal heart sounds - GI/Abdominal GI/Abdominal exam: Present: soft, normal bowel sounds. Absent: distended, tenderness, guarding, rebound, rigid, organomegaly, mass, bruit, pulsatile mass, hernia - Extremities Exam Extremities exam: Present: normal inspection, full ROM, normal capillary refill. Absent: pedal edema, calf tenderness - Back Exam Back exam: Present: normal inspection, full ROM. Absent: CVA tenderness (R), CVA tenderness (L) - Neurological Exam Neurological exam: Present: alert, oriented X3, CN II-XII intact, normal gait, reflexes normal. Absent: motor sensory deficit - Psychiatric Psychiatric exam: Present: depressed. Absent: agitated, anxious, flat affect, manic, homicidal ideation, suicidal ideation - Skin Skin exam: Present: warm, intact, normal color ED Course Vital Signs 02/07/20 02/07/20 02:58 07:46 Temperature 98.7 F 97.4 F L Pulse Rate 64 79 Respiratory 16 20 Rate Blood Pressure 116/82 123/38 [Right] O2 Sat by Pulse 100 98 Oximetry Critical care attestation.: If time is entered above; I have spent that time in minutes in the direct care of this critically ill patient, excluding procedure time. ED Disposition Clinical Impression: Depression Disposition: DC-01 TO HOME OR SELFCARE Is pt being admited?: No Condition: Stable Instructions: Depression (ED) Additional Instructions: return if worse Referrals: [facility] [Outside] - 3-5 Days PRIMARY CARE, [Primary Care Provider] - 3-5 Days
[2020-02-07 04:16] LABS: Amphetamine Screen,Urine PRESUMPTIVE NEGATIVE; Benzodiazepines Screen,Urine PRESUMPTIVE NEGATIVE; Cannabinoid Screen,Urine PRESUMPTIVE NEGATIVE; Cocaine Screen,Urine PRESUMPTIVE NEGATIVE; Methadone Screen,Urine PRESUMPTIVE NEGATIVE; Opiate Screen,Urine PRESUMPTIVE NEGATIVE
[2020-02-07 07:47] VITALS: BP 123/38
== END 2020-02-07 13:45 | disposition home or self-care (01) ==
LOC: ED 02:06
DX: F32.9 Major depressive disorder, single episode, unspecified (principal); D64.9 Anemia, unspecified; Z88.6 Allergy status to analgesic agent; Z79.899 Other long term (current) drug therapy; Z98.51 Tubal ligation status
CPT/HCPCS: 36415; 80307; 80320; 99283; 99284; G0480

== ENCOUNTER 2020-02-08 20:36 | Emergency (ER) | payer MEDICARE ==
[2020-02-08 21:09] VITALS: BP 113/46
[2020-02-09 02:15] LABS: Bilirubin,Urine NEG (Negative); Blood,Urine NEG (Negative); Calcium Oxalate Crystals,Urine 2+; Color,Urine Yellow (Yellow); Mucus,Urine 3+ /HPF; Protein,Urine <15 mg/dL mg/dL (Negative); Urobilinogen,Urine < 2.0 mg/dL (<2.0)
[2020-02-09 02:18] LABS: Basophils # (Auto) 0.1 K/mm3 (0.0-0.1); Basophils % (Auto) 0.6 % (0.0-1.8); Eosinophils # (Auto) 0.2 K/mm3 (0.0-0.4); Hematocrit 37.3 % (30.3-42.9); Hemoglobin 11.9 gm/dl (10.1-14.3); Lymphocytes # (Auto) 1.7 K/mm3 (1.2-5.4); Lymphocytes % (Auto) 18.4 % (13.4-35.0); Mean Corpuscular HGB Conc 32 % (30-34); Mean Corpuscular Volume 81 fl (79-97); Monocytes # (Auto) 0.8 K/mm3 (0.0-0.8); Monocytes % (Auto) 8.4 % (0.0-7.3); Platelet Count 167 K/mm3 (140-440); Red Blood Count 4.63 M/mm3 (3.65-5.03); Red Cell Distribution Width 18.3 % (13.2-15.2)
--- NOTE | 2020-02-09 02:33 | Emergency Department Report ---
ED Female HPI - General Chief complaint: Urogenital-Female Stated complaint: ABD PAIN LOWER BACK PAIN Time Seen by Provider: 02/09/20 01:47 Source: patient Mode of arrival: Ambulatory Limitations: No Limitations - History of Present Illness Initial comments: Mr. Thayer is a 59 y/o aaf with hx of depression who presents for dysuria ,frequency, urgency for past 3 days, she was seen in this ed on 02/06/2020 for same with nbrmal workup, and on 02/07/2020 for depression. pt denies depression today, she denies fever or chills, and no n/v. There is intermittent maliase. symptoms are exacerbated by activity, symptoms are relieved by nothing tried. MD Complaint: dysuria Onset/Timin -: days(s) Severity: moderate Severity scale (0 -10): 3 Quality: burning Consistency: intermittent Improves with: none Worsens with: urination Are you Now?: No Associated Symptoms: abdominal pain, dysuria. denies: vaginal discharge, vaginal bleeding, nausea/vomiting, fever/chills, headaches, hematuria, rash, weakness - Related Data Sexually active: No Previous Rx's Medication Instructions Recorded Last Taken Type Benzonatate 200 mg PO TID PRN #21 capsule 02/07/20 Unknown Rx Famotidine [Pepcid] 20 mg PO BID PRN #14 tablet 02/07/20 Unknown Rx Ondansetron [Zofran Odt] 4 mg PO Q8HR PRN #15 tab.rapdis 02/07/20 Unknown Rx Acetaminophen [Tylenol] 650 mg PO QHS PRN #30 capsule 02/09/20 Unknown Rx Nitrofurantoin Haakon/M-Cryst 100 mg PO BID 7 Days #14 capsule 02/09/20 Unknown Rx [Macrobid CAP] Allergies Allergy/AdvReac Type Severity Reaction Status Date / Time aspirin Allergy Vomiting Verified 03/30/19 16:06 codeine Allergy Vomiting Verified 03/30/19 16:06 ED Review of Systems ROS: Stated complaint: ABD PAIN LOWER BACK PAIN Other details as noted in HPI Constitutional: denies: chills, fever Eyes: denies: eye pain, eye discharge, vision change ENT: denies: ear pain, throat pain Respiratory: denies: cough, shortness of breath, wheezing Cardiovascular: denies: chest pain, palpitations Endocrine: no symptoms reported Gastrointestinal: denies: abdominal pain, nausea, vomiting, diarrhea, constipation Genitourinary: urgency, dysuria, frequency. denies: hematuria, discharge Musculoskeletal: denies: back pain, joint swelling, arthralgia Skin: as per HPI Neurological: denies: headache, weakness, paresthesias Psychiatric: denies: anxiety, depression Hematological/Lymphatic: denies: easy bleeding, easy bruising ED Past Medical Hx - Past Medical History Previous Medical History?: Yes Hx Psychiatric Treatment: Yes (depression) Additional medical history: GPD deficiency, chronic anemia secondary to fibroids - Surgical History Past Surgical History?: Yes Additional Surgical History: tubal ligation - Social History Smoking Status: Never Smoker Substance Use Type: None - Medications Home Medications: Home Medications Medication Instructions Recorded Confirmed Last Taken Type Benzonatate 200 mg PO TID PRN #21 capsule 02/07/20 02/07/20 Unknown Rx Famotidine [Pepcid] 20 mg PO BID PRN #14 tablet 02/07/20 02/07/20 Unknown Rx Ondansetron [Zofran Odt] 4 mg PO Q8HR PRN #15 tab.rapdis 02/07/20 02/07/20 Unknown Rx Acetaminophen [Tylenol] 650 mg PO QHS PRN #30 capsule 02/09/20 Unknown Rx Nitrofurantoin Haakon/M-Cryst 100 mg PO BID 7 Days #14 capsule 02/09/20 Unknown Rx [Macrobid CAP] ED Physical Exam - General Limitations: No Limitations General appearance: alert, in no apparent distress - Head Head exam: Present: atraumatic, normocephalic - Eye Eye exam: Present: normal appearance, PERRL, EOMI Pupils: Present: normal accommodation - ENT ENT exam: Present: mucous membranes moist. Absent: normal orophraynx, TM's normal bilaterally, normal external ear exam - Neck Neck exam: Present: normal inspection, full ROM. Absent: tenderness, lymphadenopathy, thyromegaly - Respiratory Respiratory exam: Present: normal lung sounds bilaterally. Absent: respiratory distress, wheezes, stridor, chest wall tenderness - Cardiovascular Cardiovascular Exam: Present: regular rate, normal rhythm, normal heart sounds. Absent: systolic murmur, diastolic murmur, rubs, gallop - GI/Abdominal GI/Abdominal exam: Present: soft, normal bowel sounds. Absent: distended, tenderness, guarding, rebound, rigid, bruit, hernia - Rectal Rectal exam: Present: deferred - External exam: Present: other (exam deferred by patient ) - Extremities Exam Extremities exam: Present: normal inspection, full ROM. Absent: tenderness - Back Exam Back exam: Present: normal inspection, full ROM. Absent: tenderness, CVA tenderness (R), CVA tenderness (L), vertebral tenderness - Neurological Exam Neurological exam: Present: alert, oriented X3, CN II-XII intact, normal gait, reflexes normal - Psychiatric Psychiatric exam: Present: normal affect, normal mood - Skin Skin exam: Present: warm, dry, intact, normal color. Absent: rash ED Course Vital Signs 02/08/20 21:08 Temperature 98.2 F Pulse Rate 73 Respiratory 18 Rate Blood Pressure 113/46 O2 Sat by Pulse 100 Oximetry ED Medical Decision Making - Lab Data Result diagrams: 02/09/20 02:02 02/09/20 02:02 - EKG Data Rate: normal - Radiology Data cxr normal on 02/06/2020 , labs noted normal exception mild WBCs in urine. Given urinary symptoms we will treat with Macrobid and ibuprofen patient will follow- up with PCP in 2 to 3 days patient verbalized agreement and understanding with discharge plan patient DC'd home in stable condition at this time - Medical Decision Making cxr normal on 02/06/2020 , labs noted normal exception mild WBCs in urine. Given urinary symptoms we will treat with Macrobid and ibuprofen patient will follow- up with PCP in 2 to 3 days patient verbalized agreement and understanding with discharge plan patient DC'd home in stable condition at this time Critical care attestation.: If time is entered above; I have spent that time in minutes in the direct care of this critically ill patient, excluding procedure time. ED Disposition Clinical Impression: Dysuria Disposition: DC-01 TO HOME OR SELFCARE Is pt being admited?: No Does the pt Need Aspirin: No Condition: Critical Instructions: Dysuria (ED) Prescriptions: Acetaminophen [Tylenol] 650 mg PO QHS PRN #30 capsule PRN Reason: pain Nitrofurantoin Haakon/M-Cryst [Macrobid CAP] 100 mg PO BID 7 Days #14 capsule Referrals: AYANA GRIMM MD [Primary Care Provider] - 3-5 Days Forms: Work/School Release Form(ED) Time of Disposition: 03:36
[2020-02-09 02:46] LABS: Alanine Aminotransferase 15 units/L (7-56); Albumin 4.1 g/dL (3.9-5); BUN/Creatinine Ratio 19; Blood Urea Nitrogen 13 mg/dL (7-17); Calcium 10.2 mg/dL (8.4-10.2); Hemolysis Index 5
== END 2020-02-09 03:48 | disposition home or self-care (01) ==
LOC: ED 20:36
DX: R30.0 Dysuria (principal); R35.0 Frequency of micturition; R39.15 Urgency of urination; F32.9 Major depressive disorder, single episode, unspecified; D64.9 Anemia, unspecified; Z98.51 Tubal ligation status; Z79.899 Other long term (current) drug therapy; Z88.6 Allergy status to analgesic agent; Z88.8 Allergy status to other drugs, medicaments and biological substances
CPT/HCPCS: 36415; 80053; 81001; 83690; 85025

== ENCOUNTER 2020-03-28 21:42 | Emergency (ER) | payer MEDICARE ==
[2020-03-28 21:50] VITALS: BP 116/71
--- NOTE | 2020-03-28 22:09 | Emergency Department Report ---
ED Psych HPI - General Chief Complaint: Psych Stated Complaint: DEPRESSION NEED HELP Time Seen by Provider: 03/28/20 21:58 Source: patient Mode of arrival: Ambulatory Limitations: No Limitations - History of Present Illness Initial Comments: Patient is a 59-year-old female that presents emergency room with complaints of depression. Patient states she ran out of her antidepressant medication 1 week ago. Patient states she is under a lot of stress. Patient dates she is having significant life stressors. Patient states that she was placed on Prozac and ran out 1 week ago. Patient states her depression has returned and gotten worse since stopping it. Patient states her depression did improve with the Prozac. Patient denies suicidal and homicidal ideation. Patient denies hallucinations. Patient denies psychotic symptoms. Patient states she just wants to have a refill of her Prozac or some help for her depression. Patient states she was seen earlier today for chest pain and was discharged after her chest pain was cleared. Patient denies recent travel. Patient denies recent international travel. Patient denies exposure to the novel coronavirus. Patient denies sick contacts. Patient denies fever and chills. Patient denies cough. Patient denies diarrhea. Patient denies coming in contact with anybody with symptoms of the no marilynn coronavirus. Complaint: feels depressed -: Gradual Associated Psychiatric Symptoms: depression History of same: Yes Quality: constant Improves With: medication Worsens With: other (Missed medications) Context: not taking psychiatric, significant life stressor Associated Symptoms: denies: confusion, headache, shortness of breath, nausea, vomiting, syncope, insomnia Treatments Prior to Arrival: none - Related Data Previous Rx's Medication Instructions Recorded Last Taken Type Benzonatate 200 mg PO TID PRN #21 capsule 02/07/20 Unknown Rx Famotidine [Pepcid] 20 mg PO BID PRN #14 tablet 02/07/20 Unknown Rx Ondansetron [Zofran Odt] 4 mg PO Q8HR PRN #15 tab.rapdis 02/07/20 Unknown Rx Acetaminophen [Tylenol] 650 mg PO QHS PRN #30 capsule 02/09/20 Unknown Rx Nitrofurantoin [place]/M-Cryst 100 mg PO BID 7 Days #14 capsule 02/09/20 Unknown Rx [Macrobid CAP] Cyclobenzaprine HCl [Flexeril 5 MG 5 mg PO TID PRN #21 tab 03/28/20 Unknown Rx TAB] Allergies Allergy/AdvReac Type Severity Reaction Status Date / Time aspirin Allergy Vomiting Verified 03/30/19 16:06 codeine Allergy Vomiting Verified 03/30/19 16:06 ED Review of Systems ROS: Stated complaint: DEPRESSION NEED HELP Other details as noted in HPI Constitutional: denies: chills, fever Eyes: denies: eye pain, eye discharge, vision change ENT: denies: ear pain, throat pain Respiratory: denies: cough, shortness of breath, wheezing Cardiovascular: denies: chest pain, palpitations Endocrine: no symptoms reported Gastrointestinal: denies: abdominal pain, nausea, diarrhea Genitourinary: denies: urgency, dysuria, discharge Musculoskeletal: denies: back pain, joint swelling, arthralgia Skin: denies: rash, lesions Neurological: denies: headache, weakness, paresthesias Psychiatric: anxiety, depression. denies: auditory hallucinations, visual hallucinations, homicidal thoughts, suicidal thoughts Hematological/Lymphatic: denies: easy bleeding, easy bruising ED Past Medical Hx - Past Medical History Previous Medical History?: Yes Hx Psychiatric Treatment: Yes (depression) Additional medical history: GPD deficiency, chronic anemia secondary to fibroids - Surgical History Past Surgical History?: Yes Additional Surgical History: tubal ligation - Family History Family history: no significant - Social History Smoking Status: Never Smoker Substance Use Type: None - Medications Home Medications: Home Medications Medication Instructions Recorded Confirmed Last Taken Type Benzonatate 200 mg PO TID PRN #21 capsule 02/07/20 02/07/20 Unknown Rx Famotidine [Pepcid] 20 mg PO BID PRN #14 tablet 02/07/20 02/07/20 Unknown Rx Ondansetron [Zofran Odt] 4 mg PO Q8HR PRN #15 tab.rapdis 02/07/20 02/07/20 Unknown Rx Acetaminophen [Tylenol] 650 mg PO QHS PRN #30 capsule 02/09/20 Unknown Rx Nitrofurantoin [place]/M-Cryst 100 mg PO BID 7 Days #14 capsule 02/09/20 Unknown Rx [Macrobid CAP] Cyclobenzaprine HCl [Flexeril 5 MG 5 mg PO TID PRN #21 tab 03/28/20 Unknown Rx TAB] ED Physical Exam - General Limitations: No Limitations General appearance: alert, in no apparent distress - Head Head exam: Present: atraumatic, normocephalic - Eye Eye exam: Present: normal appearance - ENT ENT exam: Present: mucous membranes moist - Neck Neck exam: Present: normal inspection - Respiratory Respiratory exam: Present: normal lung sounds bilaterally. Absent: respiratory distress - Cardiovascular Cardiovascular Exam: Present: regular rate, normal rhythm. Absent: systolic murmur, diastolic murmur, rubs, gallop - GI/Abdominal GI/Abdominal exam: Present: soft, normal bowel sounds - Extremities Exam Extremities exam: Present: normal inspection - Back Exam Back exam: Present: normal inspection - Neurological Exam Neurological exam: Present: alert, oriented X3 - Psychiatric Psychiatric exam: Present: normal affect, normal mood - Skin Skin exam: Present: warm, dry, intact, normal color. Absent: rash ED Course Vital Signs 03/28/20 03/28/20 21:47 22:29 Temperature 98.2 F Pulse Rate 75 Respiratory 16 17 Rate Blood Pressure 116/71 O2 Sat by Pulse 98 Oximetry - Reevaluation(s) Reevaluation #1: Evaluation done. I discussed all clinical findings with patient. I discussed plan of care with patient. Patient agrees with plan of care. Patient is stable for discharge. Patient will be discharged home. Patient given discharge instructions. Patient voiced understanding of discharge instructions. Patient does not have an emergency medical condition at time. Patient is medically cleared. Patient is cleared from a psychiatric standpoint. Patient is not having any suicidal homicidal ideations. Patient is clear to follow-up with her primary care or go to a local psychiatric recently for voluntary admission. 03/28/20 22:07 ED Medical Decision Making - Medical Decision Making Patient is a 59-year-old female that presents emergency room with complaints of depression and increased stress. Patient states that she is not having any suicidal or homicidal ideations. Patient is not have any hallucinations. Patient does not have an psychiatric condition that requires emergent 1013 or ER hold. Patient has already had labs today and was medically cleared. Patient at this time is medically and psychiatrically cleared to be managed as an outpatient. Patient discharged home and can go to a local psychiatric facility for voluntary status or follow-up with her primary care in the morning. - Differential Diagnosis Depression. Run out of medications. Missed doses. Anxiety. Critical care attestation.: If time is entered above; I have spent that time in minutes in the direct care of this critically ill patient, excluding procedure time. ED Disposition Clinical Impression: Stress reaction Depression Qualifiers: Depression Type: unspecified Qualified Code(s): F32.9 - Major depressive disorder, single episode, unspecified Disposition: DC-01 TO HOME OR SELFCARE Is pt being admited?: No Does the pt Need Aspirin: No Condition: Stable Instructions: Depression (ED) Additional Instructions: Patient to follow-up with primary care in 2 to 3 days. Patient to follow-up with psychiatrist or mental health facility within 2 days. Patient to rest. Patient to increase water. Patient to return to the ER if condition worsens, changes or new symptoms arise. Referrals: PRIMARY CAREMD [Primary Care Provider] - 2-3 Days AYANA GRIMM MD [Staff Physician] - 2-3 Days [facility] [Outside] - 2-3 Days Time of Disposition: 22:10
== END 2020-03-28 22:37 | disposition home or self-care (01) ==
LOC: ED 21:42
DX: F32.9 Major depressive disorder, single episode, unspecified (principal); F43.9 Reaction to severe stress, unspecified; D64.9 Anemia, unspecified; Z98.890 Other specified postprocedural states; Z79.899 Other long term (current) drug therapy; Z98.51 Tubal ligation status; Z88.6 Allergy status to analgesic agent
CPT/HCPCS: 99283

== ENCOUNTER 2020-12-19 11:36 | Outpatient (CLI) | payer MEDICARE ==
--- NOTE | 2020-12-19 13:12 | XRay Report ---
XR hips BILAT 2V w/pelvis INDICATION / CLINICAL INFORMATION: HIP PAIN. COMPARISON: 04/02/2019 FINDINGS: No acute fracture. Normal alignment. Joint spaces are preserved. Persistent pubic parasymphyseal sc lerosis with new areas of cystic change. Impression: 1. Findings suggesting osteitis pubis, correlate clinically. Otherwise, no significant abnormality. Signer Name: Darron Reis MD Signed: 12/19/2020 1:08 PM Workstation Name: [id number]
== END 2020-12-19 11:37 | disposition home or self-care (01) ==
LOC: XRAY 11:36
PROVIDERS: ATTEND Internal Medicine
DX: M25.551 Pain in right hip (principal); M25.552 Pain in left hip
CPT/HCPCS: 73521

== ENCOUNTER 2022-04-29 12:40 | Emergency (ER) | payer MEDICARE | END 2022-04-29 14:45 | disposition left against medical advice (07) | LOC: ED 12:40 | DX: R42 Dizziness and giddiness (principal); Z53.21 Procedure and treatment not carried out due to patient leaving prior to being seen by health care provider ==